=== PATIENT | male | born 1970 | race Two or more races ===

== ENCOUNTER 2016-06-08 07:14 | Emergency (ER) | payer MEDICAID ==
[2016-06-08] MEDS ORDERED: MAG HYDROX/AL HYDROX/SIMETH 30 ML UDC PO STA (07:45)
[2016-06-08] MEDS ORDERED: LIDOCAINE VISCOUS 2% 15 ML UDC MM STA (07:45)
[2016-06-08] MEDS ORDERED: FAMOTIDINE 20 MG/50 ML 50 ML IV ONE ×2 (07:45→07:49)
[2016-06-08] MEDS ORDERED: LIDOCAINE VISCOUS 2% 15 ML UDC MM ONE (07:50)
[2016-06-08] MEDS ORDERED: MAG HYDROX/AL HYDROX/SIMETH 30 ML UDC ONE (07:50)
[2016-06-08] MEDS ORDERED: ONDANSETRON 4 MG/2 ML VIAL IVP STA (08:29)
[2016-06-08] MEDS ORDERED: ONDANSETRON 4 MG/2 ML VIAL ONE (08:30)
[2016-06-08] MEDS ORDERED: HYDROmorphone 1 MG/ML SYRINGE IVP STA (08:40)
[2016-06-08] MEDS ORDERED: HYDROmorphone 1 MG/ML SYRINGE ONE (09:06)
== END 2016-06-08 10:50 | disposition home or self-care (01) ==
DX: K29.01 Acute gastritis with bleeding (principal); R79.89 Other specified abnormal findings of blood chemistry; E78.5 Hyperlipidemia, unspecified; I10 Essential (primary) hypertension; Z72.89 Other problems related to lifestyle; Z87.19 Personal history of other diseases of the digestive system; E11.65 Type 2 diabetes mellitus with hyperglycemia
CPT/HCPCS: 36415; 71020; 80053; 83690; 84484; 85025; 93005; 93010; 96374; 96375; 99284; A9270; J1170

== ENCOUNTER 2016-07-05 07:44 | Emergency (ER) | payer MEDICAID ==
[2016-07-05] MEDS ORDERED: LIDOCAINE VISCOUS 2% 15 ML UDC MM STA (09:17)
[2016-07-05] MEDS ORDERED: MAG HYDROX/AL HYDROX/SIMETH 30 ML UDC PO STA (09:17)
[2016-07-05] MEDS ORDERED: MAG HYDROX/AL HYDROX/SIMETH 30 ML UDC ONE (09:31)
[2016-07-05] MEDS ORDERED: LIDOCAINE VISCOUS 2% 15 ML UDC MM ONE (09:31)
== END 2016-07-05 13:22 | disposition home or self-care (01) ==
DX: K29.00 Acute gastritis without bleeding (principal); E78.5 Hyperlipidemia, unspecified; I10 Essential (primary) hypertension; E11.9 Type 2 diabetes mellitus without complications; Z86.39 Personal history of other endocrine, nutritional and metabolic disease
CPT/HCPCS: 36415; 80053; 81003; 83690; 84484; 85025; 93005; 93010; 99284; A9270

== ENCOUNTER 2016-07-14 08:13 | Outpatient (CLI) | payer MEDICAID | END 2016-07-14 08:14 | disposition home or self-care (01) | DX: K85.20 Alcohol induced acute pancreatitis without necrosis or infection (principal); E11.9 Type 2 diabetes mellitus without complications; E78.5 Hyperlipidemia, unspecified ==

== ENCOUNTER 2016-07-26 08:47 | Emergency (ER) | payer MEDICAID ==
--- NOTE | 2016-07-26 09:05 | ED Physician Documentation ---
History of Present Illness - Stated complaint Stated Complaint: BILAT HAND CAT BITES - Chief complaint Chief Complaint: Wound - Additonal information Additional information: hx from pt bit by his cat on the way to the vet to be neutered cat used to be a feral cat and is not immunized but has been an indoor cat living with pt in good health for a year now and a provoked bite Review of Systems Skin: reports: Bite / sting PD PAST MEDICAL HISTORY - Past Medical History Past Medical History: Yes Cardiovascular: High cholesterol Endocrine/Autoimmune: Type 2 diabetes GI: Pancreatitis Musculoskeletal: Chronic back pain - Past Surgical History Past Surgical History: Yes Ortho: Other - Present Medications Home Medications: Ambulatory Orders Medication Instructions Recorded Confirmed Amox/Clav 875/125 [Augmentin] 1 each PO Q12H #14 tablet 07/26/16 - Allergies Allergies/Adverse Reactions: Allergies Allergy/AdvReac Type Severity Reaction Status Date / Time naproxen [From Naprosyn] Allergy Rash Verified 07/05/16 07:49 - Social History Does the pt smoke?: No Smoking Status: Never smoker Does the pt drink ETOH?: Yes Does the pt have substance abuse?: No - Immunizations Immunizations are current?: Yes - POLST Patient has POLST: No PD ED PE NORMAL - Vitals Vital signs reviewed: Yes (BP high) - Extremities Extremities: Other (multiple lacs and punctures left nad mostly (dorsal thenar region, tip 5th finger are the largest deepest but there are approx 5 or 6 smaller more superficial injuries as well), pt reports some numbness proximal to tip of 5th lac and circumferential to thumb but this paresthesia is now very c/w the regions that would be affected by the nerves underlying these injuries - perhaps more 2/2 swelling, motor intact, no tendon weakness) Results - Vitals Vitals: Vital Signs - 24 hr 07/26/16 08:52 Temperature 36.7 C Heart Rate 85 Respiratory 16 Rate Blood Pressure 166/126 H O2 Saturation 98 Oxygen O2 Source Room air Departure - Departure Disposition: 01 Home, Self Care Clinical Impression: Cat bite of multiple sites of hand and fingers Qualifiers: Encounter type: initial encounter Laterality: unspecified laterality Qualified Code(s): S61.459A - Open bite of unspecified hand, initial encounter; S61.259A - Open bite of unspecified finger without damage to nail, initial encounter; W55.01XA - Bitten by cat, initial encounter Condition: Good Instructions: ED Bite Animal General Follow-Up: Dari Brooks ARNP [Primary Care Provider] - Prescriptions: Amox/Clav 875/125 [Augmentin] 1 each PO Q12H #14 tablet Comments: Come back and see me tomorrow for a recheck Ice and elevation will help ease the pain You can take small doses of motrin if your previous gastritis is better and you take it with plenty of food Please follow up with your PMD about your blood pressure - it was high today
[2016-07-26] MEDS ORDERED: TETANUS/DIPHTHERIA/PERTUSSIS 0.5 ML SYRINGE IM ONE ×2 (09:24→09:32)
[2016-07-26] MEDS ORDERED: AMOX/CLAV 875 MG/125 MG TABLET PO STA (09:24)
[2016-07-26] MEDS ORDERED: AMOX/CLAV 875 MG/125 MG TABLET PO ONE (09:32)
[2016-07-26 09:51] VITALS: BP 160/101
== END 2016-07-26 09:52 | disposition home or self-care (01) ==
LOC: ED 08:47
DX: S61.432A Puncture wound without foreign body of left hand, initial encounter (principal); S61.431A Puncture wound without foreign body of right hand, initial encounter; S61.237A Puncture wound without foreign body of left little finger without damage to nail, initial encounter; S61.032A Puncture wound without foreign body of left thumb without damage to nail, initial encounter; W55.01XA Bitten by cat, initial encounter; Z23 Encounter for immunization; E78.00 Pure hypercholesterolemia, unspecified; E11.9 Type 2 diabetes mellitus without complications
CPT/HCPCS: 90471; 90715; 99283; A9270

== ENCOUNTER 2016-08-15 07:10 | Emergency (ER) | payer MEDICAID ==
[2016-08-15] MEDS ORDERED: FLUCONAZOLE 100 MG TABLET PO STA (09:57)
--- NOTE | 2016-08-15 09:58 | ED Physician Documentation ---
History of Present Illness - Stated complaint Stated Complaint: RASH - Chief complaint Chief Complaint: Wound - Additonal information Additional information: hx from pt 46 amle recent ab for cat bite painful itching burning rash to buttocks and inner thighs Review of Systems Constitutional: denies: Fever Skin: reports: Rash PD PAST MEDICAL HISTORY - Past Medical History Cardiovascular: High cholesterol Endocrine/Autoimmune: Type 2 diabetes GI: Pancreatitis Musculoskeletal: Chronic back pain - Past Surgical History Past Surgical History: Yes Ortho: Other - Present Medications Home Medications: Ambulatory Orders Medication Instructions Recorded Confirmed Clotrimazole [Clotrimazole AF] 1 applic TP BID #60 cream..g. 08/15/16 - Allergies Allergies/Adverse Reactions: Allergies Allergy/AdvReac Type Severity Reaction Status Date / Time naproxen [From Naprosyn] Allergy Rash Verified 07/05/16 07:49 - Social History Does the pt smoke?: No Smoking Status: Never smoker Does the pt drink ETOH?: Yes Does the pt have substance abuse?: No - Immunizations Immunizations are current?: Yes - POLST Patient has POLST: No PD ED PE NORMAL - Vitals Vital signs reviewed: Yes - Cardiac Cardiac: RRR - Respiratory Respiratory: No respiratory distress, Clear bilaterally - Derm Derm: Other (erythemtous rad somewhat scaly rass to buttocks and inner thighs with well defined borders most s/w tinue cruris, no scrotal involvement, discharge, crepitus or ncrosis to suggest fourniers) Results - Vitals Vitals: Vital Signs - 24 hr 08/15/16 07:17 Temperature 36.0 C L Heart Rate 84 Respiratory 18 Rate Blood Pressure 148/100 H O2 Saturation 99 Oxygen O2 Source Room air Departure - Departure Disposition: 01 Home, Self Care Clinical Impression: Tinea cruris Condition: Good Instructions: ED Infec Skin Fungal Tinea Prescriptions: Clotrimazole [Clotrimazole AF] 1 applic TP BID #60 cream..g. Comments: Please follow up with your PDM for a recheck in 48 hours unless completely better Return if worse Also please follow up with your PMD about your blood pressure - it was high today
[2016-08-15] MEDS ORDERED: FLUCONAZOLE 100 MG TABLET ONE (10:04)
[2016-08-15 10:13] VITALS: BP 144/93
== END 2016-08-15 10:16 | disposition home or self-care (01) ==
LOC: ED 07:10
DX: B35.6 Tinea cruris (principal); E78.00 Pure hypercholesterolemia, unspecified; E11.9 Type 2 diabetes mellitus without complications
CPT/HCPCS: 99283; A9270

== ENCOUNTER 2016-08-25 08:55 | Outpatient (CLI) | payer MEDICAID ==
[2016-08-25 09:34] LABS: BILIRUBIN,URINE NEGATIVE (NEGATIVE); PH,URINE 6.5 PH (5.0-7.5)
[2016-08-25 09:39] LABS: UR CULTURE IF IND NOT INDICATED; WBC,URINE 0-3 /HPF (0-3)
[2016-08-25 09:43] LABS: BASOPHILS # (AUTO) 0.1 10^3/uL (0.0-0.1); BASOPHILS % (AUTO) 0.7 %; EOSINOPHILS # (AUTO) 0.1 10^3/uL (0.0-0.7); EOSINOPHILS % (AUTO) 1.7 %; HCT - HEMATOCRIT 39.2 % (42.0-52.0); HGB - HEMOGLOBIN 13.5 g/dL (14.0-18.0); LYMPHOCYTES # (AUTO) 2.1 10^3/uL (1.5-3.5); LYMPHOCYTES % (AUTO) 26.7 %; MEAN CORPUSCULAR HEMOGLOBIN 29.8 pg (27.0-31.0); MEAN CORPUSCULAR HGB CONC 34.5 g/dL (32.0-36.0); MEAN CORPUSCULAR VOLUME 86.4 fL (80.0-94.0); MEAN PLATELET VOLUME 8.6 fL (7.4-11.4); MONOCYTES # (AUTO) 0.4 10^3/uL (0.0-1.0); MONOCYTES % (AUTO) 4.7 %; NEUTROPHILS # (AUTO) 5.3 10^3/uL (1.5-6.6); NEUTROPHILS % (AUTO) 66.2 %; RED BLOOD COUNT 4.54 10^6/uL (4.70-6.10)
[2016-08-25 10:23] LABS: HEMOGLOBIN A1C 1.48 g/dL
[2016-08-25 10:27] LABS: ALBUMIN/GLOBULIN RATIO 1.1 (1.0-2.2); BILIRUBIN,TOTAL 0.7 mg/dL (0.2-1.0); BUN - BLOOD UREA NITROGEN 10 mg/dL (6-20); CALCIUM 9.1 mg/dL (8.5-10.3); CARBON DIOXIDE - CO2 23 mmol/L (21-32); CHLORIDE 103 mmol/L (101-111); CHOL/HDL RATIO 5.4 (<5.0); CHOLESTEROL 264 mg/dL; CREATININE 0.6 mg/dL (0.6-1.2); GFR - MDRD 144 (>89); GLUCOSE 293 mg/dL (70-100); HDL CHOLESTEROL 49 mg/dL; LDL/HDL RATIO 3.2 (<3.6); POTASSIUM 3.9 mmol/L (3.5-5.0); SODIUM 136 mmol/L (135-145); TOTAL PROTEIN 7.3 g/dL (6.7-8.2); TRIGLYCERIDES 290 mg/dL; VLDL CHOLESTEROL 58 mg/dL
== END 2016-08-25 08:56 | disposition home or self-care (01) ==
LOC: LAB 08:55
PROVIDERS: ATTEND Nurse Practitioner Family
DX: E11.9 Type 2 diabetes mellitus without complications (principal); E78.5 Hyperlipidemia, unspecified
CPT/HCPCS: 36415; 80053; 80061; 81001; 82043; 82570; 83036; 84443; 85025; 87086

== ENCOUNTER 2016-09-06 09:28 | Emergency (ER) | payer MEDICAID ==
[2016-09-06 09:34] VITALS: BP 146/99
[2016-09-06] MEDS ORDERED: LIDOCAINE VISCOUS 2% 15 ML UDC MM STA (10:41)
[2016-09-06] MEDS ORDERED: MAG HYDROX/AL HYDROX/SIMETH 30 ML UDC PO STA ×2 (10:42→11:42)
[2016-09-06] MEDS ORDERED: SUCRALFATE 1 GM/10 ML UDC PO STA (10:42)
[2016-09-06] MEDS ORDERED: PANTOPRAZOLE 40 MG TABLET PO STA (10:43)
[2016-09-06] MEDS ORDERED: MAG HYDROX/AL HYDROX/SIMETH 30 ML UDC ONE ×2 (10:45→11:43)
[2016-09-06] MEDS ORDERED: LIDOCAINE VISCOUS 2% 15 ML UDC MM ONE ×2 (10:45→11:43)
[2016-09-06] MEDS ORDERED: SUCRALFATE 1 GM/10 ML UDC ONE (10:45)
[2016-09-06] MEDS ORDERED: PANTOPRAZOLE 40 MG TABLET ONE (10:45)
[2016-09-06 10:56] LABS: BASOPHILS # (AUTO) 0.1 10^3/uL (0.0-0.1); BASOPHILS % (AUTO) 1.7 %; EOSINOPHILS % (AUTO) 0.5 %; HCT - HEMATOCRIT 44.6 % (42.0-52.0); LYMPHOCYTES # (AUTO) 1.8 10^3/uL (1.5-3.5); LYMPHOCYTES % (AUTO) 23.9 %; MEAN CORPUSCULAR HEMOGLOBIN 30.4 pg (27.0-31.0); MEAN CORPUSCULAR HGB CONC 35.9 g/dL (32.0-36.0); MEAN CORPUSCULAR VOLUME 84.8 fL (80.0-94.0); MEAN PLATELET VOLUME 8.1 fL (7.4-11.4); MONOCYTES # (AUTO) 0.4 10^3/uL (0.0-1.0); MONOCYTES % (AUTO) 5.3 %; NEUTROPHILS # (AUTO) 5.3 10^3/uL (1.5-6.6); NEUTROPHILS % (AUTO) 68.6 %; NUCLEATED RED BLOOD CELLS AUTO 0.1 /100WBC; RED BLOOD COUNT 5.27 10^6/uL (4.70-6.10); RED CELL DISTRIBUTION WIDTH 12.9 % (12.0-15.0); UNCORRECTED WHITE BLOOD COUNT 7.7 x10^3/uL; WHITE BLOOD COUNT 7.7 x10^3/uL (4.8-10.8)
[2016-09-06 11:15] LABS: ALBUMIN/GLOBULIN RATIO 1.4 (1.0-2.2); BILIRUBIN,TOTAL 0.8 mg/dL (0.2-1.0); CALCIUM 9.2 mg/dL (8.5-10.3); CREATININE 0.8 mg/dL (0.6-1.2); POTASSIUM 3.8 mmol/L (3.5-5.0); TOTAL PROTEIN 7.3 g/dL (6.7-8.2)
[2016-09-06] MEDS ORDERED: LIDOCAINE VISCOUS 2% 100 ML BOTTLE MM STA (11:41)
--- NOTE | 2016-09-06 11:45 | ED Physician Documentation ---
PD HPI ABD PAIN - Stated complaint Stated Complaint: LEFT SIDE PX - Chief complaint Chief Complaint: Abd Pain - History obtained from History obtained from: Patient - History of Present Illness Timing - onset: Enter time (0800), Today Timing - duration: Hours Timing - details: Abrupt onset, Still present Quality: Sharp, Pain Location: LUQ Improved by: Laying still Worsened by: Moving, Breathing, Position, Palpation Associated symptoms: Nausea, Vomiting Similar symptoms before: Diagnosis (gastritis) Recently seen: Emergency Dept - Additional information Additional information: 46-year-old noncompliant diabetic male with left upper quadrant abdominal pain has had gastritis a number of times he has had pancreatitis once previously he has had gastritis with bleeding previously as well. He has had some vomiting and abdominal pain consistent with what he has had previously. He has not been taking any medications for his diabetes he states that all of these medicines have caused problem with the stomach and he has been noncompliant. Review of Systems Constitutional: denies: Fever, Chills Eyes: denies: Decreased vision Ears: denies: Ear pain Nose: denies: Congestion Throat: denies: Sore throat Cardiac: denies: Chest pain / pressure, Palpitations Respiratory: denies: Dyspnea, Cough GI: reports: Abdominal Pain, Nausea, Vomiting : reports: Frequency. denies: Dysuria Skin: denies: Rash, Lesions Musculoskeletal: denies: Neck pain, Back pain Neurologic: denies: Generalized weakness, Focal weakness, Numbness Endocrine: reports: Polydypsia, Polyuria PD PAST MEDICAL HISTORY - Past Medical History Cardiovascular: High cholesterol Endocrine/Autoimmune: Type 2 diabetes GI: Pancreatitis Musculoskeletal: Chronic back pain - Past Surgical History Past Surgical History: Yes Ortho: Other - Present Medications Home Medications: Ambulatory Orders Medication Instructions Recorded Confirmed Sucralfate [Carafate] 1 gm PO ACHS #500 ml 09/06/16 - Allergies Allergies/Adverse Reactions: Allergies Allergy/AdvReac Type Severity Reaction Status Date / Time naproxen [From Naprosyn] Allergy Rash Verified 08/15/16 10:10 - Social History Does the pt smoke?: No Smoking Status: Never smoker Does the pt drink ETOH?: Yes Does the pt have substance abuse?: No - Immunizations Immunizations are current?: Yes - POLST Patient has POLST: No PD ED PE NORMAL - Vitals Vital signs reviewed: Yes (Hypertensive) - General General: No acute distress, Well developed/nourished - HEENT HEENT: Atraumatic, PERRL, EOMI - Neck Neck: Supple, no meningeal sign - Cardiac Cardiac: RRR, No murmur - Respiratory Respiratory: No respiratory distress, Clear bilaterally - Abdomen Abdomen: Soft, Other (Mild left upper quadrant tenderness to deep palpation without guarding or rebound tenderness no other tenderness in the abdomen.) - Back Back: No CVA TTP, No spinal TTP - Derm Derm: Normal color, No rash - Extremities Extremities: No deformity, No edema - Neuro Neuro: No motor deficit, No sensory deficit - Psych Psych: Normal mood, Normal affect Results - Vitals Vitals: Vital Signs - 24 hr 09/06/16 09:32 Temperature 35.7 C L Heart Rate 95 Respiratory 18 Rate Blood Pressure 146/99 H O2 Saturation 98 Oxygen O2 Source Room air - Labs Labs: Laboratory Tests 09/06/16 09/06/16 10:40 10:40 WBC 7.7 RBC 5.27 Hgb 16.0 Hct 44.6 MCV 84.8 MCH 30.4 MCHC 35.9 RDW 12.9 Plt Count 190 MPV 8.1 Neut # 5.3 Lymph # 1.8 Falls # 0.4 Eos # 0.0 Baso # 0.1 Absolute Nucleated RBC 0.00 Nucleated RBCs 0.1 Sodium 131 L Potassium 3.8 Chloride 100 L Carbon Dioxide 18 L Anion Gap 13.0 BUN 16 Creatinine 0.8 Estimated GFR (MDRD) 103 Glucose 282 H Calcium 9.2 Total Bilirubin 0.8 Alkaline Phosphatase 97 Total Protein 7.3 Albumin 4.3 Globulin 3.0 Albumin/Globulin Ratio 1.4 Lipase 28 PD MEDICAL DECISION MAKING - ED course Complexity details: reviewed old records, reviewed results, re-evaluated patient , considered differential, d/w patient ED course: 46-year-old diabetic male with medical noncompliance is developed gastritis again he does have some relief of his pain with use of viscous lidocaine and Mylanta and Carafate. I have encouraged him to follow-up with his primary care doctor to consider the use of insulin to treat his diabetes and today we will treat him with Carafate and recommend he take an [id number] acid reducing medication. Departure - Departure Disposition: 01 Home, Self Care Clinical Impression: Medical non-compliance Gastritis Qualifiers: Gastritis type: unspecified gastritis Chronicity: acute Gastritis bleeding: without bleeding Qualified Code(s): K29.00 - Acute gastritis without bleeding Condition: Stable Instructions: ED Gastritis Follow-Up: Dari Brooks ARNP [Primary Care Provider] - Prescriptions: Sucralfate [Carafate] 1 gm PO ACHS #500 ml Comments: Today your diabetes has not been controlled and he will likely need to begin on some insulin. Talk to your primary care provider about beginning this treatment. In the meantime take the Carafate as prescribed and use an acid reducing medication for your stomach on a regular basis.
== END 2016-09-06 11:58 | disposition home or self-care (01) ==
LOC: ED 09:28
DX: K29.00 Acute gastritis without bleeding (principal); E11.9 Type 2 diabetes mellitus without complications; Z91.19 Patient's noncompliance with other medical treatment and regimen
CPT/HCPCS: 36415; 80053; 83690; 85025; 99283

== ENCOUNTER 2016-11-01 08:15 | Emergency (ER) | payer MEDICAID ==
[2016-11-01] MEDS ORDERED: oxyCOD/ACETAMIN 5 MG/325 MG TABLET PO STA (08:58)
--- NOTE | 2016-11-01 09:11 | ED Physician Documentation ---
History of Present Illness - Stated complaint Stated Complaint: GROIN PX - Chief complaint Chief Complaint: Abd Pain - Additonal information Additional information: hx from pt 5 days l scrotal pain and swelling no trauma no NVD no dysuria penile dc Review of Systems Constitutional: denies: Fever GI: denies: Abdominal Pain, Nausea, Vomiting, Diarrhea : reports: Testicular pain. denies: Dysuria, Discharge Immunocompromised: denies: Immunocompromised PD PAST MEDICAL HISTORY - Past Medical History Past Medical History: Yes Cardiovascular: Hypertension, High cholesterol Endocrine/Autoimmune: Type 2 diabetes GI: Pancreatitis Musculoskeletal: Chronic back pain - Past Surgical History Past Surgical History: Yes Ortho: Other - Present Medications Home Medications: Ambulatory Orders Medication Instructions Recorded Confirmed No Known Home Medications [No 11/01/16 11/01/16 Known Home Medications] - Allergies Allergies/Adverse Reactions: Allergies Allergy/AdvReac Type Severity Reaction Status Date / Time naproxen [From Naprosyn] Allergy Rash Verified 11/01/16 08:27 - Social History Does the pt smoke?: No Smoking Status: Former smoker Does the pt drink ETOH?: Yes Does the pt have substance abuse?: No - Immunizations Immunizations are current?: Yes - POLST Patient has POLST: No PD ED PE NORMAL - Vitals Vital signs reviewed: Yes - Cardiac Cardiac: RRR - Respiratory Respiratory: No respiratory distress, Clear bilaterally - Male Male : Other (no lesions, no dc, testicles descended radha and nl lie, L testicle TTP diffusely posterior > anterior, no masses appreciated, l inguinal hernia reducible but testiclar pain persists) Results - Vitals Vitals: Vital Signs - 24 hr 11/01/16 08:21 Temperature 36.4 C L Heart Rate 92 Respiratory 16 Rate Blood Pressure 144/95 H O2 Saturation 97 Oxygen O2 Source Room air - Labs Labs: Laboratory Tests 11/01/16 08:33 POC Whole Bld Glucose 251 H - Rads (name of study) testicular sono Radiology: See rad report (normal, no hernia (reduced during my exam)) Departure - Departure Disposition: 01 Home, Self Care Clinical Impression: Inguinal hernia Qualifiers: Obstruction and gangrene presence: without obstruction or gangrene Laterality: unilateral Recurrence: not specified as recurrent Qualified Code(s): K40.90 - Unilateral inguinal hernia, without obstruction or gangrene, not specified as recurrent Condition: Good Instructions: ED Hernia Inguinal Follow-Up: Lamin Faulkner MD [Provider Admit Priv/Credential] - Comments: The ultrasound of the testicle was fine. The pain and swelling are likely due to the hernia For now, the hernia has been reduced. If you strain or lift, it may re-occur. If that happens, lay down, apply a bag of ice wrapped in a towel for twenty minutes and then gently try to push the swelling up towards your abdomen. If you cannot reduce the hernia and the pain is severe or you are vomiting, please come back to the ER. Otherwise, please follow up with the surgery clinic Also please follow up with your PMD about you blood pressure and blood sugar - both were high today Forms: Activity restrictions
[2016-11-01] MEDS ORDERED: oxyCOD/ACETAMIN 5 MG/325 MG TABLET PO ONE (09:17)
[2016-11-01 10:35] VITALS: BP 153/103
--- NOTE | 2016-11-01 10:51 | Ultrasound Report ---
SCROTAL DUPLEX: 11/01/2016 CLINICAL INDICATION: Left testicular pain. TECHNIQUE: Real-time sonographic vascular imaging was performed by the take out waitress through the scrot um utilizing both color-flow and Doppler spectral analysis. Multiple customer assistance representative static images we re saved for review. FINDINGS: The right testicle measures 4.2 x 2.8 x 2.0 cm, and the left testicle measures 4.0 x 2.8 x 2.1 cm. Both testicles demonstrate normal flow and echotexture. The epididymides are unremarkable. No hydrocele, varicocele, or hernia is identified. IMPRESSION: NORMAL SCROTAL DUPLEX. NO EVIDENCE OF A HERNIA. JOB #: [id number] EXT JOB #:[id number]
== END 2016-11-01 10:47 | disposition home or self-care (01) ==
LOC: ED 08:15
DX: K40.90 Unilateral inguinal hernia, without obstruction or gangrene, not specified as recurrent (principal); I10 Essential (primary) hypertension; E11.9 Type 2 diabetes mellitus without complications; E78.00 Pure hypercholesterolemia, unspecified; Z87.891 Personal history of nicotine dependence
CPT/HCPCS: 76870; 93975; 99283; A9270

== ENCOUNTER 2016-11-03 09:05 | Outpatient (CLI) | payer MEDICAID ==
[2016-11-03 09:46] LABS: BASOPHILS # (AUTO) 0.1 10^3/uL (0.0-0.1); BASOPHILS % (AUTO) 1.4 %; EOSINOPHILS # (AUTO) 0.1 10^3/uL (0.0-0.7); EOSINOPHILS % (AUTO) 1.2 %; HCT - HEMATOCRIT 42.4 % (42.0-52.0); HGB - HEMOGLOBIN 15.1 g/dL (14.0-18.0); LYMPHOCYTES # (AUTO) 2.8 10^3/uL (1.5-3.5); LYMPHOCYTES % (AUTO) 32.5 %; MEAN CORPUSCULAR HEMOGLOBIN 30.6 pg (27.0-31.0); MEAN CORPUSCULAR HGB CONC 35.7 g/dL (32.0-36.0); MEAN CORPUSCULAR VOLUME 85.7 fL (80.0-94.0); MEAN PLATELET VOLUME 8.4 fL (7.4-11.4); MONOCYTES # (AUTO) 0.4 10^3/uL (0.0-1.0); MONOCYTES % (AUTO) 4.4 %; NEUTROPHILS # (AUTO) 5.3 10^3/uL (1.5-6.6); NEUTROPHILS % (AUTO) 60.5 %; NUCLEATED RED BLOOD CELLS AUTO 0.1 /100WBC; RED BLOOD COUNT 4.94 10^6/uL (4.70-6.10); RED CELL DISTRIBUTION WIDTH 14.2 % (12.0-15.0); UNCORRECTED WHITE BLOOD COUNT 8.8 x10^3/uL; WHITE BLOOD COUNT 8.8 x10^3/uL (4.8-10.8)
[2016-11-03 10:30] LABS: PLATELET ESTIMATE, MANUAL NORMAL (130-450,000) (NORMAL); PLATELET MORPHOLOGY NORMAL APPEARANCE (NORMAL); WBC MORPHOLOGY (MULTIPLE) 1+ HYPERSEG NEUT (NORMAL)
[2016-11-03 10:37] LABS: HEMOGLOBIN A1C 1.43 g/dL
[2016-11-03 10:39] LABS: BILIRUBIN,URINE NEGATIVE (NEGATIVE)
[2016-11-03 10:51] LABS: UR CULTURE IF IND INDICATED
[2016-11-03 11:06] LABS: BILIRUBIN,TOTAL 0.7 mg/dL (0.2-1.0)
[2016-11-03 11:36] LABS: POTASSIUM 3.6 mmol/L (3.5-5.0); SODIUM 129 mmol/L (135-145)
[2016-11-03 11:37] LABS: BUN - BLOOD UREA NITROGEN 13 mg/dL (6-20); CARBON DIOXIDE - CO2 21 mmol/L (21-32); CHLORIDE 99 mmol/L (101-111); CREATININE 0.7 mg/dL (0.6-1.2); GFR - MDRD 120 (>89); GLUCOSE 236 mg/dL (70-100); TOTAL PROTEIN 7.5 g/dL (6.7-8.2)
[2016-11-03 11:38] LABS: ALBUMIN/GLOBULIN RATIO 1.3 (1.0-2.2); CHOL/HDL RATIO 24.7 (<5.0); CHOLESTEROL 741 mg/dL; HDL CHOLESTEROL 30 mg/dL; TRIGLYCERIDES > 2000 mg/dL
[2016-11-03 12:49] LABS: LDL CHOLESTEROL,DIRECT 82 mg/dL
== END 2016-11-03 09:06 | disposition home or self-care (01) ==
LOC: LAB 09:05
PROVIDERS: ATTEND Nurse Practitioner Family
DX: I10 Essential (primary) hypertension (principal); E78.5 Hyperlipidemia, unspecified; E11.9 Type 2 diabetes mellitus without complications
CPT/HCPCS: 36415; 80053; 80061; 81001; 82043; 82570; 83036; 84443; 85025; 87086

== ENCOUNTER 2016-11-10 09:59 | Outpatient (CLI) | payer MEDICAID | END 2016-11-10 10:00 | disposition home or self-care (01) | LOC: LAB 09:59 | PROVIDERS: ATTEND Family Medicine | DX: R74.8 Abnormal levels of other serum enzymes (principal); E11.65 Type 2 diabetes mellitus with hyperglycemia | CPT/HCPCS: 36415; 86317; 86704 ==

== ENCOUNTER 2016-11-11 06:48 | Day surgery (SDC) | payer MEDICAID ==
[~2016-11-11 06:48] MED LIST: ceFAZolin 2 GM/50 ML 50 ML IV ONE
[2016-11-11] MEDS ORDERED: LACTATED RINGERS 1,000 ML IV ONE ×3 (07:27→10:24)
[2016-11-11] MEDS ORDERED: BUPIVACAINE 0.5% PF 30 ML VIAL SUBQ ONE ×2 (08:50)
[2016-11-11] MEDS ORDERED: LIDOCAINE-MPF 2% 5 ML VIAL IM ONE (09:00)
[2016-11-11] MEDS ORDERED: MIDAZOLAM 2 MG/2 ML VIAL IVP ONE (09:00)
[2016-11-11] MEDS ORDERED: SUCCINYLCHOLINE 200 MG/10 ML VIAL IVP ONE (09:00)
[2016-11-11] MEDS ORDERED: NEOSTIGMINE 1 MG/1 ML 10 ML MDV IVP ONE (09:00)
[2016-11-11] MEDS ORDERED: GLYCOPYRROLATE 1 MG/5 ML VIAL IVP ONE (09:00)
[2016-11-11] MEDS ORDERED: HYDROmorphone 1 MG/ML SYRINGE IVP ONE (09:00)
[2016-11-11] MEDS ORDERED: ACETAMINOPHEN 1,000 MG/100 ML 100 ML IV ONE (09:00)
[2016-11-11] MEDS ORDERED: METOPROLOL 5 MG/5 ML VIAL IVP ONE (09:00)
[2016-11-11] MEDS ORDERED: DEXAMETHASONE 4 MG/ML VIAL IVP ONE (09:00)
[2016-11-11] MEDS ORDERED: ONDANSETRON 4 MG/2 ML VIAL IVP ONE (09:00)
[2016-11-11] MEDS ORDERED: fentaNYL 100 MCG/2 ML VIAL IVP ONE (09:00)
[2016-11-11] MEDS ORDERED: LORazepam 2 MG/ML SYRINGE ONE (10:07)
[2016-11-11] MEDS ORDERED: INSULIN REGULAR HUMAN 100 UNIT/1 ML 10 ML MDV ONE (10:37)
[2016-11-11 11:25] VITALS: BP 129/82
[2016-11-11] MEDS ORDERED: HYDROcod/ACETAM 5/325 MG TABLET ONE (11:27)
--- NOTE | 2016-11-15 03:13 | OPERATIVE REPORT ---
DATE OF SURGERY: 11/11/2016 00:00:00 PREOPERATIVE DIAGNOSIS: Left inguinal hernia. POSTOPERATIVE DIAGNOSIS: Left inguinal hernia. NAME OF PROCEDURE: Laparoscopic left inguinal hernia repair. SURGEON: Drew Higgins MD ANESTHESIA: General. INDICATIONS FOR PROCEDURE: The patient is 46-year-old male who presents with pain in the left groin region. On physical exam, he has a reducible left inguinal hernia. There does not appear to be a hernia on the right side. FINDINGS AT SURGERY: The patient had an indirect small left inguinal hernia. There did not appear to be any hernia on the right side. A Bard large 3DMax mesh was placed in the myopectineal orifice covering the hernia defect area well. DESCRIPTION OF PROCEDURE: After informed consent was obtained, the patient taken to the operating room and placed in supine position. General endotracheal anesthesia administered. The patient's abdomen was then prepped and draped in usual sterile fashion. Prior to making any abdominal incisions, the skin was injected with local anesthesia. An infraumbilical incision was made in the skin using a scalpel. Incision was then deepened down to the fascial layer. The anterior rectus sheath was then split right of the midline. This exposed the rectus muscle. A plane was then developed underneath the rectus muscle. The dissecting balloon was then placed into this space and down to the pubic bone. It was then insufflated under direct vision, dissecting the retrorectus space. This balloon was then removed, and the holding balloon was then placed. The preperitoneal area was then insufflated. A 5 mm port was then placed in the midline just below the umbilical port and a second one just above the pubic bone. The patient was found to have an indirect left inguinal hernia. Exploration of right-sided not reveal any hernia being direct or indirect. The peritoneum was then dissected out of the internal inguinal ring and down posteriorly. It was dissected off the vas deferens and testicular vessels. Laterally, it was dissected off the lateral wall to the anterior superior iliac spine. The patient did not appear to have a direct inguinal hernia. With the peritoneum dissected well back, the barge large 3DMax mesh was then placed into this space. It was then positioned to cover the myopectineal orifice well. The mesh was then secured to the Dexter ligament using SorbaFix, as well as jade. It was then used to secure the mesh to the overlying rectus muscle. Care was taken to avoid placement below the iliopubic track laterally. With the mesh in good position, the preperitoneal space was then desufflated. Looking inside, the mesh stayed in good position. The ports were then removed. The fascial defect at the umbilicus was then closed using running #0 Vicryl suture. The skin incisions were closed using 4-0 Monocryl subcuticular stitch. Dermabond was then applied. The patient was then awakened, extubated and taken from the operating room in stable condition. ESTIMATED BLOOD LOSS: Less than 5 mL. COMPLICATIONS: None. CONDITION OF THE PATIENT AT END OF PROCEDURE: Stable. SPECIMENS: None. DRAINS/PACKS: None. CLASSIFICATION OF WOUND: Clean. JOB #: [id number] EXT JOB #:[id number] MTDD
== END 2016-11-11 06:49 | disposition home or self-care (01) ==
LOC: SDS 06:48
PROVIDERS: ATTEND Surgery
PROC: 0YU64JZ Supplement Left Inguinal Region with Synthetic Substitute, Percutaneous Endoscopic Approach (ICD-10-PCS; principal; 2016-11-11 08:00)
DX: K40.90 Unilateral inguinal hernia, without obstruction or gangrene, not specified as recurrent (principal); E11.9 Type 2 diabetes mellitus without complications; E78.00 Pure hypercholesterolemia, unspecified; Z87.891 Personal history of nicotine dependence
CPT/HCPCS: 49650; A9270; J0131; J0690; J1170; J1815; J2060; J7120

== ENCOUNTER 2016-11-30 09:46 | Emergency (ER) | payer MEDICAID ==
[2016-11-30] MEDS ORDERED: LIDOCAINE PATCH 5% TOP STA (12:39)
[2016-11-30] MEDS ORDERED: traMADol 50 MG TABLET PO STA (12:40)
[2016-11-30] MEDS ORDERED: diazePAM 5 MG TABLET PO STA (12:42)
--- NOTE | 2016-11-30 12:45 | ED Physician Documentation ---
History of Present Illness - Stated complaint Stated Complaint: BACK PX - Chief complaint Chief Complaint: Back Pain - Additonal information Additional information: hx from pt recent hernia surgery so in bed more than nl now with low back pain left SI region rad to left glut hx low back pain no fever IDDM but always uses clean needles and no IVDA no abd pain no new numbness (always numb feet) no weakness except 2/2 pain no urinary sx Review of Systems Constitutional: denies: Fever, Chills Cardiac: denies: Chest pain / pressure Respiratory: denies: Dyspnea GI: denies: Abdominal Pain : denies: Incontinent Musculoskeletal: reports: Back pain Neurologic: denies: Focal weakness, Numbness (none new) PD PAST MEDICAL HISTORY - Past Medical History Cardiovascular: Hypertension, High cholesterol Respiratory: None Endocrine/Autoimmune: Type 2 diabetes GI: Pancreatitis : Other HEENT: None Psych: None Musculoskeletal: Chronic back pain Derm: None - Past Surgical History Past Surgical History: Yes Ortho: Other - Present Medications Home Medications: Ambulatory Orders Medication Instructions Recorded Confirmed Pen Needle, Diabetic [Insulin Pen 15 units SQ DAILY 11/09/16 11/30/16 Needle] traMADol [Ultram] 50 mg PO TID PRN 11/09/16 11/30/16 Lidocaine Patch 5% [Lidoderm Patch] 1 each TOP DAILY PRN #10 patch 11/30/16 diazePAM [Valium] 5 mg PO Q8H PRN #10 tablet 11/30/16 - Allergies Allergies/Adverse Reactions: Allergies Allergy/AdvReac Type Severity Reaction Status Date / Time naproxen [From Naprosyn] Allergy Rash Verified 11/01/16 08:27 - Social History Does the pt smoke?: No Smoking Status: Former smoker Does the pt drink ETOH?: Yes Does the pt have substance abuse?: No - Immunizations Immunizations are current?: Yes - POLST Patient has POLST: No PD ED PE NORMAL - Vitals Vital signs reviewed: Yes - Neck Neck: Supple, no meningeal sign - Cardiac Cardiac: RRR - Respiratory Respiratory: No respiratory distress, Clear bilaterally - Abdomen Abdomen: Soft, Non tender, Other (no pulsatle mass, incision healing well) - Back Back: No spinal TTP (nor redness swelling warmth), Other (TTP L SI jt region, limited ROM 2/2 pain) - Neuro Neuro: Other (no saddle anesthesia, hip flex knee ext foot dorsi plantar and great toe ext 5/5 patellar DTR 2/4 no clones, neg SLR radha (not past knee), dec senation bot feet not new, good distal perfusion) Results - Vitals Vitals: Vital Signs - 24 hr 11/30/16 09:55 Temperature 36.5 C Heart Rate 94 Respiratory 20 Rate Blood Pressure 145/91 H O2 Saturation 100 Oxygen O2 Source Room air PD MEDICAL DECISION MAKING - ED course ED course: pt is diabetic but otherwise no red flags and exam is very typical or muscular low back pain and pt has a hx of the same Departure - Departure Disposition: Home, Self Care Clinical Impression: Back pain Qualifiers: Back pain location: low back pain Chronicity: acute Back pain laterality: left Sciatica presence: with sciatica Sciatica laterality: sciatica of left side Qualified Code(s): M54.42 - Lumbago with sciatica, left side Condition: Good Instructions: ED Neck Back Pain General Follow-Up: Dari Brooks ARNP [Primary Care Provider] - Prescriptions: Lidocaine Patch 5% [Lidoderm Patch] 1 each TOP DAILY PRN #10 patch PRN Reason: Pain diazePAM [Valium] 5 mg PO Q8H PRN #10 tablet PRN Reason: muscle spasm Comments: Continue your tramadol Follow up with your PMD A Fly Return if worse (fever, incontinence, new numbness or weakness) And please follow up with lyn DOLL to recheck your blood pressure - it was high today
[2016-11-30] MEDS ORDERED: traMADol 50 MG TABLET PO ONE (12:59)
[2016-11-30] MEDS ORDERED: LIDOCAINE PATCH 5% TOP ONE (13:00)
[2016-11-30] MEDS ORDERED: diazePAM 5 MG TABLET PO ONE (13:00)
--- NOTE | 2016-11-30 13:58 | ED Physician Documentation ---
ED Addendum - Addendum Addendum: 11/30/16 13:56 pt angry at dc, states he wants xrays, I explained xrays unlikely to be helpful if no trauma, he states he wants to know what is wrong with his back, I reminded him he has a hx of back pain and HNP, he still feels that he needs imaging, I explained MRI is not going to be able to be done from the ER for this situation, he wants xrays 11/30/16 14:47 xray = minimal degenerative disease with no fever or new neuro sx do not think pt needs an emergent MRI will reassure and dc as planned
--- NOTE | 2016-11-30 14:04 | XRAY Preliminary Report ---
Exam: XR Lumbar Spine 2 View IMPRESSION: Minimal degenerative facet disease. [facility] SITE ID: [id number]
--- NOTE | 2016-11-30 14:07 | XRAY Report ---
EXAM: LUMBOSACRAL SPINE RADIOGRAPHY EXAM DATE: 11/30/2016 01:46 PM. CLINICAL HISTORY: Back pain. COMPARISONS: MR scan dated 07/14/2006. TECHNIQUE: 2 views. FINDINGS: Alignment: Normal. No spondylolisthesis or scoliosis. Bones: 5 lumbar vertebrae. No fractures or bone lesions. Disks: Normal. Disk heights are maintained. Facets: Minimal degenerative changes at L4-L5 and L5-S1. Sacroiliac Joints: Unremarkable. Soft Tissues: Unremarkable. IMPRESSION: Minimal degenerative facet disease. [facility] Referring Provider Line: [phone] SITE ID: [id number]
[2016-11-30 15:03] VITALS: BP 142/98
== END 2016-11-30 15:01 | disposition home or self-care (01) ==
LOC: ED 09:46
DX: M54.42 Lumbago with sciatica, left side (principal); G89.29 Other chronic pain; I10 Essential (primary) hypertension; E78.00 Pure hypercholesterolemia, unspecified; E11.8 Type 2 diabetes mellitus with unspecified complications; Z79.4 Long term (current) use of insulin; Z87.891 Personal history of nicotine dependence
CPT/HCPCS: 72100; 99283; A9270

== ENCOUNTER 2017-02-05 07:54 | Emergency (ER) | payer MEDICAID ==
[2017-02-05 08:09] VITALS: BP 151/99
--- NOTE | 2017-02-05 08:11 | ED Physician Documentation ---
PD HPI TRUNK INJURY - Stated complaint Stated Complaint: LT RIB INJ - Chief complaint Chief Complaint: General - History obtained from History obtained from: Patient - History of Present Illness Location: Anterior chest, Left chest Type of injury: Fall Timing - onset: How many days ago (2) Timing - duration: Days (2) Timing - details: Abrupt onset, Still present Quality: Pain, Sharp Improved by: Rest Worsened by: Moving, Palpating Associated symtptoms: No: Weakness, Numbness, Tingling, Swelling, Discoloration Contributing factors: No: Anticoagulated Where injury occured: Home Similar symptoms before: Diagnosis (chest wall contusion) Recently seen: Not recently seen - Additional information Additional information: 46-year-old male diabetic now compliant on his medications was in his home 2 days ago when he went to pick up operator his kitten from behind his couch he was standing on the couch and dove down to pick up operator the cat and struck his chest wall on the back of the couch. Here to crack when this happened and has persistent or worsening pain in the left anterior chest. He is able to breathe. Review of Systems Constitutional: denies: Fever Eyes: denies: Decreased vision Ears: denies: Ear pain Nose: denies: Congestion Throat: denies: Sore throat Cardiac: reports: Chest pain / pressure. denies: Palpitations, Pedal edema, Calf pain Respiratory: denies: Dyspnea, Cough GI: denies: Abdominal Pain, Nausea, Vomiting : denies: Dysuria PD PAST MEDICAL HISTORY - Past Medical History Cardiovascular: Hypertension, High cholesterol Respiratory: None Endocrine/Autoimmune: Type 2 diabetes GI: Pancreatitis : Nocturia, Other HEENT: None Psych: None Musculoskeletal: Chronic back pain Derm: None - Past Surgical History Past Surgical History: Yes Ortho: Other - Present Medications Home Medications: Ambulatory Orders Medication Instructions Recorded Confirmed Insulin Glargine,Hum.rec.anlog 50 units SQ DAILY 12/15/16 02/05/17 [Basaglar Kwikpen U-100] HYDROcod/ACETAM 5/325 [Mobile 5/325] 1 - 2 ea PO Q6H PRN #15 tablet 02/05/17 - Allergies Allergies/Adverse Reactions: Allergies Allergy/AdvReac Type Severity Reaction Status Date / Time naproxen [From Naprosyn] Allergy Rash Verified 02/05/17 08:14 - Social History Does the pt smoke?: No Smoking Status: Former smoker Does the pt drink ETOH?: Yes Does the pt have substance abuse?: No - Immunizations Immunizations are current?: Yes - POLST Patient has POLST: No PD ED PE NORMAL - Vitals Vital signs reviewed: Yes (hypertensive) - General General: Alert and oriented X 3, No acute distress, Well developed/nourished - HEENT HEENT: Atraumatic, PERRL - Neck Neck: Supple, no meningeal sign - Cardiac Cardiac: RRR, No murmur - Respiratory Respiratory: No respiratory distress, Clear bilaterally, Other (There is pain to palpation of the anterior chest wall on the left upper chest. ) - Abdomen Abdomen: Soft, Non tender - Back Back: No CVA TTP, No spinal TTP - Derm Derm: Normal color, Warm and dry, No rash - Extremities Extremities: No deformity, No edema - Neuro Neuro: Alert and oriented X 3, No motor deficit, No sensory deficit, Normal speech Eye Opening: Spontaneous Motor: Obeys Commands Verbal: Oriented GCS Score: 15 - Psych Psych: Normal mood, Normal affect Results - Vitals Vitals: Vital Signs - 24 hr 02/05/17 08:06 Temperature 36.8 C Heart Rate 92 Respiratory 20 Rate Blood Pressure 151/99 H O2 Saturation 97 Oxygen O2 Source Room air - Rads (name of study) L ribs with PA chest Radiology: Prelim report reviewed (Impression: 1. Low lung volumes with mild bibasilar opacity, atelectasis versus infiltrate. 2. No definite acute fracture or malalignment. Please note that nondisplaced rib fractures may be radiographically inapparent.), EMP read indepedently, See rad report PD MEDICAL DECISION MAKING - ED course Complexity details: reviewed old records, reviewed results, re-evaluated patient , considered differential, d/w patient ED course: 46 y/o male diabetic with a chest wall contusion has no evidence of fracture on plain film and he does have a stomach sensitivity. We will provide him with some narcotic for short term use for acute pain. Departure - Departure Disposition: 01 Home, Self Care Clinical Impression: Chest wall contusion Qualifiers: Encounter type: initial encounter Laterality: left Qualified Code(s): S20.212A - Contusion of left front wall of thorax, initial encounter Condition: Stable Instructions: ED Contusion Chest Wall Follow-Up: Dari Brooks ARNP [Primary Care Provider] - Prescriptions: HYDROcod/ACETAM 5/325 [Mobile 5/325] 1 - 2 ea PO Q6H PRN #15 tablet PRN Reason: Pain
--- NOTE | 2017-02-05 08:43 | XRAY Preliminary Report ---
Exam: XR RIBS W/PA CHEST LT IMPRESSION: 1. Low lung volumes with mild bibasal opacity, atelectasis versus infiltrate. 2. No definite acute fracture or malalignment. Please note that a nondisplaced rib fracture may be ra diographically inapparent. [facility] SITE ID: [id number]
--- NOTE | 2017-02-05 08:46 | XRAY Report ---
EXAM: LEFT RIB RADIOGRAPHY EXAM DATE: 02/05/2017 08:28 AM. CLINICAL HISTORY: Left upper chest contusion . COMPARISON: 06/08/2016. TECHNIQUE: 1 view of the chest and 2 views of the ribs. FINDINGS: Bones: Normal. No fracture or bone lesion. Lungs: Low lung volumes with mild bibasal opacity, atelectasis versus infiltrate. No pleural effusion or pneumothorax are evident. Mediastinum: Heart and mediastinal contours are unremarkable. Other: None. IMPRESSION: 1. Low lung volumes with mild bibasal opacity, atelectasis versus infiltrate. 2. No definite acute fracture or malalignment. Please note that a nondisplaced rib fracture may be ra diographically inapparent. [facility] Referring Provider Line: [phone] SITE ID: [id number]
== END 2017-02-05 08:58 | disposition home or self-care (01) ==
LOC: ED 07:54
DX: S20.212A Contusion of left front wall of thorax, initial encounter (principal); W17.89XA Other fall from one level to another, initial encounter; Y92.019 Unspecified place in single-family (private) house as the place of occurrence of the external cause; E11.9 Type 2 diabetes mellitus without complications; Z79.4 Long term (current) use of insulin; I10 Essential (primary) hypertension; E78.00 Pure hypercholesterolemia, unspecified; Z86.39 Personal history of other endocrine, nutritional and metabolic disease; Z87.891 Personal history of nicotine dependence
CPT/HCPCS: 99283; 99284

== ENCOUNTER 2017-03-09 09:03 | Outpatient (CLI) | payer MEDICAID ==
[2017-03-09 09:35] LABS: BILIRUBIN,DIRECT < 0.1 mg/dL (0.1-0.5); BILIRUBIN,TOTAL 0.7 mg/dL (0.2-1.0); TOTAL PROTEIN 7.7 g/dL (6.7-8.2)
[2017-03-09 09:42] LABS: HEMOGLOBIN A1C 0.8 g/dL
== END 2017-03-09 09:04 | disposition home or self-care (01) ==
LOC: LAB 09:03
PROVIDERS: ATTEND Nurse Practitioner Family
DX: R74.8 Abnormal levels of other serum enzymes (principal); E11.65 Type 2 diabetes mellitus with hyperglycemia
CPT/HCPCS: 36415; 80076; 83036

== ENCOUNTER 2017-03-21 08:22 | Emergency (ER) | payer MEDICAID ==
--- NOTE | 2017-03-21 08:30 | ED Physician Documentation ---
PD HPI ABD PAIN - Stated complaint Stated Complaint: LOW LT SIDE PX - History obtained from History obtained from: Patient - History of Present Illness Timing - onset: How many days ago (several days of left inguinal area pain. Had hernia repair 2 months ago without problems and has had some mild pain there. Pain worse the past few days without apparent injury (has been doing normal activity). Feeling a lump in scrotum that is tender as well.) Timing - duration: Days Timing - details: Gradual onset, Still present, Waxing and waning Quality: Aching, Sharp, Pain Location: LLQ (inguinal area radiating to testicle. Some pain LLQ abdomen.) Radiation: No: Lower back, Left flank Improved by: Laying still Worsened by: Moving, Palpation Associated symptoms: Testicular pain. No: Nausea, Vomiting, Diarrhea, Dysuria, Hematuria Recently seen: Surgery (2 months ago, with laparoscopic hernia repair left inguinal.) Review of Systems Constitutional: denies: Fever, Chills GI: denies: Nausea, Vomiting, Diarrhea : denies: Dysuria, Frequency, Hematuria, Discharge Skin: denies: Rash, Lesions PD PAST MEDICAL HISTORY - Past Medical History Cardiovascular: Hypertension, High cholesterol Respiratory: None Endocrine/Autoimmune: Type 2 diabetes GI: Pancreatitis : Nocturia, Other HEENT: None Psych: None Musculoskeletal: Chronic back pain Derm: None - Past Surgical History Past Surgical History: Yes Ortho: Other - Present Medications Home Medications: Ambulatory Orders Medication Instructions Recorded Confirmed Insulin Glargine,Hum.rec.anlog 50 units SQ DAILY 12/15/16 03/21/17 [Basaglar Kwikpen U-100] Dexamethasone [Decadron] 4 mg PO DAILY #5 tablet 03/21/17 HYDROcod/ACETAM 5/325 [[place] 5/325] 1 tab PO Q6H PRN #20 tablet 03/21/17 - Allergies Allergies/Adverse Reactions: Allergies Allergy/AdvReac Type Severity Reaction Status Date / Time naproxen [From Naprosyn] Allergy Rash Verified 03/21/17 08:31 - Social History Does the pt smoke?: No Smoking Status: Former smoker Does the pt drink ETOH?: Yes Does the pt have substance abuse?: No - Immunizations Immunizations are current?: Yes - POLST Patient has POLST: No PD ED PE NORMAL - Vitals Vital signs reviewed: Yes - General General: Alert and oriented X 3, No acute distress, Well developed/nourished - Cardiac Cardiac: RRR, No murmur - Respiratory Respiratory: Clear bilaterally - Abdomen Abdomen: Normal bowel sounds, Soft, Non tender, Non distended, No organomegaly, Other (left inguinal area with some tenderness. No signs of infection at area and normal healing of scope sites. Tenderness left upper scrotum with small lump. The testicle has normal lie and is not feeling swollen. ) - Male Male : Other (left scrotal tenderness with focal swelling. ) - Derm Derm: Normal color, Warm and dry, No rash Results - Vitals Vitals: Oxygen O2 Source Room air - Labs Labs: Laboratory Tests 03/21/17 03/21/17 03/21/17 09:10 09:10 10:28 WBC 7.6 RBC 5.31 Hgb 15.1 Hct 43.3 MCV 81.6 MCH 28.4 MCHC 34.8 RDW 14.1 Plt Count 208 MPV 7.7 Neut # 5.1 Lymph # 1.9 [place] # 0.4 Eos # 0.1 Baso # 0.1 Absolute Nucleated RBC 0.00 Nucleated RBC % 0.1 Sodium 138 Potassium 4.4 Chloride 106 Carbon Dioxide 22 Anion Gap 10.0 BUN 16 Creatinine 0.8 Estimated GFR (MDRD) 103 Glucose 104 H Calcium 9.2 Total Bilirubin 1.7 H AST 40 ALT 35 Alkaline Phosphatase 98 Total Protein 7.8 Albumin 4.5 Globulin 3.3 Albumin/Globulin Ratio 1.4 Lipase 19 L Urine Color DARK YELLOW Urine Clarity CLEAR Urine pH 7.0 Ur Specific [place] 1.020 Urine Protein NEGATIVE Urine Glucose (UA) NEGATIVE Urine Ketones NEGATIVE Urine Occult Blood NEGATIVE Urine Nitrite NEGATIVE Urine Bilirubin NEGATIVE Urine Urobilinogen 0.2 (NORMAL) Ur Leukocyte Esterase NEGATIVE Ur Microscopic Review NOT INDICATED Urine Culture Comments NOT INDICATED - Rads (name of study) scrotal U/S Radiology: Prelim report reviewed (small hydrocele. No hernia mass. Normal testicle. ) PD MEDICAL DECISION MAKING - ED course Complexity details: reviewed results (no recurrent hernia. Small hydrocele which could be hurting some. That would be the lump feeling in scrotum. Otherwise normal U/S. Presume pain is scar tissue or such. Could follow up with Surgery to assess as follow up to hernia repair with pain in the area. ), considered differential, d/w patient Departure - Departure Disposition: 01 Home, Self Care Clinical Impression: Deep inguinal pain, left, Pain in scrotum Clinical Impression: (Ruled Out): Inguinal hernia Condition: Stable Record reviewed to determine appropriate education?: Yes Follow-Up: Dari Brooks ARNP [Primary Care Provider] - Drew Higgins MD [Provider Admit Priv/Credential] - Prescriptions: Dexamethasone [Decadron] 4 mg PO DAILY #5 tablet HYDROcod/ACETAM 5/325 [[place] 5/325] 1 tab PO Q6H PRN #20 tablet PRN Reason: Pain Comments: You have a small hydrocele on the left which may be causing some pain. This often goes away with time. I think most of the pain is from some inflammation or stretching of the scar tissue from the surgery. I would use some anti- inflammatories ibuprofen 2-3 times daily and also some Decadron daily for several days. Add Tylenol or hydrocodone if needed for pain. Follow-up with your primary care or Dr. Higgins if persistent pain in the area more than another week or so. Discharge Date/Time: 03/21/17 11:37
[2017-03-21] MEDS ORDERED: HYDROcod/ACETAM 5/325 MG TABLET PO STA (08:58)
[2017-03-21 09:16] LABS: BASOPHILS # (AUTO) 0.1 10^3/uL (0.0-0.1); BASOPHILS % (AUTO) 0.9 %; EOSINOPHILS # (AUTO) 0.1 10^3/uL (0.0-0.7); EOSINOPHILS % (AUTO) 1.1 %; HGB - HEMOGLOBIN 15.1 g/dL (14.0-18.0); LYMPHOCYTES # (AUTO) 1.9 10^3/uL (1.5-3.5); LYMPHOCYTES % (AUTO) 24.9 %; MEAN CORPUSCULAR HEMOGLOBIN 28.4 pg (27.0-31.0); MEAN CORPUSCULAR HGB CONC 34.8 g/dL (32.0-36.0); MEAN CORPUSCULAR VOLUME 81.6 fL (80.0-94.0); MEAN PLATELET VOLUME 7.7 fL (7.4-11.4); MONOCYTES # (AUTO) 0.4 10^3/uL (0.0-1.0); MONOCYTES % (AUTO) 5.5 %; NEUTROPHILS # (AUTO) 5.1 10^3/uL (1.5-6.6); NEUTROPHILS % (AUTO) 67.6 %; PLT - PLATELET COUNT 208 10^3/uL (130-450); RED BLOOD COUNT 5.31 10^6/uL (4.70-6.10); RED CELL DISTRIBUTION WIDTH 14.1 % (12.0-15.0); WHITE BLOOD COUNT 7.6 x10^3/uL (4.8-10.8)
[2017-03-21 09:28] LABS: ALBUMIN 4.5 g/dL (3.2-5.5); ALBUMIN/GLOBULIN RATIO 1.4 (1.0-2.2); BILIRUBIN,TOTAL 1.7 mg/dL (0.2-1.0); CALCIUM 9.2 mg/dL (8.5-10.3); CREATININE 0.8 mg/dL (0.6-1.2); TOTAL PROTEIN 7.8 g/dL (6.7-8.2)
[2017-03-21 11:13] LABS: BILIRUBIN,URINE NEGATIVE (NEGATIVE); CLARITY,URINE CLEAR (CLEAR); GLUCOSE, URINE (UA) NEGATIVE (NEGATIVE); KETONES,URINE (UA) NEGATIVE (NEGATIVE); LEUKOCYTE ESTERASE, URINE NEGATIVE (NEGATIVE); NITRITE,URINE NEGATIVE (NEGATIVE); OCCULT BLOOD,URINE NEGATIVE (NEGATIVE); PROTEIN,URINE NEGATIVE (NEGATIVE); UROBILINOGEN,URINE 0.2 (NORMAL) E.U./dL (NORMAL)
[2017-03-21 11:37] VITALS: BP 142/80
--- NOTE | 2017-03-21 18:35 | Ultrasound Report ---
DATE OF SERVICE: 03/21/2017 SCROTAL DUPLEX: 03/21/2017 CLINICAL INDICATION: Left-sided pain, history of hernia repair. COMPARISON: 11/01/2016, CT 02/08/2016. TECHNIQUE: Real-time scanning was performed with inside sales account representative static images obtained. The right testicle measures 4.2 x 2.9 x 2.0 cm. Normal flow and echotexture is present. The right e pididymis is unremarkable. No hydrocele or varicocele is seen. The left testicle measures 4.2 x 2.6 x 2.2 cm. It demonstrates normal flow and echo texture. A 4 mm epididymal cyst is incidentally noted in the head. Small left hydrocele is present. No varicocele is seen. No hernia is identified in the region of pain car ntified by the patient in the left groin. Likely postoperative changes are noted. IMPRESSION: Normal testes. Incidental left epididymal head cyst. No definite recurrent left inguin al hernia is seen in the region of pain. Likely postoperative changes. TD: 03/21/2017 19:33
== END 2017-03-21 11:37 | disposition home or self-care (01) ==
LOC: ED 08:22
DX: R10.32 Left lower quadrant pain (principal); N50.82 Scrotal pain; N43.3 Hydrocele, unspecified; I10 Essential (primary) hypertension; E78.00 Pure hypercholesterolemia, unspecified; E11.9 Type 2 diabetes mellitus without complications; Z79.4 Long term (current) use of insulin; Z87.891 Personal history of nicotine dependence
CPT/HCPCS: 36415; 76870; 80053; 81003; 83690; 85025; 93975; 99283; 99284; A9270; 81001; 87086

== ENCOUNTER 2017-04-24 08:30 | Emergency (ER) | payer MEDICAID ==
[2017-04-24 08:42] VITALS: BP 163/97
--- NOTE | 2017-04-24 10:05 | ED Physician Documentation ---
History of Present Illness - Stated complaint Stated Complaint: POST SURGERY PX - Chief complaint Chief Complaint: General - History obtained from History obtained from: Patient - History of Present Illness Timing: Yesterday - Additonal information Additional information: 47-year-old male who has had an inguinal hernia repair done laparoscopically 5 months ago had returned to work he developed some pain again in the left lower side and had some scrotal swelling with a hydrocele on ultrasound. He has some improvement with 5 days of dexamethasone and then yesterday he began having significant pain again. He denies any discharge he denies any urethral symptoms he does state that he has a decreased stream. Review of Systems Constitutional: denies: Fever Eyes: denies: Decreased vision Ears: denies: Ear pain Nose: denies: Congestion Throat: denies: Sore throat Respiratory: denies: Cough GI: denies: Vomiting : denies: Dysuria, Frequency, Unable to Void, Incontinent, Hematuria, Discharge Skin: denies: Rash Musculoskeletal: denies: Neck pain, Back pain, Extremity pain Neurologic: denies: Generalized weakness, Focal weakness PD PAST MEDICAL HISTORY - Past Medical History Past Medical History: Yes Cardiovascular: Hypertension, High cholesterol Respiratory: None Endocrine/Autoimmune: Type 2 diabetes GI: Pancreatitis : Nocturia, Other HEENT: None Psych: None Musculoskeletal: Chronic back pain Derm: None - Past Surgical History Past Surgical History: Yes General: Other Ortho: Other - Present Medications Home Medications: Ambulatory Orders Medication Instructions Recorded Confirmed Insulin Glargine,Hum.rec.anlog 50 units SQ DAILY 12/15/16 03/21/17 [Basaglar Kwikpen U-100] Dexamethasone 4 mg PO DAILY #5 tablet 04/24/17 Doxycycline Hyclate 100 mg PO BID #20 capsule 04/24/17 HYDROcod/ACETAM 5/325 [[place] 5/325] 1 - 2 ea PO Q6H PRN #15 tablet 04/24/17 - Allergies Allergies/Adverse Reactions: Allergies Allergy/AdvReac Type Severity Reaction Status Date / Time naproxen [From Naprosyn] Allergy Rash Verified 04/24/17 08:42 - Social History Does the pt smoke?: No Smoking Status: Never smoker Does the pt drink ETOH?: Yes Does the pt have substance abuse?: No - Immunizations Immunizations are current?: Yes - POLST Patient has POLST: No PD ED PE NORMAL - Vitals Vital signs reviewed: Yes (hypertensive ) - General General: Alert and oriented X 3, No acute distress, Well developed/nourished - HEENT HEENT: Atraumatic - Respiratory Respiratory: No respiratory distress - Abdomen Abdomen: Soft, Non tender - Male Male : Other (There is swelling and tenderness along the left epididymus reproducing the symptoms the patient is having. There is no herniation into the inguinal canal. ) - Back Back: No CVA TTP, No spinal TTP - Derm Derm: Normal color, Warm and dry, No rash - Extremities Extremities: No deformity, No edema - Neuro Neuro: No motor deficit, No sensory deficit Eye Opening: Spontaneous Motor: Obeys Commands Verbal: Oriented GCS Score: 15 - Psych Psych: Normal mood, Normal affect Results - Vitals Vitals: Vital Signs - 24 hr 04/24/17 08:39 Temperature 36 C L Heart Rate 80 Respiratory 16 Rate Blood Pressure 163/97 H O2 Saturation 95 Oxygen O2 Source Room air PD MEDICAL DECISION MAKING - ED course Complexity details: reviewed old records, considered differential, d/w patient ED course: 47-year-old male has again developed symptoms in the left inguinal canal and appears to have swelling of the left epididymis. We will again place him on a short course of anti-inflammatory and I will add antibiotic this time and I have asked the patient to follow-up with Dr. Higgins. Departure - Departure Disposition: 01 Home, Self Care Clinical Impression: Epididymitis Condition: Stable Instructions: ED Epididymitis Follow-Up: Dari Brooks ARNP [Primary Care Provider] - Drew Higgins MD [Provider Admit Priv/Credential] - Prescriptions: Dexamethasone 4 mg PO DAILY #5 tablet Doxycycline Hyclate 100 mg PO BID #20 capsule HYDROcod/ACETAM 5/325 [[place] 5/325] 1 - 2 ea PO Q6H PRN #15 tablet PRN Reason: Pain
== END 2017-04-24 10:22 | disposition home or self-care (01) ==
LOC: ED 08:30
DX: N45.1 Epididymitis (principal); Z98.890 Other specified postprocedural states; E11.9 Type 2 diabetes mellitus without complications; I10 Essential (primary) hypertension; Z79.4 Long term (current) use of insulin
CPT/HCPCS: 99283

== ENCOUNTER 2017-05-09 10:51 | Outpatient (CLI) | payer MEDICAID ==
[2017-05-09 11:14] LABS: BASOPHILS # (AUTO) 0.1 10^3/uL (0.0-0.1); BASOPHILS % (AUTO) 0.9 %; EOSINOPHILS # (AUTO) 0.1 10^3/uL (0.0-0.7); EOSINOPHILS % (AUTO) 0.8 %; HGB - HEMOGLOBIN 15.3 g/dL (14.0-18.0); LYMPHOCYTES # (AUTO) 2.1 10^3/uL (1.5-3.5); LYMPHOCYTES % (AUTO) 23.1 %; MEAN CORPUSCULAR HEMOGLOBIN 29.3 pg (27.0-31.0); MEAN CORPUSCULAR HGB CONC 35.2 g/dL (32.0-36.0); MEAN CORPUSCULAR VOLUME 83.2 fL (80.0-94.0); MEAN PLATELET VOLUME 8.5 fL (7.4-11.4); MONOCYTES # (AUTO) 0.4 10^3/uL (0.0-1.0); MONOCYTES % (AUTO) 4.1 %; NEUTROPHILS # (AUTO) 6.6 10^3/uL (1.5-6.6); NEUTROPHILS % (AUTO) 71.1 %; PLT - PLATELET COUNT 166 10^3/uL (130-450); RED BLOOD COUNT 5.21 10^6/uL (4.70-6.10); RED CELL DISTRIBUTION WIDTH 13.8 % (12.0-15.0); WHITE BLOOD COUNT 9.3 x10^3/uL (4.8-10.8)
[2017-05-09 11:24] LABS: ALBUMIN 4.4 g/dL (3.2-5.5); ALBUMIN/GLOBULIN RATIO 1.2 (1.0-2.2); BILIRUBIN,TOTAL 0.8 mg/dL (0.2-1.0); CALCIUM 9.1 mg/dL (8.5-10.3); CREATININE 0.9 mg/dL (0.6-1.2)
[2017-05-09 11:30] LABS: HB2 TOTAL 17.5 g/dL; HEMOGLOBIN A1C 0.78 g/dL; HEMOGLOBIN A1C % 6.2 % (4.6-6.2)
== END 2017-05-09 10:52 | disposition home or self-care (01) ==
LOC: LAB 10:51
PROVIDERS: ATTEND Nurse Practitioner Family
DX: N45.1 Epididymitis (principal); R30.0 Dysuria; E11.9 Type 2 diabetes mellitus without complications
CPT/HCPCS: 36415; 80053; 83036; 84153; 85025

== ENCOUNTER 2017-07-11 07:04 | Emergency (ER) | payer MEDICAID ==
[2017-07-11] MEDS ORDERED: SODIUM CHLORIDE 0.9% 1,000 ML IV ONE (07:14)
[2017-07-11 07:31] LABS: BASOPHILS # (AUTO) 0.1 10^3/uL (0.0-0.1); LYMPHOCYTES # (AUTO) 1.9 10^3/uL (1.5-3.5)
[2017-07-11] MEDS ORDERED: MORPHINE 2 MG/ML SYRINGE IVP STA (07:53)
[2017-07-11] MEDS ORDERED: ONDANSETRON 4 MG/2 ML VIAL IVP STA (07:54)
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
[2017-07-11 07:58] LABS: BASOPHILS % (AUTO) 1.3 %; EOSINOPHILS # (AUTO) 0.2 10^3/uL (0.0-0.7)
[2017-07-11 08:03] LABS: CALCIUM 8.8 mg/dL (8.5-10.3)
[2017-07-11 08:04] LABS: CREATININE 0.8 mg/dL (0.6-1.2)
[2017-07-11 08:05] LABS: BILIRUBIN,TOTAL 0.6 mg/dL (0.2-1.0)
[2017-07-11 08:06] LABS: EOSINOPHILS % (AUTO) 2.7 %; HGB - HEMOGLOBIN 14.8 g/dL (14.0-18.0); MEAN CORPUSCULAR HEMOGLOBIN 29.9 pg (27.0-31.0); MEAN CORPUSCULAR HGB CONC 34.9 g/dL (32.0-36.0); MEAN CORPUSCULAR VOLUME 85.8 fL (80.0-94.0); MEAN PLATELET VOLUME 9.8 fL (7.4-11.4); MONOCYTES # (AUTO) 0.4 10^3/uL (0.0-1.0); MONOCYTES % (AUTO) 6.7 %; NEUTROPHILS # (AUTO) 3.6 10^3/uL (1.5-6.6); NEUTROPHILS % (AUTO) 58.3 %; PLT - PLATELET COUNT 194 10^3/uL (130-450); RED BLOOD COUNT 4.95 10^6/uL (4.70-6.10); RED CELL DISTRIBUTION WIDTH 13.3 % (12.0-15.0); WHITE BLOOD COUNT 6.2 x10^3/uL (4.8-10.8)
[2017-07-11 08:07] LABS: ALBUMIN 4.2 g/dL (3.2-5.5); ALBUMIN/GLOBULIN RATIO 1.7 (1.0-2.2); TOTAL PROTEIN 6.7 g/dL (6.7-8.2)
[2017-07-11] MEDS ORDERED: IOPAMIDOL-300 100 ML VIAL ONE (08:14)
[2017-07-11] MEDS ORDERED: IOPAMIDOL-300 100 ML VIAL IVP ONE (08:37)
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
--- NOTE | 2017-07-11 09:22 | CT Preliminary Report ---
Exam: CT ABDOMEN/PELVIS W/ IMPRESSION: No acute abnormality in the abdomen or pelvis. [facility] SITE ID: [id number]
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
[2017-07-11 09:23] VITALS: BP 159/109
[2017-07-11 09:34] LABS: BILIRUBIN,URINE NEGATIVE (NEGATIVE); GLUCOSE, URINE (UA) NEGATIVE (NEGATIVE); KETONES,URINE (UA) NEGATIVE (NEGATIVE); LEUKOCYTE ESTERASE, URINE NEGATIVE (NEGATIVE); NITRITE,URINE NEGATIVE (NEGATIVE); OCCULT BLOOD,URINE NEGATIVE (NEGATIVE); PROTEIN,URINE NEGATIVE (NEGATIVE); UROBILINOGEN,URINE 0.2 (NORMAL) E.U./dL (NORMAL)
[2017-07-11 09:35] LABS: CLARITY,URINE CLEAR (CLEAR)
== END 2017-07-11 10:46 | disposition home or self-care (01) ==
LOC: ED 07:04
DX: R10.12 Left upper quadrant pain (principal); R07.9 Chest pain, unspecified; E11.9 Type 2 diabetes mellitus without complications; Z79.4 Long term (current) use of insulin; I10 Essential (primary) hypertension; E78.5 Hyperlipidemia, unspecified
CPT/HCPCS: 36415; 71275; 74177; 80053; 81003; 83690; 84484; 85025; 93005; 96361; 96374; 99283; 99284; J2270; Q9967; 81001; 87086

== ENCOUNTER 2017-07-31 07:51 | Emergency (ER) | payer MEDICAID ==
[2017-07-31] MEDS ORDERED: DEXAMETHASONE 10 MG/ML VIAL PO STA (08:09)
[2017-07-31] MEDS ORDERED: HYDROcod/ACETAM 5/325 MG TABLET PO STA (08:09)
--- NOTE | 2017-07-31 08:14 | ED Physician Documentation ---
History of Present Illness - Stated complaint Stated Complaint: KNEE PX - Chief complaint Chief Complaint: Ext Problem - History obtained from History obtained from: Patient - History of Present Illness Timing: Today Pain level max: 10 Pain level now: 10 Improved by: rest Worsened by: movement - Additonal information Additional information: Patient is a 47-year-old male who states he awoke this morning with right knee pain. States unable to bear weight. Brought his own crutches and to the emergency department. Has not taken anything for pain at home. Denies any redness, swelling. Denies any fevers chills. Denies any trauma. Review of Systems Constitutional: denies: Fever, Chills Nose: denies: Rhinorrhea / runny nose, Congestion Throat: denies: Sore throat Cardiac: denies: Chest pain / pressure Respiratory: denies: Cough GI: denies: Nausea, Vomiting, Diarrhea Skin: denies: Rash Musculoskeletal: denies: Neck pain, Back pain Neurologic: denies: Focal weakness, Numbness PD PAST MEDICAL HISTORY - Past Medical History Past Medical History: Yes Cardiovascular: Hypertension, High cholesterol Respiratory: None Endocrine/Autoimmune: Type 2 diabetes GI: Pancreatitis : Nocturia, Other HEENT: None Psych: None Musculoskeletal: Chronic back pain Derm: None - Past Surgical History Past Surgical History: Yes General: Other Ortho: Other - Present Medications Home Medications: Ambulatory Orders Medication Instructions Recorded Confirmed Ondansetron Odt [Zofran] 4 mg TL Q6H PRN #10 tablet 07/11/17 Sucralfate 1 gm PO ACHS #120 tablet 07/11/17 raNITIdine [Zantac] 150 mg PO BID #60 tablet 07/11/17 Hydrocodone/Acetaminophen 1 - 2 each PO Q6H PRN #14 tablet 07/31/17 [Hydrocodon-Acetaminophen 5-325] Insulin Glargine [Lantus Solostar] 0 unit 07/31/17 Meloxicam [Mobic] 7.5 mg PO BID PRN #20 tablet 07/31/17 - Allergies Allergies/Adverse Reactions: Allergies Allergy/AdvReac Type Severity Reaction Status Date / Time naproxen [From Naprosyn] Allergy Rash Verified 07/11/17 07:11 - Social History Does the pt smoke?: No Smoking Status: Never smoker Does the pt drink ETOH?: Yes Does the pt have substance abuse?: No - Immunizations Immunizations are current?: Yes - POLST Patient has POLST: No PD ED PE NORMAL - Vitals Vital signs reviewed: Yes - General General: Alert and oriented X 3, No acute distress, Well developed/nourished - HEENT HEENT: PERRL, Moist mucous membranes - Neck Neck: Supple, no meningeal sign - Cardiac Cardiac: RRR, Strong equal pulses - Respiratory Respiratory: No respiratory distress, Clear bilaterally - Abdomen Abdomen: Soft, Non tender, Non distended - Derm Derm: Warm and dry - Extremities Extremities: Other (Right knee - Limited range of motion secondary to pain. No bony tenderness on exam. No effusion. There is tenderness in the posterior aspect of the knee. No calf swelling. Normal overlying skin) - Neuro Neuro: Alert and oriented X 3 - Psych Psych: Normal mood, Normal affect Results - Vitals Vitals: Vital Signs - 24 hr 07/31/17 07/31/17 07:55 08:30 Temperature 36.2 C L Heart Rate 91 88 Respiratory 16 16 Rate Blood Pressure 156/110 H 152/98 H O2 Saturation 98 Oxygen O2 Source Room air PD MEDICAL DECISION MAKING - ED course Complexity details: re-evaluated patient, considered differential, d/w patient ED course: Patient is a 47-year-old male who presents to the emergency department with atraumatic right knee pain. No evidence of septic joint. No skin changes. No effusion. Does have a history of gout, possible gouty arthritis? We will place him on pain medication for a few days and see how he progresses. Also placed an articulating knee brace. No bony tenderness on exam. Patient is well -appearing, nontoxic. Patient counseled regarding signs and symptoms for which I believe and urgent re-evaluation would be necessary. Patient with good understanding of and agreement to plan and is comfortable going home at this time This document was made in part using voice recognition software. While efforts are made to proofread this document, sound alike and grammatical errors may occur. Departure - Departure Disposition: 01 Home, Self Care Clinical Impression: Knee pain, acute Qualifiers: Laterality: right Qualified Code(s): M25.561 - Pain in right knee Condition: Good Instructions: ED Knee Pain [facility] Follow-Up: Dari Brooks ARNP [Primary Care Provider] - Within 3 Days Prescriptions: Hydrocodone/Acetaminophen [Hydrocodon-Acetaminophen 5-325] 1 - 2 each PO Q6H PRN #14 tablet PRN Reason: pain Meloxicam [Mobic] 7.5 mg PO BID PRN #20 tablet PRN Reason: Pain Comments: The cause of your symptoms is unclear today. Wear the brace for the next 2-3 days and see how your symptoms improve. If you are worsening or failing to improve, follow-up closely with your doctor for repeat evaluation or return here. Discharge Date/Time: 07/31/17 09:39
[2017-07-31] MEDS ORDERED: CHERRY SYRUP 10 ML UDC PO ONE (08:49)
[2017-07-31 09:43] VITALS: BP 152/98
== END 2017-07-31 09:39 | disposition home or self-care (01) ==
LOC: ED 07:51
DX: M25.561 Pain in right knee (principal); I10 Essential (primary) hypertension; E78.00 Pure hypercholesterolemia, unspecified; E11.9 Type 2 diabetes mellitus without complications; Z79.4 Long term (current) use of insulin
CPT/HCPCS: 99283; A9270

== ENCOUNTER 2017-10-30 07:18 | Emergency (ER) | payer MEDICAID ==
--- NOTE | 2017-10-30 07:31 | ED Physician Documentation ---
PD HPI CHEST PAIN - Stated complaint Stated Complaint: SIDE PX - Chief complaint Chief Complaint: General - History obtained from History obtained from: Patient - History of Present Illness Timing - onset: How many weeks ago (1) Timing - onset during: Light activity Timing - duration: Weeks (1) Timing - details: Gradual onset, Still present, Waxing and waning Quality: Aching, Sharp, Pain Location: Left chest (lateral chest, worse with lifting, movement of shoulder and deep breathing. Onset after doing some drywalling but did not feel acute injury during the activity.) Radiation: No: Neck, Back, Abdominal Improved by: Rest Worsened by: Exertion, Inspiration, Movement. No: Palpation Associated symptoms: No: Shortness of air, Nausea, Vomiting, Feeling faint / dizzy, Palpitations, Cough Similar symptoms before: Has not had sx before Recently seen: Not recently seen Review of Systems Constitutional: denies: Fever, Chills, Myalgias Nose: denies: Rhinorrhea / runny nose, Congestion Throat: denies: Sore throat Cardiac: reports: Chest pain / pressure. denies: Palpitations, Pedal edema, Calf pain Respiratory: denies: Dyspnea, Cough GI: denies: Abdominal Pain, Nausea, Vomiting Skin: denies: Rash, Lesions PD PAST MEDICAL HISTORY - Past Medical History Cardiovascular: Hypertension, High cholesterol Respiratory: None Endocrine/Autoimmune: Type 2 diabetes GI: Pancreatitis : Nocturia, Other HEENT: None Psych: None Musculoskeletal: Chronic back pain Derm: None - Past Surgical History Past Surgical History: Yes General: Other Ortho: Other - Present Medications Home Medications: Ambulatory Orders Medication Instructions Recorded Confirmed Methocarbamol [Robaxin] 500 mg PO Q6H PRN #25 tablet 10/30/17 Tramadol HCl 50 mg PO Q6H PRN #20 tablet 10/30/17 - Allergies Allergies/Adverse Reactions: Allergies Allergy/AdvReac Type Severity Reaction Status Date / Time naproxen [From Naprosyn] Allergy Rash Verified 10/30/17 07:26 - Social History Does the pt smoke?: No Smoking Status: Never smoker Does the pt drink ETOH?: Yes Does the pt have substance abuse?: No - Immunizations Immunizations are current?: Yes - POLST Patient has POLST: No PD ED PE NORMAL - Vitals Vital signs reviewed: Yes - General General: Alert and oriented X 3, No acute distress, Well developed/nourished - HEENT HEENT: Pharynx benign - Neck Neck: Supple, no meningeal sign, No adenopathy - Cardiac Cardiac: RRR, No murmur - Respiratory Respiratory: Clear bilaterally, Other (no chestwall tenderness. No rash nor sores. ) - Abdomen Abdomen: Soft, Non tender - Back Back: No CVA TTP - Derm Derm: Normal color, Warm and dry, No rash - Extremities Extremities: No deformity, Normal ROM s pain, No edema, No calf tenderness / cord - Neuro Neuro: Alert and oriented X 3, No motor deficit, Normal speech Results - Vitals Vitals: Vital Signs - 24 hr 10/30/17 10/30/17 10/30/17 07:22 07:32 08:38 Temperature 36.7 C 36.7 C Heart Rate 90 91 96 Respiratory 16 16 15 Rate Blood Pressure 135/95 H 135/100 H 140/97 H O2 Saturation 98 99 98 Oxygen O2 Source Room air - EKG (time done) 08:01 Rate: Rate (enter#) (81) Rhythm: NSR [place]: Normal Intervals: Normal VT QRS: Normal Ischemia: Normal ST segments. No: ST elevation c/w ischemia, ST depression - Rads (name of study) chest xray Radiology: Prelim report reviewed (no acute process), EMP read contemporaneously PD MEDICAL DECISION MAKING - ED course Complexity details: reviewed results (CXR and ECG are okay. Character of pain sounds musculoskeletal. ), considered differential, d/w patient - Sepsis Event Vital Signs: Vital Signs - 24 hr 10/30/17 10/30/17 10/30/17 07:22 07:32 08:38 Temperature 36.7 C 36.7 C Heart Rate 90 91 96 Respiratory 16 16 15 Rate Blood Pressure 135/95 H 135/100 H 140/97 H O2 Saturation 98 99 98 Oxygen O2 Source Room air Departure - Departure Disposition: 01 Home, Self Care Clinical Impression: Left sided chest pain Condition: Stable Record reviewed to determine appropriate education?: Yes Instructions: ED Strain Chest Wall Follow-Up: Dari Brooks ARNP [Primary Care Provider] - Prescriptions: Methocarbamol [Robaxin] 500 mg PO Q6H PRN #25 tablet PRN Reason: Spasms Tramadol HCl 50 mg PO Q6H PRN #20 tablet PRN Reason: Pain Comments: Continue the ibuprofen you have been taking 400-600 mg 3 times a day for the next week. Take it with food so it does not bother her stomach. Add Robaxin muscle relaxant if needed for spasms and stiffness. Add Tylenol and/or tramadol if needed for pains. This sounds muscular type of pain and should improve over the next week or so. Your EKG and chest x-ray appear normal and it does not sound heart or lung related. Discharge Date/Time: 10/30/17 08:40
[2017-10-30] MEDS ORDERED: HYDROcod/ACETAM 5/325 MG TABLET PO STA (07:41)
--- NOTE | 2017-10-30 08:13 | XRAY Report ---
Procedure Date: 10/30/2017 Accession Number: [id number] / [id number] Procedure: XR - Chest 2 View X-Ray CPT Code: 66828 FULL RESULT: EXAM: CHEST RADIOGRAPHY EXAM DATE: 10/30/2017 07:53 AM. CLINICAL HISTORY: Chest pain left sided. COMPARISON: RIBS W/PA CHEST LT 02/05/2017. TECHNIQUE: 2 views. FINDINGS: Lungs/Pleura: No focal consolidation evident. No pleural effusion. No pneumothorax. Normal volumes. Mediastinum: Heart and mediastinal contours are unremarkable. Other: None. IMPRESSION: Normal 2-view chest radiography for age and body habitus. No significant change from prior allowing for differences in technique. [facility]
[2017-10-30 08:39] VITALS: BP 140/97
== END 2017-10-30 08:40 | disposition home or self-care (01) ==
LOC: ED 07:18
DX: R07.89 Other chest pain (principal); I10 Essential (primary) hypertension; E11.9 Type 2 diabetes mellitus without complications
CPT/HCPCS: 71046; 93005; 99283; A9270

== ENCOUNTER 2017-11-18 09:55 | Outpatient (CLI) | payer MEDICAID ==
[2017-11-18 10:38] LABS: HB2 TOTAL 14.8 g/dL; HEMOGLOBIN A1C 1.58 g/dL; HEMOGLOBIN A1C % 11.9 % (4.6-6.2)
== END 2017-11-18 09:56 | disposition home or self-care (01) ==
LOC: LAB 09:55
PROVIDERS: ATTEND Nurse Practitioner Family
DX: E11.9 Type 2 diabetes mellitus without complications (principal)
CPT/HCPCS: 36415; 83036

== ENCOUNTER 2017-12-29 09:06 | Outpatient (CLI) | payer MEDICAID ==
[2017-12-29 09:28] LABS: BASOPHILS # (AUTO) 0.1 10^3/uL (0.0-0.1); BASOPHILS % (AUTO) 0.8 %; EOSINOPHILS # (AUTO) 0.1 10^3/uL (0.0-0.7); EOSINOPHILS % (AUTO) 1.2 %; HGB - HEMOGLOBIN 14.9 g/dL (14.0-18.0); LYMPHOCYTES % (AUTO) 28.9 %; MEAN CORPUSCULAR HEMOGLOBIN 29.6 pg (27.0-31.0); MEAN CORPUSCULAR HGB CONC 35.2 g/dL (32.0-36.0); MEAN CORPUSCULAR VOLUME 84.2 fL (80.0-94.0); MEAN PLATELET VOLUME 8.6 fL (7.4-11.4); MONOCYTES # (AUTO) 0.5 10^3/uL (0.0-1.0); MONOCYTES % (AUTO) 6.6 %; NEUTROPHILS # (AUTO) 4.4 10^3/uL (1.5-6.6); NEUTROPHILS % (AUTO) 62.5 %; PLT - PLATELET COUNT 145 10^3/uL (130-450); RED BLOOD COUNT 5.01 10^6/uL (4.70-6.10); RED CELL DISTRIBUTION WIDTH 13.1 % (12.0-15.0)
[2017-12-29 09:52] LABS: HB2 TOTAL 16.1 g/dL; HEMOGLOBIN A1C 1.79 g/dL; HEMOGLOBIN A1C % 12.3 % (4.6-6.2)
[2017-12-29 10:03] LABS: ALBUMIN 4.3 g/dL (3.2-5.5); ALBUMIN/GLOBULIN RATIO 1.3 (1.0-2.2); ALKALINE PHOSPHATASE 138 IU/L (42-121); ALT ALANINE AMINOTRANSFERASE 32 IU/L (10-60); AST ASPARTATE AMINOTRANSFERASE 28 IU/L (10-42); BILIRUBIN,TOTAL 0.8 mg/dL (0.2-1.0); BUN - BLOOD UREA NITROGEN 16 mg/dL (6-20); CARBON DIOXIDE - CO2 21 mmol/L (21-32); CHLORIDE 99 mmol/L (101-111); CHOL/HDL RATIO 11.1 (<5.0); CHOLESTEROL 423 mg/dL; CREATININE 0.8 mg/dL (0.6-1.2); GFR - MDRD 103 (>89); GLUCOSE 335 mg/dL (70-100); HDL CHOLESTEROL 38 mg/dL; SODIUM 131 mmol/L (135-145); TOTAL PROTEIN 7.5 g/dL (6.7-8.2); URIC ACID 6.6 mg/dL (2.6-7.2)
[2017-12-29 10:33] LABS: LDL CHOLESTEROL,DIRECT 111 mg/dL; LDLD/HDL RATIO 2.9 (<3.6)
== END 2017-12-29 09:07 | disposition home or self-care (01) ==
LOC: LAB 09:06
PROVIDERS: ATTEND Nurse Practitioner Family
DX: I10 Essential (primary) hypertension (principal); E78.5 Hyperlipidemia, unspecified; E11.9 Type 2 diabetes mellitus without complications; M10.9 Gout, unspecified
CPT/HCPCS: 36415; 80053; 80061; 82043; 83036; 83721; 84443; 84550; 85025

== ENCOUNTER 2017-12-31 07:52 | Emergency (ER) | payer MEDICAID ==
[2017-12-31] MEDS ORDERED: LIDOCAINE PATCH 5% TOP PRN (08:25)
[2017-12-31] MEDS ORDERED: ACETAMINOPHEN 325 MG TABLET PO STA (08:25)
--- NOTE | 2017-12-31 08:30 | ED Physician Documentation ---
History of Present Illness - Stated complaint Stated Complaint: HIP PX - Chief complaint Chief Complaint: Ext Problem - Additonal information Additional information: hx from pt 47 male to ED CC L hip pain with movement also some low back pain no trauma no fever no abd pain no numbness no weakness no incont or other urinary sx Review of Systems Constitutional: denies: Fever Cardiac: denies: Chest pain / pressure Respiratory: denies: Dyspnea GI: denies: Abdominal Pain : denies: Dysuria, Incontinent, Hematuria Musculoskeletal: reports: Back pain, Joint pain Neurologic: denies: Focal weakness, Numbness Endocrine: denies: Easy bruising / bleeding Immunocompromised: denies: Immunocompromised PD PAST MEDICAL HISTORY - Past Medical History Cardiovascular: Hypertension, High cholesterol Respiratory: None Endocrine/Autoimmune: Type 2 diabetes GI: Pancreatitis : Nocturia, Other HEENT: None Psych: None Musculoskeletal: Chronic back pain Derm: None - Past Surgical History Past Surgical History: Yes General: Other Ortho: Other - Present Medications Home Medications: Ambulatory Orders Medication Instructions Recorded Confirmed Cyclobenzaprine [Flexeril] 10 mg PO TID PRN #20 tablet 12/31/17 Lidocaine Patch 5% [Lidoderm Patch] 1 each TOP DAILY PRN #10 patch 12/31/17 - Allergies Allergies/Adverse Reactions: Allergies Allergy/AdvReac Type Severity Reaction Status Date / Time naproxen [From Naprosyn] Allergy Rash Verified 12/31/17 07:58 - Social History Does the pt smoke?: No Smoking Status: Never smoker Does the pt drink ETOH?: Yes Does the pt have substance abuse?: No - Immunizations Immunizations are current?: Yes - POLST Patient has POLST: No PD ED PE NORMAL - Vitals Vital signs reviewed: Yes - Cardiac Cardiac: RRR - Respiratory Respiratory: No respiratory distress - Abdomen Abdomen: Soft, Non tender - Male Male : Other (no heermia, no swelling testes NT) - Back Back: No spinal TTP (and no redness swellign warmth) - Extremities Extremities: Other - Neuro Neuro: Alert and oriented X 3, community life director 2-12 intact, No motor deficit, No sensory deficit, Other (hip flexion knee ext foot dosri plantar and great toe ext all 5/5, nl sensation, denies saddle anesthesia, neg SLR, no clonus) Eye Opening: Spontaneous Motor: Obeys Commands Verbal: Oriented GCS Score: 15 Results - Vitals Vitals: Vital Signs - 24 hr 12/31/17 07:57 Temperature 36.3 C L Heart Rate 86 Respiratory 14 Rate Blood Pressure 136/94 H O2 Saturation 97 Oxygen O2 Source Room air - Rads (name of study) hip pelvis Radiology: See rad report Departure - Departure Disposition: Home, Self Care Clinical Impression: Hip pain, left Condition: Good Follow-Up: Dari Brooks ARNP [Primary Care Provider] - Prescriptions: Cyclobenzaprine [Flexeril] 10 mg PO TID PRN #20 tablet PRN Reason: Spasms Lidocaine Patch 5% [Lidoderm Patch] 1 each TOP DAILY PRN #10 patch PRN Reason: Pain Comments: The xray looks fine. No fractures Hip is in joint No arthritis your exam does not suggest an infected joint or sciatica or referred pain from an abdominal or scrotal process I'm not sure why your hip has been hurting But based on the exam and x-rays I think it is safe for you to go home Recommend crutches to ease weight bearing stress Tylenol, flexeril (a muscle relaxant) and lidocaine patches as needed for the pain Alternate ice and heat I wrote you a note for work. Follow up with your PMD if not getting better - you might need a referral to physical therapy Forms: Activity restrictions
--- NOTE | 2017-12-31 09:06 | XRAY Report ---
Reason: hip pain and instability Procedure Date: 12/31/2017 Accession Number: [id number] / [id number] Procedure: XR - Hip w/Pelvis 2-3V LT CPT Code: FULL RESULT: EXAM: LEFT HIP AND PELVIS RADIOGRAPHY EXAM DATE: 12/31/2017 08:39 AM. HISTORY: Hip pain and instability. COMPARISONS: Pelvis radiograph from 08/26/2009, CT of the abdomen and pelvis from 07/11/2017. TECHNIQUE: 1 view of the pelvis and 1 view of the hip. FINDINGS: Bones: No acute fracture is demonstrated. Joints: No dislocation or subluxation in the hips. No significant joint space narrowing in the hips. Alignment of the sacroiliac joints and pubic symphysis is within normal limits. Soft Tissues: Unremarkable. IMPRESSION: 1. No acute osseous or articular abnormality. 2. No significant degenerative changes demonstrated. [facility]
[2017-12-31 09:45] VITALS: BP 137/99
== END 2017-12-31 09:45 | disposition home or self-care (01) ==
LOC: ED 07:52
DX: M25.552 Pain in left hip (principal); M54.5 Low back pain; G89.29 Other chronic pain; I10 Essential (primary) hypertension; E11.9 Type 2 diabetes mellitus without complications
CPT/HCPCS: 73502; 99283; A9270

== ENCOUNTER 2018-02-07 16:16 | Outpatient (CLI) | payer MEDICAID ==
--- NOTE | 2018-02-08 10:08 | XRAY Report ---
Reason: ACUTE R FOREFOOT PAIN L HEEL PAIN Procedure Date: 02/07/2018 Accession Number: [id number] / [id number] Procedure: XR - Foot 3 View BILAT CPT Code: FULL RESULT: EXAMS: 1. Right Foot Radiography 2. Left Foot Radiography EXAM DATE: 02/07/2018 04:19 PM. CLINICAL HISTORY: Acute right forefoot pain, left heel pain. COMPARISON: FOOT 3 VIEW LT 04/06/2015 4:15 PM. TECHNIQUE: 3 views each foot. FINDINGS: Right: Bones: Mild inferior calcaneal spurring. No fractures or bone lesions. Joints: Laterally asymmetric mild joint space narrowing with associated degenerative changes. Mild degenerative changes throughout the phalanges are otherwise relatively symmetric. Soft Tissues: Soft tissue swelling in the region of the first interphalangeal joint. Left: Bones: Normal. No fractures or bone lesions. Joints: Mild degenerative changes throughout the phalanges are relatively symmetric. No subluxations. Soft Tissues: Normal. No soft tissue swelling. IMPRESSION: Radiographically normal appearance of the left heel. No specific lesions are identified in the right second ray. [facility]
== END 2018-02-07 16:17 | disposition home or self-care (01) ==
LOC: DI 16:16
PROVIDERS: ATTEND Podiatrist
DX: M19.071 Primary osteoarthritis, right ankle and foot (principal); M19.072 Primary osteoarthritis, left ankle and foot

== ENCOUNTER 2018-02-14 08:53 | Emergency (ER) | payer MEDICAID ==
[2018-02-14 09:01] VITALS: BP 146/99
--- NOTE | 2018-02-14 09:11 | ED Physician Documentation ---
History of Present Illness - Stated complaint Stated Complaint: SWOLLEN FOOT - Chief complaint Chief Complaint: Ext Problem - History obtained from History obtained from: Patient - History of Present Illness Timing: How many days ago (6) - Additonal information Additional information: 47-year-old insulin-dependent diabetic male has developed pain in the dorsum of his right foot. He has been into see the superintendent sales and they have done an x-ray there are no evidence of a fracture and the patient has marked sensitivity to the dorsum of the foot. He is on some gabapentin for his peripheral diabetic neuropathy. He is developed some redness to the dorsum of the foot and this is the area that is specifically tender. 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 It came back up at night. Review of Systems Constitutional: denies: Fever, Chills, Myalgias Eyes: denies: Decreased vision Nose: denies: Congestion Throat: denies: Sore throat Respiratory: denies: Cough GI: denies: Vomiting : denies: Dysuria Skin: denies: Rash Musculoskeletal: reports: Extremity pain, Extremity swelling. denies: Neck pain, Back pain Neurologic: denies: Generalized weakness, Focal weakness, Numbness PD PAST MEDICAL HISTORY - Past Medical History Cardiovascular: Hypertension, High cholesterol Respiratory: None Endocrine/Autoimmune: Type 2 diabetes GI: Pancreatitis : Nocturia, Other HEENT: None Psych: None Musculoskeletal: Chronic back pain Derm: None - Past Surgical History Past Surgical History: Yes General: Other Ortho: Other - Present Medications Home Medications: Ambulatory Orders Medication Instructions Recorded Confirmed Amox/Clav 875/125 [Augmentin] 1 each PO Q12H #20 tablet 02/14/18 Gabapentin 0 02/14/18 Hydrocodone/Acetaminophen 1 - 2 each PO Q6H PRN #14 tablet 02/14/18 [Hydrocodon-Acetaminophen 5-325] Insulin 70/30 Human [NovoLIN] 0 02/14/18 Lisinopril [Zestril] 40 mg PO 02/14/18 - Allergies Allergies/Adverse Reactions: Allergies Allergy/AdvReac Type Severity Reaction Status Date / Time naproxen [From Naprosyn] Allergy Rash Verified 02/14/18 09:01 - Social History Does the pt smoke?: No Smoking Status: Never smoker Does the pt drink ETOH?: Yes Does the pt have substance abuse?: No - Immunizations Immunizations are current?: Yes - POLST Patient has POLST: No PD ED PE NORMAL - Vitals Vital signs reviewed: Yes (hypertensive ) - General General: Alert and oriented X 3, No acute distress, Well developed/nourished - HEENT HEENT: Atraumatic, PERRL, EOMI - Respiratory Respiratory: No respiratory distress - Derm Derm: Normal color, Warm and dry, No rash - Extremities Extremities: No deformity, Other (There is tenderness with mild swelling and superficial erythema to the dorsum of the right foot from the web space of #1/2 to the web space of #3/4 extending to the mid dorsum with no lymphangitic streak. ) - Neuro Neuro: No motor deficit, No sensory deficit Eye Opening: Spontaneous Motor: Obeys Commands Verbal: Oriented GCS Score: 15 - Psych Psych: Normal mood, Normal affect Results - Vitals Vitals: Vital Signs - 24 hr 02/14/18 08:59 Temperature 36.7 C Heart Rate 77 Respiratory 18 Rate Blood Pressure 146/99 H O2 Saturation 96 Oxygen O2 Source Room air PD MEDICAL DECISION MAKING - ED course Complexity details: reviewed old records, considered differential, d/w patient ED course: 47 y/o male with diabetes and diabetic neuropathy has developed a tender red area over the dorsum of the right foot. He is not having trouble with his sugars and he has not had fever. I suspect this is an infection and it appears ind olent. We will start him on some augmentin and he is requesting pain relief and we will provide a limited supply . Departure - Departure Disposition: 01 Home, Self Care Clinical Impression: Cellulitis Qualifiers: Site of cellulitis: extremity Site of cellulitis of extremity: lower extremity Laterality: left Qualified Code(s): L03.116 - Cellulitis of left lower limb Condition: Stable Instructions: ED Infec Skin Cellulitis Follow-Up: Dari Brooks ARNP [Primary Care Provider] - Prescriptions: Amox/Clav 875/125 [Augmentin] 1 each PO Q12H #20 tablet Hydrocodone/Acetaminophen [Hydrocodon-Acetaminophen 5-325] 1 - 2 each PO Q6H PRN #14 tablet PRN Reason: pain
== END 2018-02-14 09:34 | disposition home or self-care (01) ==
LOC: ED 08:53
DX: L03.116 Cellulitis of left lower limb (principal); I10 Essential (primary) hypertension; E11.42 Type 2 diabetes mellitus with diabetic polyneuropathy; Z79.4 Long term (current) use of insulin
CPT/HCPCS: 99283

== ENCOUNTER 2018-02-24 08:32 | Emergency (ER) | payer MEDICAID ==
[2018-02-24 08:38] VITALS: BP 136/97
--- NOTE | 2018-02-24 09:08 | ED Physician Documentation ---
History of Present Illness - Stated complaint Stated Complaint: SWOLLEN/PAINFUL FOOT - Chief complaint Chief Complaint: Ext Problem - History obtained from History obtained from: Patient - History of Present Illness Timing: How many weeks ago (2) - Additonal information Additional information: 47-year-old type II diabetic male on insulin has developed an area on the dorsum of the right foot that is erythematous and tender and mildly swollen and is been treated for cellulitis over the past 10 days. He indicates that initially there was some improvement in the redness and then over the last 3 days the redness tenderness and swelling has increased. He has no lymphangitic streaking he has no fever he is able to bear weight on the foot he is continuing to work. He states when he comes home he put some ice on this and keep his foot elevated. He has a fair amount of pain associated with this as well. Review of Systems Constitutional: denies: Fever, Chills, Myalgias Ears: denies: Ear pain Nose: denies: Congestion Throat: denies: Sore throat Respiratory: denies: Cough GI: denies: Nausea, Vomiting : denies: Dysuria, Frequency Skin: denies: Rash Musculoskeletal: reports: Extremity pain, Extremity swelling. denies: Neck pain, Back pain Neurologic: denies: Generalized weakness, Focal weakness PD PAST MEDICAL HISTORY - Past Medical History Cardiovascular: Hypertension, High cholesterol Respiratory: None Endocrine/Autoimmune: Type 2 diabetes GI: Pancreatitis : Nocturia, Other HEENT: None Psych: None Musculoskeletal: Chronic back pain Derm: None - Past Surgical History Past Surgical History: Yes General: Other Ortho: Other - Present Medications Home Medications: Ambulatory Orders Medication Instructions Recorded Confirmed Amox/Clav 875/125 [Augmentin] 1 each PO Q12H #20 tablet 02/14/18 Gabapentin 300 mg ORAL BID 02/14/18 Insulin 70/30 Human [NovoLIN] 35 units SQ DAILY 02/14/18 Atorvastatin Calcium [Lipitor] 80 mg ORAL DAILY 02/24/18 02/24/18 Sulfamethoxazole/Trimethoprim 1 each PO BID #14 tablet 02/24/18 [Sulfamethoxazole-Tmp Ds Tablet] - Allergies Allergies/Adverse Reactions: Allergies Allergy/AdvReac Type Severity Reaction Status Date / Time naproxen [From Naprosyn] Allergy Rash Verified 02/24/18 08:38 - Social History Does the pt smoke?: No Smoking Status: Never smoker Does the pt drink ETOH?: Yes Does the pt have substance abuse?: No - Immunizations Immunizations are current?: Yes - POLST Patient has POLST: No PD ED PE NORMAL - Vitals Vital signs reviewed: Yes - General General: Alert and oriented X 3, No acute distress, Well developed/nourished - HEENT HEENT: Atraumatic, PERRL, EOMI - Respiratory Respiratory: No respiratory distress - Derm Derm: Normal color, Warm and dry, No rash - Extremities Extremities: No deformity, Other (There is a patch of skin over the dorsum of the right foot from the web space of #1/2 to the web space of #3/[address] up the dorsum of the foot. The swelling and redness are similar to exam 10 days ago with minimal progression. This is not improved. ) - Neuro Neuro: Alert and oriented X 3, healthcare recruiter 2-12 intact, No motor deficit, No sensory deficit, Normal speech Eye Opening: Spontaneous Motor: Obeys Commands Verbal: Oriented GCS Score: 15 - Psych Psych: Normal mood, Normal affect Results - Vitals Vitals: Vital Signs - 24 hr 02/24/18 08:35 Temperature 36.8 C Heart Rate 81 Respiratory 18 Rate Blood Pressure 136/97 H O2 Saturation 97 Oxygen O2 Source Room air PD MEDICAL DECISION MAKING - ED course Complexity details: considered differential, d/w patient ED course: 47-year-old diabetic male with an indolent cellulitis to the right foot over the dorsum had some initial improvement with the Augmentin and this now appears to be failing. 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 He is complaining that he continues to have sugars in the 300 range and he will ask his wholesale buyer about using sliding scale insulin. He does have a laceration to his left thumb that he has repaired at work from 2 days ago and this is fixed here in the emergency department with some Steri- Strips and a dressing. Departure - Departure Disposition: 01 Home, Self Care Clinical Impression: Cellulitis Qualifiers: Site of cellulitis: extremity Site of cellulitis of extremity: lower extremity Laterality: right Qualified Code(s): L03.115 - Cellulitis of right lower limb Condition: Stable Instructions: ED Infec Skin Cellulitis Follow-Up: Dari Brooks ARNP [Primary Care Provider] - Prescriptions: Sulfamethoxazole/Trimethoprim [Sulfamethoxazole-Tmp Ds Tablet] 1 each PO BID #14 tablet Comments: The infection on the top of your foot appears to have failed the treatment with augmentin and we are switching the antibiotic to septra and we expect to get improvement over the next week. Use a warm compress 2-3 times per day. follow up with your wholesale buyer about your sugars and "sliding scale" insulin.
== END 2018-02-24 09:31 | disposition home or self-care (01) ==
LOC: ED 08:32
DX: L03.115 Cellulitis of right lower limb (principal); S61.012A Laceration without foreign body of left thumb without damage to nail, initial encounter; E11.9 Type 2 diabetes mellitus without complications; I10 Essential (primary) hypertension; Z79.4 Long term (current) use of insulin
CPT/HCPCS: 99283

== ENCOUNTER 2018-03-14 07:43 | Observation (INO) | payer MEDICAID ==
--- NOTE | 2018-03-14 07:56 | ED Physician Documentation ---
History of Present Illness - Stated complaint Stated Complaint: DIZZY/CP - Chief complaint Chief Complaint: Cardiac - Additonal information Additional information: hx from pt 47 male pmhx HTN HLD DM was driving to work this AM developed chest discomfort, ant chest, mod severity, assoc SOA and nausea, lasted 10 min and spont resolved at same time developed severe vertigo with nausea no CESAR no focal numbness or weakness cp is gone now vertigo persists otherwise well recently - no fever cough travel hospitalization etc Review of Systems Constitutional: denies: Fever, Chills Cardiac: reports: Chest pain / pressure Respiratory: reports: Dyspnea GI: reports: Nausea Neurologic: reports: Other (vertigo). denies: Focal weakness, Numbness, Headache Endocrine: denies: Easy bruising / bleeding Immunocompromised: denies: Immunocompromised PD PAST MEDICAL HISTORY - Past Medical History Cardiovascular: Hypertension, High cholesterol Respiratory: None Endocrine/Autoimmune: Type 2 diabetes GI: Pancreatitis : Nocturia, Other HEENT: None Psych: None Musculoskeletal: Chronic back pain Derm: None - Past Surgical History Past Surgical History: Yes General: Other Ortho: Other - Present Medications Home Medications: Ambulatory Orders Medication Instructions Recorded Confirmed Gabapentin 300 mg ORAL BID 02/14/18 03/14/18 Insulin 70/30 Human [NovoLIN] 35 units SQ DAILY 02/14/18 03/14/18 Atorvastatin Calcium [Lipitor] 80 mg ORAL DAILY 02/24/18 03/14/18 Glimepiride 2 mg PO DAILY 03/14/18 03/14/18 - Allergies Allergies/Adverse Reactions: Allergies Allergy/AdvReac Type Severity Reaction Status Date / Time naproxen [From Naprosyn] Allergy Rash Verified 03/14/18 07:50 - Social History Does the pt smoke?: No Smoking Status: Never smoker Does the pt drink ETOH?: Yes Does the pt have substance abuse?: No - Immunizations Immunizations are current?: Yes - POLST Patient has POLST: No PD ED PE NORMAL - Vitals Vital signs reviewed: Yes - HEENT HEENT: PERRL, EOMI (horiz nystagmus), Ears normal - Neck Neck: Supple, no meningeal sign - Cardiac Cardiac: RRR - Respiratory Respiratory: No respiratory distress, Clear bilaterally - Abdomen Abdomen: Soft, Non tender - Derm Derm: Normal color - Neuro Neuro: Alert and oriented X 3, atv mechanic 2-12 intact, No motor deficit, No sensory deficit, Normal speech Eye Opening: Spontaneous Motor: Obeys Commands Verbal: Oriented GCS Score: 15 Results - Vitals Vitals: Vital Signs - 24 hr 03/14/18 03/14/18 03/14/18 07:47 08:36 09:22 Temperature 36.6 C Heart Rate 72 68 75 Respiratory 20 25 H 17 Rate Blood Pressure 166/94 H 145/105 H 145/97 H O2 Saturation 99 99 99 03/14/18 09:31 Temperature Heart Rate 81 Respiratory 19 Rate Blood Pressure 143/102 H O2 Saturation 98 Oxygen O2 Source Room air - EKG (time done) 0746 Rate: Rate (enter#) (74) Rhythm: NSR [place]: LAD Intervals: Normal OR QRS: Normal Ischemia: Normal ST segments 0903 Rate: Rate (enter#) (67) Rhythm: NSR [place]: LAD Intervals: Normal OR Ischemia: Normal ST segments - Labs Labs: Laboratory Tests 03/14/18 03/14/18 03/14/18 07:50 07:50 07:50 WBC 6.4 RBC 5.00 Hgb 14.4 Hct 41.7 L MCV 83.4 MCH 28.9 MCHC 34.6 RDW 13.2 Plt Count 168 MPV 8.1 Neut # (Auto) 4.4 Lymph # (Auto) 1.5 [place] # (Auto) 0.3 Eos # (Auto) 0.1 Baso # (Auto) 0.1 Absolute Nucleated RBC 0.00 Nucleated RBC % 0.0 Sodium 135 Potassium 3.9 Chloride 104 Carbon Dioxide 19 L Anion Gap 12.0 BUN 12 Creatinine 0.8 Estimated GFR (MDRD) 103 Glucose 291 H Glycated Hemoglobin Estim Average Glucose Calcium 8.8 Total Bilirubin 0.7 AST 76 H ALT 81 H Alkaline Phosphatase 119 Troponin I < 0.04 Total Protein 7.4 Albumin 4.1 Globulin 3.3 Albumin/Globulin Ratio 1.2 Triglycerides Cholesterol LDL Cholesterol Direct LDL Cholesterol, Calc VLDL Cholesterol HDL Cholesterol LDL/HDL Ratio dLDL/HDL Ratio Cholesterol/HDL Ratio Lipase 37 03/14/18 03/14/18 07:50 07:50 WBC RBC Hgb Hct MCV MCH MCHC RDW Plt Count MPV Neut # (Auto) Lymph # (Auto) [place] # (Auto) Eos # (Auto) Baso # (Auto) Absolute Nucleated RBC Nucleated RBC % Sodium Potassium Chloride Carbon Dioxide Anion Gap BUN Creatinine Estimated GFR (MDRD) Glucose Glycated Hemoglobin 11.2 H Estim Average Glucose 275 H Calcium Total Bilirubin AST ALT Alkaline Phosphatase Troponin I Total Protein Albumin Globulin Albumin/Globulin Ratio Triglycerides 574 H Cholesterol 232 H LDL Cholesterol Direct 83 LDL Cholesterol, Calc Not Reportable VLDL Cholesterol Not Reportable HDL Cholesterol 54 L LDL/HDL Ratio Not Reportable dLDL/HDL Ratio 1.5 Cholesterol/HDL Ratio 4.3 Lipase - Rads (name of study) CXR Radiology: See rad report (NACPD) PD MEDICAL DECISION MAKING - ED course ED course: abn LFTs not new EKG WNL CXR nl, nl aortic knob no cap or effusion trop # 1 neg only had chest pain for 10 min - do not think serial trops will be useful - but rec fup PMD for stress test 0900 went to update pt and reassess his vertigo is much improved but not quite gone but when I enetred the room he was holding his fist to his chest and groaning states he developed recurrent chest pain - left sided, severe, sharp ache, onset approx 0855 AM req another EKG during pain (no acute ischemic changes seen) and ordered asa and nitro this time the chest pain lasted much longer, req 2 nitro to relieve sx, lasted > 30 minutes this time given age and comorbidities pt has a HEART score of 4 so will req hospitalist to admit tele obs for serial CE and expedited stress testing EAR MACHINE OPERATOR called hospitalist at 0930 no answer [facility] called hospitalist at 1030 no answer [facility] req house sup to contact hospitalist at 1045 hospitalist called at 1050 and will admit pt Departure - Departure Disposition: ED Place in Observation Clinical Impression: Vertigo Chest pain Qualifiers: Chest pain type: unspecified Qualified Code(s): R07.9 - Chest pain, unspecified Discharge Date/Time: 03/14/18 11:11
[2018-03-14] MEDS ORDERED: MECLIZINE 12.5 MG TABLET PO STA (07:57)
[2018-03-14] MEDS ORDERED: ONDANSETRON ODT 4 MG TABLET TL STA (07:58)
[2018-03-14 08:05] LABS: BASOPHILS # (AUTO) 0.1 10^3/uL (0.0-0.1); BASOPHILS % (AUTO) 0.9 %; EOSINOPHILS # (AUTO) 0.1 10^3/uL (0.0-0.7); HGB - HEMOGLOBIN 14.4 g/dL (14.0-18.0); LYMPHOCYTES # (AUTO) 1.5 10^3/uL (1.5-3.5); LYMPHOCYTES % (AUTO) 22.9 %; MEAN CORPUSCULAR HEMOGLOBIN 28.9 pg (27.0-31.0); MEAN CORPUSCULAR HGB CONC 34.6 g/dL (32.0-36.0); MEAN CORPUSCULAR VOLUME 83.4 fL (80.0-94.0); MEAN PLATELET VOLUME 8.1 fL (7.4-11.4); MONOCYTES # (AUTO) 0.3 10^3/uL (0.0-1.0); MONOCYTES % (AUTO) 5.1 %; NEUTROPHILS # (AUTO) 4.4 10^3/uL (1.5-6.6); NEUTROPHILS % (AUTO) 69.1 %; PLT - PLATELET COUNT 168 10^3/uL (130-450); RED CELL DISTRIBUTION WIDTH 13.2 % (12.0-15.0); WHITE BLOOD COUNT 6.4 x10^3/uL (4.8-10.8)
[2018-03-14 08:16] LABS: ALBUMIN 4.1 g/dL (3.2-5.5); ALBUMIN/GLOBULIN RATIO 1.2 (1.0-2.2); BILIRUBIN,TOTAL 0.7 mg/dL (0.2-1.0); CALCIUM 8.8 mg/dL (8.5-10.3); CREATININE 0.8 mg/dL (0.6-1.2); TOTAL PROTEIN 7.4 g/dL (6.7-8.2)
--- NOTE | 2018-03-14 08:38 | XRAY Report ---
Reason: cp Procedure Date: 03/14/2018 Accession Number: [id number] / [id number] Procedure: XR - Chest 2 View X-Ray CPT Code: 56970 FULL RESULT: EXAM: CHEST RADIOGRAPHY EXAM DATE: 03/14/2018 08:25 AM. CLINICAL HISTORY: Chest pain and dizziness. COMPARISON: CHEST 2 VIEW 10/30/2017 7:44 AM. TECHNIQUE: 2 views. FINDINGS: Lungs/Pleura: No focal opacities evident. No pleural effusion. No pneumothorax. Normal volumes. Mediastinum: Heart and mediastinal contours are unremarkable. Other: No acute osseous abnormality. IMPRESSION: No acute cardiopulmonary abnormality. RADIA
[2018-03-14] MEDS ORDERED: ASPIRIN CHEW 81 MG TABLET PO STA (09:04)
[2018-03-14] MEDS ORDERED: NITROGLYCERIN SL 0.4 MG TABLET SL STA (09:04)
[2018-03-14] MEDS ORDERED: ONDANSETRON 4 MG/2 ML VIAL IVP PRN (10:52)
[2018-03-14] MEDS ORDERED: oxyCODONE 5 MG TABLET PO PRN (10:52)
[2018-03-14] MEDS ORDERED: ACETAMINOPHEN 325 MG TABLET PO PRN (10:52)
[2018-03-14] MEDS ORDERED: ONDANSETRON ODT 4 MG TABLET TL PRN (10:52)
[2018-03-14] MEDS ORDERED: SODIUM CHLORIDE FLUSH 0.9% 10 ML SYRINGE IVP PRN (10:52)
[2018-03-14] MEDS ORDERED: ATORVASTATIN 40 MG TABLET PO SCH (11:00)
[2018-03-14 11:28] LABS: CHOL/HDL RATIO 4.3 (<5.0); CHOLESTEROL 232 mg/dL; HDL CHOLESTEROL 54 mg/dL
[2018-03-14 11:47] LABS: HB2 TOTAL 15.3 g/dL; HEMOGLOBIN A1C 1.52 g/dL; HEMOGLOBIN A1C % 11.2 % (4.6-6.2)
[2018-03-14 11:51] LABS: LDL CHOLESTEROL,DIRECT 83 mg/dL; LDLD/HDL RATIO 1.5 (<3.6)
[2018-03-14] MEDS: INSULIN REGULAR HUMAN 100 UNIT/1 ML 10 ML MDV SUBQ SCH ×2 (12:01→16:55)
[2018-03-14 13:30] LABS: CALCIUM 8.7 mg/dL (8.5-10.3); CREATININE 0.7 mg/dL (0.6-1.2)
--- NOTE | 2018-03-14 15:08 | HISTORY & PHYSICAL EXAMINATION ---
Chief Complaint - Chief Complaint Chief Complaint: chest pain, nausea, vertigo in patient w DM, HTN History of Present Illness - Admitted From Admitted From:: ER/Home - History Obtained From Records Reviewed: Allegra History obtained from: patient, Allegra and Dr. Rodriguez Exam Limitations: none. - History of Present Illness HPI Comment/Other: This is a 47-year-old type II diabetic male on insulin who is a frequent user of [facility] emergency room services. He has multiple encounters on a yearly basis. He was last admitted to our hospital in 2013 for nausea vomiting and right upper quadrant pain. In the end he was felt to have musculoskeletal pain as the cause of his discomfort. At that time he also had accelerated hypertension was not using any medications for diabetes. He was last seen in the emergency room February 24 for right foot redness and tenderness. He feared cellulitis. He already had Augmentin. As such she was switched to Bactrim. He also had a laceration to his left thumb. With this encounter in the emergency room today, he presents with chest pain that started while he was driving to work this morning. It is in the anterior chest, nonradiating. A 5 out of a 10. It made him short of breath and nauseated and lasted 10 minutes. Resolved on its own. It gave him some vertigo and nausea. Even though his chest pain resolved, he still felt dizzy when he brought himself to the emergency room. He had no fever, chills, edema, orthopnea. He has had no recent change in bowel or bladder habits. No recent change in use of medications. He denied palpitations, jaw pain, left arm pain. In the emergency room he was 166/94. Afebrile at 36.6. Oxygenating on room air 99%. Respiratory rate 20. He had a negative physical examination. Initial troponin was less than 0.04. This gentleman has significant risk factors. His last A1c was 12.3% in December. He has hyperlipidemia and hypertriglyceridemia as well as hypertension. He is a former smoker but quit approximately 2009. He still drinks every night. Family history is negative for cardiac disease but he is adopted. He is now placed in observation for rule out OK. History - Past Medical History Cardiovascular: reports: Hypertension, High cholesterol Respiratory: reports: None Endocrine/Autoimmune: reports: Type 2 diabetes GI: reports: Pancreatitis : reports: Nocturia, Other HEENT: reports: None Psych: reports: None Musculoskeletal: reports: Chronic back pain Derm: reports: None MRSA Hx?: No - Past Surgical History General: reports: Other Ortho: reports: Other - Family & Social History Family History Comment/Other: He was adopted. So while his parents did of complications of diabetes and other diseases it is not pertinent to him. Same with his siblings. He does have 7 children. They are all healthy. Living arrangement: At home Living Situation: With spouse/s.o. Social History Notes: He is from [facility]. He has been 3 times. Has 7 children. Currently lives with a significant other in their own apartment. 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 He used to smoke a pack a day and stopped smoking approximately the year 2009. He used to drink very heavily. Now he is cut back in regards a few beers a day is not a problem. He denies any recreational substance abuse. - Substance History Use: Uses substance without health or social issues: NONE Abuse: Recurrent use of substance despite neg consequences: NONE Dependence: Experiences withdrawal or developed tolerances: NONE - POLST Patient has POLST: No POLST Status: Full Code Meds/Allgy - Home Medications Home Medications: Ambulatory Orders Medication Instructions Recorded Confirmed Gabapentin 300 mg ORAL BID 02/14/18 03/14/18 Insulin 70/30 Human [NovoLIN] 35 units SQ DAILY 02/14/18 03/14/18 Atorvastatin Calcium [Lipitor] 80 mg ORAL DAILY 02/24/18 03/14/18 Glimepiride 2 mg PO DAILY 03/14/18 03/14/18 - Allergies Allergies/Adverse Reactions: Allergies Allergy/AdvReac Type Severity Reaction Status Date / Time naproxen [From Naprosyn] Allergy Rash Verified 03/14/18 07:50 Review of Systems - Constitutional Constitutional: denies: Fatigue, Fever, Chills, Malaise, Weakness, Poor appetite, Diaphoresis - Eyes Eyes: reports: Blurred vision (needs reading glasses). denies: Pain, Irritation, Spots in vision, Field loss - Ears, Nose & Throat Ears, Nose & Throat: reports: Vertigo (today and still present). denies: Ear pain, Hearing loss, Hearing aids, Tinnitus, Nasal pain, Nasal discharge, Nosebleeds, Nasal obstruction, Nasal congestion - Cardiovascular Cariovascular: reports: Chest pain (today for 10 minutes and twice since here for a few seconds. substernal. nonradiating.), Lightheadedness, Other (walks up to 6 miles a day). denies: Irregular heart rate, Palpitations, Syncope, Exertional dyspnea, Decr. exercise tolerance - Respiratory Respiratory: denies: Cough, Sputum production, Wheezing, Snoring, SOB at rest, SOB with exertion - Gastrointestinal Gastrointestinal: reports: Nausea. denies: Abdominal pain, Abdominal dist ention, Constipation, Diarrhea, Change in bowel habits, Rectal bleeding, Black stools, Bloody stools, Vomiting, Bile emesis - Genitourinary Genitourinary: reports: Nocturia (He used to have nocturia 4-5 times a night, now is down to once a night that his A1c is dropped below 12%). 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 denies: Limited range of motion, Muscle weakness, Gout - Integumentary Integumentary: denies: Rash, Pruritis, Lesions - Neurological Neurological: reports: Dizziness, Other (Peripheral neuropathy of feet, mild of hands). 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 Physically there is no limitations other than he hurts all over every day. Drives his truck. Pays his bills. Completely independent with activities of daily living. Exam - Vital Signs Reviewed Vital Signs: Yes Vital Signs: Vital Signs x48h Temp Pulse Pulse Resp BP BP Pulse Ox 03/14/18 13:30 37.0 C 80 18 99 03/14/18 11:30 37.0 C 81 18 161/103 H 99 03/14/18 09:31 81 19 143/102 H 98 03/14/18 09:22 75 17 145/97 H 99 03/14/18 08:36 68 25 H 145/105 H 99 03/14/18 07:47 36.6 C 72 20 166/94 H 99 - Physical Exam General Appearance: positive: No acute distress, Alert, Other (Short statured male in no acute distress well-nourished well-developed) Eyes Bilateral: positive: PERRL, EOMI ENT: positive: Pharynx nml Neck: positive: No JVD. negative: Stiff neck, Carotid bruit Respiratory: positive: Chest non-tender. negative: Wheezes, Rales, Rhonchi Cardiovascular: positive: Regular rate & rhythm, No murmur, No gallop. negative: Friction rub Peripheral Pulses: positive: 1+ Abdomen: positive: Non-tender, No organomegaly, Nml bowel sounds, No distention Skin: positive: Warm, Dry Extremities: positive: Non-tender, No pedal edema, Other (right forearm to elbow with old scars and muscle deformity, hands callused. multiple tatoos.) Neurologic/Psychiatric: positive: Oriented x3, CN's nml (2-12), Motor nml, Other (No facial dysesthesia, Cerebellar finger to nose is normal). negative: Sensation nml (Loss of pinprick sensation that is pretty dense on the bottoms of his feet, over his toes, and discharged gradual regain sensation is a prick the needle above his medial and lateral malleolus. This is bilateral. Some numbness and light touch loss around his fingertips right hand worse than left hand), Facial droop, Slurred/abnml speech Conclusion/Plan - Problem List (1) Chest pain Conclusion/Plan: In a patient who has risk factors including diabetes, hypertension, hyperlipidemia and former smoking. Plan: Serial troponins After second set of troponins being negative, Ronnie protocol treadmill test with nuclear medicine imaging Aspirin already given Already on a statin Already on an ANGELA inhibitor If treadmill test w nuc med negative, to go home. (2) Uncontrolled type 2 diabetes mellitus with complication, with long-term current use of insulin Conclusion/Plan: He said his A1c is actually been slowly dropping. Was more than 13% 4 months ag o. With his last check this last month it was 12%. Today is 11%. I explained to him that goal is to be less than 7%. He already has complications including neuropathy and possible nephropathy. He says that he does not have retinopathy. Plan: Stop drinking altogether [place]inded the goal is to be less than 7% Consider carb restrictive diet (3) Mixed dyslipidemia Conclusion/Plan: Since he had not eaten since the night before, I went ahead and did a fasting lipid panel. Cholesterol was 232, triglycerides 574. LDL 83. HDL 54. I explained to him how this risk factor interacts with his diabetes and hype rtension and what his risk of heart attack and stroke is. I also explained what manifestations of end-stage diabetes mellitus mean. He says he wants to live to be 89. In order to get to that goal, I explained that he is going to work much harder at things like carbs with the diet, absolutely no alcohol, may be some weight training is in addition to his cardiovascular endurance. And he has to get his A1c less than 7%. Right now he is still on a statin. He says he is compliant. I would leave it to his filteration operator to see if a TriCor or lopid needs to be added. (4) Hypertension Conclusion/Plan: He has been consistently 143-166 systolic while here. Diastolic is 97 203. His ambulatory medications do not include an ANGELA inhibitor. I will add that before discharge. Qualifiers: Hypertension type: essential hypertension Qualified Code(s): I10 - Essential (primary) hypertension - Lab Results Fish Bones: 03/14/18 07:50 03/14/18 13:05 - Diagnostic Imaging Results Diagnostic Imaging Results: positive: Final report reviewed Diagnostic Imaging Results Comments: CHEST RADIOGRAPHY EXAM DATE: 03/14/2018 08:25 AM. CLINICAL HISTORY: Chest pain and dizziness. COMPARISON: CHEST 2 VIEW 10/30/2017 7:44 AM. TECHNIQUE: 2 views. FINDINGS: Lungs/Pleura: No focal opacities evident. No pleural effusion. No pneumothorax. Normal volumes. Mediastinum: Heart and mediastinal contours are unremarkable. Other: No acute osseous abnormality. IMPRESSION: No acute cardiopulmonary abnormality. - EKG Results EKG Interpreted Independently: No EKG Comparison: No prior EKG EKG Findings: NSR. low voltage, borderline LAD. No acute changes. Core Measures - Anticipated LOS I expect patient to be DC'd or transferred within 96 hours.: Yes - DVT/VTE - Prophylaxis VTE/DVT Device ordered at admit?: Yes
[2018-03-14] MEDS ORDERED: REGADENOSON 0.4 MG/5 ML SYRINGE IVP ONE (15:33)
[2018-03-14] MEDS ORDERED: SODIUM CHLORIDE FLUSH 0.9% 10 ML SYRINGE IVP SCH (17:00)
--- NOTE | 2018-03-14 17:51 | PROCEDURE REPORT ---
Hospitalist Procedure Note - Procedure Note Procedure Note: Date of service: March 14, 2017 Physician: Luciana Santiago MD Indications: Chest pain Cardiac risk factors 1. Male gender 2. Uncontrolled type 2 diabetes 3. Severe mixed dyslipidemia 4. Uncontrolled hypertension. Summary: After signing informed consent the patient underwent a Ronnie protocol treadmill test with nuclear myocardial perfusion imaging. Resting heart rate: 64. Peak heart rate 185 space (greater than 100% maximum predicted heart rate for age) Resting blood pressure 152/90. Peak blood pressure 180/100. The patient exercised for 10 minutes on a Ronnie protocol treadmill test. The patient developed moderate shortness of breath and felt that he was performing maximum effort. He did not have chest pain or left shoulder pain or jaw pain. He achieved a peak heart rate of 185 with the telemetry misreading at the end of stage IV with a pulse of 67. When telemetry leads were recalibrated he was at 185. He achieved 11.79 METs. There were rare PVCs with exercise and severe baseline wandering. Resting EKG: Normal sinus rhythm, rate 64. Diffuse low voltage. Borderline left axis deviation. EKG at peak, slightly widened QRS, no ischemic changes by EKG criteria. Summary: 1. Excellent exercise tolerance. 2. Hypertensive response acceptable. 3. No ischemic changes by EKG criteria on this Ronnie protocol stress test at an adequate level of stress. 4. Nuclear images reported separately.
[2018-03-14] MEDS ORDERED: INSULIN GLARGINE 300 UNIT/3 ML PEN SUBQ SCH (18:00)
--- NOTE | 2018-03-14 18:50 | Discharge Plan ---
Discharge Plan Disposition: 01 Home, Self Care Condition: Good Prescriptions: Lisinopril [Zestril] 5 mg PO DAILY #30 tablet Diet: Diabetic (and low low fat diet) Activity Restrictions: Activity as Tolerated Shower Restrictions: No Driving Restrictions: No Additional Instructions or Follow Up instructions: You were placed in the hospital you were placed in the hospital because of chest pain. You have several risk factors that would increase her risk of heart attack and stroke and hardening of the arteries leading to arterial blockage in the legs as well. You are a diabetic, are of male gender, have uncontrolled hypertension, and a severely elevated cholesterol. After 3 sets of blood test to show you are not having heart attack, you also had a stress test. The stress test was completely normal. Because you have an elevated high blood pressure, I am starting you on lisinopril 5 mg a day. Please see your primary care provider in the next 1-2 weeks to have your blood pressure elevated. You also need to have your diabetes under control with an A1c less than 7%. No Smoking: If you smoke, Please STOP! Call for help. Follow-up with: Dari Brooks ARNP [Primary Care Provider] -
--- NOTE | 2018-03-14 20:04 | Nuclear Medicine Report ---
Reason: chest pain in diabetic Procedure Date: 03/14/2018 Accession Number: [id number] / [id number] Procedure: NM - Myocardial Perfusion STR/RST CPT Code: FULL RESULT: EXAM: SINGLE-ISOTOPE EXERCISE STRESS TEST. SINGLE-ISOTOPE AND ONE-DAY REST/STRESS MYOCARDIAL PERFUSION SCANS WITH TOMOGRAPHIC IMAGING, QUANTITATIVE ANALYSIS, WALL MOTION ANALYSIS AND CALCULATION OF EJECTION FRACTION. EXAM DATE: 03/14/2018 02:30 PM. CLINICAL HISTORY: Chest pain COMPARISON: None available. TECHNIQUE: A rest myocardial perfusion scan was done with tomography after the intravenous administration of 10.5 mCi Tc-99m sestamibi. After an appropriate delay, a treadmill exercise stress was performed according to department protocol. The patient exercised for 10 minutes and 0 seconds. The maximum heart rate was 218 bpm, which was 127% of the maximum predicted heart rate of 171 bpm. At approximately peak heart rate, 41.9 mCi of Tc-99m sestamibi was injected for stress myocardial perfusion scan. Motion correction was applied when appropriate. Gated tomographic images were obtained for wall motion analysis and computation of left ventricular ejection fraction. FINDINGS: No fixed or reversible perfusion defects are evident. Computer analysis: Summed stress score 0 Summed rest score 0 Summed difference score 0 Wall motion analysis demonstrates no focal wall motion abnormality The left ventricular end-diastolic volume is 83 cc. The left ventricular end-systolic volume is 30 cc. The left ventricular ejection fraction is calculated to be 64%. IMPRESSION: 1. No scintigraphic findings to indicate myocardial ischemia. Negative for infarct. 2. Normal left ventricular ejection fraction of 64%. 3. Normal segmental and global wall motion. 4. Normal left ventricular cavity size, no change with stress. 5. Based on computer analysis, normal exam with no ischemia. MARS The call report notification system was initiated by Dr. Fransisco Arellano at 17:43 hrs on 03/14/18. The above findings were discussed with Dr Jack Dr by Dr. Fransisco Arellano at 17:46 hrs on 03/14/18.
[2018-03-14 20:47] VITALS: BP 152/99
[2018-03-14] MEDS ORDERED: GABAPENTIN 300 MG CAPSULE PO SCH (21:00)
[2018-03-15] MEDS ORDERED: LISINOPRIL 5 MG TABLET PO SCH (09:00)
[2018-03-15] MEDS ORDERED: POLYETHYLENE GLYCOL 3350 17 GM PACKET PO SCH (09:00)
[2018-03-15] MEDS ORDERED: INSULIN 70/30 HUMAN 100 UNIT/1 ML 10 ML MDV SUBQ SCH (17:30)
[2018-03-16 13:32] LABS: HEPATITIS A IGM NON-REACTIVE (NON-REACTIVE); HEPATITIS B CORE ANTIBODY IGM NON-REACTIVE (NON-REACTIVE); HEPATITIS B SURFACE ANTIGEN NON-REACTIVE (NON-REACTIVE); HEPATITIS C ANTIBODY NON-REACTIVE (NON-REACTIVE)
--- NOTE | 2018-03-17 21:00 | DISCHARGE SUMMARY ---
Physician: Luciana Santiago MD DATE OF ADMISSION: 03/14/2018 DATE OF DISCHARGE: 03/14/2018 DISCHARGE DIAGNOSES 1. Chest pain. 2. 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 3. Mixed dyslipidemia. 4. Hypertension. 5. Probable cirrhosis. DISCHARGE MEDICATIONS 1. Lipitor 80 mg daily. 2. Gabapentin 300 mg b.i.d. 3. Glimepiride 2 mg daily. 4. Novolin 70/30 insulin 35 units subcutaneous daily. 5. Lisinopril 5 mg p.o. daily is a new prescription. PRINCIPAL PROCEDURES 1. Chest x-ray with no acute cardiopulmonary abnormality. 2. Ronnie protocol treadmill test without any criteria met for ischemia. 3. Myocardial perfusion stress and rest shows no fixed or reversible perfusion defects evident. 4. Serial cardiac enzymes negative. 5. Lipid panel: Triglycerides 574, cholesterol 232, LDL 83, HDL 54. 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 He works very aggressively throughout the day Monday through Monday and has no cardiovascular or pulmonary reduction in status. 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 His risk factors for cardiac disease include male sex, hyperlipidemia, hypertension, uncontrolled diabetes. He used to be a smoker and stopped that. Also has a positive family history. He presents with chest pain and vertigo. It started while he was driving to work in the morning. It was in the anterior chest, nonradiating, 5/10. It made him very short of breath, nauseated, and lasted 10 minutes. It gave him severe vertigo with the nausea. Although his chest pain resolved, he still felt dizzy when he brought himself to the emergency room. In the emergency room, his blood pressure was 166/94, afebrile at 36.6. O2 saturation was 99% on room air. Respirations 20. Negative physical exam and initial troponin was less than 0.04. His A1c was 12.3% in December. He is working with a new clinical orthoptist in [place] and has been recently changed to Novolin 70/30. His glycosylated hemoglobin is 11.2% with this admission. Serial cardiac enzymes were negative. Telemetry showed no arrhythmias. Blood pressure was elevated during his stay at 142-161 systolic, 95-103 diastolic. He says that when he takes blood pressure medicine, it just "slows me down too much." A nuclear medicine perfusion stress test was done on a Ronnie protocol. He was able to complete the protocol at 10 minutes. Achieved 11.7 metabolic equivalents. Target heart rate and blood pressure were achieved. Negative stress test. He is discharged in stable condition. PHYSICAL EXAMINATION VITAL SIGNS: Temperature 37, pulse 80, blood pressure 152/99, respirations 20, 94% on room air. Short statured slightly overweight, male in no acute distress. Ambulating in the room without any difficulty. NECK: Supple without carotid bruits. LUNGS: Clear to auscultation and percussion. CHEST: PMI is normally placed with a regular rate and rhythm. ABDOMEN: Soft, nontender. No organomegaly. NEUROLOGIC: He is already starting to develop some loss of light touch sensation in the feet and hands, worse in the feet. Gait is steady. He is discharged to follow up with his primary care provider. I have asked him to please try and achieve a goal of less than 7% A1c. I have also advised him not to drink anymore. His liver enzymes were mildly elevated during his stay. Imaging studies in the past, when I reviewed his medical record, showed a progression to cirrhosis on 2 CTs by 2 years apart. Hepatitis panel was done and nonreactive for A, B, C. TD: 03/17/2018 11:41 XAVIER
== END 2018-03-14 20:30 | disposition home or self-care (01) ==
LOC: ED 07:43 → MS2 10:52
PROVIDERS: ADMIT Specialist; ATTEND Specialist
DX: R07.9 Chest pain, unspecified (principal); E78.2 Mixed hyperlipidemia; I10 Essential (primary) hypertension; E11.65 Type 2 diabetes mellitus with hyperglycemia; Z79.4 Long term (current) use of insulin; Z87.891 Personal history of nicotine dependence; R79.89 Other specified abnormal findings of blood chemistry; G89.29 Other chronic pain; M54.9 Dorsalgia, unspecified; E11.40 Type 2 diabetes mellitus with diabetic neuropathy, unspecified
CPT/HCPCS: 71046; 78452; 80048; 80053; 80061; 80074; 83036; 83690; 83721; 84484; 85025; 93005; 93017; 99284; A9270; A9500; G0378; J1815; Q0162; 99283

== ENCOUNTER 2018-04-10 07:50 | Emergency (ER) | payer MEDICAID ==
--- NOTE | 2018-04-10 08:40 | ED Physician Documentation ---
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 He states that his blood sugars have been running normal recently. Review of Systems Constitutional: denies: Fever, Chills, Myalgias Eyes: denies: Decreased vision Ears: denies: Ear pain Nose: denies: Congestion Throat: denies: Sore throat Respiratory: denies: Cough GI: denies: Vomiting : denies: Dysuria Skin: denies: Rash Musculoskeletal: reports: Back pain, Extremity pain, Pain with weight bearing. denies: Neck pain Neurologic: denies: Generalized weakness, Focal weakness, Numbness PD PAST MEDICAL HISTORY - Past Medical History Cardiovascular: Hypertension, High cholesterol Respiratory: None Endocrine/Autoimmune: Type 2 diabetes GI: Pancreatitis : Nocturia, Other HEENT: None Psych: None Musculoskeletal: Chronic back pain Derm: None - Past Surgical History Past Surgical History: Yes General: Other Ortho: Other - Present Medications Home Medications: Ambulatory Orders Medication Instructions Recorded Confirmed Gabapentin 300 mg ORAL TID 02/14/18 04/10/18 Insulin 70/30 Human [NovoLIN] 40 units SQ DAILY 02/14/18 04/10/18 Atorvastatin Calcium [Lipitor] 80 mg ORAL DAILY 02/24/18 04/10/18 Glimepiride 2 mg PO DAILY 03/14/18 04/10/18 Lisinopril [Zestril] 5 mg PO DAILY #30 tablet 03/14/18 04/10/18 Baclofen 10 mg PO DAILY 04/10/18 04/10/18 Hydrocodone/Acetaminophen 1 - 2 each PO Q6H PRN #14 tablet 04/10/18 [Hydrocodon-Acetaminophen 5-325] - Allergies Allergies/Adverse Reactions: Allergies Allergy/AdvReac Type Severity Reaction Status Date / Time naproxen [From Naprosyn] Allergy Rash Verified 03/14/18 07:50 - Social History Does the pt smoke?: No Smoking Status: Never smoker Does the pt drink ETOH?: No Does the pt have substance abuse?: No - Immunizations Immunizations are current?: Yes - POLST Patient has POLST: No POLST Status: Full Code PD ED PE NORMAL - Vitals Vital signs reviewed: Yes (hypertensive ) - General General: Alert and oriented X 3, No acute distress, Well developed/nourished - HEENT HEENT: Atraumatic, PERRL, EOMI - Respiratory Respiratory: No respiratory distress - Derm Derm: Normal color, Warm and dry, No rash - Extremities Extremities: No deformity, No edema, Other (There is mild swelling to both heals with dry lichenified skin without callous formation and tenderness over the plantar surface of the heal. Distal n/v is intact. The right foot is numb in the same area. There is mild tenderness and swelling over the dorsum of the right foot without erythema today. ) - Neuro Neuro: Alert and oriented X 3, inspector watch train 2-12 intact, No motor deficit, No sensory deficit, Normal speech Eye Opening: Spontaneous Motor: Obeys Commands Verbal: Oriented GCS Score: 15 - Psych Psych: Normal mood, Normal affect Results - Vitals Vitals: Vital Signs - 24 hr 04/10/18 07:55 Temperature 36.6 C Heart Rate 73 Respiratory 16 Rate Blood Pressure 141/94 H O2 Saturation 99 Oxygen O2 Source Room air - Labs Labs: Laboratory Tests 04/10/18 08:42 POC Whole Bld Glucose 231 H Procedures - IVC sono (time) 0845 Bedside IVC sono: IVC measures (cm) (1.64), IVC collapsed c insp (cm) (1.15), Euvolemia PD MEDICAL DECISION MAKING - ED course Complexity details: considered differential, d/w patient ED course: 48 y/o diabetic male with heal pain and diabetic neuropathy has not responded to gabapentin and is on a dose titration. He claims intolerable pain and likely has acute phase of diabetic neuropathy or beginning of pressure ulcer. I have recommended he stay off of his feet for 5 days, control his diabetes and follow up with the business management associate as planned. We will provide short course of pain medication. Today his blood sugar was 231 and his volume is normal on interrogation of the IVC. Fluids are not indicated and he has not taken his insulin yet this morning. Departure - Departure Disposition: Home, Self Care Clinical Impression: Left foot pain Condition: Stable Instructions: ED Neuropathy Peripheral Follow-Up: Dari Brooks ARNP [Primary Care Provider] - Maddy Sinclair DPM [Provider Admit Priv/Credential] - Prescriptions: Hydrocodone/Acetaminophen [Hydrocodon-Acetaminophen 5-325] 1 - 2 each PO Q6H PRN #14 tablet PRN Reason: pain
[2018-04-10 09:01] VITALS: BP 149/90
== END 2018-04-10 09:01 | disposition home or self-care (01) ==
LOC: ED 07:50
DX: M79.672 Pain in left foot (principal); E11.42 Type 2 diabetes mellitus with diabetic polyneuropathy; Z79.4 Long term (current) use of insulin; L28.0 Lichen simplex chronicus; M54.6 Pain in thoracic spine; I10 Essential (primary) hypertension
CPT/HCPCS: 99283

== ENCOUNTER 2018-06-05 11:07 | Emergency (ER) | payer MEDICAID ==
[2018-06-05] MEDS ORDERED: DEXAMETHASONE 10 MG/ML VIAL PO STA (12:28)
[2018-06-05] MEDS ORDERED: CHERRY SYRUP 10 ML UDC PO ONE (12:43)
--- NOTE | 2018-06-05 13:20 | ED Physician Documentation ---
PD HPI URI - Stated complaint Stated Complaint: FLU LIKE SX - Chief complaint Chief Complaint: Resp - History obtained from History obtained from: Patient - History of Present Illness Timing - onset: Last night Timing duration: Hours Timing details: Abrupt onset, Still present Associated symptoms: Fever, Chills, Nasal congestion, Rhinorrhea, Productive cough, Chest pain Contributing factors: Sick contact Improves by: Rest, Medication Worsened by: Activity Similar symptoms before: Diagnosis (pneumonia) Recently seen: Not recently seen - Additional information Additional information: 48-year-old diabetic male has developed fever cough and congestion in the middle of flu season and he has been coughing up green and yellow phlegm. He has pain in the right chest wall with coughing. Review of Systems Constitutional: reports: Fever, Chills, Myalgias, Fatigue Eyes: denies: Decreased vision Ears: denies: Ear pain Nose: reports: Rhinorrhea / runny nose, Congestion Throat: reports: Sore throat Cardiac: reports: Chest pain / pressure. denies: Palpitations Respiratory: reports: Cough. denies: Dyspnea GI: denies: Vomiting : reports: Frequency Skin: denies: Rash Musculoskeletal: denies: Neck pain, Back pain, Extremity pain Neurologic: denies: Generalized weakness, Focal weakness, Numbness PD PAST MEDICAL HISTORY - Past Medical History Past Medical History: Yes Cardiovascular: Hypertension, High cholesterol Respiratory: None Endocrine/Autoimmune: Type 2 diabetes GI: Pancreatitis : Nocturia, Other HEENT: None Psych: None Musculoskeletal: Chronic back pain Derm: None - Past Surgical History Past Surgical History: Yes General: Other Ortho: Other - Present Medications Home Medications: Ambulatory Orders Medication Instructions Recorded Confirmed Gabapentin 300 mg ORAL TID 02/14/18 04/10/18 Insulin 70/30 Human [NovoLIN] 40 units SQ DAILY 02/14/18 04/10/18 Atorvastatin Calcium [Lipitor] 80 mg ORAL DAILY 02/24/18 04/10/18 Glimepiride 2 mg PO DAILY 03/14/18 04/10/18 Lisinopril [Zestril] 5 mg PO DAILY #30 tablet 03/14/18 04/10/18 Baclofen 10 mg PO DAILY 04/10/18 04/10/18 Hydrocodone/Acetaminophen 1 - 2 each PO Q6H PRN #14 tablet 04/10/18 [Hydrocodon-Acetaminophen 5-325] Amox/Clav 875/125 [Augmentin] 1 each PO Q12H #20 tablet 06/05/18 - Allergies Allergies/Adverse Reactions: Allergies Allergy/AdvReac Type Severity Reaction Status Date / Time naproxen [From Naprosyn] Allergy Rash Verified 06/05/18 11:13 - Social History Does the pt smoke?: No Smoking Status: Never smoker Does the pt drink ETOH?: No Does the pt have substance abuse?: No - Immunizations Immunizations are current?: Yes - POLST Patient has POLST: No POLST Status: Full Code PD ED PE NORMAL - Vitals Vital signs reviewed: Yes (tachy and hypertensive ) - General General: Alert and oriented X 3, No acute distress, Well developed/nourished - HEENT HEENT: Atraumatic, PERRL, EOMI, Other (The left TM is inflamed with indistinct landmarks. The right is clear ) - Neck Neck: Supple, no meningeal sign, No bony TTP - Cardiac Cardiac: RRR, No murmur - Respiratory Respiratory: No respiratory distress, Other (dminished breath sounds. ) - Abdomen Abdomen: Soft, Non tender - Back Back: No CVA TTP, No spinal TTP - Derm Derm: Normal color, Warm and dry, No rash - Extremities Extremities: No deformity, No edema - Neuro Neuro: Alert and oriented X 3, flitch hanger 2-12 intact, No motor deficit, No sensory deficit, Normal speech Eye Opening: Spontaneous Motor: Obeys Commands Verbal: Oriented GCS Score: 15 - Psych Psych: Normal mood, Normal affect Results - Vitals Vitals: Vital Signs - 24 hr 06/05/18 06/05/18 06/05/18 11:11 13:52 14:59 Temperature 36.6 C 36.3 C L 36.2 C L Heart Rate 106 H 82 82 Respiratory 22 16 20 Rate Blood Pressure 133/101 H 149/93 H 152/103 H O2 Saturation 98 98 98 Oxygen O2 Source Room air - Labs Labs: Laboratory Tests 06/05/18 11:15 Influenza A (Rapid) Negative Influenza B (Rapid) Negative - Rads (name of study) chest Radiology: Prelim report reviewed (Impression: No acute cardiopulmonary abnormalities detected.), EMP read contemporaneously (no active disease), See rad report PD MEDICAL DECISION MAKING - ED course Complexity details: reviewed old records, reviewed results, re-evaluated patient, considered differential, d/w patient, d/w family ED course: 48-year-old male with type 2 diabetes has a cough and congestion on examination he has left otitis media. He is administered dexamethasone 10 mg orally and we will place him on some Augmentin. He is given an additional 5 units of regular insulin for a blood sugar of 217. Departure - Departure Disposition: Home, Self Care Clinical Impression: Otitis media Qualifiers: Otitis media type: suppurative Chronicity: acute Laterality: left Recurrence: not specified as recurrent Spontaneous tympanic membrane rupture: without spontaneous rupture Qualified Code(s): H66.002 - Acute suppurative otitis media without spontaneous rupture of ear drum, left ear Condition: Stable Instructions: ED Otitis Media Acute Adult Follow-Up: Dari Brooks ARNP [Primary Care Provider] - Prescriptions: Amox/Clav 875/125 [Augmentin] 1 each PO Q12H #20 tablet
[2018-06-05] MEDS ORDERED: INSULIN REGULAR HUMAN 100 UNIT/1 ML 10 ML MDV SUBQ STA (13:45)
--- NOTE | 2018-06-05 14:57 | XRAY Report ---
Reason: cough, productive Procedure Date: 06/05/2018 Accession Number: [id number] / [id number] Procedure: XR - Chest 2 View X-Ray CPT Code: 74526 FULL RESULT: EXAM: CHEST RADIOGRAPHY EXAM DATE: 06/05/2018 01:00 PM. CLINICAL HISTORY: Cough, productive. COMPARISON: CHEST 2 VIEW 03/14/2018 8:20 AM. TECHNIQUE: 2 views. FINDINGS: Lungs/Pleura: No focal opacities evident. No pleural effusion. No pneumothorax. Normal volumes. Mediastinum: Heart and mediastinal contours are unremarkable. Other: None. IMPRESSION: No acute cardiopulmonary abnormalities detected. RADIA
[2018-06-05 15:12] VITALS: BP 160/108
== END 2018-06-05 15:12 | disposition home or self-care (01) ==
LOC: ED 11:07
DX: H66.002 Acute suppurative otitis media without spontaneous rupture of ear drum, left ear (principal); E11.9 Type 2 diabetes mellitus without complications; Z79.4 Long term (current) use of insulin; I10 Essential (primary) hypertension
CPT/HCPCS: 71046; 87275; 87276; 99283

== ENCOUNTER 2018-06-18 09:09 | Outpatient (CLI) | payer MEDICAID ==
[2018-06-18 09:31] LABS: BASOPHILS # (AUTO) 0.1 10^3/uL (0.0-0.1); BASOPHILS % (AUTO) 0.7 %; EOSINOPHILS # (AUTO) 0.1 10^3/uL (0.0-0.7); EOSINOPHILS % (AUTO) 1.2 %; HGB - HEMOGLOBIN 14.6 g/dL (14.0-18.0); LYMPHOCYTES # (AUTO) 1.8 10^3/uL (1.5-3.5); LYMPHOCYTES % (AUTO) 20.8 %; MEAN CORPUSCULAR HEMOGLOBIN 28.1 pg (27.0-31.0); MEAN CORPUSCULAR HGB CONC 33.7 g/dL (32.0-36.0); MEAN CORPUSCULAR VOLUME 83.2 fL (80.0-94.0); MEAN PLATELET VOLUME 8.7 fL (7.4-11.4); MONOCYTES # (AUTO) 0.4 10^3/uL (0.0-1.0); MONOCYTES % (AUTO) 4.3 %; NEUTROPHILS # (AUTO) 6.1 10^3/uL (1.5-6.6); PLT - PLATELET COUNT 147 10^3/uL (130-450); RED BLOOD COUNT 5.22 10^6/uL (4.70-6.10); RED CELL DISTRIBUTION WIDTH 13.8 % (12.0-15.0); WHITE BLOOD COUNT 8.4 x10^3/uL (4.8-10.8)
[2018-06-18 09:44] LABS: ALBUMIN/GLOBULIN RATIO 1.3 (1.0-2.2); ALKALINE PHOSPHATASE 112 IU/L (42-121); ALT ALANINE AMINOTRANSFERASE 191 IU/L (10-60); AST ASPARTATE AMINOTRANSFERASE 208 IU/L (10-42); BILIRUBIN,TOTAL 1.6 mg/dL (0.2-1.0); BUN - BLOOD UREA NITROGEN 15 mg/dL (6-20); CALCIUM 8.7 mg/dL (8.5-10.3); CARBON DIOXIDE - CO2 22 mmol/L (21-32); CHLORIDE 100 mmol/L (101-111); CHOL/HDL RATIO 4.6 (<5.0); CHOLESTEROL 188 mg/dL; CREATININE 0.8 mg/dL (0.6-1.2); GFR - MDRD 102 (>89); GLUCOSE 234 mg/dL (70-100); HDL CHOLESTEROL 41 mg/dL; SODIUM 133 mmol/L (135-145); TOTAL PROTEIN 7.1 g/dL (6.7-8.2)
[2018-06-18 09:53] LABS: HB2 TOTAL 16.7 g/dL; HEMOGLOBIN A1C 1.27 g/dL; HEMOGLOBIN A1C % 9.1 % (4.6-6.2)
[2018-06-18 10:04] LABS: LDL CHOLESTEROL,DIRECT 39 mg/dL
== END 2018-06-18 09:10 | disposition home or self-care (01) ==
LOC: LAB 09:09
PROVIDERS: ATTEND Nurse Practitioner Family
DX: Z86.79 Personal history of other diseases of the circulatory system (principal); E78.5 Hyperlipidemia, unspecified; E11.9 Type 2 diabetes mellitus without complications
CPT/HCPCS: 36415; 80053; 80061; 82043; 83036; 83721; 84443; 85025

== ENCOUNTER 2018-07-26 17:28 | Emergency (ER) | payer MEDICAID ==
[2018-07-26] MEDS ORDERED: MORPHINE 2 MG/ML CARPUJECT IVP STA (18:35)
--- NOTE | 2018-07-26 18:38 | ED Physician Documentation ---
History of Present Illness - Stated complaint Stated Complaint: RT HIP/TORSO PX - Chief complaint Chief Complaint: General - History obtained from History obtained from: Patient - History of Present Illness Timing: Other (For the last week he has had pain that basically runs from the right hip up to the right rib cage. It is quite severe and worsening. Now constant for the last 3 days. Its worse after eating. It is also worse just with clothes and things touching his skin. There is no rash there. He denies fevers. No problems with his bowel movements. He has a history of umbilical hernia, no other abdominal surgeries.) Review of Systems Ten Systems: 10 systems reviewed and negative Constitutional: denies: Fever, Chills Cardiac: denies: Chest pain / pressure, Palpitations Respiratory: denies: Dyspnea, Cough GI: reports: Abdominal Pain. denies: Nausea, Vomiting, Constipation, Diarrhea PD PAST MEDICAL HISTORY - Past Medical History Past Medical History: Yes Cardiovascular: Hypertension, High cholesterol Respiratory: None Endocrine/Autoimmune: Type 2 diabetes GI: Pancreatitis : Nocturia, Other HEENT: None Psych: None Musculoskeletal: Chronic back pain Derm: None - Past Surgical History Past Surgical History: Yes General: Other Ortho: Other - Present Medications Home Medications: Ambulatory Orders Medication Instructions Recorded Confirmed Oxycodone HCl/Acetaminophen 1 - 2 each PO Q6H PRN #7 tablet 07/26/18 [Percocet 5-325 mg Tablet] - Allergies Allergies/Adverse Reactions: Allergies Allergy/AdvReac Type Severity Reaction Status Date / Time naproxen [From Naprosyn] Allergy Rash Verified 07/26/18 17:49 - Social History Does the pt smoke?: No Smoking Status: Never smoker Does the pt drink ETOH?: No Does the pt have substance abuse?: No - Immunizations Immunizations are current?: Yes - POLST Patient has POLST: No POLST Status: Full Code PD ED PE NORMAL - Vitals Vital signs reviewed: Yes - General General: Alert and oriented X 3, Other (He looks mildly uncomfortable) - HEENT HEENT: PERRL, EOMI - Neck Neck: Supple, no meningeal sign, No bony TTP - Cardiac Cardiac: RRR, No murmur - Respiratory Respiratory: No respiratory distress, Clear bilaterally - Abdomen Abdomen: Other (Mild right-sided abdominal tenderness, more upper than lower quadrant without surgical signs. No skin changes or shingles to the abdomen or back.) - Back Back: No CVA TTP, No spinal TTP - Extremities Extremities: No edema, No calf tenderness / cord - Neuro Neuro: Alert and oriented X 3, Normal speech Results - Vitals Vitals: Vital Signs - 24 hr 07/26/18 07/26/18 17:45 19:32 Temperature 36.8 C 36.9 C Heart Rate 92 86 Respiratory 16 12 Rate Blood Pressure 166/105 H 175/105 H O2 Saturation 98 98 Oxygen O2 Source Room air - Labs Labs: Laboratory Tests 07/26/18 07/26/18 07/26/18 18:40 18:44 18:44 WBC 7.3 RBC 4.59 L Hgb 13.4 L Hct 37.8 L MCV 82.3 MCH 29.2 MCHC 35.5 RDW 14.3 Plt Count 158 MPV 9.4 Neut # (Auto) 5.0 Lymph # (Auto) 1.7 Nelson # (Auto) 0.4 Eos # (Auto) 0.1 Baso # (Auto) 0.1 Absolute Nucleated RBC 0.02 Nucleated RBC % 0.2 Sodium 127 L Potassium 3.7 Chloride 92 L Carbon Dioxide 19 L Anion Gap 16.0 H BUN 7 Creatinine 0.5 L Estimated GFR (MDRD) 176 Glucose 323 H Calcium 8.9 Total Bilirubin 0.5 AST 40 ALT < 10 L Alkaline Phosphatase 102 Total Protein 6.1 L Albumin 3.9 Globulin 2.2 Albumin/Globulin Ratio 1.8 Cholesterol HDL Cholesterol Cholesterol/HDL Ratio Lipase 75 H Urine Color YELLOW Urine Clarity CLEAR Urine pH 6.0 Ur Specific [place] 1.015 Urine Protein NEGATIVE Urine Glucose (UA) >=1000 H Urine Ketones TRACE Urine Occult Blood NEGATIVE Urine Nitrite NEGATIVE Urine Bilirubin NEGATIVE Urine Urobilinogen 0.2 (NORMAL) Ur Leukocyte Esterase NEGATIVE Ur Microscopic Review NOT INDICATED Urine Culture Comments NOT INDICATED Ethyl Alcohol < 5.0 07/26/18 18:46 WBC RBC Hgb Hct MCV MCH MCHC RDW Plt Count MPV Neut # (Auto) Lymph # (Auto) Nelson # (Auto) Eos # (Auto) Baso # (Auto) Absolute Nucleated RBC Nucleated RBC % Sodium Potassium Chloride Carbon Dioxide Anion Gap BUN Creatinine Estimated GFR (MDRD) Glucose Calcium Total Bilirubin AST ALT Alkaline Phosphatase Total Protein Albumin Globulin Albumin/Globulin Ratio Cholesterol 699 H HDL Cholesterol 25 L Cholesterol/HDL Ratio 28.0 Lipase Urine Color Urine Clarity Urine pH Ur Specific [place] Urine Protein Urine Glucose (UA) Urine Ketones Urine Occult Blood Urine Nitrite Urine Bilirubin Urine Urobilinogen Ur Leukocyte Esterase Ur Microscopic Review Urine Culture Comments Ethyl Alcohol - Rads (name of study) RUQ sono Radiology: EMP read contemporaneously (fatty liver) Ct A/P Radiology: EMP read contemporaneously (diverticulosis NAD) PD MEDICAL DECISION MAKING - ED course ED course: 48-year-old gentleman with diabetes and hypertriglyceridemia presents with right-sided abdominal pain. Mild tenderness on examination. The skin sensitivity would suggest some sort of neuropathic or Herpetic component but the re is no rash on exam. He has profound lipemia but this is not new. On further evaluation he admits that he stopped his statin and insulin about a month ago. He was advised to restart them. He has them at home. Otherwise diagnostics showed no specific cause for his pain. He was offered observation in the hospital but declined and wants to go home and will return if worse or not better in a short time.. Departure - Departure Disposition: Home, Self Care Clinical Impression: Uncontrolled type 2 diabetes mellitus with complication, without long-term current use of insulin, Mixed dyslipidemia Hyperlipidemia Qualifiers: Hyperlipidemia type: unspecified Qualified Code(s): E78.5 - Hyperlipidemia, unspecified Abdominal pain Qualifiers: Abdominal location: right lower quadrant Qualified Code(s): R10.31 - Right lower quadrant pain Condition: Stable Record reviewed to determine appropriate education?: Yes Instructions: ED Abdominal Pain Unkn Cause Prescriptions: Oxycodone HCl/Acetaminophen [Percocet 5-325 mg Tablet] 1 - 2 each PO Q6H PRN #7 tablet PRN Reason: pain Comments: As discussed I would recommend restarting your insulin and statin therapies to lower your blood sugar and lipid levels. They are fairly high. Return for new worsening symptoms or if not better in the next 12 to 24 hours. Follow-up with your doctor regardless, next available appointment.
[2018-07-26 18:51] LABS: BILIRUBIN,URINE NEGATIVE (NEGATIVE); GLUCOSE, URINE (UA) >=1000 mg/dL (NEGATIVE); KETONES,URINE (UA) TRACE mg/dL (NEGATIVE); LEUKOCYTE ESTERASE, URINE NEGATIVE (NEGATIVE); NITRITE,URINE NEGATIVE (NEGATIVE); OCCULT BLOOD,URINE NEGATIVE (NEGATIVE); PROTEIN,URINE NEGATIVE (NEGATIVE); UROBILINOGEN,URINE 0.2 (NORMAL) E.U./dL (NORMAL)
[2018-07-26 18:57] LABS: CLARITY,URINE CLEAR (CLEAR)
[2018-07-26 19:28] LABS: BASOPHILS # (AUTO) 0.1 10^3/uL (0.0-0.1); BASOPHILS % (AUTO) 0.7 %; EOSINOPHILS # (AUTO) 0.1 10^3/uL (0.0-0.7); EOSINOPHILS % (AUTO) 1.9 %; HGB - HEMOGLOBIN 13.4 g/dL (14.0-18.0); LYMPHOCYTES # (AUTO) 1.7 10^3/uL (1.5-3.5); LYMPHOCYTES % (AUTO) 23.3 %; MEAN CORPUSCULAR HEMOGLOBIN 29.2 pg (27.0-31.0); MEAN CORPUSCULAR HGB CONC 35.5 g/dL (32.0-36.0); MEAN CORPUSCULAR VOLUME 82.3 fL (80.0-94.0); MEAN PLATELET VOLUME 9.4 fL (7.4-11.4); MONOCYTES # (AUTO) 0.4 10^3/uL (0.0-1.0); MONOCYTES % (AUTO) 5.7 %; NEUTROPHILS % (AUTO) 68.4 %; PLT - PLATELET COUNT 158 10^3/uL (130-450); RED BLOOD COUNT 4.59 10^6/uL (4.70-6.10); RED CELL DISTRIBUTION WIDTH 14.3 % (12.0-15.0); WHITE BLOOD COUNT 7.3 x10^3/uL (4.8-10.8)
--- NOTE | 2018-07-26 19:38 | Ultrasound Report ---
Reason: R abd pain Procedure Date: 07/26/2018 Accession Number: [id number] / [id number] Procedure: US - Abdomen Limited CPT Code: FULL RESULT: EXAM: ABDOMEN ULTRASOUND LIMITED, RUQ EXAM DATE: 07/26/2018 07:24 PM. CLINICAL HISTORY: Right abdominal pain. COMPARISON: ABDOMEN LIMITED 03/28/2015 3:29 PM. TECHNIQUE: Real-time scanning was performed with static images obtained. FINDINGS: Liver: Hyperechoic echotexture with no focal abnormality. 22.2 cm. Main portal vein flow: Hepatopetal. Gallbladder: Normal. No stones, wall thickening, or sonographic Clark's sign. Biliary System: CBD measures 4 mm. No intrahepatic or extrahepatic ductal dilatation. Other: No right hydronephrosis. The pancreas is obscured by bowel gas. IMPRESSION: 1. Enlarged, fatty liver. 2. No evidence of cholelithiasis, cholecystitis or bile duct obstruction. RADIA
[2018-07-26 19:41] LABS: ALT ALANINE AMINOTRANSFERASE < 10 IU/L (10-60)
[2018-07-26] MEDS ORDERED: HYDROmorphone 1 MG/ML CARPUJECT IVP STA (19:41)
[2018-07-26 19:42] LABS: ALBUMIN 3.9 g/dL (3.2-5.5); ALBUMIN/GLOBULIN RATIO 1.8 (1.0-2.2); ALKALINE PHOSPHATASE 102 IU/L (42-121); BUN - BLOOD UREA NITROGEN 7 mg/dL (6-20); CALCIUM 8.9 mg/dL (8.5-10.3); CARBON DIOXIDE - CO2 19 mmol/L (21-32); CHLORIDE 92 mmol/L (101-111); CREATININE 0.5 mg/dL (0.6-1.2); GFR - MDRD 176 (>89); GLUCOSE 323 mg/dL (70-100); LIPASE 75 U/L (22-51); SODIUM 127 mmol/L (135-145); TOTAL PROTEIN 6.1 g/dL (6.7-8.2)
[2018-07-26] MEDS ORDERED: IOVERSOL 320 100 ML VIAL IVP ONE ×2 (19:51→20:16)
[2018-07-26 20:05] LABS: AST ASPARTATE AMINOTRANSFERASE 40 IU/L (10-42); BILIRUBIN,TOTAL 0.5 mg/dL (0.2-1.0)
[2018-07-26 20:30] LABS: CHOLESTEROL 699 mg/dL; HDL CHOLESTEROL 25 mg/dL
--- NOTE | 2018-07-26 20:42 | CT Report ---
Reason: IV only, R abd pain Procedure Date: 07/26/2018 Accession Number: [id number] / [id number] Procedure: CT - Abdomen/Pelvis W CPT Code: FULL RESULT: EXAM: CT ABDOMEN AND PELVIS EXAM DATE: 07/26/2018 08:18 PM. CLINICAL HISTORY: IV only, right abdominal pain. COMPARISONS: ABDOMEN/PELVIS W/ 07/11/2017 8:23 AM. TECHNIQUE: Routine helical CT imaging was performed through the abdomen and pelvis. IV contrast: [id number] 100ML. Enteric contrast: No. Reconstructions: Coronal and sagittal. In accordance with CT protocol optimization, one or more of the following dose reduction techniques were utilized for this exam: automated exposure control, adjustment of mA and/or KV based on patient size, or use of iterative reconstructive technique. FINDINGS: Lung Bases: Unremarkable. Liver: Normal. No masses. Gallbladder/Bile Ducts: Unremarkable. Spleen: Normal. Pancreas: Normal. Adrenal Glands: Normal. Kidneys: Normal. No masses or hydronephrosis. Peritoneal Cavity/Bowel: There is diverticulosis without diverticulitis. No bowel obstruction. No free air or fluid collections. The appendix is well visualized and normal. Pelvic Organs: Normal. The bladder and visualized pelvic organs are within normal limits. Vasculature: No aneurysms or other significant abnormality. Bones: No significant abnormality. Other: None. IMPRESSION: 1. Diverticulosis. 2. No bowel obstruction, fluid collection or acute inflammatory process. RADIA
[2018-07-26] MEDS ORDERED: oxyCODONE/ACET 5/325 Prepack 4 PO STA (21:14)
[2018-07-26 21:33] VITALS: BP 163/103
[2018-07-26 22:08] LABS: LDL CHOLESTEROL,DIRECT 14 mg/dL; LDLD/HDL RATIO 0.6 (<3.6)
== END 2018-07-26 21:37 | disposition home or self-care (01) ==
LOC: ED 17:28
DX: R10.31 Right lower quadrant pain (principal); M25.551 Pain in right hip; E11.65 Type 2 diabetes mellitus with hyperglycemia; E78.2 Mixed hyperlipidemia; T46.6X6A Underdosing of antihyperlipidemic and antiarteriosclerotic drugs, initial encounter; T38.3X6A Underdosing of insulin and oral hypoglycemic [antidiabetic] drugs, initial encounter; Z91.128 Patient's intentional underdosing of medication regimen for other reason; I10 Essential (primary) hypertension; K76.0 Fatty (change of) liver, not elsewhere classified; K57.30 Diverticulosis of large intestine without perforation or abscess without bleeding
CPT/HCPCS: 36415; 74177; 76705; 80053; 80061; 80320; 81003; 83690; 83721; 85025; 96374; 96375; 99283; J1170; Q9967; 81001; 87086

== ENCOUNTER 2018-08-08 09:13 | Outpatient (CLI) | payer MEDICAID ==
[2018-08-08 10:09] LABS: BASOPHILS # (AUTO) 0.1 10^3/uL (0.0-0.1); BASOPHILS % (AUTO) 0.8 %; EOSINOPHILS # (AUTO) 0.1 10^3/uL (0.0-0.7); EOSINOPHILS % (AUTO) 1.3 %; HGB - HEMOGLOBIN 13.8 g/dL (14.0-18.0); LYMPHOCYTES # (AUTO) 1.8 10^3/uL (1.5-3.5); LYMPHOCYTES % (AUTO) 21.7 %; MEAN CORPUSCULAR HEMOGLOBIN 28.5 pg (27.0-31.0); MEAN CORPUSCULAR HGB CONC 34.3 g/dL (32.0-36.0); MEAN CORPUSCULAR VOLUME 83.1 fL (80.0-94.0); MONOCYTES # (AUTO) 0.5 10^3/uL (0.0-1.0); MONOCYTES % (AUTO) 5.7 %; NEUTROPHILS # (AUTO) 5.8 10^3/uL (1.5-6.6); NEUTROPHILS % (AUTO) 70.5 %; PLT - PLATELET COUNT 177 10^3/uL (130-450); RED BLOOD COUNT 4.82 10^6/uL (4.70-6.10); RED CELL DISTRIBUTION WIDTH 13.5 % (12.0-15.0); WHITE BLOOD COUNT 8.2 x10^3/uL (4.8-10.8)
[2018-08-08 10:38] LABS: BILIRUBIN,TOTAL 0.8 mg/dL (0.2-1.0); CREATININE 0.7 mg/dL (0.6-1.2)
[2018-08-08 10:39] LABS: ALBUMIN 4.3 g/dL (3.2-5.5); ALBUMIN/GLOBULIN RATIO 1.9 (1.0-2.2); TOTAL PROTEIN 6.6 g/dL (6.7-8.2)
[2018-08-08 10:45] LABS: HB2 TOTAL 14.5 g/dL; HEMOGLOBIN A1C 1.74 g/dL; HEMOGLOBIN A1C % 13.1 % (4.6-6.2)
== END 2018-08-08 09:14 | disposition home or self-care (01) ==
LOC: LAB 09:13
PROVIDERS: ATTEND Nurse Practitioner Family
DX: E11.65 Type 2 diabetes mellitus with hyperglycemia (principal)
CPT/HCPCS: 36415; 80053; 83036; 84443; 85025

== ENCOUNTER 2018-08-11 09:07 | Outpatient (CLI) | payer MEDICAID | END 2018-08-11 09:08 | disposition home or self-care (01) | LOC: LAB 09:07 | DX: Z53.9 Procedure and treatment not carried out, unspecified reason (principal) ==

== ENCOUNTER 2018-11-29 11:19 | Emergency (ER) | payer MEDICAID ==
[2018-11-29 11:26] VITALS: BP 182/116
[2018-11-29] MEDS ORDERED: oxyCODONE 5 MG TABLET PO STA (12:06)
[2018-11-29] MEDS ORDERED: predniSONE 20 MG TABLET PO STA (12:07)
[2018-11-29] MEDS ORDERED: diphenhydrAMINE 25 MG CAPSULE PO STA (12:07)
--- NOTE | 2018-11-29 12:10 | ED Physician Documentation ---
PD HPI SKIN - Stated complaint Stated Complaint: BEE STING - Chief complaint Chief Complaint: Wound - History obtained from History obtained from: Patient - History of Present Illness Timing - onset: Today (48-year-old gentleman with history of bee sting allergy presents 2 hours after being stung on the right hand by a bee. He complains of a lot of pain that is burning in the hand. Denies trouble swallowing, wheezing, diffuse rash, throat swelling. Has not taken anything for it.) Review of Systems Constitutional: denies: Fever, Chills Nose: denies: Rhinorrhea / runny nose Throat: denies: Sore throat Respiratory: denies: Dyspnea, Cough GI: denies: Nausea, Vomiting, Diarrhea PD PAST MEDICAL HISTORY - Past Medical History Past Medical History: Yes Cardiovascular: Hypertension, High cholesterol Respiratory: None Endocrine/Autoimmune: Type 2 diabetes GI: Pancreatitis : Nocturia, Other HEENT: None Psych: None Musculoskeletal: Chronic back pain Derm: None - Past Surgical History Past Surgical History: Yes General: Other Ortho: Other - Present Medications Home Medications: Ambulatory Orders Medication Instructions Recorded Confirmed Oxycodone HCl/Acetaminophen 1 - 2 each PO Q6H PRN #7 tablet 07/26/18 [Percocet 5-325 mg Tablet] Oxycodone HCl/Acetaminophen 1 - 2 each PO Q6H PRN #7 tablet 11/29/18 [Percocet 5-325 mg Tablet] predniSONE [Deltasone] 60 mg PO DAILY 2 Days #6 tablet 11/29/18 - Allergies Allergies/Adverse Reactions: Allergies Allergy/AdvReac Type Severity Reaction Status Date / Time bee pollen Allergy Dizziness Verified 11/29/18 11:23 naproxen [From Naprosyn] Allergy Rash Verified 07/26/18 17:49 - Social History Does the pt smoke?: No Smoking Status: Never smoker Does the pt drink ETOH?: No Does the pt have substance abuse?: No - Immunizations Immunizations are current?: Yes - POLST Patient has POLST: No POLST Status: Full Code PD ED PE NORMAL - Vitals Vital signs reviewed: Yes - General General: Alert and oriented X 3, No acute distress - HEENT HEENT: Other (Oropharyngeal examination is normal) - Respiratory Respiratory: No respiratory distress, Clear bilaterally - Extremities Extremities: Other (The right hand is swollen and red to the wrist, the area of the sting is on the palm between the Second and third metacarpals. No retained stinger.) - Neuro Neuro: Alert and oriented X 3, Normal speech Results - Vitals Vitals: Vital Signs - 24 hr 11/29/18 11:23 Temperature 36.8 C Heart Rate 88 Respiratory 18 Rate Blood Pressure 182/116 H O2 Saturation 99 Oxygen O2 Source Room air PD MEDICAL DECISION MAKING - ED course ED course: 48-year-old gentleman with localized bee sting reaction, no evidence of anaphylaxis. His major concern is the pain and he is prescribed a few oxycodone along with steroids and Benadryl. Departure - Departure Disposition: 01 Home, Self Care Clinical Impression: Local reaction to bee sting Qualifiers: Encounter type: initial encounter Injury intent: accidental or unintentional Qualified Code(s): T63.441A - Toxic effect of venom of bees, accidental (unintentional), initial encounter Condition: Good Record reviewed to determine appropriate education?: Yes Instructions: ED Bite Sting Insect Local Allergic React Prescriptions: Oxycodone HCl/Acetaminophen [Percocet 5-325 mg Tablet] 1 - 2 each PO Q6H PRN #7 tablet PRN Reason: pain predniSONE [Deltasone] 60 mg PO DAILY 2 Days #6 tablet Comments: Benadryl as needed for the burning and itching, you can also take the pain medication when it severe. Do not drink or drive with the pain medication. As discussed, watch blood sugars closely. If they go up you can increase your NovoLog dose a bit or stop it if they go very high. Return if necessary for worsening symptoms. Your blood pressure was elevated today on check into the emergency department. This does not mean that you have hypertension, it is a common phenomenon to come to the emergency department and have elevated blood pressure. I recommend that you see your primary care physician within the week to have it rechecked when you are feeling better.
== END 2018-11-29 12:28 | disposition home or self-care (01) ==
LOC: ED 11:19
DX: T63.441A Toxic effect of venom of bees, accidental (unintentional), initial encounter (principal); M79.641 Pain in right hand; X58.XXXA Exposure to other specified factors, initial encounter; Z91.030 Bee allergy status; I10 Essential (primary) hypertension; E11.9 Type 2 diabetes mellitus without complications
CPT/HCPCS: 99282; 99283; A9270; J7512

== ENCOUNTER 2018-12-03 08:10 | Outpatient (CLI) | payer MEDICAID ==
[2018-12-03 08:51] LABS: HB2 TOTAL 15.1 g/dL; HEMOGLOBIN A1C 1.98 g/dL; HEMOGLOBIN A1C % 14.1 % (4.6-6.2)
== END 2018-12-03 08:11 | disposition home or self-care (01) ==
LOC: LAB 08:10
PROVIDERS: ATTEND Internal Medicine
DX: E11.8 Type 2 diabetes mellitus with unspecified complications (principal)
CPT/HCPCS: 36415; 83036

== ENCOUNTER 2019-01-08 06:46 | Emergency (ER) | payer MEDICAID ==
[2019-01-08] MEDS ORDERED: LIDOCAINE VISCOUS 2% 15 ML UDC MM STA (07:44)
[2019-01-08] MEDS ORDERED: INSULIN REGULAR HUMAN 100 UNIT in SODIUM CHLORIDE 0.9% 100ML 99 ML IV STA (07:44)
[2019-01-08] MEDS ORDERED: MAG HYDROX/AL HYDROX/SIMETH 30 ML UDC PO STA (07:44)
[2019-01-08] MEDS ORDERED: SODIUM CHLORIDE 0.9% 1,000 ML IV ONE ×2 (07:44→09:26)
--- NOTE | 2019-01-08 07:48 | ED Physician Documentation ---
PD HPI ABD PAIN - Stated complaint Stated Complaint: SIDE PX - Chief complaint Chief Complaint: Abd Pain - History obtained from History obtained from: Patient - History of Present Illness Timing - onset: Enter time (0000), Last night Timing - duration: Hours Timing - details: Gradual onset, Still present Quality: Aching, Sharp, Pain Location: LUQ Improved by: Laying still Worsened by: Breathing, Position, Palpation Associated symptoms: Nausea, Loss of appetite. No: Vomiting, Diarrhea, Constipation Similar symptoms before: Diagnosis (pancreatitis) Recently seen: Not recently seen - Additional information Additional information: 48-year-old male with a history of type 2 diabetes as developed left upper quadrant abdominal pain similar to what is had previously when he has had pancreatitis. He has been nauseated with this and spent the day home from work yesterday not feeling well with a high blood sugar. He did not use additional insulin because he was not eating. He has been urinating a lot and has been drinking a lot of fluids.He does admit to drinking some beers over the weekend but does not believe he overdid it. Review of Systems Constitutional: denies: Fever Eyes: denies: Decreased vision Ears: denies: Ear pain Nose: denies: Congestion Throat: denies: Sore throat Cardiac: denies: Chest pain / pressure, Palpitations Respiratory: denies: Dyspnea, Cough GI: reports: Abdominal Pain, Nausea. denies: Vomiting, Constipation, Diarrhea : reports: Frequency. denies: Dysuria Skin: denies: Rash Musculoskeletal: denies: Neck pain, Back pain, Extremity pain Neurologic: denies: Generalized weakness, Focal weakness, Numbness Endocrine: reports: Polydypsia, Polyuria PD PAST MEDICAL HISTORY - Past Medical History Cardiovascular: Hypertension, High cholesterol Respiratory: None Endocrine/Autoimmune: Type 2 diabetes GI: Pancreatitis : Nocturia, Other HEENT: None Psych: None Musculoskeletal: Chronic back pain Derm: None - Past Surgical History Past Surgical History: Yes General: Other Ortho: Other - Present Medications Home Medications: Ambulatory Orders Medication Instructions Recorded Confirmed Oxycodone HCl/Acetaminophen 1 - 2 each PO Q6H PRN #7 tablet 07/26/18 [Percocet 5-325 mg Tablet] Oxycodone HCl/Acetaminophen 1 - 2 each PO Q6H PRN #7 tablet 11/29/18 [Percocet 5-325 mg Tablet] predniSONE [Deltasone] 60 mg PO DAILY 2 Days #6 tablet 11/29/18 Sucralfate [Carafate] 1 gm PO ACHS #60 tablet 01/08/19 - Allergies Allergies/Adverse Reactions: Allergies Allergy/AdvReac Type Severity Reaction Status Date / Time bee pollen Allergy Dizziness Verified 01/08/19 06:56 naproxen [From Naprosyn] Allergy Rash Verified 01/08/19 06:56 - Social History Does the pt smoke?: No Smoking Status: Never smoker Does the pt drink ETOH?: No Does the pt have substance abuse?: No - Immunizations Immunizations are current?: Yes - POLST Patient has POLST: No POLST Status: Full Code PD ED PE NORMAL - Vitals Vital signs reviewed: Yes (hypertensive ) - General General: Alert and oriented X 3, No acute distress, Well developed/nourished - HEENT HEENT: Atraumatic, PERRL, EOMI, Ears normal, Other (dry mucous membranes) - Neck Neck: Supple, no meningeal sign, No bony TTP - Cardiac Cardiac: RRR, No murmur - Respiratory Respiratory: No respiratory distress, Clear bilaterally - Abdomen Abdomen: Soft, Other (mild left upper quadrant tenderness without garding ) - Back Back: No CVA TTP, No spinal TTP - Derm Derm: Normal color, Warm and dry, No rash - Extremities Extremities: No deformity, No edema - Neuro Neuro: Alert and oriented X 3, double bottom driver 2-12 intact, No motor deficit, No sensory deficit, Normal speech Eye Opening: Spontaneous Motor: Obeys Commands Verbal: Oriented GCS Score: 15 - Psych Psych: Normal mood, Normal affect Results - Vitals Vitals: Vital Signs - 24 hr 01/08/19 01/08/19 06:53 09:24 Temperature 36.3 C L Heart Rate 89 76 Respiratory 14 20 Rate Blood Pressure 144/89 H 156/98 H O2 Saturation 99 98 Oxygen O2 Source Room air - Labs Labs: Laboratory Tests 01/08/19 01/08/19 01/08/19 07:55 07:55 07:55 WBC 5.5 RBC 5.15 Hgb 15.2 Hct 42.6 MCV 82.7 MCH 29.5 MCHC 35.7 RDW 13.2 Plt Count 164 MPV 10.3 Neut # (Auto) 3.7 Lymph # (Auto) 1.4 L [place] # (Auto) 0.3 Eos # (Auto) 0.1 Baso # (Auto) 0.1 Absolute Nucleated RBC 0.00 Nucleated RBC % 0.0 Sodium 135 Potassium 4.0 Chloride 101 Carbon Dioxide 23 Anion Gap 11.0 BUN 17 Creatinine 0.7 Estimated GFR (MDRD) 119 Glucose 294 H POC Whole Bld Glucose Lactic Acid 2.0 Calcium 8.9 Total Bilirubin 1.5 H AST 107 H ALT 110 H Alkaline Phosphatase 138 H Troponin I High Sens Total Protein 6.7 Albumin 3.7 Globulin 3.0 Albumin/Globulin Ratio 1.2 Lipase 32 Urine Color Urine Clarity Urine pH Ur Specific [place] Urine Protein Urine Glucose (UA) Urine Ketones Urine Occult Blood Urine Nitrite Urine Bilirubin Urine Urobilinogen Ur Leukocyte Esterase Ur Microscopic Review Urine Culture Comments Ethyl Alcohol < 5.0 01/08/19 01/08/19 01/08/19 07:55 08:34 09:52 WBC RBC Hgb Hct MCV MCH MCHC RDW Plt Count MPV Neut # (Auto) Lymph # (Auto) [place] # (Auto) Eos # (Auto) Baso # (Auto) Absolute Nucleated RBC Nucleated RBC % Sodium Potassium Chloride Carbon Dioxide Anion Gap BUN Creatinine Estimated GFR (MDRD) Glucose POC Whole Bld Glucose 262 H Lactic Acid Calcium Total Bilirubin AST ALT Alkaline Phosphatase Troponin I High Sens 2.5 Total Protein Albumin Globulin Albumin/Globulin Ratio Lipase Urine Color YELLOW Urine Clarity CLEAR Urine pH 8.0 H Ur Specific [place] 1.010 Urine Protein NEGATIVE Urine Glucose (UA) >=1000 H Urine Ketones NEGATIVE Urine Occult Blood NEGATIVE Urine Nitrite NEGATIVE Urine Bilirubin NEGATIVE Urine Urobilinogen 0.2 (NORMAL) Ur Leukocyte Esterase NEGATIVE Ur Microscopic Review NOT INDICATED Urine Culture Comments NOT INDICATED Ethyl Alcohol Procedures - IVC sono (time) 0773 Bedside IVC sono: IVC measures (cm) (0.77), Dehydration (est 2-3 liters deficit) PD MEDICAL DECISION MAKING - ED course Complexity details: reviewed old records, reviewed results, re-evaluated patient, considered differential, d/w patient ED course: 48-year-old diabetic male with left upper quadrant abdominal pain and elevated blood sugars is significantly dehydrated on arrival to the emergency department. Departure - Departure Disposition: 01 Home, Self Care Clinical Impression: Gastritis Qualifiers: Gastritis type: unspecified gastritis Chronicity: acute Gastritis bleeding: without bleeding Qualified Code(s): K29.00 - Acute gastritis without bleeding Condition: Stable Instructions: ED PUD Vs Gastritis Follow-Up: Kimmie Batista ARNP, BULLET CHARGING MACHINE OPERATOR-C [Primary Care Provider] - Prescriptions: Sucralfate [Carafate] 1 gm PO ACHS #60 tablet Comments: Today it appears your pain is likely related again to irritation of your stomach. The remainder of your diagnostics are otherwise unremarkable. There is evidence of fatty infiltrated liver. Abstain from alcohol and use Nexium or Pepcid daily for at least 2 weeks. Take the sucralfate as prescribed.
[2019-01-08 08:06] LABS: BASOPHILS # (AUTO) 0.1 10^3/uL (0.0-0.1); BASOPHILS % (AUTO) 0.9 %; EOSINOPHILS # (AUTO) 0.1 10^3/uL (0.0-0.7); EOSINOPHILS % (AUTO) 1.3 %; HGB - HEMOGLOBIN 15.2 g/dL (14.0-18.0); LYMPHOCYTES # (AUTO) 1.4 10^3/uL (1.5-3.5); LYMPHOCYTES % (AUTO) 25.6 %; MEAN CORPUSCULAR HEMOGLOBIN 29.5 pg (27.0-31.0); MEAN CORPUSCULAR HGB CONC 35.7 g/dL (32.0-36.0); MEAN CORPUSCULAR VOLUME 82.7 fL (80.0-94.0); MEAN PLATELET VOLUME 10.3 fL (7.4-11.4); MONOCYTES # (AUTO) 0.3 10^3/uL (0.0-1.0); MONOCYTES % (AUTO) 5.2 %; NEUTROPHILS # (AUTO) 3.7 10^3/uL (1.5-6.6); NEUTROPHILS % (AUTO) 66.6 %; PLT - PLATELET COUNT 164 10^3/uL (130-450); RED BLOOD COUNT 5.15 10^6/uL (4.70-6.10); RED CELL DISTRIBUTION WIDTH 13.2 % (12.0-15.0); WHITE BLOOD COUNT 5.5 x10^3/uL (4.8-10.8)
[2019-01-08 08:17] LABS: ALBUMIN 3.7 g/dL (3.2-5.5); ALBUMIN/GLOBULIN RATIO 1.2 (1.0-2.2); ALKALINE PHOSPHATASE 138 IU/L (42-121); ALT ALANINE AMINOTRANSFERASE 110 IU/L (10-60); AST ASPARTATE AMINOTRANSFERASE 107 IU/L (10-42); BILIRUBIN,TOTAL 1.5 mg/dL (0.2-1.0); BUN - BLOOD UREA NITROGEN 17 mg/dL (6-20); CALCIUM 8.9 mg/dL (8.5-10.3); CARBON DIOXIDE - CO2 23 mmol/L (21-32); CHLORIDE 101 mmol/L (101-111); CREATININE 0.7 mg/dL (0.6-1.2); GFR - MDRD 119 (>89); GLUCOSE 294 mg/dL (70-100); LIPASE 32 U/L (22-51); SODIUM 135 mmol/L (135-145); TOTAL PROTEIN 6.7 g/dL (6.7-8.2)
[2019-01-08] MEDS ORDERED: HYDROmorphone 1 MG/ML CARPUJECT IVP STA (08:53)
[2019-01-08] MEDS ORDERED: ONDANSETRON 4 MG/2 ML VIAL IVP STA (08:53)
[2019-01-08] MEDS ORDERED: SUCRALFATE 1 GM/10 ML UDC PO STA (09:01)
[2019-01-08] MEDS ORDERED: PANTOPRAZOLE 40 MG VIAL IVP STA (09:01)
[2019-01-08 10:26] LABS: BILIRUBIN,URINE NEGATIVE (NEGATIVE); GLUCOSE, URINE (UA) >=1000 mg/dL (NEGATIVE); KETONES,URINE (UA) NEGATIVE (NEGATIVE); LEUKOCYTE ESTERASE, URINE NEGATIVE (NEGATIVE); NITRITE,URINE NEGATIVE (NEGATIVE); OCCULT BLOOD,URINE NEGATIVE (NEGATIVE); PROTEIN,URINE NEGATIVE (NEGATIVE); UROBILINOGEN,URINE 0.2 (NORMAL) E.U./dL (NORMAL)
[2019-01-08 10:27] LABS: CLARITY,URINE CLEAR (CLEAR)
[2019-01-08 10:41] VITALS: BP 144/90
== END 2019-01-08 10:50 | disposition home or self-care (01) ==
LOC: ED 06:46
DX: E86.0 Dehydration (principal); K29.00 Acute gastritis without bleeding; I10 Essential (primary) hypertension; E11.65 Type 2 diabetes mellitus with hyperglycemia; Z79.4 Long term (current) use of insulin
CPT/HCPCS: 36415; 80053; 80320; 81003; 83605; 83690; 84484; 85025; 96361; 96374; 96375; 99283; 99284; A9270; J1170; J1815; 81001; 87086

== ENCOUNTER 2019-02-10 09:28 | Outpatient (CLI) | payer MEDICAID ==
--- NOTE | 2019-02-10 10:10 | XRAY Report ---
Reason: LBP Procedure Date: 02/10/2019 Accession Number: [id number] / [id number] Procedure: XR - Lumbar Spine 2 View CPT Code: Final Report FULL RESULT: EXAM: LUMBOSACRAL SPINE RADIOGRAPHY EXAM DATE: 02/10/2019 09:54 AM. CLINICAL HISTORY: LBP. COMPARISONS: LUMBAR SPINE 2 VIEW 11/30/2016 1:29 PM. TECHNIQUE: 2 views. FINDINGS: Alignment: Normal. No spondylolisthesis or scoliosis. Bones: Last complete disk space designated L5-S1. No fractures or bone lesions. Disks: Disk heights are relatively preserved. There are mild multilevel degenerative endplate changes most pronounced at the mid to upper lumbar levels. Facets: Mild lower lumbar facet degeneration. Sacroiliac Joints: Unremarkable. Soft Tissues: Paraspinous soft tissues are unremarkable. IMPRESSION: 1. No definite acute osseous abnormality. 2. Multilevel lumbar degeneration. RADIA
--- NOTE | 2019-02-10 10:13 | XRAY Report ---
Reason: BACK PAIN Procedure Date: 02/10/2019 Accession Number: [id number] / [id number] Procedure: XR - Thoracic Spine 2 View CPT Code: Final Report FULL RESULT: EXAM: THORACIC SPINE RADIOGRAPHY EXAM DATE: 02/10/2019 09:55 AM. CLINICAL HISTORY: BACK PAIN. COMPARISON: CHEST 2 VIEW 06/05/2018 12:46 PM CERVICAL SPINE 2 VIEW 02/10/2019 9:37 AM CHEST 2 VIEW PA/LAT 12/30/2015 9:47 AM. TECHNIQUE: 2 views. FINDINGS: Alignment: Normal. No spondylolisthesis or scoliosis. Bones: Apparent mild thoracic compression deformity approximately T4, probably stable from prior. No definite acute fracture. Disks: Disk heights are preserved. Mild multilevel degenerative endplate changes. Soft Tissues: Normal. The visualized lungs and cardiomediastinal silhouette are normal. IMPRESSION: 1. No definite acute fracture or malalignment. 2. Apparent mild compression deformity approximately T4, probably stable from prior. RADIA
--- NOTE | 2019-02-10 10:14 | XRAY Report ---
Reason: BACK PAIN Procedure Date: 02/10/2019 Accession Number: [id number] / [id number] Procedure: XR - Cervical Spine 2 View CPT Code: Final Report FULL RESULT: EXAM: CERVICAL SPINE RADIOGRAPHY EXAM DATE: 02/10/2019 09:55 AM. CLINICAL HISTORY: BACK PAIN. COMPARISONS: None. TECHNIQUE: 3 views. FINDINGS: Alignment: Normal. No spondylolisthesis or scoliosis. Bones: The cervical vertebral bodies and posterior elements are well visualized from the skull base through C7-T1. No fractures or bone lesions. Disks: There is evidence of mild multilevel cervical disk degeneration most pronounced at C5-C6 and C6-C7 Facets: There is evidence of mild multilevel facet degeneration. Soft Tissues: No prevertebral soft tissue swelling. The visualized lung apices are clear. IMPRESSION: 1. No acute osseous abnormality. 2. Multilevel cervical degeneration. RADIA
== END 2019-02-10 09:29 | disposition home or self-care (01) ==
LOC: DI 09:28
PROVIDERS: ATTEND Nurse Practitioner
DX: M51.36 Other intervertebral disc degeneration, lumbar region (principal); M47.816 Spondylosis without myelopathy or radiculopathy, lumbar region; M43.8X4 Other specified deforming dorsopathies, thoracic region; M50.322 Other cervical disc degeneration at C5-C6 level; M47.812 Spondylosis without myelopathy or radiculopathy, cervical region
CPT/HCPCS: 72040; 72070; 72100

== ENCOUNTER 2019-02-11 08:47 | Emergency (ER) | payer MEDICAID ==
[2019-02-11] MEDS ORDERED: KETOROLAC 60 MG/2 ML VIAL IM STA (10:02)
--- NOTE | 2019-02-11 10:03 | ED Physician Documentation ---
PD HPI BACK PAIN - Stated complaint Stated Complaint: BACK PX - Chief complaint Chief Complaint: Back Pain - History obtained from History obtained from: Patient - History of Present Illness Timing - onset: How many days ago (5) Timing - duration: Days (5) Timing - details: Abrupt onset, Still present Location: Lower Quality: Pain Associated symptoms: Numbness. No: Fever, Unable to urinate, Incontinent of stool Improves with: Position Worsened by: Movement Similar symptoms before: Work up / diagnostics Recently seen: Not recently seen - Additional information Additional information: This is a 48-year-old man who presents with complaints that his back "locked up on him" 5 days ago. He is had trouble with his back intermittently over the past 10 years and in fact was just at the hospital x-ray department yesterday to get "full back x-rays". His primary care provider has referred him to [facility] to see a specialist but he does not have an appointment yet and hit his insurance apparently has denied an MRI. At this time the patient has pain started 5 days ago. Has been icing it and putting heat on it. He is used lidoc laura patches none of this seems to help. He says he cannot stand on the right leg because of the pain and he is using a crutch to get around this is something he has done intermittently for the past year. He feels like his bladder is not emptying all the way although he is not leaking any urine. Is also having trouble defecating stating that he has to sit on his left but she can lean to the side in order to poop. Both of his feet of been "totally numb for a long time" over 5 years however a recent trip to the catering sous chef they told him that it was coming from his lower back. Pain is on the right side and also into the SI joint. 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 No nausea or vomiting. He lives with a girlfriend. Review of Systems Constitutional: denies: Fever GI: denies: Abdominal Pain, Nausea, Vomiting : reports: Hesitancy. denies: Dysuria, Incontinent Skin: denies: Rash Musculoskeletal: reports: Back pain. denies: Extremity pain Neurologic: reports: Numbness (Feet bilaterally) PD PAST MEDICAL HISTORY - Past Medical History Cardiovascular: Hypertension, High cholesterol Respiratory: None Endocrine/Autoimmune: Type 2 diabetes GI: Pancreatitis : Nocturia, Other HEENT: None Psych: None Musculoskeletal: Chronic back pain Derm: None - Past Surgical History Past Surgical History: Yes General: Other Ortho: Other - Present Medications Home Medications: Ambulatory Orders Medication Instructions Recorded Confirmed Gabapentin 900 mg PO TID 02/11/19 02/11/19 Insulin Aspart [NovoLOG] 2 unit SUBQ TIDWM 02/11/19 02/11/19 Insulin Glargine,Hum.rec.anlog 25 unit SUBQ DAILY PM 02/11/19 02/11/19 [Basaglar Kwikpen U-100] traMADol [Ultram] 50 mg PO Q4-6H #10 tablet 02/11/19 - Allergies Allergies/Adverse Reactions: Allergies Allergy/AdvReac Type Severity Reaction Status Date / Time bee pollen Allergy Dizziness Verified 02/11/19 08:58 naproxen [From Naprosyn] Allergy Rash Verified 02/11/19 08:58 - Social History Does the pt smoke?: No Smoking Status: Never smoker Does the pt drink ETOH?: No Does the pt have substance abuse?: No - Immunizations Immunizations are current?: Yes - POLST Patient has POLST: No POLST Status: Full Code PD ED PE NORMAL - Vitals Vital signs reviewed: Yes - General General: Alert and oriented X 3, No acute distress, Well developed/nourished, Other (Very pleasant 48-year-old man who is not in acute distress.) - HEENT HEENT: Atraumatic, PERRL (No scleral icterus) - Cardiac Cardiac: RRR - Respiratory Respiratory: No respiratory distress - Back Back: No CVA TTP - Derm Derm: Normal color, Warm and dry, No rash - Extremities Extremities: No deformity, No tenderness to palpate, No edema - Neuro Neuro: Alert and oriented X 3, account developer 2-12 intact, No motor deficit, No sensory deficit, Normal speech, Other (Reflexes are 2+ and symmetrical at the quadriceps and the Achilles bilaterally. I did have the patient get up and ambulate and he was able to bear weight and support his weight with the aid of the crutch placed in front of him to steady himself on the right leg.) - Psych Psych: Normal mood, Normal affect Results - Vitals Vitals: Vital Signs - 24 hr 02/11/19 08:54 Temperature 36.5 C Heart Rate 85 Respiratory 18 Rate Blood Pressure 147/98 H O2 Saturation 97 Oxygen O2 Source Room air PD MEDICAL DECISION MAKING - ED course Complexity details: reviewed old records, reviewed results, d/w patient ED course: The patient had a Toradol 60 mg IM after which she said the pain was a little bit better down to about a 4 out of 10. I looked at the imaging results that he had done yesterday and they do show some degenerative changes. The results were discussed with him and he is referred back to his primary care provider for further work-up and evaluation and further referral to the specialist. In the meantime I have given a prescription for just 10 tramadol tablets. He can continue using the lidocaine patches. He declined a note for work stating that they will were very accommodating at his place of employment. Departure - Departure Disposition: 01 Home, Self Care Clinical Impression: Neuropathy Back pain Qualifiers: Back pain location: low back pain Chronicity: acute Back pain laterality: right Sciatica presence: without sciatica Qualified Code(s): M54.5 - Low back pain Condition: Good Instructions: ED Back Care Tips, ED Exercises Lumbar Muscles, ED Sprain Strain Lumbar Follow-Up: Kimmie Batista ARNP, EDGE STITCHER-C [Primary Care Provider] - Prescriptions: traMADol [Ultram] 50 mg PO Q4-6H #10 tablet Comments: Take an anti-inflammatory like ibuprofen or Aleve [id number] consistently for the next 3 to 4 days. Continue using her lidocaine patches. You may use the tramadol if needed for pain but do not drive or operate machinery or climb up on ladders if you are taking that medication. Contact your primary care provider to let them know you are in the emergency department with the back pain and follow-up on the referral to [facility]. You should receive any further pain management through your primary care provider.
[2019-02-11 12:00] VITALS: BP 159/107
== END 2019-02-11 12:02 | disposition home or self-care (01) ==
LOC: ED 08:47
DX: M54.5 Low back pain (principal); E11.40 Type 2 diabetes mellitus with diabetic neuropathy, unspecified; Z79.4 Long term (current) use of insulin; I10 Essential (primary) hypertension
CPT/HCPCS: 51798; 96372; 99283; 99284

== ENCOUNTER 2019-02-18 08:28 | Outpatient (CLI) | payer MEDICAID ==
[2019-02-18 09:11] LABS: ALBUMIN/GLOBULIN RATIO 1.1 (1.0-2.2); BILIRUBIN,TOTAL 0.9 mg/dL (0.2-1.0); CALCIUM 9.3 mg/dL (8.5-10.3); CREATININE 0.7 mg/dL (0.6-1.2); TOTAL PROTEIN 7.5 g/dL (6.7-8.2)
== END 2019-02-18 08:29 | disposition home or self-care (01) ==
LOC: LAB 08:28
PROVIDERS: ATTEND Nurse Practitioner
DX: E11.65 Type 2 diabetes mellitus with hyperglycemia (principal)
CPT/HCPCS: 36415; 80053

== ENCOUNTER 2019-02-25 07:05 | Emergency (ER) | payer MEDICAID ==
--- NOTE | 2019-02-25 07:27 | ED Physician Documentation ---
PD HPI MALE - Stated complaint Stated Complaint: GROIN PX - Chief complaint Chief Complaint: General - History obtained from History obtained from: Patient - History of Present Illness Timing - onset: How many weeks ago Timing - duration: Weeks (2 weeks of right inguinal and scrotal pain that is worse today. No noted injury. Worse with activity. Feels there is fullness in r ight scrotum. Has noted some pain in scrotum with urination, not in penis/urethra itself. No flank pain.) Timing - details: Gradual onset, Waxing and waning Associated symptoms: Dysuria, Scrotal swelling. No: Urinary frequency, Hematuria, Genital sore / lesion, Back pain PD HPI MALE CONTRIB FACTORS: Sexually active. No: Exposed to STD Similar symptoms before: Has not had sx before Recently seen: Not recently seen Review of Systems Constitutional: denies: Fever, Chills, Myalgias Nose: denies: Rhinorrhea / runny nose, Congestion Throat: denies: Sore throat Respiratory: denies: Cough GI: denies: Abdominal Swelling, Nausea, Vomiting, Diarrhea : reports: Dysuria. denies: Frequency, Hematuria, Discharge Skin: denies: Rash, Lesions Musculoskeletal: denies: Back pain Neurologic: denies: Near syncope PD PAST MEDICAL HISTORY - Past Medical History Past Medical History: Yes Cardiovascular: Hypertension, High cholesterol Respiratory: None Endocrine/Autoimmune: Type 2 diabetes GI: Pancreatitis : Nocturia, Other HEENT: None Psych: None Musculoskeletal: Chronic back pain Derm: None - Past Surgical History Past Surgical History: Yes General: Other Ortho: Other - Present Medications Home Medications: Ambulatory Orders Medication Instructions Recorded Confirmed Gabapentin 900 mg PO TID 02/11/19 02/11/19 Insulin Aspart [NovoLOG] 2 unit SUBQ TIDWM 02/11/19 02/11/19 Insulin Glargine,Hum.rec.anlog 25 unit SUBQ DAILY PM 02/11/19 02/11/19 [Basaglar Kwikpen U-100] traMADol [Ultram] 50 mg PO Q4-6H #10 tablet 02/11/19 Diclofenac Sodium 50 mg PO BID #30 tablet 02/25/19 Doxycycline Monohydrate 100 mg PO BID #14 tablet 02/25/19 Hydrocodone/Acetaminophen 1 - 2 each PO Q6H PRN #20 tablet 02/25/19 [Hydrocodon-Acetaminophen 5-325] - Allergies Allergies/Adverse Reactions: Allergies Allergy/AdvReac Type Severity Reaction Status Date / Time bee pollen Allergy Dizziness Verified 02/11/19 08:58 naproxen [From Naprosyn] Allergy Rash Verified 02/11/19 08:58 - Social History Does the pt smoke?: No Smoking Status: Never smoker Does the pt drink ETOH?: No Does the pt have substance abuse?: No - Immunizations Immunizations are current?: Yes - POLST Patient has POLST: No POLST Status: Full Code PD ED PE NORMAL - Vitals Vital signs reviewed: Yes - General General: Alert and oriented X 3, No acute distress, Well developed/nourished - Cardiac Cardiac: RRR, No murmur - Respiratory Respiratory: Clear bilaterally - Abdomen Abdomen: Normal bowel sounds, Soft, Non tender, Non distended, No organomegaly - Male Male : Other (some tenderness without mass in right inguinal area. No hernia noted. Right scrotum with tenderness and mild fullness. Epididymal area is tender without obvious swelling. Testicle is normal size and normal lie. Not tender. Left scrotum not tender. There is mild dry skin with redness undersiade of scrotum c/w mild tinea cruris. No degree of redness to suggest bacterial infection. ) - Rectal Rectal: Deferred - Back Back: No CVA TTP - Derm Derm: Normal color, Warm and dry, No rash Results - Vitals Vitals: Vital Signs - 24 hr 02/25/19 02/25/19 07:08 10:17 Temperature 36.4 C L Heart Rate 86 76 Respiratory 16 16 Rate Blood Pressure 141/94 H 150/89 H O2 Saturation 100 98 Oxygen O2 Source Room air - Labs Labs: Laboratory Tests 02/25/19 07:25 Urine Color YELLOW Urine Clarity CLEAR Urine pH 7.0 Ur Specific [place] 1.015 Urine Protein 30 H Urine Glucose (UA) >=1000 H Urine Ketones NEGATIVE Urine Occult Blood NEGATIVE Urine Nitrite NEGATIVE Urine Bilirubin NEGATIVE Urine Urobilinogen 0.2 (NORMAL) Ur Leukocyte Esterase NEGATIVE Urine RBC 0-5 Urine WBC 0-3 Ur Squamous Epith Cells NONE SEEN Urine Bacteria None Seen Urine Culture Comments NOT INDICATED - Rads (name of study) testicle U/S Radiology: Prelim report reviewed (small cysts noted. No acute process. Good blood flow. No hernia noted. ), See rad report PD MEDICAL DECISION MAKING - ED course Complexity details: reviewed results, re-evaluated patient, considered differential (has some dysuria though not urethral per se. Has tender right scrotal area. Does not seem referred , such as kidney stone, as it locally [place]. ), d/w patient Departure - Departure Disposition: 01 Home, Self Care Clinical Impression: Scrotal pain, Dysuria Condition: Stable Record reviewed to determine appropriate education?: Yes Instructions: ED Testicular Pain [facility] Follow-Up: Kimmie Batista ARNP, DENTAL SERVICE TECHNICIAN-C [Primary Care Provider] - Prescriptions: Diclofenac Sodium 50 mg PO BID #30 tablet. Doxycycline Monohydrate 100 mg PO BID #14 tablet Hydrocodone/Acetaminophen [Hydrocodon-Acetaminophen 5-325] 1 - 2 each PO Q6H PRN #20 tablet PRN Reason: pain Comments: Stay well hydrated.Your ultrasound showed small epididymal cysts but no hernias or other significant mass. We can treat this as possible infection. Doxycycline twice daily as directed. Also use an anti-inflammatory for potenti al inflammation through the area. Diclofenac twice daily. Add hydrocodone if needed for pain. Recheck if not improving well over the next several days to week. Discharge Date/Time: 02/25/19 10:37
[2019-02-25 07:31] LABS: BILIRUBIN,URINE NEGATIVE (NEGATIVE); GLUCOSE, URINE (UA) >=1000 mg/dL (NEGATIVE); KETONES,URINE (UA) NEGATIVE (NEGATIVE); LEUKOCYTE ESTERASE, URINE NEGATIVE (NEGATIVE); NITRITE,URINE NEGATIVE (NEGATIVE); OCCULT BLOOD,URINE NEGATIVE (NEGATIVE); PROTEIN,URINE 30 mg/dL (NEGATIVE); UROBILINOGEN,URINE 0.2 (NORMAL) E.U./dL (NORMAL)
[2019-02-25] MEDS ORDERED: HYDROcod/ACETAM 5/325 MG TABLET PO STA ×2 (07:41→10:08)
[2019-02-25 07:48] LABS: BACTERIA,URINE None Seen /HPF (None Seen); CLARITY,URINE CLEAR (CLEAR); RBC,URINE 0-5 /HPF (0-5); SQUAMOUS EPITHELIAL CELL,UR NONE SEEN (<= Few)
--- NOTE | 2019-02-25 10:02 | Ultrasound Report ---
Reason: right inguinal/scrotal pain and tender Procedure Date: 02/25/2019 Accession Number: [id number] / [id number] Procedure: US - Testicle w/Doppler Limited CPT Code: Final Report FULL RESULT: EXAM: SCROTAL ULTRASOUND EXAM DATE: 02/25/2019 09:36 AM. CLINICAL HISTORY: Right inguinal/scrotal pain and tender. COMPARISON: None. TECHNIQUE: Real-time scanning was performed with static images obtained. Color-flow images were utilized. FINDINGS: Right: Testis: 4.3 x 1.9 x 2.9 cm. Normal size and echotexture. No mass, calcification, or abnormal blood flow. Epididymis: 1.7 x 1.0 x 1.4 cm. Normal size and echotexture. No mass or abnormal blood flow. Hydrocele: None. Varicocele: None. Left: Testis: 4.2 x 2.1 x 2.8 cm. Normal size and echotexture. No mass, calcification, or abnormal blood flow. Epididymis: 1.9 x 0.9 x 1.6 cm. Normal size and echotexture. No mass or abnormal blood flow. Multiple cysts measuring up to 6 x 4 x 4 mm. Hydrocele: Small left hydrocele. Varicocele: None. Other: No obvious right inguinal hernia. IMPRESSION: 1. Normal Doppler flow to both testes. 2. No evidence for epididymitis. 3. Small left epididymal head cysts. 4. Small left hydrocele. RADIA
[2019-02-25] MEDS ORDERED: KETOROLAC 30 MG/ML VIAL IM STA (10:08)
[2019-02-25 10:19] VITALS: BP 150/89
[2019-02-25] MEDS ORDERED: DOXYCYCLINE 100 MG TABLET PO STA (10:19)
== END 2019-02-25 10:37 | disposition home or self-care (01) ==
LOC: ED 07:05
DX: N50.82 Scrotal pain (principal); R30.0 Dysuria; N50.3 Cyst of epididymis; N43.3 Hydrocele, unspecified; I10 Essential (primary) hypertension; E11.9 Type 2 diabetes mellitus without complications; Z79.4 Long term (current) use of insulin
CPT/HCPCS: 76870; 81001; 93976; 96372; 99284; A9270; 87086

== ENCOUNTER 2019-02-28 17:22 | Emergency (ER) | payer MEDICAID ==
[2019-02-28 17:54] LABS: BASOPHILS % (AUTO) 0.7 %; EOSINOPHILS # (AUTO) 0.1 10^3/uL (0.0-0.7); EOSINOPHILS % (AUTO) 2.4 %; HGB - HEMOGLOBIN 13.4 g/dL (14.0-18.0); LYMPHOCYTES # (AUTO) 2.1 10^3/uL (1.5-3.5); LYMPHOCYTES % (AUTO) 37.1 %; MEAN CORPUSCULAR HEMOGLOBIN 30.5 pg (27.0-31.0); MEAN CORPUSCULAR HGB CONC 35.3 g/dL (32.0-36.0); MEAN CORPUSCULAR VOLUME 86.4 fL (80.0-94.0); MEAN PLATELET VOLUME 10.3 fL (7.4-11.4); MONOCYTES # (AUTO) 0.4 10^3/uL (0.0-1.0); NEUTROPHILS % (AUTO) 51.8 %; PLT - PLATELET COUNT 161 10^3/uL (130-450); RED CELL DISTRIBUTION WIDTH 12.6 % (12.0-15.0); WHITE BLOOD COUNT 5.7 x10^3/uL (4.8-10.8)
[2019-02-28 18:07] LABS: ALBUMIN 3.9 g/dL (3.2-5.5); ALBUMIN/GLOBULIN RATIO 1.3 (1.0-2.2); BILIRUBIN,TOTAL 0.7 mg/dL (0.2-1.0); CREATININE 0.8 mg/dL (0.6-1.2)
--- NOTE | 2019-02-28 18:16 | ED Physician Documentation ---
PD HPI MALE - Stated complaint Stated Complaint: MALE PX - Chief complaint Chief Complaint: General - History obtained from History obtained from: Patient - History of Present Illness Timing - onset: How many days ago (having persistent pain in scrotum and lower abdomen. Seen few days ago with Rx Diclofenac, norco, doxy. Had U/S showing small cysts in scrotum, but only 6 mm at largest. has chronic back pain, but not new pain there.) Timing - duration: Days Timing - details: Gradual onset, Waxing and waning Associated symptoms: Dysuria, Testiclar pain, Back pain. No: Urinary frequency, Genital sore / lesion, Scrotal swelling Recently seen: Emergency Dept (few days ago with normal labs, UA, and U/S. Still having pain.) Review of Systems Constitutional: denies: Fever, Chills Nose: denies: Rhinorrhea / runny nose, Congestion Throat: denies: Sore throat Respiratory: denies: Cough GI: reports: Nausea. denies: Vomiting, Diarrhea : reports: Dysuria, Testicular pain. denies: Discharge, Testicular mass Skin: reports: Rash (redness on bottom of scrotum.). denies: Lesions PD PAST MEDICAL HISTORY - Past Medical History Cardiovascular: Hypertension, High cholesterol Respiratory: None Endocrine/Autoimmune: Type 2 diabetes GI: Pancreatitis : Nocturia, Other HEENT: None Psych: None Musculoskeletal: Chronic back pain Derm: None - Past Surgical History Past Surgical History: Yes General: Other Ortho: Other - Present Medications Home Medications: Ambulatory Orders Medication Instructions Recorded Confirmed Gabapentin 900 mg PO TID 02/11/19 02/11/19 Insulin Aspart [NovoLOG] 2 unit SUBQ TIDWM 02/11/19 02/11/19 Insulin Glargine,Hum.rec.anlog 25 unit SUBQ DAILY PM 02/11/19 02/11/19 [Basaglar Kwikpen U-100] traMADol [Ultram] 50 mg PO Q4-6H #10 tablet 02/11/19 Diclofenac Sodium 50 mg PO BID #30 tablet 02/25/19 Doxycycline Monohydrate 100 mg PO BID #14 tablet 02/25/19 Hydrocodone/Acetaminophen 1 - 2 each PO Q6H PRN #20 tablet 02/25/19 [Hydrocodon-Acetaminophen 5-325] Fluconazole [Diflucan] 100 mg PO Q3D #2 tablet 02/28/19 Nystatin 1 applic TP BID #15 cream..g. 02/28/19 Oxycodone HCl/Acetaminophen 1 each PO Q4H PRN #20 tablet 02/28/19 [Percocet 7.5-325 mg Tablet] - Allergies Allergies/Adverse Reactions: Allergies Allergy/AdvReac Type Severity Reaction Status Date / Time bee pollen Allergy Dizziness Verified 02/11/19 08:58 naproxen [From Naprosyn] Allergy Rash Verified 02/11/19 08:58 - Social History Does the pt smoke?: No Smoking Status: Never smoker Does the pt drink ETOH?: No Does the pt have substance abuse?: No - Immunizations Immunizations are current?: Yes - POLST Patient has POLST: No POLST Status: Full Code PD ED PE NORMAL - Vitals Vital signs reviewed: Yes - General General: Alert and oriented X 3, No acute distress, Well developed/nourished - Abdomen Abdomen: Soft, Non tender, No organomegaly, Other (no inguinal hernias felt. 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 No discharge. Crural area also normal appearing. The underside of scrotum with some rdness and mild tenderness. Not very red nor swellng. No sores. Palpable are cysts from last visit with some tenderness of them. the epididymi are not swollen.) - Derm Derm: Normal color, Warm and dry Results - Vitals Vitals: Vital Signs - 24 hr 02/28/19 02/28/19 17:28 19:00 Temperature 37.4 C 37.2 C Heart Rate 97 86 Respiratory 17 16 Rate Blood Pressure 149/91 H 149/99 H O2 Saturation 98 97 Oxygen O2 Source Room air - Labs Labs: Laboratory Tests 02/28/19 02/28/19 17:50 17:50 WBC 5.7 RBC 4.40 L Hgb 13.4 L Hct 38.0 L MCV 86.4 MCH 30.5 MCHC 35.3 RDW 12.6 Plt Count 161 MPV 10.3 Neut # (Auto) 3.0 Lymph # (Auto) 2.1 [place] # (Auto) 0.4 Eos # (Auto) 0.1 Baso # (Auto) 0.0 Absolute Nucleated RBC 0.00 Nucleated RBC % 0.0 Sodium 133 L Potassium 4.4 Chloride 97 L Carbon Dioxide 24 Anion Gap 12.0 BUN 14 Creatinine 0.8 Estimated GFR (MDRD) 102 Glucose 459 H Calcium 9.0 Total Bilirubin 0.7 AST 66 H ALT 63 H Alkaline Phosphatase 121 Total Protein 7.0 Albumin 3.9 Globulin 3.1 Albumin/Globulin Ratio 1.3 Lipase 93 H PD MEDICAL DECISION MAKING - ED course Complexity details: considered differential (not having significant findings to account for scrotal pain. He is tender in scrotal area. Has just some tinea redness of scrotum. Also tender left scrotum at small cysts. These are not big by recent U/S (6 mm is largest). ), d/w patient Departure - Departure Disposition: 01 Home, Self Care Clinical Impression: Tinea cruris, Pain in scrotum Condition: Stable Record reviewed to determine appropriate education?: Yes Instructions: ED Tinea Cruris General, ED Testicular Pain [facility] Follow-Up: Kimmie Batista ARNP, AIR SHOVEL OPERATOR-C [Primary Care Provider] - David Javed MD [Provider Admit Priv/Credential] - Prescriptions: Fluconazole [Diflucan] 100 mg PO Q3D #2 tablet Nystatin 1 applic TP BID #15 cream..g. Oxycodone HCl/Acetaminophen [Percocet 7.5-325 mg Tablet] 1 each PO Q4H PRN #20 tablet PRN Reason: Pain Comments: Continue the doxycycline antibiotic and the diclofenac anti-inflammatory. This will cover for possible bacterial infection and also for inflammation. There is some increased redness on the scrotum that looks like a fungal skin infection. Use the Diflucan oral antifungal every third day for 2 more doses (you get a dose here). Also the nystatin antifungal cream to the red area on the bottom of the scrotum twice daily. Change your pain medicine to oxycodone and see if that helps better. Recheck if not improving well over the next few days. Regarding the acute pain and some of the redness, you can follow-up with your primary care or certainly back here in the ER. The cysts found on the ultrasound a few days ago are very small and should not need to be drained and would be unlikely to be causing your pain right now. However you can follow-up with urology regarding them and I provided number for urologist in [place]. Discharge Date/Time: 02/28/19 19:17
[2019-02-28] MEDS ORDERED: FLUCONAZOLE 100 MG TABLET PO STA (18:40)
[2019-02-28] MEDS ORDERED: oxyCODONE 5 MG TABLET PO STA (18:40)
[2019-02-28 19:01] VITALS: BP 149/99
== END 2019-02-28 19:17 | disposition home or self-care (01) ==
LOC: ED 17:22
DX: N50.82 Scrotal pain (principal); B35.6 Tinea cruris; L72.8 Other follicular cysts of the skin and subcutaneous tissue; I10 Essential (primary) hypertension; E11.9 Type 2 diabetes mellitus without complications; Z79.4 Long term (current) use of insulin
CPT/HCPCS: 36415; 80053; 83690; 85025; 99283; A9270

== ENCOUNTER 2019-03-11 07:58 | Emergency (ER) | payer MEDICAID ==
--- NOTE | 2019-03-11 08:05 | ED Physician Documentation ---
PD HPI Fall - Stated complaint Stated Complaint: RT SIDE PX/GLF - History obtained from History obtained from: Patient - History of Present Illness Mechanism of injury: Slipped Fall distance: Standing position Where injury occurred: Other Timing - onset: Yesterday Injury(ies) location: Chest Quality of pain: Pain Associated symptoms: No: LOC Symptoms improve with: Nothing Worsens with: Movement, Palpation Similar symptoms before: Has not had sx before Recently seen: Emergency Dept (Approximately 2 weeks ago for a right testicular issue) - Additional information Additional information: This is a 48-year-old man who presents with complaints that he was cutting wood yesterday to heat his home when he slipped on a log and came down landing on the log on his right side up "under the armpit". This happened around noon and he had to finish cutting the wood because that is his source of heat. Now having significant pain with shortness of breath. He has not noted any bruising. He has urinated and not seen blood in the urine. He did not hit his head or pass out. He took Tylenol last night for the pain but has been told not to take nonsteroidals because of his diabetes and potential kidney dysfunction. Patient states that he was taken off his blood pressure medications (Lisinopril) a few months ago and he is due for repeat labs by his primary care provider. Review of Systems Cardiac: reports: Chest pain / pressure Respiratory: reports: Dyspnea GI: denies: Abdominal Pain, Nausea, Vomiting : denies: Hematuria Skin: reports: Other (No bruising). denies: Rash Musculoskeletal: reports: Back pain (Chronic) Neurologic: denies: Focal weakness, Numbness, Syncope, Head injury PD PAST MEDICAL HISTORY - Past Medical History Cardiovascular: Hypertension, High cholesterol Respiratory: None Endocrine/Autoimmune: Type 2 diabetes GI: Pancreatitis : Nocturia, Other HEENT: None Psych: None Musculoskeletal: Chronic back pain Derm: None - Past Surgical History Past Surgical History: Yes General: Other Ortho: Other - Present Medications Home Medications: Ambulatory Orders Medication Instructions Recorded Confirmed Gabapentin 900 mg PO TID 02/11/19 02/11/19 Insulin Aspart [NovoLOG] 2 unit SUBQ TIDWM 02/11/19 02/11/19 Insulin Glargine,Hum.rec.anlog 25 unit SUBQ DAILY PM 02/11/19 02/11/19 [Basaglar Kwikpen U-100] traMADol [Ultram] 50 mg PO Q4-6H #10 tablet 02/11/19 Diclofenac Sodium 50 mg PO BID #30 tablet.dr 02/25/19 Doxycycline Monohydrate 100 mg PO BID #14 tablet 02/25/19 Hydrocodone/Acetaminophen 1 - 2 each PO Q6H PRN #20 tablet 02/25/19 [Hydrocodon-Acetaminophen 5-325] Fluconazole [Diflucan] 100 mg PO Q3D #2 tablet 02/28/19 Nystatin 1 applic TP BID #15 cream..g. 02/28/19 Oxycodone HCl/Acetaminophen 1 each PO Q4H PRN #20 tablet 02/28/19 [Percocet 7.5-325 mg Tablet] Oxycodone HCl/Acetaminophen 1 - 2 each PO Q6H PRN #10 tablet 03/11/19 [Percocet 5-325 mg Tablet] - Allergies Allergies/Adverse Reactions: Allergies Allergy/AdvReac Type Severity Reaction Status Date / Time bee pollen Allergy Dizziness Verified 03/11/19 08:06 naproxen [From Naprosyn] Allergy Rash Verified 03/11/19 08:06 - Social History Does the pt smoke?: No Smoking Status: Never smoker Does the pt drink ETOH?: No Does the pt have substance abuse?: No - Immunizations Immunizations are current?: Yes - POLST Patient has POLST: No POLST Status: Full Code PD ED PE NORMAL - Vitals Vital signs reviewed: Yes - General General: Alert and oriented X 3, No acute distress, Well developed/nourished - HEENT HEENT: Atraumatic, Moist mucous membranes - Cardiac Cardiac: RRR, No murmur - Respiratory Respiratory: No respiratory distress, Clear bilaterally - Abdomen Abdomen: Normal bowel sounds, Soft, No organomegaly - Back Back: No: No CVA TTP (Complains of right costovertebral angle tenderness) - Derm Derm: Normal color (No bruising is noted to the right lateral chest wall), Warm and dry, No rash - Neuro Neuro: Alert and oriented X 3, slip cover seamstress 2-12 intact, No motor deficit, No sensory deficit, Normal speech - Psych Psych: Normal mood, Normal affect - Free text exam Free text exam: He has diffuse tenderness with palpation through the right lateral chest wall in the mid and anterior axillary lines without evidence of subcu emphysema, crepitus crepitance or bruising. There is no point tenderness along any single rib. No pain with palpation through the posterior axillary line. He does grimace in pain and hold the right side of his chest as he changes positions. Results - Vitals Vitals: Vital Signs - 24 hr 03/11/19 10:16 Heart Rate 87 Respiratory 18 Rate Blood Pressure 179/109 H O2 Saturation 97 Oxygen O2 Source Room air - Labs Labs: Laboratory Tests 03/11/19 09:10 Urine Color YELLOW Urine Clarity CLEAR Urine pH 5.5 Ur Specific [place] 1.025 Urine Protein 30 H Urine Glucose (UA) >=1000 H Urine Ketones 40 H Urine Occult Blood TRACE-INTA Urine Nitrite NEGATIVE Urine Bilirubin NEGATIVE Urine Urobilinogen 0.2 (NORMAL) Ur Leukocyte Esterase NEGATIVE Urine RBC None Seen Urine WBC 0-3 Ur Squamous Epith Cells NONE SEEN Urine Bacteria None Seen Ur Microscopic Review INDICATED Urine Culture Comments NOT INDICATED - Rads (name of study) CXR Radiology: EMP read contemporaneously (Neg PTX or obvious rib fracture), See rad report PD MEDICAL DECISION MAKING - ED course Complexity details: reviewed old records, reviewed results, re-evaluated patient, d/w patient ED course: Patient was given Toradol 60 mg IM. He said his pain was down to may be a 6 out of 10. He has been seen in the emergency department multiple times this month with acute pain complaints and prescribed narcotics. I discussed with him I can only provide a very small dose of narcotic medications for this acute injury and he needs to follow-up with his primary care provider for any further pain management. Is also noted that his blood pressure is quite high. He is not taking his lisinopril is unclear to me whether or not that was discontinued by his primary care provider or he self discontinued it. I have asked him to monitor his blood pressure at home because he does have a cuff if it still over 140/90 tonight he should start his lisinopril. He plans to walk directly over to the clinic to make a follow-up appointment after he is discharged from here. He also has lab orders pending at the lab here at the hospital he plans to have those done today. Departure - Departure Disposition: 01 Home, Self Care Clinical Impression: Rib injury Condition: Good Instructions: ED Contusion Vs Minor Fx Rib Follow-Up: Kimmie Batista ARNP, PEDAL ASSEMBLER-C [Primary Care Provider] - Prescriptions: Oxycodone HCl/Acetaminophen [Percocet 5-325 mg Tablet] 1 - 2 each PO Q6H PRN #10 tablet PRN Reason: pain Comments: Apply ice to the chest wall. No known if needed for pain but do not drive or operate machinery for taking that. Monitor your blood pressure when you get home and also again tonight if it is remaining above 140/90 then you should rest art your senna Prill and monitor your blood pressures. Follow-up with your primary care provider about further pain management and whether or not you need to increase your blood pressure medications and to follow-up on the labs that they have ordered. Discharge Date/Time: 03/11/19 10:40
[2019-03-11] MEDS ORDERED: KETOROLAC 60 MG/2 ML VIAL IM STA (08:23)
--- NOTE | 2019-03-11 08:44 | XRAY Report ---
Reason: cough Procedure Date: 03/11/2019 Accession Number: [id number] / [id number] Procedure: XR - Chest 2 View X-Ray CPT Code: 42677 Final Report FULL RESULT: EXAM: CHEST RADIOGRAPHY EXAM DATE: 03/11/2019 08:33 AM. CLINICAL HISTORY: Cough. Fifth rib pain. COMPARISON: THORACIC SPINE 2 VIEW 02/10/2019 9:37 AM. TECHNIQUE: 2 views. FINDINGS: Lungs/Pleura: No focal opacities evident. No pleural effusion. No pneumothorax. Normal volumes. Mediastinum: Heart and mediastinal contours are unremarkable. Other: None. IMPRESSION: Normal 2-view chest radiography. RADIA
[2019-03-11 09:21] LABS: BILIRUBIN,URINE NEGATIVE (NEGATIVE); CLARITY,URINE CLEAR (CLEAR); GLUCOSE, URINE (UA) >=1000 mg/dL (NEGATIVE); KETONES,URINE (UA) 40 mg/dL (NEGATIVE); LEUKOCYTE ESTERASE, URINE NEGATIVE (NEGATIVE); NITRITE,URINE NEGATIVE (NEGATIVE); OCCULT BLOOD,URINE TRACE-INTA (NEGATIVE); PH,URINE 5.5 PH (5.0-7.5); PROTEIN,URINE 30 mg/dL (NEGATIVE); UROBILINOGEN,URINE 0.2 (NORMAL) E.U./dL (NORMAL)
[2019-03-11 09:34] LABS: BACTERIA,URINE None Seen /HPF (None Seen); RBC,URINE None Seen /HPF (0-5); SQUAMOUS EPITHELIAL CELL,UR NONE SEEN (<= Few)
[2019-03-11 10:17] VITALS: BP 179/109
[2019-03-11] MEDS ORDERED: oxyCODONE 5 MG TABLET PO STA (10:34)
== END 2019-03-11 10:40 | disposition home or self-care (01) ==
LOC: ED 07:58
DX: S29.9XXA Unspecified injury of thorax, initial encounter (principal); W01.198A Fall on same level from slipping, tripping and stumbling with subsequent striking against other object, initial encounter; Y93.89 Activity, other specified; I10 Essential (primary) hypertension; E11.65 Type 2 diabetes mellitus with hyperglycemia; Z79.4 Long term (current) use of insulin; K74.60 Unspecified cirrhosis of liver; E78.5 Hyperlipidemia, unspecified
CPT/HCPCS: 36415; 71046; 80053; 81001; 83036; 85025; 96372; 99284; A9270; 81003; 87086

== ENCOUNTER 2019-03-11 10:49 | Outpatient (CLI) | payer MEDICAID ==
[2019-03-11 11:07] LABS: BASOPHILS # (AUTO) 0.1 10^3/uL (0.0-0.1); BASOPHILS % (AUTO) 0.8 %; EOSINOPHILS # (AUTO) 0.1 10^3/uL (0.0-0.7); EOSINOPHILS % (AUTO) 1.7 %; LYMPHOCYTES # (AUTO) 1.9 10^3/uL (1.5-3.5); LYMPHOCYTES % (AUTO) 26.3 %; MEAN CORPUSCULAR HEMOGLOBIN 31.1 pg (27.0-31.0); MEAN CORPUSCULAR HGB CONC 36.2 g/dL (32.0-36.0); MEAN CORPUSCULAR VOLUME 85.7 fL (80.0-94.0); MEAN PLATELET VOLUME 10.5 fL (7.4-11.4); MONOCYTES # (AUTO) 0.4 10^3/uL (0.0-1.0); MONOCYTES % (AUTO) 5.5 %; NEUTROPHILS # (AUTO) 4.6 10^3/uL (1.5-6.6); NEUTROPHILS % (AUTO) 65.4 %; PLT - PLATELET COUNT 168 10^3/uL (130-450); RED BLOOD COUNT 4.83 10^6/uL (4.70-6.10); RED CELL DISTRIBUTION WIDTH 12.7 % (12.0-15.0); WHITE BLOOD COUNT 7.1 x10^3/uL (4.8-10.8)
[2019-03-11 11:31] LABS: HB2 TOTAL 14.4 g/dL; HEMOGLOBIN A1C 1.61 g/dL; HEMOGLOBIN A1C % 12.4 % (4.6-6.2)
[2019-03-11 12:57] LABS: BILIRUBIN,TOTAL 0.6 mg/dL (0.2-1.0); CALCIUM 8.8 mg/dL (8.5-10.3); CREATININE 0.8 mg/dL (0.6-1.2)
[2019-03-11 12:58] LABS: ALBUMIN 4.2 g/dL (3.2-5.5); ALBUMIN/GLOBULIN RATIO 1.9 (1.0-2.2); TOTAL PROTEIN 6.4 g/dL (6.7-8.2)
== END 2019-03-11 10:50 | disposition home or self-care (01) ==
LOC: LAB 10:49
PROVIDERS: ATTEND Nurse Practitioner
DX: I10 Essential (primary) hypertension (principal); E11.65 Type 2 diabetes mellitus with hyperglycemia; K74.60 Unspecified cirrhosis of liver; E78.5 Hyperlipidemia, unspecified
CPT/HCPCS: 36415; 80053; 83036; 85025

== ENCOUNTER 2019-03-19 15:36 | Outpatient (CLI) | payer MEDICAID ==
--- NOTE | 2019-03-19 16:50 | Ultrasound Report ---
Reason: SCROTAL PAIN Procedure Date: 03/19/2019 Accession Number: [id number] / [id number] Procedure: US - Testicle CPT Code: Final Report FULL RESULT: EXAM: SCROTAL ULTRASOUND EXAM DATE: 03/19/2019 03:53 PM. CLINICAL HISTORY: SCROTAL PAIN. COMPARISON: TESTICLE W/DOPPLER LIMITED 02/25/2019 8:55 AM. TECHNIQUE: Real-time scanning was performed with static images obtained. Color-flow images were utilized. FINDINGS: Right: Testis: 4.3 x 2.2 x 2.8 cm. Normal size and echotexture. No mass, calcification, or abnormal blood flow. Epididymis: 1.0 x 1.4 x 0.7 cm. Normal size and echotexture. No mass or abnormal blood flow. Hydrocele: None. Varicocele: None. Left: Testis: 4.1 x 2.1 x 2.7 cm. Normal size and echotexture. No mass, calcification, or abnormal blood flow. Epididymis: 1.1 x 1.3 x 1.9 cm. Normal size and echotexture. No mass or abnormal blood flow. Hydrocele: Trace hydrocele. Varicocele: None. IMPRESSION: Essentially negative study. RADIA
== END 2019-03-19 15:37 | disposition home or self-care (01) ==
LOC: DI 15:36
PROVIDERS: ATTEND Nurse Practitioner
DX: N50.82 Scrotal pain (principal)
CPT/HCPCS: 76870

== ENCOUNTER 2019-03-21 07:56 | Emergency (ER) | payer MEDICAID ==
[2019-03-21 08:05] VITALS: BP 150/102
[2019-03-21] MEDS ORDERED: LIDOCAINE PATCH 5% TOP STA (08:13)
[2019-03-21] MEDS ORDERED: CYCLOBENZAPRINE 10 MG TABLET PO STA (08:13)
--- NOTE | 2019-03-21 08:17 | ED Physician Documentation ---
History of Present Illness - Stated complaint Stated Complaint: RIB/BACK PX - Chief complaint Chief Complaint: General - History obtained from History obtained from: Patient - History of Present Illness Timing: How many days ago (9) Pain level max: 10 Pain level now: 10 Improved by: rest Worsened by: movement - Additonal information Additional information: R sided rib pain x9 days after falling on a log. neg xrays after the event. Out of his percocet and requesting refill. Patient states that he saw his doctor yesterday and that she would not prescribe him narcotics. so he is here now. Review of Systems Constitutional: denies: Fever, Chills Nose: denies: Rhinorrhea / runny nose, Congestion Throat: denies: Sore throat Respiratory: denies: Dyspnea, Cough, Wheezing GI: denies: Nausea, Vomiting, Diarrhea Skin: denies: Rash Musculoskeletal: denies: Neck pain, Back pain Neurologic: denies: Headache PD PAST MEDICAL HISTORY - Past Medical History Past Medical History: Yes Cardiovascular: Hypertension, High cholesterol Respiratory: None Endocrine/Autoimmune: Type 2 diabetes GI: Pancreatitis : Nocturia, Other HEENT: None Psych: None Musculoskeletal: Chronic back pain Derm: None - Past Surgical History Past Surgical History: Yes General: Other Ortho: Other - Present Medications Home Medications: Ambulatory Orders Medication Instructions Recorded Confirmed Gabapentin 900 mg PO TID 02/11/19 02/11/19 Insulin Aspart [NovoLOG] 2 unit SUBQ TIDWM 02/11/19 02/11/19 Insulin Glargine,Hum.rec.anlog 25 unit SUBQ DAILY PM 02/11/19 02/11/19 [Basaglar Renaeikpen U-100] Cyclobenzaprine [Flexeril] 10 mg PO TID PRN #20 tablet 03/21/19 Glipizide [Glipizide Xl] 0 mg DAILY 03/21/19 03/21/19 Lidocaine Patch 5% [Lidoderm Patch] 1 patch TOP DAILY PRN #10 patch 03/21/19 lisinopriL [Lisinopril] 0 mg DAILY 03/21/19 03/21/19 - Allergies Allergies/Adverse Reactions: Allergies Allergy/AdvReac Type Severity Reaction Status Date / Time bee pollen Allergy Dizziness Verified 03/21/19 08:05 naproxen [From Naprosyn] Allergy Rash Verified 03/21/19 08:05 - Social History Does the pt smoke?: No Smoking Status: Never smoker Does the pt drink ETOH?: No Does the pt have substance abuse?: No - Immunizations Immunizations are current?: Yes - POLST Patient has POLST: No POLST Status: Full Code PD ED PE NORMAL - Vitals Vital signs reviewed: Yes - General General: Alert and oriented X 3, No acute distress, Well developed/nourished - HEENT HEENT: Moist mucous membranes - Neck Neck: Supple, no meningeal sign - Cardiac Cardiac: RRR, Strong equal pulses - Respiratory Respiratory: No respiratory distress, Clear bilaterally, Other (mild R mid axillary TTP. no crepitus or ecchymosis. no point tenderness over any rib.) - Abdomen Abdomen: Soft, Non tender, Non distended - Back Back: No spinal TTP - Derm Derm: Warm and dry - Extremities Extremities: No edema - Neuro Neuro: Alert and oriented X 3 - Psych Psych: Normal mood, Normal affect Results - Vitals Vitals: Vital Signs - 24 hr 03/21/19 08:02 Temperature 36.6 C Heart Rate 92 Respiratory 18 Rate Blood Pressure 150/102 H O2 Saturation 100 Oxygen O2 Source Room air PD MEDICAL DECISION MAKING - ED course Complexity details: reviewed results, re-evaluated patient, considered differential, d/w patient ED course: Patient presents to the emergency department with a continued right rib contusion. His doctor would not prescribe him narcotics, therefore he came here for pain management. Informed the patient that he has had 6 narcotic prescriptions in the last 12 months from here and we would not be treating him with narcotics today. He does not have any evidence of pneumothorax. No evidence of pneumonia. No hypoxia. No respiratory distress. We will place on Lidoderm patches and Flexeril. Patient counseled regarding signs and symptoms for which I believe and urgent re-evaluation would be necessary. Patient with good understanding of and agreement to plan and is comfortable going home at this time This document was made in part using voice recognition software. While efforts are made to proofread this document, sound alike and grammatical errors may occur. Departure - Departure Disposition: 01 Home, Self Care Clinical Impression: Contusion of rib on right side Qualifiers: Encounter type: initial encounter Qualified Code(s): S20.211A - Contusion of right front wall of thorax, initial encounter Condition: Good Instructions: ED Contusion Rib Follow-Up: Kimmie Batista ARNP, PACKING SHED SUPERVISOR-C [Primary Care Provider] - Within 1 week Prescriptions: Cyclobenzaprine [Flexeril] 10 mg PO TID PRN #20 tablet PRN Reason: Spasms Lidocaine Patch 5% [Lidoderm Patch] 1 patch TOP DAILY PRN #10 patch PRN Reason: pain Comments: As we discussed, you have received 6 narcotic prescriptions from the emergency department in the past 12 months. Typically we do not prescribe more than 3 narcotic prescriptions in a 12-month span. We will place you on muscle relaxants and topical anesthetics instead. Follow-up with your doctor for further care. Do not drive or operate heavy machinery while taking the Flexeril.
== END 2019-03-21 08:25 | disposition home or self-care (01) ==
LOC: ED 07:56
DX: S20.211A Contusion of right front wall of thorax, initial encounter (principal); W19.XXXA Unspecified fall, initial encounter; I10 Essential (primary) hypertension; E11.9 Type 2 diabetes mellitus without complications; Z79.899 Other long term (current) drug therapy; Z79.4 Long term (current) use of insulin
CPT/HCPCS: 99282; 99284; A9270

== ENCOUNTER 2019-03-26 07:08 | Outpatient (CLI) | payer MEDICAID ==
--- NOTE | 2019-03-26 09:26 | MRI Report ---
Reason: BACK PAIN, NEUROPATHY, LUMBAR DISC DISEASE Procedure Date: 03/26/2019 Accession Number: [id number] / [id number] Procedure: MRI - Thoracic Spine W/O CPT Code: Final Report FULL RESULT: EXAM: MRI THORACIC SPINE WITHOUT CONTRAST EXAM DATE: 03/26/2019 07:45 AM. CLINICAL HISTORY: BACK PAIN, NEUROPATHY, LUMBAR DISC DISEASE. COMPARISONS: THORACIC SPINE 2 VIEW 02/10/2019 9:37 AM. TECHNIQUE: Multiplanar, multisequence T1-weighted and fluid-sensitive sequences of the thoracic spine from C7 to L1 without contrast. Other: 1.5 Shanell. FINDINGS: Spinal Canal: No signal abnormality in the visualized spinal cord. Alignment: No scoliosis or spondylolisthesis. Bone Marrow: Chronic appearing anterior wedge compression fracture/deformity of anterior T3 vertebrae with loss of 30% height, without retropulsion. Vertebral body heights are otherwise maintained. Type II endplate marrow changes anterior inferior L2 vertebrae. Marrow signal otherwise normal. Disk Levels/Facets: C7-T1: Unremarkable. T1-T2: Desiccated disk. Mild facet arthropathy. Mild foraminal narrowing. T2-T3: Desiccated disk. No significant narrowing. T3-T4: Desiccated disk. Mild facet arthropathy. No significant narrowing. T4-T5: Unremarkable. T5-T6: Unremarkable. T6-T7: Mild disk height loss and disk desiccation. No significant narrowing. T7-T8: Annular bulge and desiccated disk. No significant canal or foraminal narrowing. T8-T9: Annular bulge and disk desiccation. Right paracentral bulging mildly indents the right paracentral ventral cord contour. Bilateral facet arthropathy. No significant canal or foraminal narrowing. T9-T10: Desiccated disk. Moderate disk height loss. Mild left foraminal narrowing. T10-T11: Unremarkable. T11-T12: Desiccated disk. Central shallow 2 mm protrusion without significant foraminal or canal narrowing. T12-L1: Unremarkable. Musculature: Normal. No edema or fatty atrophy. Other: The visualized lungs, mediastinum, and abdominal cavity are unremarkable. IMPRESSION: 1. Chronic appearing anterior compression deformity of T3, 30% height loss. No acute osseous abnormality. 2. Mild canal narrowing at T7-T8 and T8-T9 secondary to annular bulge. 3. No significant foraminal narrowing. RADIA
--- NOTE | 2019-03-26 09:31 | MRI Report ---
Reason: BACK PAIN, NEUROPATHY, LUMBAR DISC DISEASE Procedure Date: 03/26/2019 Accession Number: [id number] / [id number] Procedure: MRI - Lumbar Spine W/O CPT Code: Final Report FULL RESULT: EXAM: MRI LUMBAR SPINE WITHOUT CONTRAST EXAM DATE: 03/26/2019 08:27 AM. CLINICAL HISTORY: BACK PAIN, NEUROPATHY, LUMBAR DISC DISEASE. COMPARISON: LUMBAR SPINE 2 VIEW 02/10/2019 9:37 AM. TECHNIQUE: Multiplanar, multisequence T1-weighted and fluid-sensitive sequences of the lumbar spine from T12 to S1 without contrast. Other: 1.5 Shanell. FINDINGS: Spinal Canal: The conus terminates at T12-L1. The conus medullaris and cauda equina are unremarkable. Alignment: No scoliosis or spondylolisthesis. Bone Marrow: Five krh-emm-sjxcrey lumbar vertebral bodies are assumed. No gross fractures or bone lesions. No bone marrow replacement. Type II endplate marrow changes along the anterior-inferior corners of L1 and L2 vertebrae, anterior superior corners of L3 and L4 vertebras.. Disk Levels/Facets: T12-L1: Unremarkable. L1-L2: Unremarkable. L2-L3: Desiccated disk. No significant canal or foraminal narrowing. L3-L4: Desiccated disk. No significant canal or foraminal narrowing. L4-L5: Desiccated annular bulging disk. Subtle right foraminal zone annular fissure. Mild foraminal narrowing. No significant canal narrowing. L5-S1: Unremarkable. Musculature: Normal. No edema or fatty atrophy. Other: The partially visualized retroperitoneum is unremarkable. IMPRESSION: No significant canal narrowing. Mild bilateral foraminal narrowing at L4-L5 secondary to annular bulge. Comment: The following findings are so common in adults without low back pain that while we report their presence, they must be interpreted with caution and in the context of the clinical situation. (Reference Kaylynk et al, Spine 2001) Prevalence of findings in patients without low back pain: Disk degeneration (any evidence): 92% Disk desiccation/T2 signal loss: 83% Disk height loss: 56% Disk bulge: 64% Disk protrusion: 32% Annular tear/high intensity zone: 38% RADIA
== END 2019-03-26 07:09 | disposition home or self-care (01) ==
LOC: DI 07:08
PROVIDERS: ATTEND Nurse Practitioner
DX: M48.54XA Collapsed vertebra, not elsewhere classified, thoracic region, initial encounter for fracture (principal); M47.814 Spondylosis without myelopathy or radiculopathy, thoracic region; M51.9 Unspecified thoracic, thoracolumbar and lumbosacral intervertebral disc disorder; G62.9 Polyneuropathy, unspecified; S22.009S Unspecified fracture of unspecified thoracic vertebra, sequela
CPT/HCPCS: 72146; 72148

== ENCOUNTER 2019-03-28 07:48 | Emergency (ER) | payer MEDICAID ==
--- NOTE | 2019-03-28 08:31 | ED Physician Documentation ---
PD HPI TRUNK INJURY - Stated complaint Stated Complaint: SOA - Chief complaint Chief Complaint: Resp - History obtained from History obtained from: Patient - History of Present Illness Location: Posterior chest, Right chest Type of injury: Fall (fell onto log several weeks ago and has persistent pain there and hurts with breathing, has dyspnea more the past few days.) Timing - onset: How many weeks ago Timing - details: Abrupt onset, Still present, Waxing and waning Quality: Pain, Other (feeling of dyspnea the past few days.) Worsened by: Moving, Palpating Associated symtptoms: No: Weakness, Numbness Recently seen: Emergency Dept Review of Systems Constitutional: denies: Fever, Chills, Myalgias Nose: denies: Rhinorrhea / runny nose, Congestion Throat: denies: Sore throat Cardiac: reports: Chest pain / pressure. denies: Palpitations, Pedal edema, Calf pain Respiratory: reports: Dyspnea. denies: Cough GI: denies: Abdominal Pain, Vomiting, Diarrhea Neurologic: denies: Focal weakness, Numbness, Headache PD PAST MEDICAL HISTORY - Past Medical History Cardiovascular: Hypertension, High cholesterol Respiratory: None Endocrine/Autoimmune: Type 2 diabetes GI: Pancreatitis : Nocturia, Other HEENT: None Psych: None Musculoskeletal: Chronic back pain Derm: None - Past Surgical History Past Surgical History: Yes General: Other Ortho: Other - Present Medications Home Medications: Ambulatory Orders Medication Instructions Recorded Confirmed Gabapentin 900 mg PO TID 02/11/19 02/11/19 Insulin Aspart [NovoLOG] 2 unit SUBQ TIDWM 02/11/19 02/11/19 Insulin Glargine,Hum.rec.anlog 25 unit SUBQ DAILY PM 02/11/19 02/11/19 [Basaglar Kwikpen U-100] Cyclobenzaprine [Flexeril] 10 mg PO TID PRN #20 tablet 03/21/19 Glipizide [Glipizide Xl] 0 mg DAILY 03/21/19 03/21/19 Lidocaine Patch 5% [Lidoderm Patch] 1 patch TOP DAILY PRN #10 patch 03/21/19 lisinopriL [Lisinopril] 0 mg DAILY 03/21/19 03/21/19 Albuterol Sulfate [Albuterol 2 puffs IH QID #1 hfa.aer.ad 03/28/19 Sulfate Hfa] Tizanidine HCl 4 mg PO TID PRN #25 capsule 03/28/19 dexAMETHasone [Decadron] 4 mg PO DAILY #5 tablet 03/28/19 - Allergies Allergies/Adverse Reactions: Allergies Allergy/AdvReac Type Severity Reaction Status Date / Time bee pollen Allergy Dizziness Verified 03/28/19 07:57 naproxen [From Naprosyn] Allergy Rash Verified 03/28/19 07:57 - Social History Does the pt smoke?: No Smoking Status: Never smoker Does the pt drink ETOH?: No Does the pt have substance abuse?: No - Immunizations Immunizations are current?: Yes - POLST Patient has POLST: No POLST Status: Full Code PD ED PE NORMAL - Vitals Vital signs reviewed: Yes - General General: Alert and oriented X 3, Well developed/nourished - HEENT HEENT: Atraumatic, Moist mucous membranes, Pharynx benign - Neck Neck: Supple, no meningeal sign, No bony TTP, No adenopathy - Cardiac Cardiac: RRR, No murmur - Respiratory Respiratory: No: Clear bilaterally (somewhat diminished without overt wheezing. Tight sounds though. Some tenderness right posterolateral chest wall. ) - Abdomen Abdomen: Soft, Non tender - Back Back: No CVA TTP, No spinal TTP - Derm Derm: Normal color, Warm and dry - Extremities Extremities: No tenderness to palpate, Normal ROM s pain, No edema, No calf tenderness / cord - Neuro Neuro: Alert and oriented X 3, No motor deficit, Normal speech Results - Vitals Vitals: Oxygen O2 Source Room air - Rads (name of study) chest xray Radiology: Prelim report reviewed (normal 2 view chest), See rad report PD MEDICAL DECISION MAKING - ED course Complexity details: reviewed old records (prior note pt told that he had too many visits for pain complaints, so per policy will not get narcotic Rx. ), considered differential (pain with breathign and some dyspnea from prior rib injuries. Can give NSAIDs, muscle relaxants, and use albuterol MDI to help with aeration. ), d/w patient Departure - Departure Disposition: Home, Self Care Clinical Impression: Chest pain Qualifiers: Chest pain type: unspecified Qualified Code(s): R07.9 - Chest pain, unspecified Condition: Stable Record reviewed to determine appropriate education?: Yes Follow-Up: Kimmie Batista ARNP, LOGGING TRUCK DRIVER-C [Primary Care Provider] - Prescriptions: Albuterol Sulfate [Albuterol Sulfate Hfa] 2 puffs IH QID #1 hfa.aer.ad dexAMETHasone [Decadron] 4 mg PO DAILY #5 tablet Tizanidine HCl 4 mg PO TID PRN #25 capsule PRN Reason: Spasms Comments: You may have some inflammation in the chest wall or the lungs. This could relate to the prior rib injury and not taking good deep breaths. Use albuterol inhaler 2 puffs 4 times a day to try to have good airflow and good deep breathing. Decadron steroid for inflammation daily for 5 days. Discontinue use of it if you find your sugars to be too elevated. Tizanidine muscle relaxant for musculoskeletal pain of it. Add Tylenol periodically if needed for pain. I would anticipate improvement over the next several days or so. Discharge Date/Time: 03/28/19 09:39
[2019-03-28] MEDS ORDERED: oxyCODONE 5 MG TABLET PO STA (08:39)
[2019-03-28] MEDS ORDERED: CHERRY SYRUP 10 ML UDC PO ONE (08:39)
[2019-03-28] MEDS ORDERED: DEXAMETHASONE 10 MG/ML VIAL PO STA (08:39)
[2019-03-28] MEDS ORDERED: KETOROLAC 30 MG/ML VIAL IM STA (08:39)
[2019-03-28 09:37] VITALS: BP 167/103
--- NOTE | 2019-03-28 10:21 | XRAY Report ---
Reason: dyspnea/ cough Procedure Date: 03/28/2019 Accession Number: [id number] / [id number] Procedure: XR - Chest 2 View X-Ray CPT Code: 54992 Final Report FULL RESULT: EXAM: CHEST RADIOGRAPHY EXAM DATE: 03/28/2019 08:54 AM. CLINICAL HISTORY: Cough. COMPARISON: CHEST 2 VIEW 03/11/2019 8:27 AM. TECHNIQUE: 2 views. FINDINGS: Lungs/Pleura: No focal opacities evident. No pleural effusion. No pneumothorax. Normal volumes. Mediastinum: Heart and mediastinal contours are unremarkable. Other: None. IMPRESSION: Normal 2-view chest radiography. RADIA
== END 2019-03-28 09:39 | disposition home or self-care (01) ==
LOC: ED 07:48
DX: R07.9 Chest pain, unspecified (principal); I10 Essential (primary) hypertension; E11.9 Type 2 diabetes mellitus without complications; Z79.4 Long term (current) use of insulin
CPT/HCPCS: 71046; 96372; 99283; 99284; A9270

== ENCOUNTER 2019-03-31 07:15 | Outpatient (CLI) | payer MEDICAID ==
--- NOTE | 2019-04-01 04:45 | Ultrasound Report ---
Reason: GENITOURINARY PAIN Procedure Date: 03/31/2019 Accession Number: [id number] / [id number] Procedure: US - Retroperitoneal CPT Code: Final Report FULL RESULT: EXAM: RENAL ULTRASOUND EXAM DATE: 03/31/2019 10:10 AM. CLINICAL HISTORY: GENITOURINARY PAIN. COMPARISON: None. TECHNIQUE: Real-time scanning was performed with static images obtained. FINDINGS: Right Kidney: 12.5 x 5.1 x 5.8 cm. Normal echotexture with no stones, contour-deforming masses, or hydronephrosis. Left Kidney: 12.4 x 5.6 x 6.4 cm. Exophytic lower pole cyst measuring 0.6 x 0.7 x 0.6 cm. Normal echotexture with no stones, contour-deforming masses, or hydronephrosis. Bladder: Bilateral jets seen. The prevoid bladder volume was 181 cc. The postvoid bladder volume was 28 cc. Other: Prostate measures 2.5 x 3.4 x 4.1 cm, 18 cc. IMPRESSION: 1. Kidneys are essentially normal. 2. Post void residual of 28 cc. RADIA
== END 2019-03-31 07:16 | disposition home or self-care (01) ==
LOC: DI 07:15
PROVIDERS: ATTEND Urology
DX: N23 Unspecified renal colic (principal)
CPT/HCPCS: 76770

== ENCOUNTER 2019-06-04 07:13 | Outpatient (CLI) | payer MEDICAID ==
[2019-06-04] MEDS ORDERED: IOVERSOL 320 100 ML VIAL IVP ONE ×2 (07:21→11:39)
[2019-06-04] MEDS ORDERED: IOVERSOL 320 50 ML VIAL ONE (07:21)
[2019-06-04 07:47] LABS: ALBUMIN 4.5 g/dL (3.2-5.5); ALBUMIN/GLOBULIN RATIO 1.3 (1.0-2.2); BILIRUBIN,TOTAL 0.7 mg/dL (0.2-1.0); CALCIUM 9.3 mg/dL (8.5-10.3); CREATININE 0.7 mg/dL (0.6-1.2)
--- NOTE | 2019-06-04 10:52 | CT Report ---
Reason: SCROTAL PAIN, CHRONIC - ON DAILY NARCOTICS Procedure Date: 06/04/2019 Accession Number: [id number] / [id number] Procedure: CT - Abdomen/Pelvis W CPT Code: Final Report FULL RESULT: EXAM: CT ABDOMEN AND PELVIS EXAM DATE: 06/04/2019 09:11 AM. CLINICAL HISTORY: SCROTAL PAIN, CHRONIC - ON DAILY NARCOTICS. COMPARISONS: ABDOMEN/PELVIS W/ 07/26/2018 8:04 PM. TECHNIQUE: Routine helical CT imaging was performed through the abdomen and pelvis. IV contrast: 100 mL OPTIRAY 320. Enteric contrast: Yes. Reconstructions: Coronal and sagittal. In accordance with CT protocol optimization, one or more of the following dose reduction techniques were utilized for this exam: automated exposure control, adjustment of mA and/or KV based on patient size, or use of iterative reconstructive technique. FINDINGS: Lung Bases: Unremarkable. Liver: Normal. No masses. Gallbladder/Bile Ducts: Unremarkable. Spleen: Normal. Pancreas: Normal. Adrenal Glands: Normal. Kidneys: Normal. No masses or hydronephrosis. Peritoneal Cavity/Bowel: Colonic diverticula again seen without CT findings of acute diverticulitis. No bowel obstruction No free fluid, free air or adenopathy. No masses or acute inflammatory process. The appendix is well visualized and normal. Pelvic Organs: Normal. The bladder and visualized pelvic organs are within normal limits. Vasculature: No aneurysms or other significant abnormality. Bones: No significant abnormality. Other: None. IMPRESSION: 1. No acute abdominal or pelvic abnormality seen on CT. No definite explanation for patient's symptoms identified. 2. Scrotal structures appear unremarkable on CT. RADIA
[2019-06-04] MEDS ORDERED: IOVERSOL 320 50 ML VIAL PO ONE (11:39)
== END 2019-06-04 07:14 | disposition home or self-care (01) ==
LOC: LAB 07:13
PROVIDERS: ATTEND Nurse Practitioner
DX: N50.82 Scrotal pain (principal); E11.65 Type 2 diabetes mellitus with hyperglycemia; Z96.89 Presence of other specified functional implants; G89.29 Other chronic pain
CPT/HCPCS: 36415; 74177; 80053; Q9967

== ENCOUNTER 2019-07-02 09:33 | Outpatient (CLI) | payer MEDICAID ==
[2019-07-02 09:56] LABS: HGB - HEMOGLOBIN 15.3 g/dL (14.0-18.0); MEAN CORPUSCULAR HEMOGLOBIN 29.4 pg (27.0-31.0); MEAN CORPUSCULAR HGB CONC 35.5 g/dL (32.0-36.0); MEAN CORPUSCULAR VOLUME 82.7 fL (80.0-94.0); MEAN PLATELET VOLUME 10.2 fL (7.4-11.4); RED BLOOD COUNT 5.21 10^6/uL (4.70-6.10); RED CELL DISTRIBUTION WIDTH 12.3 % (12.0-15.0); WHITE BLOOD COUNT 5.8 x10^3/uL (4.8-10.8)
[2019-07-02 10:59] LABS: CARBON DIOXIDE - CO2 21 mmol/L (21-32); CHLORIDE 98 mmol/L (101-111); SODIUM 136 mmol/L (135-145)
[2019-07-02 11:00] LABS: ALKALINE PHOSPHATASE 125 IU/L (42-121); ALT ALANINE AMINOTRANSFERASE 43 IU/L (10-60); AST ASPARTATE AMINOTRANSFERASE 30 IU/L (10-42); BILIRUBIN,TOTAL 0.6 mg/dL (0.2-1.0); BUN - BLOOD UREA NITROGEN 12 mg/dL (6-20); CALCIUM 8.5 mg/dL (8.5-10.3); CREATININE 0.7 mg/dL (0.6-1.2); GLUCOSE 300 mg/dL (70-100); URIC ACID 6.4 mg/dL (2.6-7.2)
[2019-07-02 11:01] LABS: ALBUMIN 4.2 g/dL (3.2-5.5); ALBUMIN/GLOBULIN RATIO 1.6 (1.0-2.2); CRP - C-REACTIVE PROTEIN < 1.0 mg/dL (0-1.0); TOTAL PROTEIN 6.9 g/dL (6.7-8.2)
[2019-07-02 11:17] LABS: RHEUMATOID FACTOR NEGATIVE (Negative)
[2019-07-02 11:38] LABS: HB2 TOTAL 15.3 g/dL; HEMOGLOBIN A1C 1.88 g/dL; HEMOGLOBIN A1C % 13.4 % (4.6-6.2)
[2019-07-04 11:00] LABS: ANA SCREEN NEGATIVE (NEGATIVE)
== END 2019-07-02 09:34 | disposition home or self-care (01) ==
LOC: LAB 09:33
PROVIDERS: ATTEND Nurse Practitioner
DX: M35.3 Polymyalgia rheumatica (principal); G89.29 Other chronic pain; I10 Essential (primary) hypertension; E11.65 Type 2 diabetes mellitus with hyperglycemia
CPT/HCPCS: 36415; 80053; 83036; 84550; 85027; 85651; 86038; 86140; 86200; 86430

== ENCOUNTER 2019-07-04 20:35 | Emergency (ER) | payer MEDICAID ==
--- NOTE | 2019-07-04 21:18 | ED Physician Documentation ---
History of Present Illness - Stated complaint Stated Complaint: BACK PX - Chief complaint Chief Complaint: Back Pain - History obtained from History obtained from: Patient (49-year-old male comes in today with chronic recurrent upper back pain. He was seen by his PCP on Monday to get a refill of his medication pain medication, Percocet 7.5325, which she is weaning him off of. The patient is unable to fill his prescription until tomorrow. He ran out of his prescription medication yesterday. Patient has been referred to see the pain clinic in [place], but has been unable to get into see them chronic pain management secondary to stay at home orders due to the COVID-19. Patient has had multiple ER visits for the same, his last ER visit was back in March for this. He has been followed by his PCP Kimmie VILLEGAS.) PD PAST MEDICAL HISTORY - Past Medical History Cardiovascular: Hypertension, High cholesterol Respiratory: None Endocrine/Autoimmune: Type 2 diabetes GI: Pancreatitis : Nocturia, Other HEENT: None Psych: None Musculoskeletal: Chronic back pain Derm: None - Past Surgical History Past Surgical History: Yes General: Other Ortho: Other - Present Medications Home Medications: Ambulatory Orders Medication Instructions Recorded Confirmed Gabapentin 900 mg PO TID 02/11/19 07/04/19 Insulin Aspart [NovoLOG] 2 unit SUBQ TIDWM 02/11/19 07/04/19 Insulin Glargine,Hum.rec.anlog 25 unit SUBQ DAILY PM 02/11/19 07/04/19 [Basaglar Kwikpen U-100] Cyclobenzaprine [Flexeril] 10 mg PO TID PRN #20 tablet 03/21/19 07/04/19 Glipizide [Glipizide Xl] 0 mg DAILY 03/21/19 07/04/19 Lidocaine Patch 5% [Lidoderm Patch] 1 patch TOP DAILY PRN #10 patch 03/21/19 07/04/19 lisinopriL [Lisinopril] 0 mg DAILY 03/21/19 07/04/19 Albuterol Sulfate [Albuterol 2 puffs IH QID #1 hfa.aer.ad 03/28/19 07/04/19 Sulfate Hfa] Tizanidine HCl 4 mg PO TID PRN #25 capsule 03/28/19 07/04/19 dexAMETHasone [Decadron] 4 mg PO DAILY #5 tablet 03/28/19 07/04/19 - Allergies Allergies/Adverse Reactions: Allergies Allergy/AdvReac Type Severity Reaction Status Date / Time bee pollen Allergy Dizziness Verified 07/04/19 21:20 naproxen [From Naprosyn] Allergy Rash Verified 07/04/19 21:20 - Social History Does the pt smoke?: No Smoking Status: Never smoker Does the pt drink ETOH?: No Does the pt have substance abuse?: No - Immunizations Immunizations are current?: Yes - POLST Patient has POLST: No POLST Status: Full Code PD ED PE NORMAL - General General: Alert and oriented X 3, No acute distress, Well developed/nourished - HEENT HEENT: Atraumatic, PERRL, EOMI, Moist mucous membranes - Neck Neck: Supple, no meningeal sign - Cardiac Cardiac: RRR, No murmur - Respiratory Respiratory: No respiratory distress, Clear bilaterally, Other (Diminished throughout, without wheezing.) - Abdomen Abdomen: Soft, Non tender - Back Back: No CVA TTP Results - Vitals Vitals: Vital Signs - 24 hr 07/04/19 20:37 Temperature 36 C L Heart Rate 115 H Respiratory 20 Rate Blood Pressure 144/108 H O2 Saturation 99 Oxygen O2 Source Room air PD MEDICAL DECISION MAKING - ED course Complexity details: d/w patient (Given patient situation not been able to get him to see pain management due to the COVID-19 stay at home orders. I feel improvement of the patient should be allowed use of pain medicine to get him through tonight through tomorrow telling get his regular prescription by his PCP filled. I have given him pain medicine for tonight in the last until tomorrow until he can's get his refill filled. Discussed with the patient he verbalizes understanding. He was made aware of his numerous visits to the ER for multiple films on pain medicine, and he states that he does not want to come here for this but he has no choice at this point in time.) Departure - Departure Disposition: 01 Home, Self Care Clinical Impression: Pain Condition: Good Instructions: ED Chronic Pain Management Follow-Up: Kimmie Batista ARNP, [facility] [Primary Care Provider] - Comments: He was given 2 Vicodin in the ER tonight, hopefully this will afford you some rest tonight. You have also been sent home with a prepack of Percocet, though at a lower dose than we normally take, it should help get you through until tomorrow afternoon we can get your regular prescription filled through your PCP. Again you are in a rock and a hard place with shutdown due to the COVID-19, but hopefully this will resolve soon and he can get into see pain management in the meantime stay in close contact with your primary care provider and her office to make sure that you do not run out of pain medicines in the future.
[2019-07-04] MEDS: oxyCODONE/ACET 5/325 Prepack 4 PO STA (21:46)
[2019-07-04] MEDS: HYDROcod/ACETAM 5/325 MG TABLET PO STA (21:46)
[2019-07-04 21:52] VITALS: BP 153/111
== END 2019-07-04 21:55 | disposition home or self-care (01) ==
LOC: ED 20:35
DX: M54.6 Pain in thoracic spine (principal); I10 Essential (primary) hypertension; E11.9 Type 2 diabetes mellitus without complications; Z79.4 Long term (current) use of insulin
CPT/HCPCS: 99281; 99282

== ENCOUNTER 2019-11-06 20:45 | Emergency (ER) | payer MEDICAID ==
[2019-11-06 22:07] LABS: BILIRUBIN,URINE NEGATIVE (NEGATIVE); GLUCOSE, URINE (UA) >=1000 mg/dL (NEGATIVE); KETONES,URINE (UA) TRACE mg/dL (NEGATIVE); LEUKOCYTE ESTERASE, URINE NEGATIVE (NEGATIVE); NITRITE,URINE NEGATIVE (NEGATIVE); OCCULT BLOOD,URINE NEGATIVE (NEGATIVE); PROTEIN,URINE NEGATIVE (NEGATIVE); UROBILINOGEN,URINE 0.2 (NORMAL) E.U./dL (NORMAL)
[2019-11-06 22:08] LABS: CLARITY,URINE CLEAR (CLEAR)
--- NOTE | 2019-11-06 22:31 | ED Physician Documentation ---
History of Present Illness - Stated complaint Stated Complaint: MALE - Chief complaint Chief Complaint: General - History obtained from History obtained from: Patient - Additonal information Additional information: patient is a 49 y/o m c/o of burning at the tip of his penise. reports symptoms off and on for 2 months. denies fevers. denies flank pain. denies rashes or lesions. reports seen by urology previously. denies any hx of stds. reports not currently sexually active. Review of Systems Constitutional: reports: Reviewed and negative Eyes: reports: Reviewed and negative Ears: reports: Reviewed and negative Nose: reports: Reviewed and negative Throat: reports: Reviewed and negative Cardiac: reports: Reviewed and negative Respiratory: reports: Reviewed and negative GI: reports: Reviewed and negative : reports: Other (penile pain) Skin: reports: Reviewed and negative Musculoskeletal: reports: Reviewed and negative Neurologic: reports: Reviewed and negative Psychiatric: reports: Reviewed and negative Endocrine: reports: Reviewed and negative Immunocompromised: reports: Reviewed and negative PD PAST MEDICAL HISTORY - Past Medical History Cardiovascular: Hypertension, High cholesterol Respiratory: None Endocrine/Autoimmune: Type 2 diabetes GI: Pancreatitis : Nocturia, Other HEENT: None Psych: None Musculoskeletal: Chronic back pain Derm: None - Past Surgical History Past Surgical History: Yes General: Other Ortho: Other - Present Medications Home Medications: Ambulatory Orders Medication Instructions Recorded Confirmed Gabapentin 900 mg PO TID 02/11/19 07/04/19 Insulin Aspart [NovoLOG] 2 unit SUBQ TIDWM 02/11/19 07/04/19 Insulin Glargine,Hum.rec.anlog 25 unit SUBQ DAILY PM 02/11/19 07/04/19 [Basaglar Kwikpen U-100] Cyclobenzaprine [Flexeril] 10 mg PO TID PRN #20 tablet 03/21/19 07/04/19 Glipizide [Glipizide Xl] 0 mg DAILY 03/21/19 07/04/19 Lidocaine Patch 5% [Lidoderm Patch] 1 patch TOP DAILY PRN #10 patch 03/21/19 07/04/19 lisinopriL [Lisinopril] 0 mg DAILY 03/21/19 07/04/19 Albuterol Sulfate [Albuterol 2 puffs IH QID #1 hfa.aer.ad 03/28/19 07/04/19 Sulfate Hfa] Tizanidine HCl 4 mg PO TID PRN #25 capsule 03/28/19 07/04/19 dexAMETHasone [Decadron] 4 mg PO DAILY #5 tablet 03/28/19 07/04/19 Gabapentin 300 mg PO TID #60 capsule 10/21/19 traMADol [Ultram] 100 mg PO Q6H PRN #6 tablet 10/21/19 - Allergies Allergies/Adverse Reactions: Allergies Allergy/AdvReac Type Severity Reaction Status Date / Time bee pollen Allergy Dizziness Verified 10/21/19 09:36 naproxen [From Naprosyn] Allergy Rash Verified 10/21/19 09:36 - Social History Does the pt smoke?: No Smoking Status: Never smoker Does the pt drink ETOH?: No Does the pt have substance abuse?: No - Immunizations Immunizations are current?: Yes - POLST Patient has POLST: No POLST Status: Full Code PD ED PE NORMAL - Vitals Vital signs reviewed: Yes - General General: Alert and oriented X 3, No acute distress, Well developed/nourished - HEENT HEENT: Atraumatic, PERRL - Neck Neck: Supple, no meningeal sign - Cardiac Cardiac: RRR, No murmur - Respiratory Respiratory: Clear bilaterally - Abdomen Abdomen: Normal bowel sounds, Soft, Non tender, Non distended - Male Male : Other (circumcised. ttp at the urethral meatus, no dc, no blood, testicles descended bilaterally, no pain or masses. no inguinal lad.) - Rectal Rectal: Pt declined - Derm Derm: Warm and dry - Extremities Extremities: No deformity - Neuro Neuro: Alert and oriented X 3 - Psych Psych: Normal mood, Normal affect Results - Vitals Vitals: Vital Signs - 24 hr 11/06/19 20:49 Temperature 36.9 C Heart Rate 132 H Respiratory 28 H Rate Blood Pressure 167/112 H O2 Saturation 98 Oxygen O2 Source Room air - Labs Labs: Laboratory Tests 11/06/19 21:03 Urine Color YELLOW Urine Clarity CLEAR Urine pH 6.0 Ur Specific Lampe 1.015 Urine Protein NEGATIVE Urine Glucose (UA) >=1000 H Urine Ketones TRACE Urine Occult Blood NEGATIVE Urine Nitrite NEGATIVE Urine Bilirubin NEGATIVE Urine Urobilinogen 0.2 (NORMAL) Ur Leukocyte Esterase NEGATIVE Ur Microscopic Review NOT INDICATED Urine Culture Comments NOT INDICATED PD MEDICAL DECISION MAKING - ED course Complexity details: reviewed results, re-evaluated patient (HR 90 and regular on exam. ), considered differential (urethritis, will treat empirically with ceftriaxone and azithromycin and encourage close follow up tomorrow. ) Departure - Departure Disposition: 01 Home, Self Care Clinical Impression: Urethritis Condition: Stable Instructions: ED Urethritis Infec Vs Inflam Male Follow-Up: Kimmie Batista ARNP, [employer] [Primary Care Provider] - Tomorrow Comments: please follow up with your pcp tomorrow.
[2019-11-06] MEDS ORDERED: cefTRIAXone 250 MG VIAL IM STA (22:38)
[2019-11-06] MEDS ORDERED: AZITHROMYCIN 250 MG TABLET PO STA (22:38)
[2019-11-06] MEDS ORDERED: LIDOCAINE 1% 2 ML VIAL MC ONE (22:38)
[2019-11-06 22:56] VITALS: BP 155/98
== END 2019-11-06 22:56 | disposition home or self-care (01) ==
LOC: ED 20:45
DX: N34.2 Other urethritis (principal); I10 Essential (primary) hypertension; E11.9 Type 2 diabetes mellitus without complications; Z79.4 Long term (current) use of insulin
CPT/HCPCS: 81003; 96372; 99283; 99284; A9270; 81001; 87086

== ENCOUNTER 2019-12-03 08:17 | Outpatient (CLI) | payer MEDICAID ==
[2019-12-03 08:51] LABS: BASOPHILS # (AUTO) 0.1 10^3/uL (0.0-0.1); BASOPHILS % (AUTO) 0.9 %; EOSINOPHILS # (AUTO) 0.1 10^3/uL (0.0-0.7); EOSINOPHILS % (AUTO) 1.3 %; HGB - HEMOGLOBIN 13.8 g/dL (14.0-18.0); LYMPHOCYTES # (AUTO) 2.3 10^3/uL (1.5-3.5); LYMPHOCYTES % (AUTO) 41.8 %; MEAN CORPUSCULAR HEMOGLOBIN 30.8 pg (27.0-31.0); MEAN CORPUSCULAR HGB CONC 35.4 g/dL (32.0-36.0); MEAN CORPUSCULAR VOLUME 87.1 fL (80.0-94.0); MEAN PLATELET VOLUME 10.2 fL (7.4-11.4); MONOCYTES # (AUTO) 0.3 10^3/uL (0.0-1.0); MONOCYTES % (AUTO) 4.5 %; NEUTROPHILS # (AUTO) 2.8 10^3/uL (1.5-6.6); NEUTROPHILS % (AUTO) 51.3 %; PLT - PLATELET COUNT 179 10^3/uL (130-450); RED BLOOD COUNT 4.48 10^6/uL (4.70-6.10); RED CELL DISTRIBUTION WIDTH 13.2 % (12.0-15.0); WHITE BLOOD COUNT 5.5 x10^3/uL (4.8-10.8)
[2019-12-03 11:03] LABS: BILIRUBIN,TOTAL 1.8 mg/dL (0.2-1.0); CALCIUM 8.8 mg/dL (8.5-10.3); CREATININE 0.7 mg/dL (0.6-1.2)
[2019-12-03 11:04] LABS: ALBUMIN 4.1 g/dL (3.2-5.5); ALBUMIN/GLOBULIN RATIO 1.8 (1.0-2.2); TOTAL PROTEIN 6.4 g/dL (6.7-8.2)
[2019-12-03 14:23] LABS: HEMOGLOBIN A1c% 10.4 % (4.27-6.07)
== END 2019-12-03 08:18 | disposition home or self-care (01) ==
LOC: LAB 08:17
PROVIDERS: ATTEND Nurse Practitioner
DX: I10 Essential (primary) hypertension (principal); E11.9 Type 2 diabetes mellitus without complications; K74.60 Unspecified cirrhosis of liver
CPT/HCPCS: 36415; 80053; 83036; 84443; 85025

== ENCOUNTER 2019-12-27 15:00 | Emergency (ER) | payer MEDICAID ==
--- NOTE | 2019-12-27 15:05 | ED Physician Documentation ---
PD HPI SKIN - Stated complaint Stated Complaint: RIGHT ARMPIT PAIN - History obtained from History obtained from: Patient - History of Present Illness Timing - onset: How many weeks ago (2) Timing - duration: Weeks (2) Timing - details: Gradual onset, Still present, Waxing and waning Location: Back (upper thoracic back and scapular area on right, and mainly pain right axilla to inside of upper arm.) Quality / character: Painful, Burning, Other (tender for movement and with touching/contact of the area (feels best with arm held out or up above his head).). No: Discolored, Raised, Swelling Associated symptoms: No: Fever, Myalgias, N/V/D Recently seen: Clinic (no Dx for the pain. Was to get outpt U/S to eval for lymph nodes or abscess. No local swelling on exam though.) Review of Systems Constitutional: denies: Fever, Chills, Myalgias Nose: denies: Rhinorrhea / runny nose, Congestion Throat: denies: Sore throat Respiratory: denies: Cough Skin: denies: Rash, Lesions Musculoskeletal: reports: Neck pain (chronically), Back pain (chronically) Neurologic: denies: Generalized weakness, Focal weakness, Numbness PD PAST MEDICAL HISTORY - Past Medical History Cardiovascular: Hypertension, High cholesterol Respiratory: None Endocrine/Autoimmune: Type 2 diabetes GI: Pancreatitis : Nocturia, Other HEENT: None Psych: None Musculoskeletal: Chronic back pain Derm: None - Past Surgical History Past Surgical History: Yes General: Other Ortho: Other - Present Medications Home Medications: Ambulatory Orders Medication Instructions Recorded Confirmed Gabapentin 900 mg PO TID 02/11/19 07/04/19 Insulin Aspart [NovoLOG] 2 unit SUBQ TIDWM 02/11/19 07/04/19 Insulin Glargine,Hum.rec.anlog 25 unit SUBQ DAILY PM 02/11/19 07/04/19 [Basaglar Kwikpen U-100] Cyclobenzaprine [Flexeril] 10 mg PO TID PRN #20 tablet 03/21/19 07/04/19 Glipizide [Glipizide Xl] 0 mg DAILY 03/21/19 07/04/19 Lidocaine Patch 5% [Lidoderm Patch] 1 patch TOP DAILY PRN #10 patch 03/21/19 07/04/19 lisinopriL [Lisinopril] 0 mg DAILY 03/21/19 07/04/19 Albuterol Sulfate [Albuterol 2 puffs IH QID #1 hfa.aer.ad 03/28/19 07/04/19 Sulfate Hfa] Tizanidine HCl 4 mg PO TID PRN #25 capsule 03/28/19 07/04/19 dexAMETHasone [Decadron] 4 mg PO DAILY #5 tablet 03/28/19 07/04/19 Gabapentin 300 mg PO TID #60 capsule 10/21/19 traMADol [Ultram] 100 mg PO Q6H PRN #6 tablet 10/21/19 Oxycodone HCl/Acetaminophen 1 each PO Q8H PRN #18 tablet 12/27/19 [Percocet 5-325 mg Tablet] Valacyclovir HCl [Valacyclovir] 1,000 mg PO TID #20 tablet 12/27/19 - Allergies Allergies/Adverse Reactions: Allergies Allergy/AdvReac Type Severity Reaction Status Date / Time bee pollen Allergy Dizziness Verified 12/27/19 15:09 naproxen [From Naprosyn] Allergy Rash Verified 12/27/19 15:09 - Social History Does the pt smoke?: No Smoking Status: Never smoker Does the pt drink ETOH?: No Does the pt have substance abuse?: No - Immunizations Immunizations are current?: Yes - POLST Patient has POLST: No POLST Status: Full Code PD ED PE NORMAL - Vitals Vital signs reviewed: Yes - General General: Alert and oriented X 3, Well developed/nourished, Other (seems in pain with right axilla and scapular area. Holding arm up over his head so as to not have touching/pressure on skin of the armpit area. ) - HEENT HEENT: Ears normal, Moist mucous membranes, Pharynx benign - Neck Neck: Supple, no meningeal sign, No adenopathy - Cardiac Cardiac: RRR, No murmur - Respiratory Respiratory: Clear bilaterally - Abdomen Abdomen: Soft, Non tender - Derm Derm: Normal color, Warm and dry, No rash, Other (the right axillary area is very tender but no nodes/ redness/ swelling/ skin lesions are seen. He is tender along inside of upper arm some as well and at scapular area. (consider dermatomal pattern T2). ) - Neuro Neuro: Alert and oriented X 3, No motor deficit, No sensory deficit, Normal speech Results - Vitals Vitals: Vital Signs - 24 hr 12/27/19 12/27/19 12/27/19 15:06 15:53 17:18 Temperature 36.8 C 37.1 C Heart Rate 132 H 117 H 107 H Respiratory 20 16 20 Rate Blood Pressure 156/101 H 162/112 H 163/120 H O2 Saturation 98 100 99 12/27/19 17:59 Temperature 37.1 C Heart Rate 114 H Respiratory 22 Rate Blood Pressure 148/102 H O2 Saturation 99 Oxygen O2 Source Room air - Labs Labs: Laboratory Tests 12/27/19 12/27/19 15:55 15:55 WBC 5.2 RBC 4.00 L Hgb 12.8 L Hct 35.6 L MCV 89.0 MCH 32.0 H MCHC 36.0 RDW 12.1 Plt Count 166 MPV 10.3 Neut # (Auto) 2.8 Lymph # (Auto) 2.1 Prentiss # (Auto) 0.3 Eos # (Auto) 0.1 Baso # (Auto) 0.0 Absolute Nucleated RBC 0.00 Nucleated RBC % 0.0 Sodium 128 L Potassium 3.7 Chloride 95 L Carbon Dioxide 20 L Anion Gap 13.0 BUN 6 Creatinine 0.8 Estimated GFR (MDRD) 102 Glucose 285 H Calcium 8.7 - Rads (name of study) chest CT with emphasis on axilla Radiology: Prelim report reviewed (no acute process seen in chest nor axillary area to account for the pain. ), See rad report PD MEDICAL DECISION MAKING - ED course Complexity details: reviewed results, considered differential, d/w patient ED course: No objective findings for the pain. Given the pattern of the pain and the notable skin/local tenderness, I could consider something like shingles without rash (Zoster non herpetica). Departure - Departure Disposition: 01 Home, Self Care Clinical Impression: Pain in right axilla Condition: Stable Record reviewed to determine appropriate education?: Yes Follow-Up: Kimmie Batista ARNP, [employer] [Primary Care Provider] - Prescriptions: Oxycodone HCl/Acetaminophen [Percocet 5-325 mg Tablet] 1 each PO Q8H PRN #18 tablet PRN Reason: pain Valacyclovir HCl [Valacyclovir] 1,000 mg PO TID #20 tablet Comments: The radiology report does not show any acute abnormalities in the shoulder axilla or chest to account for your pain. Considerations could be a nerve root irritation or nerve pain in that area. Given your diabetes as well as allergy to naproxen, will just avoid anti- inflammatories at this point. We will treat with Tylenol or Percocet every of 6 to 8 hours as needed for pain. Consideration could be a viral inflammation such as shingles without a rash. As that possibility, I would also prescribe Sandra acyclovir or antiviral 3 times a day for a week. Follow-up with your primary care next week for follow-up. Return if other symptoms develop such as fever, rash, chest pain, other concerns. Discharge Date/Time: 12/27/19 18:02
[2019-12-27] MEDS ORDERED: KETOROLAC 30 MG/ML VIAL IVP STA (15:29)
[2019-12-27] MEDS ORDERED: MORPHINE 2 MG/ML CARPUJECT IVP STA ×2 (15:29→17:18)
[2019-12-27] MEDS ORDERED: ACETAMINOPHEN 325 MG TABLET PO STA (15:58)
[2019-12-27 16:15] LABS: BASOPHILS % (AUTO) 0.8 %; EOSINOPHILS # (AUTO) 0.1 10^3/uL (0.0-0.7); EOSINOPHILS % (AUTO) 1.7 %; HGB - HEMOGLOBIN 12.8 g/dL (14.0-18.0); LYMPHOCYTES # (AUTO) 2.1 10^3/uL (1.5-3.5); LYMPHOCYTES % (AUTO) 39.2 %; MEAN PLATELET VOLUME 10.3 fL (7.4-11.4); MONOCYTES # (AUTO) 0.3 10^3/uL (0.0-1.0); MONOCYTES % (AUTO) 5.4 %; NEUTROPHILS # (AUTO) 2.8 10^3/uL (1.5-6.6); NEUTROPHILS % (AUTO) 52.5 %; PLT - PLATELET COUNT 166 10^3/uL (130-450); RED CELL DISTRIBUTION WIDTH 12.1 % (12.0-15.0); WHITE BLOOD COUNT 5.2 x10^3/uL (4.8-10.8)
[2019-12-27 16:19] LABS: CALCIUM 8.7 mg/dL (8.5-10.3); CREATININE 0.8 mg/dL (0.6-1.2)
[2019-12-27] MEDS ORDERED: IOVERSOL 320 100 ML VIAL IVP ONE ×2 (16:24→17:41)
--- NOTE | 2019-12-27 17:06 | CT Report ---
PROCEDURE: CHEST W INDICATIONS: right axillary and scapular pain for weeks CONTRAST: IV CONTRAST: Optiray 320 ml: 100 PO CONTRAST: *NO PO CONTRAST TECHNIQUE: After the administration of intravenous contrast, 5 mm thick sections acquired from the pulmonary api noam to the posterior costophrenic angles. 7 mm thick coronal MIP reformats were acquired. For radia tion dose reduction, the following was used: automated exposure control, adjustment of mA and/or kV according to patient size. COMPARISON: CTA chest 07/11/2017. FINDINGS: Image quality: Excellent. Lungs and pleura: Mild dependent atelectasis is seen in the lung bases bilaterally. No acute consolid ation is seen to No pleural effusions or pneumothorax. Central and peripheral airways are patent and normal in caliber. Mediastinum: Heart size is normal. No pericardial effusion. No mediastinal or hilar adenopathy by size criteria. Thoracic aorta and central pulmonary arteries are normal in size. Esophagus is dae l in caliber. No hiatal hernia. Bones and chest wall: No suspicious bony lesions. No vertebral body compression fractures. No axil shadia or supraclavicular adenopathy by size criteria. Thyroid gland appears normal. Abdomen: Visualized upper abdominal solid organs appear normal. Upper abdominal bowel loops are nor mal in caliber. IMPRESSION: No acute abnormality is seen in the chest or right axilla. The right scapula is intact. Reviewed by: Andrei Schwartz MD on 12/27/2019 5:04 PM PDT Approved by: Andrei Schwartz MD on 12/27/2019 5:04 PM PDT Station ID: [id number]
[2019-12-27] MEDS ORDERED: KETOROLAC 15 MG/ML VIAL IVP STA (17:18)
[2019-12-27] MEDS ORDERED: ACYCLOVIR 200 MG CAPSULE PO STA (17:25)
[2019-12-27 18:00] VITALS: BP 148/102
== END 2019-12-27 18:02 | disposition home or self-care (01) ==
LOC: ED 15:00
DX: M79.621 Pain in right upper arm (principal); I10 Essential (primary) hypertension; E11.9 Type 2 diabetes mellitus without complications; Z79.4 Long term (current) use of insulin; M54.2 Cervicalgia; G89.29 Other chronic pain
CPT/HCPCS: 36415; 71260; 80048; 85025; 96374; 96375; 99284; A9270; Q9967

== ENCOUNTER 2019-12-31 14:07 | Outpatient (CLI) | payer MEDICAID ==
--- NOTE | 2019-12-31 15:02 | Ultrasound Report ---
PROCEDURE: Ext Limited Non Vascular INDICATIONS: RT UPPER ARM PAIN TECHNIQUE: Real-time scanning was performed of the right axilla and lateral right chest, with image documentation. COMPARISON: CT chest dated 12/27/2019. FINDINGS: Multiple grayscale and color images of the right axilla and lateral right chest wall were acquired targeting the patient directed area of palpable concern. Area of maximum tenderness correlat ed with a normal right axillary lymph node which demonstrates preservation of normal reniform morphol ogy, central fatty hilum, and uniform cortex. Otherwise, no suspicious soft tissue mass lesions or fl uid collections identified in the area of concern. Overlying skin is normal. IMPRESSION: No suspicious sonographic abnormalities identified in the palpable area of patient concern. The only finding correlating with patient's symptoms was a normal appearing right axillary lymph node. Recomme nd continued clinical surveillance with follow-up imaging as needed. Reviewed by: Nadir Miranda MD on 12/31/2019 3:01 PM PDT Approved by: Nadir Miranda MD on 12/31/2019 3:01 PM PDT Station ID: [id number]
== END 2019-12-31 14:08 | disposition home or self-care (01) ==
LOC: DI 14:07
PROVIDERS: ATTEND Nurse Practitioner
DX: M79.621 Pain in right upper arm (principal)
CPT/HCPCS: 76882

== ENCOUNTER 2020-01-08 09:00 | Outpatient (CLI) | payer MEDICAID ==
[2020-01-08 09:20] LABS: BASOPHILS # (AUTO) 0.1 10^3/uL (0.0-0.1); BASOPHILS % (AUTO) 0.9 %; EOSINOPHILS # (AUTO) 0.1 10^3/uL (0.0-0.7); EOSINOPHILS % (AUTO) 1.4 %; LYMPHOCYTES % (AUTO) 36.8 %; MEAN CORPUSCULAR HEMOGLOBIN 30.6 pg (27.0-31.0); MEAN CORPUSCULAR HGB CONC 34.7 g/dL (32.0-36.0); MONOCYTES # (AUTO) 0.4 10^3/uL (0.0-1.0); MONOCYTES % (AUTO) 7.6 %; NEUTROPHILS # (AUTO) 2.9 10^3/uL (1.5-6.6); NEUTROPHILS % (AUTO) 52.9 %; PLT - PLATELET COUNT 174 10^3/uL (130-450); RED BLOOD COUNT 4.58 10^6/uL (4.70-6.10); RED CELL DISTRIBUTION WIDTH 11.9 % (12.0-15.0); WHITE BLOOD COUNT 5.5 x10^3/uL (4.8-10.8)
[2020-01-08 09:42] LABS: CALCIUM 9.3 mg/dL (8.5-10.3); CREATININE 0.7 mg/dL (0.6-1.2)
[2020-01-08 09:58] LABS: FERRITIN 669.6 ng/mL (23.9-336.2)
== END 2020-01-08 09:01 | disposition home or self-care (01) ==
LOC: LAB 09:00
PROVIDERS: ATTEND Family Medicine
DX: E87.1 Hypo-osmolality and hyponatremia (principal); D64.9 Anemia, unspecified
CPT/HCPCS: 36415; 80048; 82607; 82728; 82746; 83540; 84466; 85025; 85045

== ENCOUNTER 2020-01-09 07:00 | Outpatient (CLI) | payer MEDICAID | END 2020-01-09 23:59 | disposition home or self-care (01) | LOC: LAB.R 07:00 | PROVIDERS: ATTEND Family Medicine | DX: D64.9 Anemia, unspecified (principal) | CPT/HCPCS: 82274 ==

== ENCOUNTER 2020-01-15 08:03 | Outpatient (CLI) | payer MEDICAID ==
--- NOTE | 2020-01-15 10:45 | Ultrasound Report ---
PROCEDURE: Abdomen Limited INDICATIONS: CIRRHOSIS, FATTY LIVER DISEASE TECHNIQUE: Real-time scanning was performed of the abdominal and retroperitoneal organs, with image documentatio n. COMPARISON: None. FINDINGS: Liver: Liver is normal in size and diffusely heterogeneous in echotexture. No focal intrahepatic le sions. Gallbladder: Gallbladder is normal in sonographic appearance without gallstones, gallbladder wall thi ckening, pericholecystic fluid, or abnormal sonographic Clark's sign. Biliary ducts: Intrahepatic bile ducts are non-dilated. Extrahepatic bile duct caliber measures 2 m m. Normal is 6-7 mm or less in diameter, or 10 mm or less post-cholecystectomy. Pancreas: Visualized portions of the pancreas are sonographically normal. Kidneys: Right kidney is normal in size and echotexture. Right kidney measures 11.0 cm long. No hydr onephrosis or nephrolithiasis. No solid masses. Aorta: Visualized aorta is normal in caliber at less than 3 cm. Iliacs: Proximal common iliac arteries are normal in caliber at less than 2.5 cm. IVC: Intrahepatic inferior vena cava is patent. Miscellaneous: No free abdominal fluid. IMPRESSION: Findings compatible with diffuse hepatic steatosis versus chronic hepatocellular disease. No focal in trahepatic abnormalities. No acute sonographic abnormalities identified in the abdomen. Reviewed by: Nadir Miranda MD on 01/15/2020 9:[address] [facility] Approved by: Nadir Miranda MD on 01/15/2020 9:[address] [facility] Station ID: [id number]
== END 2020-01-15 08:04 | disposition home or self-care (01) ==
LOC: DI 08:03
PROVIDERS: ATTEND Nurse Practitioner
DX: K74.60 Unspecified cirrhosis of liver (principal); K76.0 Fatty (change of) liver, not elsewhere classified
CPT/HCPCS: 76705

== ENCOUNTER 2020-02-15 16:04 | Emergency (ER) | payer MEDICAID ==
[2020-02-15] MEDS ORDERED: ONDANSETRON 4 MG/2 ML VIAL IVP STA (16:18)
[2020-02-15] MEDS ORDERED: HYDROmorphone 1 MG/ML CARPUJECT IVP STA ×2 (16:18→17:32)
--- NOTE | 2020-02-15 16:22 | ED Physician Documentation ---
PD HPI BACK PAIN - Stated complaint Stated Complaint: LT BACK PX - Chief complaint Chief Complaint: Back Pain - History obtained from History obtained from: Patient - Additional information Additional information: 49-year-old history of diabetes and also some back problems. For the last 3 days he has had left flank pain, totally different from previous back pain. It does not get worse with bending or twisting. It is generally worsening though. Denies urinary complaints or fevers. Blood sugars have been below 200. Review of Systems Ten Systems: 10 systems reviewed and negative Constitutional: reports: Weight Loss. denies: Fever, Chills Ears: reports: Reviewed and negative Nose: reports: Reviewed and negative Throat: reports: Reviewed and negative Cardiac: reports: Reviewed and negative. denies: Chest pain / pressure, Pa lpitations Respiratory: denies: Dyspnea, Cough PD PAST MEDICAL HISTORY - Past Medical History Cardiovascular: Hypertension, High cholesterol Respiratory: None Endocrine/Autoimmune: Type 2 diabetes GI: Pancreatitis : Nocturia, Other HEENT: None Psych: None Musculoskeletal: Chronic back pain Derm: None - Past Surgical History Past Surgical History: Yes General: Other Ortho: Other - Present Medications Home Medications: Ambulatory Orders Medication Instructions Recorded Confirmed Insulin Aspart [NovoLOG] 2 unit SUBQ TIDWM 02/11/19 07/04/19 Insulin Glargine,Hum.rec.anlog 10 unit SUBQ DAILY PM 02/11/19 07/04/19 [Basaglar Kwikpen U-100] Amox/Clav 875/125 [Augmentin] 1 each PO Q12H #14 tablet 02/15/20 Gabapentin 600 mg PO TID 02/15/20 Oxycodone HCl/Acetaminophen 1 - 2 each PO Q6H PRN #14 tablet 02/15/20 [Percocet 5-325 mg Tablet] - Allergies Allergies/Adverse Reactions: Allergies Allergy/AdvReac Type Severity Reaction Status Date / Time bee pollen Allergy Dizziness Verified 02/15/20 16:16 naproxen [From Naprosyn] Allergy Rash Verified 02/15/20 16:16 - Social History Does the pt smoke?: No Smoking Status: Never smoker Does the pt drink ETOH?: No Does the pt have substance abuse?: No - Immunizations Immunizations are current?: Yes - POLST Patient has POLST: No POLST Status: Full Code PD ED PE NORMAL - Vitals Vital signs reviewed: Yes - General General: Alert and oriented X 3, Other (Of note I have seen this patient before and he appears to be losing a significant amount of weight which he says is unintended.) - Extremities Extremities: Other (There is tenderness of the left flank, no rash there. No midline spinal tenderness.) - Neuro Neuro: Alert and oriented X 3, Normal speech, Other (The patient has equal and normal Achilles and patellar reflexes bilaterally. Normal sensation in all areas of the legs. Patient denies saddle anesthesia. Normal strength in flexion-extension at the ankles, knees, and flexion of the hips.) Results - Vitals Vitals: Vital Signs - 24 hr 02/15/20 02/15/20 02/15/20 16:10 16:36 17:22 Temperature 36.8 C Heart Rate 119 H 110 H 109 H Respiratory 16 16 16 Rate Blood Pressure 163/112 H 176/106 H 165/101 H O2 Saturation 100 98 97 Oxygen O2 Source Room air - Labs Labs: Laboratory Tests 02/15/20 02/15/20 02/15/20 16:26 16:26 17:05 WBC 8.2 RBC 4.45 L Hgb 13.6 L Hct 37.4 L MCV 84.0 MCH 30.6 MCHC 36.4 H RDW 11.5 L Plt Count 155 MPV 10.3 Neut # (Auto) 4.7 Lymph # (Auto) 2.8 [place]cl[place] # (Auto) 0.4 Eos # (Auto) 0.1 Baso # (Auto) 0.1 Absolute Nucleated RBC 0.00 Nucleated RBC % 0.0 Sodium 129 L Potassium 3.9 Chloride 97 L Carbon Dioxide 21 Anion Gap 11.0 BUN 13 Creatinine 0.7 Estimated GFR (MDRD) 119 Glucose 190 H Calcium 9.3 Urine Color YELLOW Urine Clarity CLEAR Urine pH 7.0 Ur Specific [place] 1.020 Urine Protein NEGATIVE Urine Glucose (UA) 100 H Urine Ketones NEGATIVE Urine Occult Blood NEGATIVE Urine Nitrite NEGATIVE Urine Bilirubin NEGATIVE Urine Urobilinogen 0.2 (NORMAL) Ur Leukocyte Esterase NEGATIVE Ur Microscopic Review NOT INDICATED Urine Culture Comments NOT INDICATED Urine Opiates Screen POSITIVE H Ur Oxycodone Screen NEGATIVE Urine Methadone Screen NEGATIVE Ur Propoxyphene Screen NEGATIVE Ur Barbiturates Screen NEGATIVE Ur Tricyclics Screen NEGATIVE Ur Phencyclidine Scrn NEGATIVE Ur Amphetamine Screen NEGATIVE U Methamphetamines Scrn NEGATIVE U Benzodiazepines Scrn NEGATIVE Urine Cocaine Screen NEGATIVE U Cannabinoids Screen POSITIVE H Ethyl Alcohol < 5.0 PD MEDICAL DECISION MAKING - ED course ED course: 49-year-old gentleman presents with atraumatic and fairly atypical for musculoskeletal left-sided back pain. Initially the highest on the differential would have been renal colic, and as such a noncontrast CT was done which was interpreted contemporaneously by me and showed no evidence of ureterolithiasis but did show a concern for descending colonic colitis. We will treat this with Augmentin and he understands the need for follow-up colonoscopy. Departure - Departure Disposition: 01 Home, Self Care Clinical Impression: Colitis Back pain Qualifiers: Back pain location: low back pain Chronicity: acute Back pain laterality: left Sciatica presence: without sciatica Qualified Code(s): M54.5 - Low back pain Condition: Good Record reviewed to determine appropriate education?: Yes Instructions: ED Gastroenteritis Bacterial Prescriptions: Amox/Clav 875/125 [Augmentin] 1 each PO Q12H #14 tablet Oxycodone HCl/Acetaminophen [Percocet 5-325 mg Tablet] 1 - 2 each PO Q6H PRN #14 tablet PRN Reason: pain Comments: As discussed, today we identified colitis as the likely cause of your left low back pain. This is inflammation of the colon and is sometimes infectious, as such we are prescribing some antibiotics. You need to follow-up with your primary care physician, since you have not yet had a colonoscopy, this is a reminder that you are due, but the colon needs to calm down a bit first so you are due for colonoscopy in about 2 months. Do not drink or drive while taking narcotic pain medication. Note that many narcotic pain relievers also contain Tylenol/acetaminophen. Please ensure that your total dose of acetaminophen from all sources does not exceed 3 g (3000 mg) per day. You may get constipated while on this medication. Take a stool softener such as Colace twice a day while you are on it. Also add an [id number] laxative such as senna or MiraLAX on any day that you do not have a bowel movement. If you received a narcotic pain medication or sedative while in the emergency department, do not drive for the next 24 hours.
[2020-02-15 16:31] LABS: BASOPHILS # (AUTO) 0.1 10^3/uL (0.0-0.1); BASOPHILS % (AUTO) 0.6 %; EOSINOPHILS # (AUTO) 0.1 10^3/uL (0.0-0.7); EOSINOPHILS % (AUTO) 1.5 %; HGB - HEMOGLOBIN 13.6 g/dL (14.0-18.0); LYMPHOCYTES # (AUTO) 2.8 10^3/uL (1.5-3.5); LYMPHOCYTES % (AUTO) 34.5 %; MEAN CORPUSCULAR HEMOGLOBIN 30.6 pg (27.0-31.0); MEAN CORPUSCULAR HGB CONC 36.4 g/dL (32.0-36.0); MEAN PLATELET VOLUME 10.3 fL (7.4-11.4); MONOCYTES # (AUTO) 0.4 10^3/uL (0.0-1.0); MONOCYTES % (AUTO) 5.2 %; NEUTROPHILS # (AUTO) 4.7 10^3/uL (1.5-6.6); NEUTROPHILS % (AUTO) 57.8 %; PLT - PLATELET COUNT 155 10^3/uL (130-450); RED BLOOD COUNT 4.45 10^6/uL (4.70-6.10); RED CELL DISTRIBUTION WIDTH 11.5 % (12.0-15.0); WHITE BLOOD COUNT 8.2 x10^3/uL (4.8-10.8)
[2020-02-15 16:41] LABS: BUN - BLOOD UREA NITROGEN 13 mg/dL (6-20); CALCIUM 9.3 mg/dL (8.5-10.3); CARBON DIOXIDE - CO2 21 mmol/L (21-32); CHLORIDE 97 mmol/L (101-111); CREATININE 0.7 mg/dL (0.6-1.2); GLUCOSE 190 mg/dL (70-100); SODIUM 129 mmol/L (135-145)
[2020-02-15 17:09] LABS: MUDS CUTOFF CONCENTRATIONS CUTOFF CONC BELOW:
--- NOTE | 2020-02-15 17:10 | CT Report ---
PROCEDURE: Abdomen/Pelvis WO INDICATIONS: L flank pain TECHNIQUE: Noncontrast 5 mm thick sections acquired from the diaphragms to the symphysis. 5 mm coronal and sagi ttal reformats were then performed. For radiation dose reduction, the following was used: automated exposure control, adjustment of mA and/or kV according to patient size. COMPARISON: 05/06/2019, 07/27/2018 FINDINGS: Image quality: Excellent. ABDOMEN: Lung bases: Lung bases are clear. Heart size is normal. Solid organs: Liver and spleen are normal in size. Gallbladder wall does not appear thickened. P ancreas is normal in contours. No adrenal nodules. Kidneys are normal in size, without hydronephros is or nephrolithiasis. Peritoneum and bowel: There is moderate wall thickening seen involving the distal colon, which is se en throughout the descending colon as well as within the sigmoid colon and the rectum. Unenhanced bow el loops otherwise demonstrate normal wall thickness and caliber. No free fluid or air. A normal ap pendix is incidentally noted. Nodes and vessels: No retroperitoneal or mesenteric adenopathy by size criteria. Aorta and inferior vena cava are normal in caliber. Miscellaneous: No ventral hernias. PELVIS: Genitourinary: Bladder wall thickness is normal. Miscellaneous: No inguinal adenopathy. Mild bilateral fat-containing inguinal hernias are seen, rig ht larger than left. Bones: No suspicious bony lesions. No vertebral body compression fractures. There is minimal dextro convex lumbar sclerotic curvature seen. Degenerative changes are seen throughout, particularly involv ing the visualized lower thoracic spine. IMPRESSION: Negative for kidney stones or obstructive uropathy. Generalized wall thickening can be seen involving the distal colon. Please consider infectious and in flammatory causes of distal colitis. Incidental note is made of: Normal appendix Mild bilateral fat-containing inguinal hernias are seen, right larger than left. Reviewed by: Agustin Anderson MD on 02/15/2020 4:09 PM [facility] Approved by: Agustin Anderson MD on 02/15/2020 4:09 PM [facility] Station ID: [id number]
[2020-02-15 17:11] LABS: BILIRUBIN,URINE NEGATIVE (NEGATIVE); GLUCOSE, URINE (UA) 100 mg/dL (NEGATIVE); KETONES,URINE (UA) NEGATIVE (NEGATIVE); LEUKOCYTE ESTERASE, URINE NEGATIVE (NEGATIVE); NITRITE,URINE NEGATIVE (NEGATIVE); OCCULT BLOOD,URINE NEGATIVE (NEGATIVE); PROTEIN,URINE NEGATIVE (NEGATIVE); UROBILINOGEN,URINE 0.2 (NORMAL) E.U./dL (NORMAL)
[2020-02-15 17:23] LABS: CLARITY,URINE CLEAR (CLEAR); COCAINE SCREEN URINE NEGATIVE (NEGATIVE)
[2020-02-15 17:24] LABS: AMPHETAMINE SCREEN,URINE NEGATIVE (NEGATIVE); BENZODIAZEPINES SCREEN, URINE NEGATIVE (NEGATIVE); METHADONE SCREEN, URINE NEGATIVE (NEGATIVE); METHAMPHETAMINES SCREEN, URINE NEGATIVE (NEGATIVE); OPIATE SCREEN, URINE POSITIVE (NEGATIVE); OXYCODONE SCREEN, URINE NEGATIVE (NEGATIVE); PROPOXYPHENE SCREEN, URINE NEGATIVE (NEGATIVE); TRICYCLIC ANTIDEPRESSANT,URINE NEGATIVE (NEGATIVE)
[2020-02-15] MEDS ORDERED: AMOX/CLAV 875 MG/125 MG TABLET PO STA (17:32)
[2020-02-15 17:48] VITALS: BP 150/103
== END 2020-02-15 17:53 | disposition home or self-care (01) ==
LOC: ED 16:04
DX: K52.9 Noninfective gastroenteritis and colitis, unspecified (principal); I10 Essential (primary) hypertension; E11.9 Type 2 diabetes mellitus without complications; Z79.4 Long term (current) use of insulin
CPT/HCPCS: 36415; 74176; 80048; 80306; 80320; 81003; 85025; 96374; 96375; 96376; 99283; 99284; A9270; J1170; 81001; 87086

== ENCOUNTER 2020-02-20 18:35 | Observation (INO) | payer MEDICAID ==
[2020-02-20 18:57] LABS: BILIRUBIN,URINE NEGATIVE (NEGATIVE); GLUCOSE, URINE (UA) 500 mg/dL (NEGATIVE); KETONES,URINE (UA) TRACE mg/dL (NEGATIVE); LEUKOCYTE ESTERASE, URINE NEGATIVE (NEGATIVE); NITRITE,URINE NEGATIVE (NEGATIVE); OCCULT BLOOD,URINE NEGATIVE (NEGATIVE); PROTEIN,URINE NEGATIVE (NEGATIVE); UROBILINOGEN,URINE 0.2 (NORMAL) E.U./dL (NORMAL)
[2020-02-20 18:58] LABS: CLARITY,URINE CLEAR (CLEAR)
[2020-02-20] MEDS ORDERED: SODIUM CHLORIDE 0.9% 1,000 ML IV STA (19:57)
[2020-02-20] MEDS ORDERED: DEXAMETHASONE 10 MG/ML VIAL IVP STA (19:57)
[2020-02-20] MEDS ORDERED: KETOROLAC 30 MG/ML VIAL IVP STA (19:57)
--- NOTE | 2020-02-20 20:01 | ED Physician Documentation ---
PD HPI BACK PAIN - Stated complaint Stated Complaint: LT SIDE BACK/SIDE PX - Chief complaint Chief Complaint: Abd Pain - History obtained from History obtained from: Patient - History of Present Illness Timing - onset: How many days ago (6) Timing - duration: Days (6) Timing - details: Gradual onset, Still present Location: Lower, Left Quality: Pain, Spasm, Sharp, Similar to prior episodes Associated symptoms: No: Fever, Weakness, Numbness, Incontinent of urine, Unable to urinate, Hematuria, Incontinent of stool Improves with: Rest Worsened by: Movement, Palpation Similar symptoms before: Diagnosis (flank pain, colitis) Recently seen: Emergency Dept - Additional information Additional information: 49-year-old diabetic male recently seen in the emergency department for colitis has persistent back pain and is out of his pain medication Review of Systems Constitutional: denies: Fever Eyes: denies: Decreased vision Ears: denies: Ear pain Nose: denies: Rhinorrhea / runny nose, Congestion Throat: denies: Sore throat Cardiac: denies: Chest pain / pressure, Palpitations, Pedal edema, Calf pain Respiratory: denies: Dyspnea, Cough, Wheezing GI: denies: Abdominal Pain, Nausea, Vomiting, Constipation, Diarrhea : denies: Dysuria, Frequency Skin: denies: Rash Musculoskeletal: reports: Back pain. denies: Neck pain, Extremity pain Neurologic: denies: Generalized weakness, Focal weakness, Numbness PD PAST MEDICAL HISTORY - Past Medical History Cardiovascular: Hypertension, High cholesterol Respiratory: None Endocrine/Autoimmune: Type 2 diabetes GI: Pancreatitis : Nocturia, Other HEENT: None Psych: None Musculoskeletal: Chronic back pain Derm: None - Past Surgical History Past Surgical History: Yes General: Other Ortho: Other - Present Medications Home Medications: Ambulatory Orders Medication Instructions Recorded Confirmed Insulin Aspart [NovoLOG] 2 unit SUBQ TIDWM 02/11/19 07/04/19 Insulin Glargine,Hum.rec.anlog 10 unit SUBQ DAILY PM 02/11/19 07/04/19 [Basaglar Kwikpen U-100] Amox/Clav 875/125 [Augmentin] 1 each PO Q12H #14 tablet 02/15/20 Gabapentin 600 mg PO TID 02/15/20 Oxycodone HCl/Acetaminophen 1 - 2 each PO Q6H PRN #14 tablet 12/05/20 [Percocet 5-325 mg Tablet] Methocarbamol [Robaxin-750] 750 mg PO TID 02/20/20 02/20/20 Oxycodone HCl/Acetaminophen 1 - 2 each PO Q6H PRN #14 tablet 02/21/20 [Percocet 5-325 mg Tablet] - Allergies Allergies/Adverse Reactions: Allergies Allergy/AdvReac Type Severity Reaction Status Date / Time bee pollen Allergy Dizziness Verified 02/20/20 18:37 naproxen [From Naprosyn] Allergy Rash Verified 02/20/20 18:37 - Social History Does the pt smoke?: No Smoking Status: Never smoker Does the pt drink ETOH?: No Does the pt have substance abuse?: No - Immunizations Immunizations are current?: Yes - POLST Patient has POLST: No POLST Status: Full Code PD ED PE NORMAL - Vitals Vital signs reviewed: Yes - General General: Alert and oriented X 3, Well developed/nourished, Other (3rd pressman tone and flat affect consistent with pain ) - HEENT HEENT: Atraumatic, PERRL, EOMI - Neck Neck: Supple, no meningeal sign, No bony TTP - Cardiac Cardiac: RRR, No murmur - Respiratory Respiratory: No respiratory distress, Clear bilaterally - Abdomen Abdomen: Normal bowel sounds, Soft, Non tender, Non distended, No organomegaly - Back Back: No spinal TTP, Other (There is tenderness to the left flank from the ribs to the sacrum. There is not specifically tenderness to bimanual palpation of the left kidney and the kidney is sonographically non-tender.) - Derm Derm: Normal color, Warm and dry, No rash - Extremities Extremities: No deformity, No edema - Neuro Neuro: Alert and oriented X 3, three knife trimmer 2-12 intact, No motor deficit, No sensory deficit, Normal speech Eye Opening: Spontaneous Motor: Obeys Commands Verbal: Oriented GCS Score: 15 - Psych Psych: Normal mood Results - Vitals Vitals: Vital Signs - 24 hr 02/20/20 02/20/20 02/20/20 18:37 19:33 21:00 Temperature 36.6 C 36.6 C 36.6 C Heart Rate 100 92 90 Respiratory 18 18 18 Rate Blood Pressure 174/100 H 158/95 H 153/89 H O2 Saturation 98 100 100 02/20/20 02/21/20 02/21/20 22:07 00:00 02:00 Temperature 36.6 C 36.6 C Heart Rate 91 89 82 Respiratory 16 16 16 Rate Blood Pressure 185/116 H 183/111 H 176/90 H O2 Saturation 100 100 100 Oxygen O2 Source Room air - Labs Labs: Laboratory Tests 02/20/20 02/20/20 02/20/20 18:30 20:05 20:05 WBC 5.9 RBC 4.29 L Hgb 13.6 L Hct 36.9 L MCV 86.0 MCH 31.7 H MCHC 36.9 H RDW 11.8 L Plt Count 170 MPV 10.8 Neut # (Auto) 3.0 Lymph # (Auto) 2.4 [place] # (Auto) 0.4 Eos # (Auto) 0.2 Baso # (Auto) 0.0 Absolute Nucleated RBC 0.00 Nucleated RBC % 0.0 VBG pH VBG pCO2 VBG pO2 VBG HCO3 VBG Total CO2 VBG O2 Saturation VBG Base Excess Sodium 137 Potassium 3.9 Chloride 102 Carbon Dioxide 22 Anion Gap 13.0 BUN 10 Creatinine 0.6 Estimated GFR (MDRD) 142 Glucose 221 H POC Whole Bld Glucose Lactic Acid Calcium 9.0 Total Bilirubin 0.6 AST 58 H ALT 53 Alkaline Phosphatase 96 Total Creatine Kinase CK-MB (CK-2) Total Protein 6.5 L Albumin 4.0 Globulin 2.5 Albumin/Globulin Ratio 1.6 Lipase 53 H Urine Color YELLOW Urine Clarity CLEAR Urine pH 6.0 Ur Specific [place] >=1.030 H Urine Protein NEGATIVE Urine Glucose (UA) 500 H Urine Ketones TRACE Urine Occult Blood NEGATIVE Urine Nitrite NEGATIVE Urine Bilirubin NEGATIVE Urine Urobilinogen 0.2 (NORMAL) Ur Leukocyte Esterase NEGATIVE Ur Microscopic Review NOT INDICATED Urine Culture Comments NOT INDICATED Serum Ketones 02/20/20 02/20/20 02/20/20 20:05 22:29 22:29 WBC RBC Hgb Hct MCV MCH MCHC RDW Plt Count MPV Neut # (Auto) Lymph # (Auto) [place] # (Auto) Eos # (Auto) Baso # (Auto) Absolute Nucleated RBC Nucleated RBC % VBG pH VBG pCO2 VBG pO2 VBG HCO3 VBG Total CO2 VBG O2 Saturation VBG Base Excess Sodium 137 Potassium 4.1 Chloride 103 Carbon Dioxide 19 L Anion Gap 14.0 H BUN 10 Creatinine 0.6 Estimated GFR (MDRD) 142 Glucose 242 H POC Whole Bld Glucose Lactic Acid 2.4 H 2.7 H Calcium 8.5 Total Bilirubin AST ALT Alkaline Phosphatase Total Creatine Kinase CK-MB (CK-2) Total Protein Albumin Globulin Albumin/Globulin Ratio Lipase Urine Color Urine Clarity Urine pH Ur Specific [place] Urine Protein Urine Glucose (UA) Urine Ketones Urine Occult Blood Urine Nitrite Urine Bilirubin Urine Urobilinogen Ur Leukocyte Esterase Ur Microscopic Review Urine Culture Comments Serum Ketones 02/20/20 02/20/20 02/21/20 23:27 23:55 00:49 WBC RBC Hgb Hct MCV MCH MCHC RDW Plt Count MPV Neut # (Auto) Lymph # (Auto) [place] # (Auto) Eos # (Auto) Baso # (Auto) Absolute Nucleated RBC Nucleated RBC % VBG pH VBG pCO2 VBG pO2 VBG HCO3 VBG Total CO2 VBG O2 Saturation VBG Base Excess Sodium Potassium Chloride Carbon Dioxide Anion Gap BUN Creatinine Estimated GFR (MDRD) Glucose POC Whole Bld Glucose 283 H 290 H Lactic Acid 3.9 H* Calcium Total Bilirubin AST ALT Alkaline Phosphatase Total Creatine Kinase CK-MB (CK-2) Total Protein Albumin Globulin Albumin/Globulin Ratio Lipase Urine Color Urine Clarity Urine pH Ur Specific [place] Urine Protein Urine Glucose (UA) Urine Ketones Urine Occult Blood Urine Nitrite Urine Bilirubin Urine Urobilinogen Ur Leukocyte Esterase Ur Microscopic Review Urine Culture Comments Serum Ketones 02/21/20 02/21/20 02/21/20 02:02 02:33 02:33 WBC RBC Hgb Hct MCV MCH MCHC RDW Plt Count MPV Neut # (Auto) Lymph # (Auto) [place] # (Auto) Eos # (Auto) Baso # (Auto) Absolute Nucleated RBC Nucleated RBC % VBG pH 7.370 VBG pCO2 30.5 L VBG pO2 45.2 VBG HCO3 17.2 L VBG Total CO2 18.2 L VBG O2 Saturation 83.7 H VBG Base Excess -6.8 L Sodium 136 Potassium 4.1 Chloride 102 Carbon Dioxide 17 L Anion Gap 17.0 H BUN 8 Creatinine 0.8 Estimated GFR (MDRD) 102 Glucose 370 H POC Whole Bld Glucose 342 H Lactic Acid Calcium 9.0 Total Bilirubin AST ALT Alkaline Phosphatase Total Creatine Kinase CK-MB (CK-2) Total Protein Albumin Globulin Albumin/Globulin Ratio Lipase Urine Color Urine Clarity Urine pH Ur Specific [place] Urine Protein Urine Glucose (UA) Urine Ketones Urine Occult Blood Urine Nitrite Urine Bilirubin Urine Urobilinogen Ur Leukocyte Esterase Ur Microscopic Review Urine Culture Comments Serum Ketones NEGATIVE 02/21/20 02/21/20 02/21/20 02:33 02:33 02:33 WBC RBC Hgb Hct MCV MCH MCHC RDW Plt Count MPV Neut # (Auto) Lymph # (Auto) [place] # (Auto) Eos # (Auto) Baso # (Auto) Absolute Nucleated RBC Nucleated RBC % VBG pH VBG pCO2 VBG pO2 VBG HCO3 VBG Total CO2 VBG O2 Saturation VBG Base Excess Sodium Potassium Chloride Carbon Dioxide Anion Gap BUN Creatinine Estimated GFR (MDRD) Glucose POC Whole Bld Glucose Lactic Acid 5.3 H* Calcium Total Bilirubin AST ALT Alkaline Phosphatase Total Creatine Kinase 23 CK-MB (CK-2) 0.8 Total Protein Albumin Globulin Albumin/Globulin Ratio Lipase Urine Color Urine Clarity Urine pH Ur Specific [place] Urine Protein Urine Glucose (UA) Urine Ketones Urine Occult Blood Urine Nitrite Urine Bilirubin Urine Urobilinogen Ur Leukocyte Esterase Ur Microscopic Review Urine Culture Comments Serum Ketones Procedures - IVC sono (time) 1920 Bedside IVC sono: IVC measures (cm) (1.6), IVC collapsed c insp (cm) (0.6), Euvolemia PD MEDICAL DECISION MAKING - ED course Complexity details: reviewed old records, reviewed results, re-evaluated patient, considered differential, d/w patient ED course: 49-year-old diabetic male has developed left flank pain that appears to be a musculoskeletal type of pain and he has been using a heating pack to his back he insist that it is no more than 20 minutes at a time but I do believe when I first talked to him he said he was sleeping with it on. He did get some relief with the use of the Percocet and he is now out of that. He has persistence and in his flank pain and he states that despite taking the antibiotic for the diagnosed colitis he has not noticed a difference in the flank pain. He has not noticed any symptoms abdominally. He does not have abdominal tenderness he denies any diarrhea or constipation. He has not had fever. Here in the emergency department the patient is administered saline and then he is administered a liter of lactate. He was first administered saline and when his serum sodium came back at 158 we switched to the lactated Ringer's. This was however a laboratory error and his sodium was normal. Subsequently the second draw showed an elevated lactate. For this reason we did draw a third lactate. He also received dexamethasone and Toradol with improvement in his pain he required a dose of Dilaudid with further improvement in his pain.Today this appears to be flank pain that appears musculoskeletal and we have provided some additional pain medication as the patient will not be able to get this from his clinic practitioner. The third lactate comes back markedly elevated and this appears to be in enigma. Dr. Rowe is consulted in the case and recommends further fluids and evaluation for ketoacidosis. He still has elevated blood sugar after being given dexamethasone and he is given saline as well as subcutaneous insulin. We will repeat his BMP and venous pH as well as ketones in 2 hours. The patient feels improved overall and it appears that we are chasing a "number". We chased it more and it was worse. I have asked Dr. Rowe to admit the patient to ob servation with rising lactate and blood sugar despite fluid and insulin. Departure - Departure Disposition: ED Place in Observation Clinical Impression: Flank pain, Uncontrolled type 2 diabetes mellitus with complication, with long- term current use of insulin, Lactate blood increase Chronic low back pain Qualifiers: Back pain laterality: left Sciatica presence: without sciatica Qualified Code(s): M54.5 - Low back pain Condition: Stable Discharge Date/Time: 02/21/20 03:43
[2020-02-20 20:11] LABS: BASOPHILS % (AUTO) 0.7 %; EOSINOPHILS # (AUTO) 0.2 10^3/uL (0.0-0.7); EOSINOPHILS % (AUTO) 2.7 %; HGB - HEMOGLOBIN 13.6 g/dL (14.0-18.0); LYMPHOCYTES # (AUTO) 2.4 10^3/uL (1.5-3.5); LYMPHOCYTES % (AUTO) 39.6 %; MEAN CORPUSCULAR HEMOGLOBIN 31.7 pg (27.0-31.0); MEAN CORPUSCULAR HGB CONC 36.9 g/dL (32.0-36.0); MEAN PLATELET VOLUME 10.8 fL (7.4-11.4); MONOCYTES # (AUTO) 0.4 10^3/uL (0.0-1.0); MONOCYTES % (AUTO) 6.4 %; NEUTROPHILS % (AUTO) 50.1 %; PLT - PLATELET COUNT 170 10^3/uL (130-450); RED BLOOD COUNT 4.29 10^6/uL (4.70-6.10); RED CELL DISTRIBUTION WIDTH 11.8 % (12.0-15.0); WHITE BLOOD COUNT 5.9 x10^3/uL (4.8-10.8)
[2020-02-20] MEDS ORDERED: LACTATED RINGERS 1,000 ML IV STA (21:11)
[2020-02-20] MEDS ORDERED: HYDROmorphone 1 MG/ML CARPUJECT IVP STA (21:47)
[2020-02-20] MEDS ORDERED: ONDANSETRON 4 MG/2 ML VIAL IVP STA (21:47)
[2020-02-20 22:10] LABS: BILIRUBIN,TOTAL 0.6 mg/dL (0.2-1.0); CREATININE 0.6 mg/dL (0.6-1.2)
[2020-02-20 22:11] LABS: TOTAL PROTEIN 6.5 g/dL (6.7-8.2)
[2020-02-20 22:12] LABS: ALBUMIN/GLOBULIN RATIO 1.6 (1.0-2.2)
[2020-02-20 23:17] LABS: CALCIUM 8.5 mg/dL (8.5-10.3); CREATININE 0.6 mg/dL (0.6-1.2)
[2020-02-20] MEDS ORDERED: INSULIN REGULAR HUMAN 100 UNIT/1 ML 10 ML MDV IVP STA (23:18)
[2020-02-21] MEDS ORDERED: oxyCODONE/ACET 5/325 Prepack 4 PO STA (00:03)
[2020-02-21] MEDS ORDERED: SODIUM CHLORIDE 0.9% 1,000 ML IV STA (00:51)
[2020-02-21] MEDS ORDERED: INSULIN REGULAR HUMAN 100 UNIT/1 ML 10 ML MDV SUBQ STA (00:51)
[2020-02-21 02:46] LABS: BUN - BLOOD UREA NITROGEN 8 mg/dL (6-20); CHLORIDE 102 mmol/L (101-111); CREATININE 0.8 mg/dL (0.6-1.2)
[2020-02-21 02:52] LABS: KETONES, SERUM (ACETEST) NEGATIVE (NEGATIVE)
[2020-02-21 02:58] LABS: VBG PCO2 30.5 mmHg (41-51); VBG PH 7.37 (7.31-7.41); VBG PO2 45.2 mmHg (25-47)
[2020-02-21 02:59] LABS: VBG BASE EXCESS -6.8 mmol/L (-2 - +2); VBG TOTAL CO2 18.2 mmol/L (24-29)
[2020-02-21] MEDS ORDERED: ONDANSETRON ODT 4 MG TABLET TL PRN (03:08)
[2020-02-21] MEDS ORDERED: SODIUM CHLORIDE FLUSH 0.9% 10 ML SYRINGE IVP PRN (03:08)
[2020-02-21 03:09] LABS: SODIUM 136 mmol/L (135-145)
[2020-02-21 03:10] LABS: CARBON DIOXIDE - CO2 17 mmol/L (21-32); GLUCOSE 370 mg/dL (70-100)
[2020-02-21] MEDS ORDERED: INSULIN REGULAR HUMAN 100 UNIT/1 ML 10 ML MDV IVP STA (03:10)
[2020-02-21] MEDS ORDERED: LACTATED RINGERS 1,000 ML IV ONE (03:11)
--- NOTE | 2020-02-21 03:11 | HISTORY & PHYSICAL EXAMINATION ---
Chief Complaint - Chief Complaint Chief Complaint: Back pain History of Present Illness - Admitted From Admitted From:: Home - History Obtained From Records Reviewed: Yes History obtained from: Patient, ER Physician, EMR - History of Present Illness HPI Comment/Other: This is a 49-year-old male with a past medical history significant for type 2 diabetes mellitus treated with insulin, chronic lower back pain with left-sided sciatica, hypertriglyceridemia who presents to the emergency department yesterday evening due to worsening left-sided back pain. He states he has chronic back pain but it has become more severe over the past few weeks. It is located over the left side of his lower back and radiates down to his leg. He states that the radiation has occurred for over 1 year now. He is seeing physical therapy. He has numbness of the left lower extremity and is taking gabapentin but has not found much relief with it. He reports no fevers or chills at home. Denies any abdominal pain, nausea, vomiting. Reports no dysuria, urgency urgency, hematuria. He states he does take insulin for his type 2 diabetes mellitus. He is on Lantus 10 units in the evening and a sliding scale of NovoLog. He is not on any therapy for his hypertriglyceridemia. He states he has had adequate appetite over the past period of time. He denies any history of cancer. He did lose about 30 pounds over 4 to 6 weeks a few months ago when he was in a stressful relationship but since then, his appetite has improved and he has been gaining weight again. In the emergency department, he was initially given a liter of lactated Ringer's and pain control with IV Dilaudid as well as dexamethasone and Toradol. He did have hyperglycemia and was given IV insulin. His labs were found to be like lipemic. Lactic acid was checked this was elevated at 2.4. This was rechecked a few hours later and increased to 2.7. He was given another liter of normal s leanne and lactic acid was rechecked 1.5 hours later and continued to rise to 3.9. His blood glucose continued to increase and he was given another dose of insulin in the emergency department. His lactic acid was once again repeated after receiving a liter of normal saline and it continues increased to 5.3. His bicarbonate is also decreasing and anion gap has increased. VBG revealed a pH of 7.37. Due to the worsening lactic acidosis, medicine was consulted for admission. History - Past Medical History Cardiovascular: reports: Hypertension, High cholesterol Respiratory: reports: None Endocrine/Autoimmune: reports: Type 2 diabetes GI: reports: Pancreatitis : reports: Nocturia HEENT: reports: None Psych: reports: None Musculoskeletal: reports: Chronic back pain Derm: reports: None MRSA Hx?: No - Family & Social History Family History Comment/Other: He was adopted and is unaware of his family history. Living arrangement: At home Living Situation: With spouse/s.o. Social History Notes: He lives at home with his significant other. 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 He also has a history of alcohol abuse in the past but will not drink on occasion. States last drink was 2 weeks ago. - Substance History Use: Uses substance without health or social issues: NONE - POLST Patient has POLST: No POLST Status: Full Code Meds/Allgy - Home Medications Home Medications: Ambulatory Orders Medication Instructions Recorded Confirmed Insulin Aspart [NovoLOG] 2 unit SUBQ TIDWM 02/11/19 07/04/19 Insulin Glargine,Hum.rec.anlog 10 unit SUBQ DAILY PM 02/11/19 07/04/19 [Basaglar Kwikpen U-100] Amox/Clav 875/125 [Augmentin] 1 each PO Q12H #14 tablet 02/15/20 Gabapentin 600 mg PO TID 02/15/20 Oxycodone HCl/Acetaminophen 1 - 2 each PO Q6H PRN #14 tablet 02/15/20 [Percocet 5-325 mg Tablet] Methocarbamol [Robaxin-750] 750 mg PO TID 02/20/20 02/20/20 Oxycodone HCl/Acetaminophen 1 - 2 each PO Q6H PRN #14 tablet 02/21/20 [Percocet 5-325 mg Tablet] - Allergies Allergies/Adverse Reactions: Allergies Allergy/AdvReac Type Severity Reaction Status Date / Time bee pollen Allergy Dizziness Verified 02/20/20 18:37 naproxen [From Naprosyn] Allergy Rash Verified 02/20/20 18:37 Review of Systems - Constitutional Constitutional: denies: Fatigue, Fever, Chills - Ears, Nose & Throat Ears, Nose & Throat: denies: Nasal discharge, Nasal congestion, Sore throat - Cardiovascular Cariovascular: denies: Chest pain, Edema, Exertional dyspnea, Decr. exercise tolerance - Respiratory Respiratory: denies: Cough, SOB at rest, SOB with exertion - Gastrointestinal Gastrointestinal: denies: Abdominal pain, Diarrhea, Change in bowel habits, Bloody stools, Nausea, Vomiting, Poor appetite - Genitourinary Genitourinary: denies: Dysuria, Frequency, Urgency, Hematuria, Flank pain - Musculoskeletal Musculoskeletal: reports: Muscle pain, Back pain - Integumentary Integumentary: denies: Rash - Neurological Neurological: reports: Numbness. denies: General weakness, Focal weakness - All Other Systems All Other Systems: reports: Reviewed and negative Prior Level of Functionality: He is independent with ADLs. Exam - Vital Signs Reviewed Vital Signs: Yes Vital Signs: Vital Signs x48h Temp Pulse Resp BP Pulse Ox 02/21/20 02:00 36.6 C 82 16 176/90 H 100 02/21/20 00:00 36.6 C 89 16 183/111 H 100 02/20/20 22:07 91 16 185/116 H 100 02/20/20 21:00 36.6 C 90 18 153/89 H 100 02/20/20 19:33 36.6 C 92 18 158/95 H 100 - Physical Exam General Appearance: positive: No acute distress, Alert Eyes Bilateral: positive: Normal inspection, Conjunctivae nml ENT: positive: ENT inspection nml Neck: positive: Nml inspection Respiratory: positive: No respiratory distress. negative: Wheezes, Rales Cardiovascular: positive: Regular rate & rhythm, No murmur. negative: Tachycardia, Systolic murmur Abdomen: positive: Non-tender, No distention. negative: Tenderness, Guarding, Rebound Back: positive: Nml inspection, Other (He is tender over the left paraspinal muscle. No thoracic, cervical spine tenderness. He does have mild lumbar tenderness.). negative: CVA tenderness (R), CVA tenderness (L) Skin: positive: Warm, Dry Extremities: positive: Full ROM, No pedal edema Neurologic/Psychiatric: positive: Other (He is moving all 4 extremities without any obvious deficits. He is able to ambulate. Sensation is intact throughout all 4 extremities although this is decreased in the left lower extremity.). negative: Oriented x3, Disoriented to person, Disoriented to place, Disoriented to time Conclusion/Plan - Problem List (1) Elevated lactic acid level Conclusion/Plan: The etiology of this is not clear. There is no evidence of hypoperfusion at this time and his blood pressure is actually elevated. There has been no obvious source of infection and his white count is normal. I suspect this may related to his diabetes. His anion gap is increased to 17 his bicarbonate is decreased at 17 as well. This may be due to the normal saline he received as well as the hypertriglyceridemia. He is not on Metformin at home. His VBG did reveal a pH 7.37. Given his increasing lactic acid, we will place him in observation for further IV hydration and trending of his lactic acid to ensure there is no evidence of hypoperfusion or infection. I suspect this is likely a type B lactic acidosis. We will recheck lactic acid in the morning continue to trend. Start him on gentle hydration with lactated Ringer's. (2) Uncontrolled type 2 diabetes mellitus Conclusion/Plan: He is hyperglycemic with a blood glucose greater than 300 but there is no evidence of diabetic ketoacidosis. Serum ketones are negative. We will give him 10 units of IV insulin now and resume his home insulin regimen. We will also place him on sliding scale and carb controlled diet. Check A1c. nurse educator consult. Qualifiers: Glycemic state: with hyperglycemia Qualified Code(s): E11.65 - Type 2 diabetes mellitus with hyperglycemia (3) Left-sided back pain Conclusion/Plan: This is acute on chronic lower back pain with left-sided sciatica. This improved with Toradol and dexamethasone in the emergency department. He has had work-up in the past with MRI and at this point in time, there are no alarm symptoms. We will continue him on oral Tylenol and oxycodone as needed for pain control. Qualifiers: Back pain location: low back pain Chronicity: chronic Sciatica presence: with sciatica Sciatica laterality: sciatica of left side Qualified Code(s): M54.42 - Lumbago with sciatica, left side; G89.29 - Other chronic pain (4) Hypertriglyceridemia Conclusion/Plan: He has a history of significant hypertriglyceridemia. He has been on gemfibrozil in the past. We will start him on TriCor in the morning. Check lipid panel in the a.m. (5) Hypertension Conclusion/Plan: His blood pressures were elevated overnight with systolic in the 180s. This may be exacerbated by his lower back pain. Given his history of diabetes, we will start him on lisinopril 10 mg in the morning and monitor. Qualifiers: Hypertension type: essential hypertension Qualified Code(s): I10 - Essential (primary) hypertension - Lab Results Lab results reviewed: Yes Rafa Bones: 02/20/20 20:05 02/21/20 04:18 Core Measures - Anticipated LOS I expect patient to be DC'd or transferred within 96 hours.: Yes - Issues Hospital Issues and Management Plan: 49-year-old male presents with lower back pain and found to have an elevated lactic acid that continued to increase despite IV fluids. He will be placed in observation for further work-up to ensure there is no evidence of hypoperfusion or infection. - DVT/VTE - Prophylaxis VTE/DVT Device ordered at admit?: Yes VTE/DVT Prophylaxis med ordered at admit?: Yes
[2020-02-21] MEDS ORDERED: LACTATED RINGERS 1,000 ML IV SCH (04:00)
[2020-02-21] MEDS: oxyCODONE 5 MG TABLET PO PRN ×4 (04:20→11:58)
[2020-02-21] MEDS ORDERED: INSULIN REGULAR HUMAN 100 UNIT/1 ML 10 ML MDV ONE (04:26)
[2020-02-21 04:41] LABS: C. PNEUMONIAE- RESP PCR PANEL NOT DETECTED
[2020-02-21 04:44] LABS: BUN - BLOOD UREA NITROGEN 8 mg/dL (6-20); CALCIUM 9.2 mg/dL (8.5-10.3); CARBON DIOXIDE - CO2 18 mmol/L (21-32); CHLORIDE 104 mmol/L (101-111); CHOL/HDL RATIO 8.7 (<5.0); CHOLESTEROL 312 mg/dL; CREATININE 0.6 mg/dL (0.6-1.2); GLUCOSE 276 mg/dL (70-100); HDL CHOLESTEROL 36 mg/dL; MAGNESIUM 1.7 mg/dL (1.7-2.8); SODIUM 135 mmol/L (135-145)
[2020-02-21 05:05] LABS: LDL CHOLESTEROL,DIRECT 90 mg/dL; LDLD/HDL RATIO 2.5 (<3.6)
[2020-02-21] MEDS ORDERED: INSULIN REGULAR HUMAN 300 UNIT/3 ML VIAL IVP ONE (06:51)
[2020-02-21] MEDS ORDERED: POTASSIUM CHLORIDE 20 MEQ TABLET PO ONE (06:51)
[2020-02-21] MEDS: ACETAMINOPHEN 325 MG TABLET PO PRN ×2 (07:26→11:57)
[2020-02-21] MEDS: INSULIN ASPART 300 UNIT/3 ML PEN SUBQ SCH ×2 (08:06→11:51)
[2020-02-21] MEDS ORDERED: lisinopriL 20 MG TABLET PO SCH (09:00)
[2020-02-21] MEDS ORDERED: SODIUM CHLORIDE FLUSH 0.9% 10 ML SYRINGE IVP SCH (09:00)
[2020-02-21] MEDS ORDERED: ENOXAPARIN 40 MG/0.4 ML SYRINGE SUBQ SCH (09:00)
[2020-02-21] MEDS ORDERED: FENOFIBRATE 48 MG TABLET PO SCH (09:00)
--- NOTE | 2020-02-21 10:17 | PHARMACY PROGRESS NOTE ---
- Best Possible Medication History Admit Date and Time: 02/21/20 0308 Processed by: Pharmacy Medication History completed: Yes Patient Interview: Completed Secondary Source(s): Pharmacy records, Insurance records As the person ultimately responsible for medication therapy, providers are able to order a medication from an existing home medication list in [facility] via the "Reconcile Routine" prior to Confirmation of that medication by clinical support tech. Such practice is discouraged except when the physician, in their clinical judgment, deems that a medical need exists for a medication without regard to previous use.
--- NOTE | 2020-02-21 10:45 | Discharge Plan ---
Discharge Plan Problem Reviewed?: Yes Disposition: Home, Self Care Condition: Stable Prescriptions: Oxycodone HCl/Acetaminophen [Percocet 5-325 mg Tablet] 1 - 2 each PO Q6H PRN #14 tablet PRN Reason: pain Lisinopril [Prinivil] 10 mg PO DAILY #30 tablet Fenofibrate [Tricor] 134 mg PO DAILY #30 tablet Diet: Diabetic Activity Restrictions: Activity as Tolerated Shower Restrictions: No (fall precaution) Instruction Topics: Fenofibrate micronized capsule, Lisinopril tablets, Meds Cholesterol, ED Back Care Tips, ED Hyperglycemia Diabetic, ED Hypertension New Begin Tx Health Concerns: HLD, HTN, and diabetes. Plan of Treatment: You are found to have significantly elevated triglyceride and cholesterol level. You are prescript Tricor, you may follow-up with your primary care continue manage. you are also found elevated your blood pressure, lisinopril is prescribed for you. you may follow-up with your primary care control your diabetes, and keep hydration at home. ER provider prescribed pain medication for you to control your chronic back pain. Care Goals: stabilization and improvement of your medical conditions Assessment: discussed the care plan with you, answer your questions, you understood. Additional Instructions or Follow Up instructions: You may followup with your PCP in one week, and keep hydration at home. Should your symptoms return or worsen, you may present ER or call 911 Follow-Up Care: [facility] - Diabetes Ed No Smoking: If you smoke, Please STOP! Call for help. Follow-up with: Kimmie Batista ARNP, [facility] [Primary Care Provider] -
--- NOTE | 2020-02-21 11:33 | DISCHARGE SUMMARY ---
Discharge Summary Admit Date: 02/21/20 Discharge Date: 02/21/20 Discharging Provider: Bill Helton Primary Care Provider: Kimmie Menjivar Condition at Discharge: Stable Discharge Disposition: 01 Home, Self Care Discharge Facility Name: home - DIAGNOSES Discharge Diagnoses with Status of Each Condition: (1) Elevated lactic acid level pt has no complaint. Hemodynamic is stable. Patient ate 100% his diet. lactic acid is trended to 2.7, close to normal arrange. pt's serum VBG's PH is normal. Anion gap is in the normal arrange. it might be metabolic elevated lactic acid from combination of dehydration and uncontrolled diabetes. Advised patient follow-up his PCP to control his diabetic, hydration in the home and recheck lactic acid in the followup of his primary care. (2) Uncontrolled type 2 diabetes mellitus A1c today is 8.8, it is greatly improved from previous 13.4. Follow-up his PCP continue management of his diabetic (3) Left-sided back pain Patient has chronic left-sided back pain, he report today he feel much better, patient is prescribed pain medication for short period time (4) Hypertriglyceridemia He has a history of significant hypertriglyceridemia which still has significant elevated. pt is prescribed TriCor. Follow-up with his PCP continue management (5) Hypertension Patient had elevated blood pressure, patient has a prescript of lisinopril. - [facility] History of Present Illness: refer from Dr. Rowe's HPI on 02/21/2020 This is a 49-year-old male with a past medical history significant for type 2 diabetes mellitus treated with insulin, chronic lower back pain with left-sided sciatica, hypertriglyceridemia who presents to the emergency department yesterda y evening due to worsening left-sided back pain. He states he has chronic back pain but it has become more severe over the past few weeks. It is located over the left side of his lower back and radiates down to his leg. He states that the radiation has occurred for over 1 year now. He is seeing physical therapy. He has numbness of the left lower extremity and is taking gabapentin but has not found much relief with it. He reports no fevers or chills at home. Denies any abdominal pain, nausea, vomiting. Reports no dysuria, urgency urgency, hematuria. He states he does take insulin for his type 2 diabetes mellitus. He is on Lantus 10 units in the evening and a sliding scale of NovoLog. He is not on any therapy for his hypertriglyceridemia. He states he has had adequate appetite over the past period of time. He denies any history of cancer. He did lose about 30 pounds over 4 to 6 weeks a few months ago when he was in a stressful relationship but since then, his appetite has improved and he has been gaining weight again. In the emergency department, he was initially given a liter of lactated Ringer's and pain control with IV Dilaudid as well as dexamethasone and Toradol. He did have hyperglycemia and was given IV insulin. His labs were found to be like lipemic. Lactic acid was checked this was elevated at 2.4. This was rechecked a few hours later and increased to 2.7. He was given another liter of normal saline and lactic acid was rechecked 1.5 hours later and continued to rise to 3.9. His blood glucose continued to increase and he was given another dose of insulin in the emergency department. His lactic acid was once again repeated after receiving a liter of normal saline and it continues increased to 5.3. His bicarbonate is also decreasing and anion gap has increased. VBG revealed a pH of 7.37. Due to the worsening lactic acidosis, medicine was consulted for admission. - HOSPITAL COURSE Hospital Course: Patient was admitted for worsening low back pain. After patient was treated in the ER, patient's low back pain is much better. In the ER, patient was found to have elevated lactic acid level. After the patient was given intravenous IV fluids for hydration, control hypoglycemia, patient's lactic acid is trended down to close normal.Patient is hemodynamic stable, he eat 100% of his diet, he has no other complaints. - ALLERGIES Allergies/Adverse Reactions: Allergies Allergy/AdvReac Type Severity Reaction Status Date / Time bee pollen Allergy Dizziness Verified 02/20/20 18:37 naproxen [From Naprosyn] Allergy Rash Verified 02/20/20 18:37 - MEDICATIONS Home Medications: Ambulatory Orders Medication Instructions Recorded Confirmed Insulin Aspart [NovoLOG] 0 - 10 unit SUBQ TIDWM 02/11/19 02/21/20 Insulin Glargine,Hum.rec.anlog 10 unit SUBQ QPM 02/11/19 02/21/20 [Basaglar Kwikpen U-100] Amox/Clav 875/125 [Augmentin 1 each PO Q12H #14 tablet 02/15/20 02/21/20 875/125] Gabapentin 1,200 mg PO TID 02/15/20 02/21/20 Methocarbamol [Robaxin-750] 750 mg PO TID 02/20/20 02/20/20 Fenofibrate [Tricor] 134 mg PO DAILY #30 tablet 02/21/20 Lisinopril [Prinivil] 10 mg PO DAILY #30 tablet 02/21/20 oxyCODONE/ACET 5/325 [Percocet 5 1 each PO Q4-6H PRN #20 tablet 02/21/20 mg/325 mg] - PHYSICAL EXAM AT DISCHARGE General Appearance: positive: No acute distress, Alert. negative: Lethargic Eyes Bilateral: positive: Normal inspection, PERRL, No lid inflammation ENT: positive: ENT inspection nml, No signs of dehydration. negative: Purulent nasal drainage Neck: positive: Nml inspection, Thyroid nml, Trachea midline. negative: Thyromegaly, Tracheal deviation Respiratory: positive: Chest non-tender, No respiratory distress, Breath sounds nml. negative: Wheezes, Rales, Rhonchi Cardiovascular: positive: Regular rate & rhythm, No murmur. negative: Tachycardia, Bradycardia, Systolic murmur, Diastolic murmur Peripheral Pulses: positive: 2+ Abdomen: positive: Non-tender, Nml bowel sounds, No distention. negative: Tenderness, Guarding, Rebound Back: positive: Nml inspection Skin: positive: Color nml, No rash, Warm, Dry. negative: Cyanosis, Diaphoresis, Pallor Extremities: positive: Non-tender, Nml appearance. negative: Calf tenderness Neurologic/Psychiatric: positive: Oriented x3, Motor nml, Sensation nml, Mood/affect nml. negative: Weakness, Sensory loss, Facial droop, Slurred/abnml speech, Depressed mood/affect - LABS Result Diagrams: 02/20/20 20:05 02/21/20 04:18 - FOLLOW UP Follow Up: You are found to have significantly elevated triglyceride and cholesterol level. You are prescript Tricor, you may follow-up with your primary care continue manage. you are also found elevated your blood pressure, lisinopril is prescribed for you. you may follow-up with your primary care control your diabetes, and keep hydration at home. You may followup with your PCP in one week, and keep hydration at home. Should your symptoms return or worsen, you may present ER or call 911 - TIME SPENT Time Spent in Discharge (Minutes): 30
[2020-02-21 12:53] LABS: HEMOGLOBIN A1c% 8.8 % (4.27-6.07)
[2020-02-21 13:25] VITALS: BP 160/99
[2020-02-21] MEDS ORDERED: INSULIN GLARGINE 300 UNIT/3 ML PEN SUBQ SCH (21:00)
== END 2020-02-21 13:28 | disposition home or self-care (01) ==
LOC: ED 18:35 → MS2 02-21 03:08
PROVIDERS: ADMIT Internal Medicine; ATTEND Nurse Practitioner Gerontology
DX: E87.2 Acidosis (principal); E11.65 Type 2 diabetes mellitus with hyperglycemia; M54.42 Lumbago with sciatica, left side; Z79.899 Other long term (current) drug therapy; E78.1 Pure hyperglyceridemia; I10 Essential (primary) hypertension; G89.29 Other chronic pain; R20.0 Anesthesia of skin; E86.0 Dehydration; E78.2 Mixed hyperlipidemia; Z20.828 Contact with and (suspected) exposure to other viral communicable diseases
CPT/HCPCS: 0202U; 36415; 80048; 80053; 80061; 81003; 82009; 82550; 82553; 82803; 83036; 83605; 83690; 83721; 83735; 85025; 96361; 96372; 96374; 96375; 99284; 99285; A9270; G0378; J1170; J1650; J1815; J7120; 81001; 87086

== ENCOUNTER 2020-03-03 08:55 | Outpatient (CLI) | payer MEDICAID ==
[2020-03-03 14:44] LABS: HEMOGLOBIN A1c% 8.9 % (4.27-6.07)
== END 2020-03-03 08:56 | disposition home or self-care (01) ==
LOC: LAB 08:55
PROVIDERS: ATTEND Nurse Practitioner
DX: E11.8 Type 2 diabetes mellitus with unspecified complications (principal)
CPT/HCPCS: 36415; 83036

== ENCOUNTER 2020-03-09 17:13 | Emergency (ER) | payer MEDICAID ==
[2020-03-09] MEDS ORDERED: CHERRY SYRUP 10 ML UDC PO ONE (18:09)
[2020-03-09] MEDS ORDERED: DEXAMETHASONE 10 MG/ML VIAL PO STA (18:09)
[2020-03-09] MEDS ORDERED: oxyCODONE 5 MG TABLET PO STA (18:09)
--- NOTE | 2020-03-09 18:10 | ED Physician Documentation ---
PD HPI BACK PAIN - Stated complaint Stated Complaint: BACK PX - Chief complaint Chief Complaint: Back Pain - History obtained from History obtained from: Patient - History of Present Illness Timing - onset: How many days ago (2) Timing - duration: Days (2) Timing - details: Gradual onset Pain level max: 10 Pain level now: 10 Location: Lower, Left Quality: Pain, Spasm, Similar to prior episodes Associated symptoms: No: Fever, Weakness, Numbness, Incontinent of urine, Unable to urinate, Hematuria, Incontinent of stool Improves with: Rest Worsened by: Movement Contributing factors: Out of meds. No: Lifting, Twisting, Trauma, Anticoagulated, Cancer, IVDA, Other - Additional information Additional information: Patient with chronic back pain. He states that the pain has been worsening. He states that the clinic now has a no narcotic policy and will not refill his pain medications for him. He has a spine surgeon that he sees in [place]. Review of Systems Constitutional: denies: Fever, Chills Throat: denies: Sore throat Cardiac: denies: Chest pain / pressure Respiratory: denies: Cough GI: denies: Vomiting, Diarrhea Skin: denies: Rash Musculoskeletal: denies: Neck pain Neurologic: denies: Focal weakness, Numbness, Headache PD PAST MEDICAL HISTORY - Past Medical History Cardiovascular: Hypertension, High cholesterol Respiratory: None Endocrine/Autoimmune: Type 2 diabetes GI: Pancreatitis : Nocturia HEENT: None Psych: None Musculoskeletal: Chronic back pain Derm: None - Past Surgical History Past Surgical History: Yes General: Other Ortho: Other - Present Medications Home Medications: Ambulatory Orders Medication Instructions Recorded Confirmed Insulin Aspart [NovoLOG] 0 - 10 unit SUBQ TIDWM 02/11/19 03/09/20 Insulin Glargine,Hum.rec.anlog 10 unit SUBQ QPM 02/11/19 03/09/20 [Basaglar Kwikpen U-100] Gabapentin 1,200 mg PO TID 02/15/20 03/09/20 Methocarbamol [Robaxin-750] 750 mg PO TID 02/20/20 03/09/20 Lisinopril [Prinivil] 10 mg PO DAILY #30 tablet 02/21/20 03/09/20 Oxycodone HCl/Acetaminophen 1 - 2 each PO Q6H PRN #14 tablet 03/09/20 [Percocet 5-325 mg Tablet] predniSONE [Deltasone] 10 mg PO [id number] #42 tab 03/09/20 - Allergies Allergies/Adverse Reactions: Allergies Allergy/AdvReac Type Severity Reaction Status Date / Time bee pollen Allergy Dizziness Verified 03/09/20 17:28 naproxen [From Naprosyn] Allergy Rash Verified 03/09/20 17:28 - Social History Does the pt smoke?: No Smoking Status: Never smoker Does the pt drink ETOH?: No Does the pt have substance abuse?: No - Immunizations Immunizations are current?: Yes - POLST Patient has POLST: No POLST Status: Full Code PD ED PE NORMAL - Vitals Vital signs reviewed: Yes - General General: Alert and oriented X 3, No acute distress, Well developed/nourished - HEENT HEENT: Moist mucous membranes - Neck Neck: Supple, no meningeal sign - Cardiac Cardiac: Other (Tachycardic) - Respiratory Respiratory: No respiratory distress, Clear bilaterally - Abdomen Abdomen: Soft, Non tender, Non distended - Back Back: No spinal TTP, Other (Paraspinal tenderness left lower lumbar. No midline tenderness to palpation or percussion. No step-off or deformity.) - Derm Derm: Warm and dry - Extremities Extremities: Other (Normal bilateral lower extremity patellar and ankle jerk reflexes. Normal great toe extension bilaterally. no saddle anesthesia) - Neuro Neuro: Alert and oriented X 3, senior support engineer 2-12 intact, No motor deficit, No sensory deficit, Normal speech - Psych Psych: Normal mood, Normal affect Results - Vitals Vitals: Vital Signs - 24 hr 03/09/20 03/09/20 03/09/20 17:20 17:38 18:25 Temperature 37.2 C Heart Rate 138 H 126 H 118 H Respiratory 16 16 16 Rate Blood Pressure 132/89 H 137/109 H 154/109 H O2 Saturation 98 100 99 03/09/20 03/09/20 03/09/20 18:30 19:21 19:58 Temperature 37.3 C Heart Rate 113 H 108 H 114 H Respiratory 16 20 16 Rate Blood Pressure 154/109 H 154/104 H 168/115 H O2 Saturation 99 100 99 03/09/20 21:03 Temperature 37.2 C Heart Rate 110 H Respiratory 18 Rate Blood Pressure 158/111 H O2 Saturation 96 Oxygen O2 Source Room air - Labs Labs: Laboratory Tests 03/09/20 03/09/20 03/09/20 18:30 18:30 19:24 WBC 5.8 RBC 4.49 L Hgb 13.6 L Hct 39.2 L MCV 87.3 MCH 30.3 MCHC 34.7 RDW 11.9 L Plt Count 173 MPV 10.3 Neut # (Auto) 3.4 Lymph # (Auto) 2.0 [place] # (Auto) 0.4 Eos # (Auto) 0.1 Baso # (Auto) 0.1 Absolute Nucleated RBC 0.00 Nucleated RBC % 0.0 Sodium 131 L Potassium 3.9 Chloride 99 L Carbon Dioxide 21 Anion Gap 11.0 BUN 11 Creatinine 0.9 Estimated GFR (MDRD) 89 Glucose 266 H Calcium 9.0 Total Bilirubin 1.0 AST 38 ALT 40 Alkaline Phosphatase 95 Total Protein 6.9 Albumin 4.1 Globulin 2.8 Albumin/Globulin Ratio 1.5 Lipase 58 H Urine Color YELLOW Urine Clarity CLEAR Urine pH 7.0 Ur Specific [place] <=1.005 Urine Protein NEGATIVE Urine Glucose (UA) >=1000 H Urine Ketones NEGATIVE Urine Occult Blood NEGATIVE Urine Nitrite NEGATIVE Urine Bilirubin NEGATIVE Urine Urobilinogen 0.2 (NORMAL) Ur Leukocyte Esterase NEGATIVE Ur Microscopic Review NOT INDICATED Urine Culture Comments NOT INDICATED Urine Opiates Screen NEGATIVE Ur Oxycodone Screen NEGATIVE Urine Methadone Screen NEGATIVE Ur Propoxyphene Screen NEGATIVE Ur Barbiturates Screen NEGATIVE Ur Tricyclics Screen NEGATIVE Ur Phencyclidine Scrn NEGATIVE Ur Amphetamine Screen NEGATIVE U Methamphetamines Scrn NEGATIVE U Benzodiazepines Scrn NEGATIVE Urine Cocaine Screen NEGATIVE U Cannabinoids Screen POSITIVE H - Rads (name of study) CT abdomen pelvis Radiology: Prelim report reviewed, EMP read contemporaneously, See rad report (No acute abnormality) PD MEDICAL DECISION MAKING - ED course Complexity details: reviewed old records, reviewed results, re-evaluated patient, considered differential (No cauda equina, no spinal epidural abscess, no fracture, no aortic dissection or evidence of aneursym rupture), d/w patient ED course: 49-year-old male with what appears to be sciatica and left-sided back pain. Reviewed his prior MRIs. 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 We will place him on a short course of steroids, counseled to monitor his blood glucose very carefully. We will also prescribe a small amount of pain medication for him. Patient is ambulating well. No acute neurological deficits. No evidence of cauda equina, epidural abscess. Does not use IV drugs. Patient counseled regarding signs and symptoms for which I believe and urgent re-evaluation would be necessary. Patient with good understanding of and agreement to plan and is comfortable going home at this time This document was made in part using voice recognition software. While efforts are made to proofread this document, sound alike and grammatical errors may occur. Departure - Departure Disposition: Home, Self Care Clinical Impression: Back pain Qualifiers: Back pain location: low back pain Chronicity: chronic Back pain laterality: left Sciatica presence: with sciatica Sciatica laterality: sciatica of left side Qualified Code(s): M54.42 - Lumbago with sciatica, left side Low back pain with sciatica Qualifiers: Chronicity: chronic Back pain laterality: left Sciatica laterality: sciatica of left side Qualified Code(s): M54.42 - Lumbago with sciatica, left side Condition: Good Instructions: ED Sciatica Follow-Up: Kimmie Batista ARNP, STAFF CERTIFIED NURSE MIDWIFE-C [Primary Care Provider] - Within 3 Days Prescriptions: predniSONE [Deltasone] 10 mg PO [id number] #42 tab Oxycodone HCl/Acetaminophen [Percocet 5-325 mg Tablet] 1 - 2 each PO Q6H PRN #14 tablet PRN Reason: pain Comments: Return if you worsen. Follow up with your doctor for further care. You may benefit from spinal injections. Monitor your blood sugar closely while on the prednisone. Discharge Date/Time: 03/09/20 21:26
[2020-03-09 18:35] LABS: BASOPHILS # (AUTO) 0.1 10^3/uL (0.0-0.1); BASOPHILS % (AUTO) 0.9 %; EOSINOPHILS # (AUTO) 0.1 10^3/uL (0.0-0.7); EOSINOPHILS % (AUTO) 1.7 %; HGB - HEMOGLOBIN 13.6 g/dL (14.0-18.0); LYMPHOCYTES % (AUTO) 33.5 %; MEAN CORPUSCULAR HEMOGLOBIN 30.3 pg (27.0-31.0); MEAN CORPUSCULAR HGB CONC 34.7 g/dL (32.0-36.0); MEAN CORPUSCULAR VOLUME 87.3 fL (80.0-94.0); MEAN PLATELET VOLUME 10.3 fL (7.4-11.4); MONOCYTES # (AUTO) 0.4 10^3/uL (0.0-1.0); NEUTROPHILS # (AUTO) 3.4 10^3/uL (1.5-6.6); NEUTROPHILS % (AUTO) 57.6 %; PLT - PLATELET COUNT 173 10^3/uL (130-450); RED BLOOD COUNT 4.49 10^6/uL (4.70-6.10); RED CELL DISTRIBUTION WIDTH 11.9 % (12.0-15.0); WHITE BLOOD COUNT 5.8 x10^3/uL (4.8-10.8)
[2020-03-09] MEDS ORDERED: IOVERSOL 320 100 ML VIAL IVP ONE ×2 (18:41→19:42)
[2020-03-09 18:49] LABS: ALBUMIN 4.1 g/dL (3.2-5.5); ALBUMIN/GLOBULIN RATIO 1.5 (1.0-2.2); CREATININE 0.9 mg/dL (0.6-1.2); TOTAL PROTEIN 6.9 g/dL (6.7-8.2)
[2020-03-09 19:33] LABS: MUDS CUTOFF CONCENTRATIONS CUTOFF CONC BELOW:
[2020-03-09 19:38] LABS: BILIRUBIN,URINE NEGATIVE (NEGATIVE); GLUCOSE, URINE (UA) >=1000 mg/dL (NEGATIVE); KETONES,URINE (UA) NEGATIVE (NEGATIVE); LEUKOCYTE ESTERASE, URINE NEGATIVE (NEGATIVE); NITRITE,URINE NEGATIVE (NEGATIVE); OCCULT BLOOD,URINE NEGATIVE (NEGATIVE); PROTEIN,URINE NEGATIVE (NEGATIVE); UROBILINOGEN,URINE 0.2 (NORMAL) E.U./dL (NORMAL)
--- NOTE | 2020-03-09 19:38 | CT Report ---
PROCEDURE: Abdomen/Pelvis W INDICATIONS: L flank pain CONTRAST: IV CONTRAST: Optiray 320 ml: 100 PO CONTRAST: *NO PO CONTRAST TECHNIQUE: After the administration of intravenous contrast, 5 mm thick sections acquired from the diaphragms to the symphysis. 5 mm thick coronal and sagittal reformats were acquired. For radiation dose reducti on, the following was used: automated exposure control, adjustment of mA and/or kV according to kailyn ent size. COMPARISON: 06/04/2019 FINDINGS: Image quality: Excellent. ABDOMEN: Lung bases: Lung bases are clear. Heart size is normal. Solid organs: No hydronephrosis or renal calculus. Adrenal glands unremarkable. Pancreas is within no rmal limits. Normal size and appearance of the spleen. Gallbladder is decompressed. Liver is within n ormal limits. Peritoneum and bowel: No abnormally dilated or obviously thickened loop of bowel. Colonic diverticulo sis without findings of diverticulitis. Nodes and vessels: No retroperitoneal or mesenteric adenopathy by size criteria. Aorta and inferior vena cava are normal in size. Miscellaneous: No ventral abdominal wall hernia. PELVIS: Genitourinary: Thickening of the urinary bladder, most pronounced anteriorly on the right with some m ild adjacent fat stranding. Prostate is within normal limits. Miscellaneous: No partial enlarged pelvic or inguinal lymph node. Bones: No suspicious bony lesions. No vertebral body compression fractures. IMPRESSION: No findings to explain flank pain. Reviewed by: Mta Joyce MD on 03/09/2020 7:37 PM PST Approved by: Mat Joyce MD on 03/09/2020 7:37 PM PST Station ID: [id number]
[2020-03-09 19:40] LABS: CLARITY,URINE CLEAR (CLEAR)
[2020-03-09 19:51] LABS: AMPHETAMINE SCREEN,URINE NEGATIVE (NEGATIVE); BENZODIAZEPINES SCREEN, URINE NEGATIVE (NEGATIVE); COCAINE SCREEN URINE NEGATIVE (NEGATIVE); METHADONE SCREEN, URINE NEGATIVE (NEGATIVE); METHAMPHETAMINES SCREEN, URINE NEGATIVE (NEGATIVE); OPIATE SCREEN, URINE NEGATIVE (NEGATIVE); OXYCODONE SCREEN, URINE NEGATIVE (NEGATIVE); PROPOXYPHENE SCREEN, URINE NEGATIVE (NEGATIVE); TRICYCLIC ANTIDEPRESSANT,URINE NEGATIVE (NEGATIVE)
[2020-03-09 21:04] VITALS: BP 158/111
== END 2020-03-09 21:26 | disposition home or self-care (01) ==
LOC: ED 17:13
DX: M54.42 Lumbago with sciatica, left side (principal); M48.061 Spinal stenosis, lumbar region without neurogenic claudication; M48.04 Spinal stenosis, thoracic region; I10 Essential (primary) hypertension; E11.9 Type 2 diabetes mellitus without complications; Z79.4 Long term (current) use of insulin
CPT/HCPCS: 36415; 74177; 80053; 80306; 81003; 83690; 85025; 99284; A9270; Q9967; 81001; 87086

== ENCOUNTER 2020-03-26 15:12 | Emergency (ER) | payer MEDICAID ==
[2020-03-26] MEDS ORDERED: oxyCODONE 5 MG TABLET PO STA (16:06)
[2020-03-26] MEDS ORDERED: DEXAMETHASONE 10 MG/ML VIAL PO STA (16:06)
--- NOTE | 2020-03-26 16:11 | ED Physician Documentation ---
PD HPI BACK PAIN - Stated complaint Stated Complaint: BACK PX - Chief complaint Chief Complaint: Back Pain - History obtained from History obtained from: Patient - History of Present Illness Timing - onset: Chronic Timing - duration: Years Timing - details: Gradual onset Pain level max: 10 Pain level now: 10 Location: Lower, Left Quality: Pain, Spasm, Sharp Associated symptoms: No: Fever, Weakness, Numbness, Incontinent of urine, Unable to urinate, Hematuria, Incontinent of stool Improves with: Rest Worsened by: Movement Contributing factors: Out of meds. No: Lifting, Twisting, Trauma, Anticoagulated, Cancer, IVDA Similar symptoms before: Diagnosis (chronic sciatica) Review of Systems Constitutional: denies: Fever, Chills Respiratory: denies: Cough GI: denies: Abdominal Pain, Nausea, Vomiting, Diarrhea Skin: denies: Rash Neurologic: denies: Headache PD PAST MEDICAL HISTORY - Past Medical History Past Medical History: Yes Cardiovascular: Hypertension, High cholesterol Respiratory: None Endocrine/Autoimmune: Type 2 diabetes GI: Pancreatitis : Nocturia HEENT: None Psych: None Musculoskeletal: Chronic back pain Derm: None - Past Surgical History Past Surgical History: Yes General: Other Ortho: Other - Present Medications Home Medications: Ambulatory Orders Medication Instructions Recorded Confirmed Insulin Aspart [NovoLOG] 0 - 10 unit SUBQ TIDWM 02/11/19 03/26/20 Insulin Glargine,Hum.rec.anlog 10 unit SUBQ QPM 02/11/19 03/26/20 [Basaglar Kwikpen U-100] Gabapentin 1,200 mg PO TID 02/15/20 03/26/20 Lisinopril [Prinivil] 10 mg PO DAILY #30 tablet 02/21/20 03/26/20 predniSONE [Deltasone] 10 mg PO [id number] #42 tab 03/09/20 03/26/20 Diclofenac Epolamine [Flector] 1 each TD BID PRN #14 patch.td12 03/26/20 Methylprednisolone [Medrol] 4 mg PO DAILY #1 tab.ds.pk 03/26/20 Oxycodone HCl/Acetaminophen 1 - 2 each PO Q6H PRN #14 tablet 03/26/20 [Percocet 5-325 mg Tablet] - Allergies Allergies/Adverse Reactions: Allergies Allergy/AdvReac Type Severity Reaction Status Date / Time bee pollen Allergy Dizziness Verified 03/26/20 15:15 naproxen [From Naprosyn] Allergy Rash Verified 03/26/20 15:15 - Social History Does the pt smoke?: No Smoking Status: Never smoker Does the pt drink ETOH?: No Does the pt have substance abuse?: No - Immunizations Immunizations are current?: Yes - POLST Patient has POLST: No POLST Status: Full Code PD ED PE NORMAL - Vitals Vital signs reviewed: Yes - General General: Alert and oriented X 3, No acute distress - HEENT HEENT: Moist mucous membranes - Neck Neck: Supple, no meningeal sign - Cardiac Cardiac: RRR - Respiratory Respiratory: No respiratory distress, Clear bilaterally - Abdomen Abdomen: Soft, Non tender, Non distended - Back Back: No spinal TTP, Other (Normal bilateral lower extremity patellar and ankle jerk reflexes. Normal great toe extension bilaterally. no saddle anesthesia) - Derm Derm: Warm and dry - Extremities Extremities: No edema, No calf tenderness / cord - Neuro Neuro: Alert and oriented X 3, wireless sales representative 2-12 intact, No motor deficit, No sensory deficit Results - Vitals Vitals: Vital Signs - 24 hr 03/26/20 03/26/20 15:17 16:27 Temperature 37.3 C Heart Rate 110 H 88 Respiratory 19 14 Rate Blood Pressure 164/100 H 160/97 H O2 Saturation 100 100 Oxygen O2 Source Room air PD MEDICAL DECISION MAKING - ED course Complexity details: reviewed old records, considered differential (No cauda equina, no spinal epidural abscess, no fracture, no aortic dissection or evidence of aneursym rupture), d/w patient ED course: Patient with chronic pain. No changes. Will prescribe a small amount of pain medication, Medrol Dosepak and trial him on a Flector patch. No neurological deficits. Patient counseled regarding signs and symptoms for which I believe and urgent re-evaluation would be necessary. Patient with good understanding of and agreement to plan and is comfortable going home at this time This document was made in part using voice recognition software. While efforts are made to proofread this document, sound alike and grammatical errors may occur. Departure - Departure Disposition: Home, Self Care Clinical Impression: Sciatica Qualifiers: Laterality: left Qualified Code(s): M54.32 - Sciatica, left side Condition: Good Instructions: ED Sciatica Follow-Up: Kimmie Batista ARNP, ADMINISTRATIVE TECH-C [Primary Care Provider] - Within 1 week Prescriptions: Diclofenac Epolamine [Flector] 1 each TD BID PRN #14 patch.td12 PRN Reason: back pain Methylprednisolone [Medrol] 4 mg PO DAILY #1 tab.ds.pk Oxycodone HCl/Acetaminophen [Percocet 5-325 mg Tablet] 1 - 2 each PO Q6H PRN #14 tablet PRN Reason: pain Comments: As we discussed, we will not be able to prescribe narcotics for you any further from the emergency department. You need to follow-up with your doctor for further care. We will trial you on the Flector patches to see if these help your pain. Do not drink alcohol or drive while on narcotic pain medicine. Note that many narcotic pain relievers also contain tylenol/acetaminophen. Please ensure that your total dose of acetaminophen from all sources does not exceed 3 grams (3000mg) per day. You may constipated on this medication, take a stool softener such as "Colace" twice a day while you are on it. Also recommend a [id number] laxative such as senna or MiraLAX any day that you do not have a bowel movement. If you received narcotic pain medication in the emergency department, do not drive or operate machinery for the next 24 hours. Discharge Date/Time: 03/26/20 16:28
[2020-03-26 16:28] VITALS: BP 160/97
== END 2020-03-26 16:28 | disposition home or self-care (01) ==
LOC: ED 15:12
DX: M54.32 Sciatica, left side (principal); I10 Essential (primary) hypertension; E11.9 Type 2 diabetes mellitus without complications; Z79.4 Long term (current) use of insulin
CPT/HCPCS: 99283; 99284; A9270

== ENCOUNTER 2020-04-14 07:14 | Day surgery (SDC) | payer MEDICAID ==
[2020-04-14] MEDS ORDERED: LACTATED RINGERS 1,000 ML IV ONE ×2 (07:45→08:59)
--- NOTE | 2020-04-14 08:10 | ANESTHESIA ---
Pre-Anesthesia VS, & Labs - Diagnosis screening colonoscopy - Procedure colonoscopy Vital Signs: Temp Pulse Resp BP Pulse Ox 36.2 C L 91 16 149/107 H 98 04/14/20 07:20 04/14/20 08:05 04/14/20 08:05 04/14/20 08:05 04/14/20 08:05 Height: 5 ft 8 in Weight (kg): 67.8 kg Body Mass Index: 22.7 BMI Classification: Healthy weight - NPO Other (0400 water) - Lab Results Current Lab Results: Laboratory Tests 04/14/20 07:36: POC Whole Bld Glucose 149 H Home Medications and Allergies Home Medications: Ambulatory Orders Clobetasol 0.05% Oint [Temovate 0.05% Oint] 1 applic TOP PRN PRN 04/02/20 Methocarbamol [Robaxin-750] 750 mg PO QID PRN 04/02/20 Insulin Aspart [NovoLOG] 0 - 10 unit SUBQ TIDWM 02/11/19 Insulin Glargine,Hum.rec.anlog [Basaglar Kwikpen U-100] 20 unit SUBQ QPM 02/11/19 Gabapentin 1,200 mg PO TID 02/15/20 Clobetasol 0.05% Oint [Temovate 0.05% Oint] 1 applic TOP PRN PRN 04/02/20 Methocarbamol [Robaxin-750] 750 mg PO QID PRN 04/02/20 Allergies/Adverse Reactions: Allergies Allergy/AdvReac Type Severity Reaction Status Date / Time bee pollen Allergy Dizziness Verified 04/14/20 07:32 naproxen [From Naprosyn] Allergy Rash Verified 04/14/20 07:32 Anes History & Medical History - Anesthetic History Family history of Anesthesia Complications: Denies Family history of Malignant Hyperthermia: Denies - Medical History Cardiovascular: reports: Hypertension, High cholesterol Pulmonary: reports: None Gastrointestinal: reports: Pancreatitis Urinary: reports: None Musculoskeletal: reports: Osteoarthritis, Chronic back pain Endocrine/Autoimmune: reports: Type 2 diabetes Blood Disorders: reports: Anemia Skin: reports: None Smoking Status: Current every day smoker Psychosocial: reports: Substance abuse, Cannabis History of Cancer?: No - Surgical History General: Other Orthopedic: Other Exam Mouth Openin Fingerbreadth Neck Mobility: Normal Mallampati classification: II Thyromental Distance: 4-6 cm Plan Anesthesia Type: MAC Consent for Procedure(s) Verified and Reviewed: Yes Code Status: Attempt Resuscitation ASA classification: 3-Severe systemic disease Is this case an emergency?: No
[2020-04-14] MEDS ORDERED: MIDAZOLAM 2 MG/2 ML VIAL ONE (08:29)
[2020-04-14] MEDS ORDERED: KETAMINE 500 MG/10 ML VIAL ONE (08:29)
[2020-04-14 09:09] VITALS: BP 142/95
--- NOTE | 2020-04-14 10:03 | ANESTHESIA POST OP EVALUATION ---
Anesthesia Post Eval - Post Anesthesia Eval Vitals: Last Vital Signs Temp 36.2 C L 04/14/20 09:08 Pulse 99 04/14/20 09:08 Resp 16 04/14/20 09:08 BP 142/95 H 04/14/20 09:08 Pulse Ox 100 04/14/20 09:08 CV Function Including HR & BP: positive: Stable Pain Control: positive: Satisfactory Nausea & Vomiting: positive: Negative Mental Status: positive: Baseline Respiratory Status: Airway Patent Hydration Status: Satisfactory Anesthesia Complications: positive: None
== END 2020-04-14 07:15 | disposition home or self-care (01) ==
LOC: SDS 07:14
PROVIDERS: ATTEND Surgery
PROC: 0DBK8ZZ Excision of Ascending Colon, Via Natural or Artificial Opening Endoscopic (ICD-10-PCS; principal; 2020-04-14 08:30)
DX: R10.9 Unspecified abdominal pain (principal); R19.4 Change in bowel habit; D12.2 Benign neoplasm of ascending colon; K64.8 Other hemorrhoids; K57.30 Diverticulosis of large intestine without perforation or abscess without bleeding; G89.29 Other chronic pain; Z79.891 Long term (current) use of opiate analgesic; Z87.891 Personal history of nicotine dependence
CPT/HCPCS: 45385; J7120

== ENCOUNTER 2020-07-15 14:42 | Emergency (ER) | payer MEDICAID ==
[2020-07-15 15:10] VITALS: BP 158/100
--- NOTE | 2020-07-15 16:50 | ED Physician Documentation ---
History of Present Illness - Stated complaint Stated Complaint: LEG PX - Chief complaint Chief Complaint: Ext Problem - History obtained from History obtained from: Patient - History of Present Illness Pain level max: 10 Pain level now: 10 - Additonal information Additional information: Pt is a 50-year-old male with a history of diabetes who presents to the emergency department stating that his feet feel like they are on [id number], has numbness and sharp pain throughout both his legs. Nothing makes it better. This is been ongoing for the past several months. Worse with palpation and walking. no injuries, rash or swelling. no travel. Review of Systems Ten Systems: 10 systems reviewed and negative Constitutional: denies: Fever, Chills GI: denies: Vomiting, Diarrhea Skin: denies: Rash Musculoskeletal: denies: Neck pain, Back pain Neurologic: denies: Headache PD PAST MEDICAL HISTORY - Past Medical History Cardiovascular: Hypertension, High cholesterol Respiratory: None Endocrine/Autoimmune: Type 2 diabetes GI: Pancreatitis : Nocturia HEENT: None Psych: None Musculoskeletal: Chronic back pain Derm: None - Past Surgical History Past Surgical History: Yes General: Other Ortho: Other - Present Medications Home Medications: Ambulatory Orders Medication Instructions Recorded Confirmed Insulin Aspart [NovoLOG] 0 - 10 unit SUBQ TIDWM 02/11/19 04/14/20 Insulin Glargine,Hum.rec.anlog 20 unit SUBQ QPM 02/11/19 04/02/20 [Basaglar Kwikpen U-100] Gabapentin 1,200 mg PO TID 02/15/20 04/14/20 Clobetasol 0.05% Oint [Temovate 1 applic TOP PRN PRN 04/02/20 04/14/20 0.05% Oint] Methocarbamol [Robaxin-750] 750 mg PO QID PRN 04/02/20 04/14/20 HYDROcod/ACETAM 5/325 [[place] 5/325] 1 - 2 ea PO Q6H PRN #14 tablet 07/15/20 - Allergies Allergies/Adverse Reactions: Allergies Allergy/AdvReac Type Severity Reaction Status Date / Time bee pollen Allergy Dizziness Verified 07/15/20 15:07 naproxen [From Naprosyn] Allergy Rash Verified 07/15/20 15:07 - Social History Does the pt smoke?: No Smoking Status: Never smoker Does the pt drink ETOH?: No Does the pt have substance abuse?: No - Immunizations Immunizations are current?: Yes - POLST Patient has POLST: No POLST Status: Full Code PD ED PE NORMAL - Vitals Vital signs reviewed: Yes - General General: Alert and oriented X 3, No acute distress - HEENT HEENT: Moist mucous membranes - Neck Neck: Supple, no meningeal sign - Cardiac Cardiac: RRR - Respiratory Respiratory: No respiratory distress, Clear bilaterally - Abdomen Abdomen: Soft, Non tender, Non distended - Back Back: No spinal TTP - Derm Derm: Warm and dry - Extremities Extremities: Other (Decreased sensation in a stocking distribution from the knees down to the toes bilaterally. Complains of pain when he is touched as well. Normal external examination of the legs. No discoloration or swelling.) - Neuro Neuro: Alert and oriented X 3, Other (Normal bilateral lower extremity patellar and ankle jerk reflexes. Normal great toe extension bilaterally. no saddle anesthesia) - Psych Psych: Normal mood, Normal affect Results - Vitals Vitals: Vital Signs - 24 hr 07/15/20 15:07 Temperature 36.8 C Heart Rate 110 H Respiratory 16 Rate Blood Pressure 158/100 H O2 Saturation 98 Oxygen O2 Source Room air - Labs Labs: Laboratory Tests 07/15/20 07/15/20 07/15/20 16:46 16:46 16:46 WBC 6.5 RBC 5.48 Hgb 16.1 Hct 44.8 MCV 81.8 MCH 29.4 MCHC 35.9 RDW 11.6 L Plt Count 194 MPV 10.3 Neut # (Auto) 3.5 Lymph # (Auto) 2.3 [place] # (Auto) 0.5 Eos # (Auto) 0.2 Baso # (Auto) 0.1 Nucleated RBC % 0.0 Sodium 133 L Potassium 4.2 Chloride 97 L Carbon Dioxide 22 Anion Gap 14.0 H BUN 15 Creatinine 0.8 Estimated GFR (MDRD) 102 Glucose 280 H Estimat Average Glucose 237 H Hemoglobin A1c % 9.9 H Calcium 9.3 Total Bilirubin 0.6 AST 46 H ALT 55 Alkaline Phosphatase 133 H Total Protein 8.0 Albumin 4.5 Globulin 3.5 Albumin/Globulin Ratio 1.3 PD MEDICAL DECISION MAKING - ED course Complexity details: reviewed results, re-evaluated patient, considered differential, d/w patient ED course: 50-year-old male with what appears to be peripheral neuropathy, likely secondary to diabetes. We will place him on a small amount of pain medication in addition to his gabapentin. We will have him follow-up with his doctor for further care. No evidence of cauda equina, epidural abscess. Patient counseled regarding signs and symptoms for which I believe and urgent re-evaluation would be necessary. Patient with good understanding of and agreement to plan and is comfortable going home at this time This document was made in part using voice recognition software. While efforts are made to proofread this document, sound alike and grammatical errors may occur. Departure - Departure Disposition: Home, Self Care Clinical Impression: Diabetic neuropathy Qualifiers: Diabetes mellitus type: due to underlying condition Diabetes mellitus complication detail: diabetic polyneuropathy Qualified Code(s): E08.42 - Diabetes mellitus due to underlying condition with diabetic polyneuropathy Condition: Good Instructions: ED Neuropathy Peripheral Follow-Up: your,doctor in 1 week [Other] Prescriptions: HYDROcod/ACETAM 5/325 [[place] 5/325] 1 - 2 ea PO Q6H PRN #14 tablet PRN Reason: Pain Comments: Continue your gabapentin at home. Follow-up with your doctor for further care. They will likely want to perform further testing on you at that time. Return if you worsen. Do not drink alcohol or drive while on narcotic pain medicine. Note that many narcotic pain relievers also contain tylenol/acetaminophen. Please ensure that your total dose of acetaminophen from all sources does not exceed 3 grams (3000mg) per day. You may constipated on this medication, take a stool softener such as "Colace" twice a day while you are on it. Also recommend a [id number] laxative such as senna or MiraLAX any day that you do not have a bowel movement. If you received narcotic pain medication in the emergency department, do not drive or operate machinery for the next 24 hours. Discharge Date/Time: 07/15/20 18:35
[2020-07-15 16:54] LABS: HCT - HEMATOCRIT 44.8 % (42.0-52.0); HGB - HEMOGLOBIN 16.1 g/dL (14.0-18.0); MEAN CORPUSCULAR HEMOGLOBIN 29.4 pg (27.0-31.0); MEAN CORPUSCULAR HGB CONC 35.9 g/dL (32.0-36.0); MEAN CORPUSCULAR VOLUME 81.8 fL (80.0-94.0); MEAN PLATELET VOLUME 10.3 fL (7.4-11.4); PLT - PLATELET COUNT 194 10^3/uL (130-450); RED BLOOD COUNT 5.48 10^6/uL (4.70-6.10); RED CELL DISTRIBUTION WIDTH 11.6 % (12.0-15.0); WHITE BLOOD COUNT 6.5 x10^3/uL (4.8-10.8)
[2020-07-15 16:55] LABS: BASOPHILS # (AUTO) 0.1 10^3/uL (0.0-0.1); BASOPHILS % (AUTO) 1.2 %; EOSINOPHILS # (AUTO) 0.2 10^3/uL (0.0-0.7); EOSINOPHILS % (AUTO) 2.9 %; LYMPHOCYTES # (AUTO) 2.3 10^3/uL (1.5-3.5); LYMPHOCYTES % (AUTO) 34.5 %; MONOCYTES # (AUTO) 0.5 10^3/uL (0.0-1.0); MONOCYTES % (AUTO) 7.2 %; NEUTROPHILS # (AUTO) 3.5 10^3/uL (1.5-6.6)
[2020-07-15] MEDS ORDERED: oxyCODONE 5 MG TABLET PO STA (17:03)
[2020-07-15 17:07] LABS: ALBUMIN 4.5 g/dL (3.2-5.5); ALBUMIN/GLOBULIN RATIO 1.3 (1.0-2.2); BILIRUBIN,TOTAL 0.6 mg/dL (0.2-1.0); CALCIUM 9.3 mg/dL (8.5-10.3); CREATININE 0.8 mg/dL (0.6-1.2); POTASSIUM 4.2 mmol/L (3.5-5.0)
[2020-07-15 20:01] LABS: ESTIMATED AVERAGE GLUCOSE 237 mg/dL (70-100); HEMOGLOBIN A1c% 9.9 % (4.27-6.07)
== END 2020-07-15 18:35 | disposition home or self-care (01) ==
LOC: ED 14:42
DX: E11.42 Type 2 diabetes mellitus with diabetic polyneuropathy (principal); Z79.4 Long term (current) use of insulin; I10 Essential (primary) hypertension
CPT/HCPCS: 36415; 80053; 83036; 85025; 99283; 99284; A9270

== ENCOUNTER 2020-07-27 10:47 | Outpatient (CLI) | payer MEDICAID ==
--- NOTE | 2020-07-27 15:17 | XRAY Report ---
PROCEDURE: Knee Standing BILAT INDICATIONS: KNEE JOINT PAIN BILAT TECHNIQUE: 2 views of the left knee, and 2 views of the right knee. COMPARISON: None. FINDINGS: Bones: No acute fractures or dislocations. No suspicious bony lesions. There is minimal to mild bi lateral medial and patellofemoral compartment narrowing. No erosions or periarticular osteophytes are noted. Soft tissues: Minimal bilateral knee joint effusions. No suspicious soft tissue calcification. IMPRESSION: Minimal to mild appearance of early arthritis. Reviewed by: Josi Dooley MD on 07/27/2020 3:16 PM PDT Approved by: Josi Dooley MD on 07/27/2020 3:16 PM PDT Station ID: [id number]
== END 2020-07-27 10:48 | disposition home or self-care (01) ==
LOC: DI 10:47
PROVIDERS: ATTEND Internal Medicine
DX: M25.569 Pain in unspecified knee (principal); M17.0 Bilateral primary osteoarthritis of knee

== ENCOUNTER 2020-10-19 12:50 | Emergency (ER) | payer MEDICAID ==
[2020-10-19 14:35] LABS: BASOPHILS # (AUTO) 0.1 10^3/uL (0.0-0.1); BASOPHILS % (AUTO) 0.8 %; EOSINOPHILS # (AUTO) 0.1 10^3/uL (0.0-0.7); EOSINOPHILS % (AUTO) 0.9 %; HCT - HEMATOCRIT 41.8 % (42.0-52.0); HGB - HEMOGLOBIN 14.7 g/dL (14.0-18.0); LYMPHOCYTES # (AUTO) 2.3 10^3/uL (1.5-3.5); LYMPHOCYTES % (AUTO) 29.8 %; MEAN CORPUSCULAR HEMOGLOBIN 30.4 pg (27.0-31.0); MEAN CORPUSCULAR HGB CONC 35.2 g/dL (32.0-36.0); MEAN CORPUSCULAR VOLUME 86.5 fL (80.0-94.0); MEAN PLATELET VOLUME 12.9 fL (7.4-11.4); MONOCYTES # (AUTO) 0.4 10^3/uL (0.0-1.0); MONOCYTES % (AUTO) 5.4 %; NEUTROPHILS # (AUTO) 4.7 10^3/uL (1.5-6.6); NEUTROPHILS % (AUTO) 62.7 %; PLT - PLATELET COUNT 114 10^3/uL (130-450); RED BLOOD COUNT 4.83 10^6/uL (4.70-6.10); RED CELL DISTRIBUTION WIDTH 12.9 % (12.0-15.0)
[2020-10-19 14:43] LABS: WHITE BLOOD COUNT 7.6 x10^3/uL (4.8-10.8)
[2020-10-19 15:04] LABS: ALBUMIN/GLOBULIN RATIO 1.7 (1.0-2.2); BILIRUBIN,TOTAL 1.1 mg/dL (0.2-1.0); CALCIUM 8.5 mg/dL (8.5-10.3); CREATININE 0.8 mg/dL (0.6-1.2); POTASSIUM 4.3 mmol/L (3.5-5.0); TOTAL PROTEIN 6.3 g/dL (6.7-8.2)
[2020-10-19] MEDS ORDERED: IOPAMIDOL-300 100 ML VIAL ONE (15:18)
[2020-10-19 15:23] LABS: BILIRUBIN,URINE NEGATIVE (NEGATIVE); GLUCOSE, URINE (UA) >=1000 mg/dL (NEGATIVE); KETONES,URINE (UA) NEGATIVE (NEGATIVE); LEUKOCYTE ESTERASE, URINE NEGATIVE (NEGATIVE); NITRITE,URINE NEGATIVE (NEGATIVE); OCCULT BLOOD,URINE NEGATIVE (NEGATIVE); PH,URINE 6.5 PH (5.0-7.5); PROTEIN,URINE NEGATIVE (NEGATIVE); UROBILINOGEN,URINE 0.2 (NORMAL) E.U./dL (NORMAL)
[2020-10-19 15:26] LABS: CLARITY,URINE CLEAR (CLEAR)
--- NOTE | 2020-10-19 15:26 | ED Physician Documentation ---
PD HPI ABD PAIN - Stated complaint Stated Complaint: ABD PX - Chief complaint Chief Complaint: Abd Pain - History obtained from History obtained from: Patient - History of Present Illness Pain level max: 7 Pain level now: 4 Quality: Aching, Pain Improved by: No: Eating, Laying still, Vomiting, BM, Position, Meds Worsened by: No: Eating, Moving, Breathing, Position, Palpation Associated symptoms: Nausea, Vomiting. No: Fever, Hematemesis, Diarrhea, Constipation, Melena, Hematochezia, Dysuria, Hematuria - Additional information Additional information: Patient is a 50-year-old male, diabetic presents to the emergency department with abdominal pain intermittently for the past week. He states that the pain is about a 7 to a maximum currently about a 4. Described as aching and pain. Mainly on the right side. Also radiates down the anterior aspect of his thighs. States starts in the low back. He has had sciatica in the past. He also has neuropathy from diabetes. Nothing seems to make it better or worse. Did have nausea and vomiting the first day, has not had any since. Review of Systems Constitutional: denies: Fever, Chills GI: denies: Vomiting Skin: denies: Rash Musculoskeletal: denies: Neck pain, Back pain Neurologic: denies: Headache PD PAST MEDICAL HISTORY - Past Medical History Past Medical History: Yes Cardiovascular: Hypertension, High cholesterol Respiratory: None Neuro: Peripheral neuropathy Endocrine/Autoimmune: Type 2 diabetes GI: Pancreatitis : Nocturia HEENT: None Psych: None Musculoskeletal: Chronic back pain Derm: None - Past Surgical History Past Surgical History: Yes General: Other Ortho: Other - Present Medications Home Medications: Ambulatory Orders Medication Instructions Recorded Confirmed Gabapentin 1,200 mg PO TID 02/15/20 10/19/20 Clobetasol 0.05% Oint [Temovate 1 applic TOP PRN PRN 04/02/20 10/19/20 0.05% Oint] methocarbamoL [Robaxin-750] 750 mg PO QID PRN 04/02/20 10/19/20 Duloxetine HCl [Cymbalta] 60 mg PO DAILY 10/19/20 10/19/20 Empagliflozin [Jardiance] 10 mg PO DAILY 10/19/20 10/19/20 Glimepiride [Amaryl] 2 mg PO DAILY 10/19/20 10/19/20 HYDROcod/ACETAM 5/325 [[place] 5/325] 1 - 2 ea PO Q6H PRN #14 tablet 10/19/20 Losartan Potassium [Cozaar] 100 mg PO DAILY 10/19/20 10/19/20 Ondansetron Odt [Zofran] 4 mg TL Q6H PRN #10 tablet 10/19/20 - Allergies Allergies/Adverse Reactions: Allergies Allergy/AdvReac Type Severity Reaction Status Date / Time bee pollen Allergy Dizziness Verified 10/19/20 13:09 naproxen [From Naprosyn] Allergy Rash Verified 10/19/20 13:09 - Social History Does the pt smoke?: No Smoking Status: Former smoker Does the pt drink ETOH?: Yes Does the pt have substance abuse?: Yes Substance Use and Type: Marijuana - Immunizations Immunizations are current?: Yes - POLST Patient has POLST: No POLST Status: Full Code PD ED PE NORMAL - Vitals Vital signs reviewed: Yes - General General: Alert and oriented X 3, No acute distress - HEENT HEENT: Moist mucous membranes - Neck Neck: Supple, no meningeal sign - Cardiac Cardiac: RRR, Strong equal pulses - Respiratory Respiratory: No respiratory distress, Clear bilaterally - Abdomen Abdomen: Soft, Non tender, Non distended - Back Back: No CVA TTP, No spinal TTP, Other (Mild tenderness palpation paraspinal right lower lumbar. No midline tenderness to palpation. No step-off or deformity. No tenderness to percussion either) - Derm Derm: Warm and dry - Extremities Extremities: No edema, No calf tenderness / cord - Neuro Neuro: Alert and oriented X 3, No motor deficit, No sensory deficit, Other (Normal bilateral lower extremity patellar and ankle jerk reflexes. Normal great toe extension bilaterally. no saddle anesthesia) - Psych Psych: Normal mood, Normal affect Results - Vitals Vitals: Vital Signs - 24 hr 10/19/20 10/19/20 10/19/20 13:04 14:50 16:15 Temperature 36.4 C L 36.3 C L Heart Rate 116 H 107 H 99 Respiratory 8 L 18 16 Rate Blood Pressure 136/95 H 148/100 H 124/86 H O2 Saturation 99 97 97 10/19/20 17:21 Temperature Heart Rate 93 Respiratory 16 Rate Blood Pressure 112/81 H O2 Saturation 96 Oxygen O2 Source Room air - Labs Labs: Laboratory Tests 10/19/20 10/19/20 10/19/20 13:30 13:30 15:05 WBC 7.6 RBC 4.83 Hgb 14.7 Hct 41.8 L MCV 86.5 MCH 30.4 MCHC 35.2 RDW 12.9 Plt Count 114 L MPV 12.9 H Neut # (Auto) 4.7 Lymph # (Auto) 2.3 [place] # (Auto) 0.4 Eos # (Auto) 0.1 Baso # (Auto) 0.1 Absolute Nucleated RBC 0.00 Nucleated RBC % 0.0 Sodium 136 Potassium 4.3 Chloride 100 L Carbon Dioxide 23 Anion Gap 13.0 BUN 12 Creatinine 0.8 Estimated GFR (MDRD) 102 Glucose 263 H Calcium 8.5 Total Bilirubin 1.1 H AST 57 H ALT 59 Alkaline Phosphatase 142 H Total Protein 6.3 L Albumin 4.0 Globulin 2.3 Albumin/Globulin Ratio 1.7 Lipase 108 H Urine Color YELLOW Urine Clarity CLEAR Urine pH 6.5 Ur Specific [place] 1.010 Urine Protein NEGATIVE Urine Glucose (UA) >=1000 H Urine Ketones NEGATIVE Urine Occult Blood NEGATIVE Urine Nitrite NEGATIVE Urine Bilirubin NEGATIVE Urine Urobilinogen 0.2 (NORMAL) Ur Leukocyte Esterase NEGATIVE Ur Microscopic Review NOT INDICATED Urine Culture Comments NOT INDICATED - Rads (name of study) CT abdomen pelvis Radiology: Final report received, EMP read contemporaneously, See rad report (1. Normal appendix. 2. Mild diffuse bladder wall thickening. 3. Mild hepatic steatosis. 4. No CT findings which explain right lower quadrant pain. ) PD MEDICAL DECISION MAKING - ED course Complexity details: reviewed results, re-evaluated patient, considered differential (No cauda equina, no spinal epidural abscess, no fracture, no aortic dissection or evidence of aneursym rupture), d/w patient ED course: 50-year-old male with back pain/abdominal pain unclear etiology. No acute findings on CT or laboratory testing. Pain well controlled here. Ambulating well. Given IV fluids. We will prescribe pain medication for home. He sees his doctor later this week for repeat evaluation. Patient counseled regarding signs and symptoms for which I believe and urgent re-evaluation would be necnany tafoya. Patient with good understanding of and agreement to plan and is comfortable going home at this time This document was made in part using voice recognition software. While efforts are made to proofread this document, sound alike and grammatical errors may occur. Departure - Departure Disposition: 01 Home, Self Care Clinical Impression: Abdominal pain Qualifiers: Abdominal location: generalized Qualified Code(s): R10.84 - Generalized abdominal pain Back pain Qualifiers: Back pain location: low back pain Chronicity: chronic Back pain laterality: bilateral Sciatica presence: with sciatica Sciatica laterality: bilateral sciatica Qualified Code(s): M54.42 - Lumbago with sciatica, left side Condition: Good Instructions: ED Abdominal Pain Unkn Cause Follow-Up: Francisco J Raymundo MD [Primary Care Provider] - 10/23/20 Prescriptions: HYDROcod/ACETAM 5/325 [[place] 5/325] 1 - 2 ea PO Q6H PRN #14 tablet PRN Reason: Pain Ondansetron Odt [Zofran] 4 mg TL Q6H PRN #10 tablet PRN Reason: Nausea / Vomiting Comments: Follow up with your doctor for further care. Your testing does not show any acute abnormalities today. We will trial you on pain medications and have you follow-up with your doctor for further care. I am prescribing a short course of narcotic pain medication for you. These are potentially dangerous and addictive medications that should be used carefully. These medications may constipate you. Take an gnfw-ivd-anxjgza stool softener (docusate) twice daily with plenty of water while taking these medications. If you go 24 hours without a bowel movement, take zdib-nto-nagrrgl miralax, per package instructions. Do not drink or drive while taking these medications. If you received narcotic or sedating medications while in the emergency department, do not drive for 24 hours. Store this medication in a safe, secure place and out of reach of children. It is a violation of federal law to give or sell this medication to another person or to use in a manner other than prescribed. The ED will not refill narcotic prescriptions, including prescriptions lost or stolen. To dispose of unwanted medications: 1. [facility] at [address] in [place] has a medication drop box. They accept prescription medications (in pill form) Monday through Monday 9:00 a.m. to 5:00 p.m. 2. The [facility] [employer] accepts prescription medications (in pill form only) for disposal year round. Call for more information. 3. Contact the [facility] for the next [facility] sponsored prescription drug collection event. , [phone], or [phone]; Discharge Date/Time: 10/19/20 17:21
[2020-10-19] MEDS: MORPHINE 2 MG/ML CARPUJECT IVP STA (15:45)
[2020-10-19] MEDS: IOPAMIDOL-300 100 ML VIAL IVP ONE (15:55)
--- NOTE | 2020-10-19 16:26 | CT Report ---
PROCEDURE: Abdomen/Pelvis W INDICATIONS: R sided abd pain CONTRAST: IV CONTRAST: Isovue 300 ml: 100 PO CONTRAST: *NO PO CONTRAST TECHNIQUE: After the administration of intravenous contrast, 5 mm thick sections acquired from the diaphragms to the symphysis. 5 mm thick coronal and sagittal reformats were acquired. For radiation dose reducti on, the following was used: automated exposure control, adjustment of mA and/or kV according to kailyn ent size. COMPARISON: 03/09/2020 FINDINGS: Image quality: Excellent. ABDOMEN: Lung bases: Lung bases are clear. Heart size is normal. Solid organs: Liver and spleen are normal in size and enhancement. Mild hepatic steatosis. Gallblad sarah is unremarkable Biliary system is non dilated. Pancreas enhances normally. No adrenal nodules. Kidneys demonstrate normal size and enhancement, without hydronephrosis. Peritoneum and bowel: Bowel loops demonstrate normal wall thickness and caliber. No free fluid or a ir. Normal appendix. Nodes and vessels: No retroperitoneal or mesenteric adenopathy by size criteria. Aorta and inferior vena cava are normal in size. Miscellaneous: No ventral hernias. PELVIS: Genitourinary: Mild bladder wall thickening. Miscellaneous: No inguinal hernias or adenopathy. Bones: No suspicious bony lesions. No vertebral body compression fractures. IMPRESSION: 1. Normal appendix. 2. Mild diffuse bladder wall thickening. 3. Mild hepatic steatosis. 4. No CT findings which explain right lower quadrant pain. Reviewed by: Kelby Staton MD on 10/19/2020 4:24 PM PDT Approved by: Kelby Staton MD on 10/19/2020 4:24 PM PDT Station ID: [id number]
[2020-10-19 18:28] VITALS: BP 112/81
== END 2020-10-19 17:21 | disposition home or self-care (01) ==
LOC: ED 12:50
DX: M54.42 Lumbago with sciatica, left side (principal); R10.84 Generalized abdominal pain; E11.40 Type 2 diabetes mellitus with diabetic neuropathy, unspecified; Z79.4 Long term (current) use of insulin; Z87.891 Personal history of nicotine dependence; Z20.822 Contact with and (suspected) exposure to COVID-19
CPT/HCPCS: 36415; 74177; 80053; 81003; 83690; 85025; 87635; 96374; 99284; Q9967; 81001; 87086

== ENCOUNTER 2020-11-17 15:00 | Emergency (ER) | payer MEDICAID ==
[2020-11-17] MEDS ORDERED: HYDROmorphone 1 MG/ML CARPUJECT IVP STA ×2 (15:39→16:39)
[2020-11-17] MEDS ORDERED: SODIUM CHLORIDE 0.9% 1,000 ML IV STA ×2 (15:43→16:39)
--- NOTE | 2020-11-17 15:45 | ED Physician Documentation ---
History of Present Illness - Stated complaint Stated Complaint: HIP PX/DIZZY SPELLS - Chief complaint Chief Complaint: Ext Problem - Additonal information Additional information: 50-year-old male presents the emergency department for evaluation of 2 concerns: The first is right hip pain that he has had for more than a month. This is in the absence of any falls or trauma. Pain occurs at the proximal femur and extends to just below the right knee. No swelling or erythema. He uses bio freeze, lidocaine patches and Tylenol without relief. Denies any paresthesias. There is no swelling no fevers. The second concern is about intermittent dizziness for about 3 months the worse over the last 30 days and predominantly worse over the last week. He reports that he often will walk begin to develop tunnel vision and feels as though he is about to faint. He has not however had any syncopal episodes he denies that he is developing chest pain or shortness of air. He states that this all started when he began Jardiance for control of his diabetes. He denies recurrent vomiting or diarrhea though has occasionally had it over the last month. He denies any chest pain or shortness of air. Review of Systems Constitutional: denies: Fever, Chills Eyes: denies: Loss of vision Ears: reports: Reviewed and negative Nose: reports: Reviewed and negative Throat: reports: Reviewed and negative Cardiac: reports: Reviewed and negative Respiratory: reports: Reviewed and negative GI: reports: Vomiting, Diarrhea. denies: Abdominal Pain, Nausea : denies: Dysuria, Frequency, Hesitancy Skin: denies: Rash, Lesions Musculoskeletal: reports: Joint pain (right hip) Neurologic: reports: Near syncope. denies: Difficulty speaking, Syncope, Seizure, Confused, Headache, Head injury PD PAST MEDICAL HISTORY - Past Medical History Cardiovascular: Hypertension, High cholesterol Respiratory: None Neuro: Peripheral neuropathy Endocrine/Autoimmune: Type 2 diabetes GI: Pancreatitis : Nocturia HEENT: None Psych: None Musculoskeletal: Chronic back pain Derm: None - Past Surgical History Past Surgical History: Yes General: Other Ortho: Other - Present Medications Home Medications: Ambulatory Orders Medication Instructions Recorded Confirmed Gabapentin 1,600 mg PO TID 02/15/20 11/17/20 Duloxetine HCl [Cymbalta] 60 mg PO DAILY 10/19/20 11/17/20 Empagliflozin [Jardiance] 10 mg PO DAILY 10/19/20 11/17/20 Glimepiride [Amaryl] 2 mg PO DAILY 10/19/20 11/17/20 Losartan Potassium [Cozaar] 100 mg PO DAILY 10/19/20 11/17/20 HYDROcod/ACETAM 5/325 [[place] 5/325] 1 tablet PO BID PRN #8 tablet 11/17/20 - Allergies Allergies/Adverse Reactions: Allergies Allergy/AdvReac Type Severity Reaction Status Date / Time bee pollen Allergy Dizziness Verified 11/17/20 15:07 naproxen [From Naprosyn] Allergy Rash Verified 11/17/20 15:07 - Social History Does the pt smoke?: No Smoking Status: Former smoker Does the pt drink ETOH?: Yes Does the pt have substance abuse?: Yes - Immunizations Immunizations are current?: Yes - POLST Patient has POLST: No POLST Status: Full Code PD ED PE EXPANDED - General General: Alert, No acute distress - Neck Neck: Supple w/out meningeal sx, Adenopathy - Cardiac Cardiac: Tachy, Radial strong equal, Pedal strong equal, Cap refill < 2 sec. No: Murmur Present - Respiratory Respiratory: Clear to ausultation radha. No: Distress, Labored - Abdomen Abdomen: Normal Bowel sounds. No: Tender to palpation - Derm Derm: Normal color, Warm and dry. No: Rash - Extremities Extremities: Right hip (full ROM active and passive. tenderness to proximal femur. no swelling, erythema. Negative straight leg bilaterally) - Neuro Neuro: Alert and Oriented X 3, CNII-XII intact - GCS Eye Opening: Spontaneous Motor: Obeys Commands Verbal: Oriented Total: 15 Results - Vitals Vitals: Vital Signs - 24 hr 11/17/20 11/17/20 11/17/20 15:07 15:59 16:01 Temperature 36.5 C Heart Rate 129 H 128 H Heart Rate [ 130 H Sitting] Heart Rate [ 134 H Standing] Heart Rate [ 120 H Supine] Respiratory 18 19 Rate Blood Pressure 159/103 H 143/103 H Blood Pressure 137/109 H [Sitting] Blood Pressure 145/99 H [Standing] Blood Pressure 149/96 H [Supine] O2 Saturation 99 100 Oxygen O2 Source Room air - EKG (time done) 1539 Rate: Rate (enter#) (122) Rhythm: Sinus tachycardia [place]: Anterior hemiblock Intervals: Normal AL, Prolonged QT QRS: Poor R wave progression Ischemia: Normal ST segments Compare to prior EKG: Changed from prior EKG Computer interpretation: Agree with computer - Labs Labs: Laboratory Tests 11/17/20 11/17/20 11/17/20 15:51 15:51 15:51 WBC 5.7 RBC 4.56 L Hgb 13.8 L Hct 38.8 L MCV 85.1 MCH 30.3 MCHC 35.6 RDW 12.6 Plt Count 167 MPV 9.8 Neut # (Auto) 3.4 Lymph # (Auto) 1.7 [place] # (Auto) 0.4 Eos # (Auto) 0.1 Baso # (Auto) 0.1 Absolute Nucleated RBC 0.00 Nucleated RBC % 0.0 VBG pH VBG pCO2 VBG pO2 VBG HCO3 VBG Total CO2 VBG O2 Saturation VBG Base Excess Sodium 131 L Potassium 4.1 Chloride 97 L Carbon Dioxide 19 L Anion Gap 15.0 H BUN 12 Creatinine 0.6 Estimated GFR (MDRD) 141 Glucose 328 H Calcium 8.7 Total Bilirubin 1.2 H AST 50 H ALT 64 H Alkaline Phosphatase 102 Troponin I High Sens 3.4 Total Protein 6.8 Albumin 3.8 Globulin 3.0 Albumin/Globulin Ratio 1.3 Lipase 31 Serum Ketones 11/17/20 11/17/20 15:59 16:35 WBC RBC Hgb Hct MCV MCH MCHC RDW Plt Count MPV Neut # (Auto) Lymph # (Auto) [place] # (Auto) Eos # (Auto) Baso # (Auto) Absolute Nucleated RBC Nucleated RBC % VBG pH 7.426 H VBG pCO2 32.3 L VBG pO2 91.8 H VBG HCO3 20.8 L VBG Total CO2 21.8 L VBG O2 Saturation 96.8 H VBG Base Excess -2.7 L Sodium Potassium Chloride Carbon Dioxide Anion Gap BUN Creatinine Estimated GFR (MDRD) Glucose Calcium Total Bilirubin AST ALT Alkaline Phosphatase Troponin I High Sens Total Protein Albumin Globulin Albumin/Globulin Ratio Lipase Serum Ketones NEGATIVE - Rads (name of study) CXR Radiology: Final report received (No acute cardiopulmonary process) right hip pain Radiology: Final report received (Osteopenia. No fracture) PD MEDICAL DECISION MAKING - ED course Complexity details: reviewed results, re-evaluated patient, considered differential, d/w patient ED course: 50-year-old male presents emergency department for evaluation of right hip pain that has been ongoing for more than a month. No falls or trauma. X-ray does not show any fracture Or dislocation. However there is significant osteopenia. However patient remains ambulatory on the hip. Pain is reproducible with the proximal femur. I query whether this may be a mild bursitis. pt was given dilaudid in the ED with mild relief of pain. I have encouraged close follow up with orthopedics. a very limited rx for norco (8 tablets) will be levied. Patient also reported near syncope ongoing for about 1 month. He did present tachycardic in the 120s. Troponin was negative. Chest x-ray did not show any findings of cardiomegaly or pulmonary edema. Patient did have orthostatics completed that did not change with positions. Ketones were checked and negative and he is not acidotic on VBG. He was given a total of 2 L fluid here in the ER with marked improvement in his heart rate. He was noted to be fairly hyperglycemic though not in DKA. He was advised to have very close follow-up with his PCP for further evaluation of his diabetes. I am prescribing a short course of short-acting opioid pain medication for this patient. 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 I have discussed that the opioids are for short term therapy only, and will not be refilled from the ED. Departure - Departure Disposition: 01 Home, Self Care Clinical Impression: Right hip pain, Near syncope, Tachycardia, Poorly controlled diabetes mellitus Condition: Stable Record reviewed to determine appropriate education?: Yes Follow-Up: Francisco J Raymundo MD [Primary Care Provider] - Prescriptions: HYDROcod/ACETAM 5/325 [[place] 5/325] 1 tablet PO BID PRN #8 tablet PRN Reason: Pain Comments: Alvin you are seen today in the ER for right hip pain. The x-ray does not show any fracture dislocation. You may have a condition called bursitis which is an inflammation of one of the cushioning socks around your hip. You recommend that you continue the Tylenol, icy cream as well as lidocaine patches. I am prescribing 8 tablets of [place]. This cannot be refilled in the future through the emergency department. Please schedule a close follow-up appointment with your primary care doctor for further evaluation of the hip pain. You may benefit from referral to an orthopedic doctor. You were seen today also for feeling faint as well as having a high heart rate. Your blood sugar is not well controlled. It is very important that you discuss this with Dr. Raymundo. You may need further treatment of your diabetes as it may be causing some dehydration that could be contributing to your lightheadedness. I encourage you to check your blood sugars 3 times a day at home before meals. If your sugars are higher than 450 please return immediately to the ER. I am prescribing a short course of narcotic pain medication for you. These are potentially dangerous and addictive medications that should be used carefully. These medications may constipate you. Take an jnog-bti-rurdjxp stool softener (docusate) twice daily with plenty of water while taking these medications. If you go 24 hours without a bowel movement, take ryjp-xnt-vdkegwp miralax, per package instructions. Do not drink or drive while taking these medications. If you received narcotic or sedating medications while in the emergency department, do not drive for 24 hours. Store this medication in a safe, secure place and out of reach of children. It is a violation of federal law to give or sell this medication to another person or to use in a manner other than prescribed. The ED will not refill narcotic prescriptions, including prescriptions lost or stolen. To dispose of unwanted medications: 1. [facility] at [address] in [place] has a medication drop box. They accept prescription medications (in pill form) Monday through Monday 9:00 a.m. to 5:00 p.m. 2. The [facility] accepts prescription medications (in pill form only) for disposal year round. Call for more information. 3. Contact the [facility] for the next [facility] sponsored prescription drug collection event. , [id number], or [phone]; Note that many narcotic pain relievers also contain Tylenol/acetaminophen. Please ensure that your total dose of acetaminophen from all sources does not exceed 3 g (3000 mg) per day.
[2020-11-17 16:06] LABS: BASOPHILS # (AUTO) 0.1 10^3/uL (0.0-0.1); BASOPHILS % (AUTO) 0.9 %; EOSINOPHILS # (AUTO) 0.1 10^3/uL (0.0-0.7); EOSINOPHILS % (AUTO) 1.9 %; HCT - HEMATOCRIT 38.8 % (42.0-52.0); HGB - HEMOGLOBIN 13.8 g/dL (14.0-18.0); LYMPHOCYTES # (AUTO) 1.7 10^3/uL (1.5-3.5); LYMPHOCYTES % (AUTO) 29.9 %; MEAN CORPUSCULAR HEMOGLOBIN 30.3 pg (27.0-31.0); MEAN CORPUSCULAR HGB CONC 35.6 g/dL (32.0-36.0); MEAN CORPUSCULAR VOLUME 85.1 fL (80.0-94.0); MEAN PLATELET VOLUME 9.8 fL (7.4-11.4); MONOCYTES # (AUTO) 0.4 10^3/uL (0.0-1.0); MONOCYTES % (AUTO) 6.2 %; NEUTROPHILS # (AUTO) 3.4 10^3/uL (1.5-6.6); NEUTROPHILS % (AUTO) 60.7 %; PLT - PLATELET COUNT 167 10^3/uL (130-450); RED BLOOD COUNT 4.56 10^6/uL (4.70-6.10); RED CELL DISTRIBUTION WIDTH 12.6 % (12.0-15.0); WHITE BLOOD COUNT 5.7 x10^3/uL (4.8-10.8)
--- NOTE | 2020-11-17 16:09 | XRAY Report ---
PROCEDURE: Chest 1 View X-Ray INDICATIONS: Chest Pain TECHNIQUE: One view of the chest was acquired. COMPARISON: 03/28/2019 FINDINGS: Surgical changes and devices: None. Lungs and pleura: No pleural effusions or pneumothorax. Lungs are clear. Low lung volumes accentua te pulmonary interstitium and heart size. Mediastinum: Mediastinal contours appear normal. Heart size is normal. Bones and chest wall: No suspicious bony lesions. Overlying soft tissues appear unremarkable. IMPRESSION: No acute cardiopulmonary findings Reviewed by: Juan Carlos Navarro MD on 11/17/2020 3:08 PM AKDT Approved by: Juan Carlos Navarro MD on 11/17/2020 3:08 PM AKDT Station ID: [id number]
[2020-11-17 16:14] LABS: ALBUMIN 3.8 g/dL (3.2-5.5); ALBUMIN/GLOBULIN RATIO 1.3 (1.0-2.2); BILIRUBIN,TOTAL 1.2 mg/dL (0.2-1.0); CALCIUM 8.7 mg/dL (8.5-10.3); CREATININE 0.6 mg/dL (0.6-1.2); POTASSIUM 4.1 mmol/L (3.5-5.0); TOTAL PROTEIN 6.8 g/dL (6.7-8.2)
--- NOTE | 2020-11-17 16:22 | XRAY Report ---
PROCEDURE: Hip w/Pelvis 2-3V RT INDICATIONS: pain TECHNIQUE: AP pelvis with lateral view(s) of the bilateral hip(s). COMPARISON: None. FINDINGS: Bones: No fractures or dislocations. Pelvic ring appears intact. No suspicious bony lesions. Join t space is maintained. Soft tissues: The visualized bowel gas pattern is normal. No suspicious soft tissue calcifications. Generalized decreased osseous mineralization present. IMPRESSION: Osteopenia without fracture or subluxation Reviewed by: Juan Carlos Navarro MD on 11/17/2020 3:21 PM AKDT Approved by: Juan Carlos Navarro MD on 11/17/2020 3:21 PM AKDT Station ID: [id number]
[2020-11-17 16:41] LABS: VBG PCO2 32.3 mmHg (41-51); VBG PH 7.426 (7.31-7.41)
[2020-11-17 16:42] LABS: VBG BASE EXCESS -2.7 mmol/L (-2 - +2); VBG HCO3 20.8 mmol/L (23-28); VBG PO2 91.8 mmHg (25-47); VBG TOTAL CO2 21.8 mmol/L (24-29)
[2020-11-17 16:43] LABS: VBG OXYGEN SATURATION 96.8 % (60-80)
[2020-11-17] MEDS ORDERED: ONDANSETRON 4 MG/2 ML VIAL IVP STA (17:54)
[2020-11-17] MEDS ORDERED: ONDANSETRON 4 MG/2 ML VIAL ONE (17:59)
[2020-11-17 18:08] VITALS: BP 165/101
== END 2020-11-17 18:07 | disposition home or self-care (01) ==
LOC: ED 15:00
DX: M25.551 Pain in right hip (principal); M85.88 Other specified disorders of bone density and structure, other site; R55 Syncope and collapse; R42 Dizziness and giddiness; R00.0 Tachycardia, unspecified; I44.4 Left anterior fascicular block; E11.65 Type 2 diabetes mellitus with hyperglycemia; E11.42 Type 2 diabetes mellitus with diabetic polyneuropathy; Z79.84 Long term (current) use of oral hypoglycemic drugs; I10 Essential (primary) hypertension; Z87.891 Personal history of nicotine dependence
CPT/HCPCS: 36415; 71045; 73502; 80053; 82009; 82803; 83690; 84484; 85025; 93005; 96361; 96374; 96375; 96376; 99284; J1170

== ENCOUNTER 2020-11-24 12:22 | Emergency (ER) | payer MEDICAID ==
--- NOTE | 2020-11-24 15:09 | ED Physician Documentation ---
History of Present Illness - Stated complaint Stated Complaint: RT HIP PX - Chief complaint Chief Complaint: Ext Problem - History obtained from History obtained from: Patient - History of Present Illness Timing: How many weeks ago Pain level now: >10 ('1,000,000') - Additonal information Additional information: Is a 50-year-old man who presents with complaints that he is having pain in his right hip that is now shooting down his right leg. This pain has been there for 2 months but he was seen here in the emergency department about a week ago had x-rays taken was given a prescription for 8 hydrocodone tablets that for have provided no relief. He is tried Lidoderm patches without relief. Today he took Tylenol without relief and he has used Motrin and Excedrin without any relief. Patient is already on gabapentin 1600 mg 3 times daily for neuropathy in both lower extremities his feet feel "" from the knees down. Denies back pain. No nausea or vomiting. There is no left hip pain. 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 Denies any urinary symptoms and no incontinence. Review of Systems Constitutional: denies: Fever, Chills GI: denies: Abdominal Pain, Nausea, Vomiting : denies: Dysuria, Frequency, Incontinent Skin: denies: Rash Musculoskeletal: reports: Extremity pain (R leg and hip). denies: Back pain PD PAST MEDICAL HISTORY - Past Medical History Cardiovascular: Hypertension, High cholesterol Respiratory: None Neuro: Peripheral neuropathy Endocrine/Autoimmune: Type 2 diabetes GI: Pancreatitis : Nocturia HEENT: None Psych: None Musculoskeletal: Chronic back pain Derm: None - Past Surgical History Past Surgical History: Yes General: Other Ortho: Other - Present Medications Home Medications: Ambulatory Orders Medication Instructions Recorded Confirmed Gabapentin 1,600 mg PO TID 02/15/20 11/17/20 Duloxetine HCl [Cymbalta] 60 mg PO DAILY 10/19/20 11/17/20 Empagliflozin [Jardiance] 10 mg PO DAILY 10/19/20 11/17/20 Glimepiride [Amaryl] 2 mg PO DAILY 10/19/20 11/17/20 Losartan Potassium [Cozaar] 100 mg PO DAILY 10/19/20 11/17/20 HYDROcod/ACETAM 5/325 [[place] 5/325] 1 tablet PO BID PRN #8 tablet 11/17/20 - Allergies Allergies/Adverse Reactions: Allergies Allergy/AdvReac Type Severity Reaction Status Date / Time bee pollen Allergy Dizziness Verified 11/24/20 12:35 naproxen [From Naprosyn] Allergy Rash Verified 11/24/20 12:35 - Social History Does the pt smoke?: No Smoking Status: Former smoker Does the pt drink ETOH?: Yes Does the pt have substance abuse?: Yes - Immunizations Immunizations are current?: Yes - POLST Patient has POLST: No POLST Status: Full Code PD ED PE NORMAL - Vitals Vital signs reviewed: Yes - General General: Alert and oriented X 3, Other (thin; clutching at his leg and grimacing in pain intermittently) - HEENT HEENT: Atraumatic - Derm Derm: Normal color, Warm and dry, No rash - Extremities Extremities: No deformity, No tenderness to palpate - Neuro Neuro: Alert and oriented X 3, No motor deficit, Normal speech, Other (Decreased sensation in both feet bilat) Results - Vitals Vitals: Vital Signs - 24 hr 11/24/20 11/24/20 12:29 15:07 Temperature 36.6 C 36.8 C Heart Rate 113 H 106 H Respiratory 20 23 Rate Blood Pressure 161/108 H 183/100 H O2 Saturation 99 100 Oxygen O2 Source Room air PD MEDICAL DECISION MAKING - ED course ED course: Patient had a hip x-ray done at his last ER visit. Pain really seems to be lateral over the bursa. He says lidocaine patches do not work for him. No acute neurological deficits are noted. He was given hydrocodone tablet here in the emergency department. He will be offered a Toradol injection. He has an appointment with his primary care provider tomorrow and he can follow-up at that time for further pain control. Departure - Departure Disposition: 01 Home, Self Care Clinical Impression: Hip pain, right Condition: Good Instructions: Bursitis, ED Sciatica Follow-Up: KENYATTA CHARLES MD [Physician No Access] - Comments: Use ice on the sore area of the right hip. Continue to take ibuprofen up to 3 tablets every 8 hours with food. Keep your appointment with your primary care provider tomorrow for further pain management.
[2020-11-24] MEDS ORDERED: HYDROcod/ACETAM 5/325 MG TABLET PO STA (15:29)
[2020-11-24] MEDS ORDERED: KETOROLAC 60 MG/2 ML VIAL IM STA (16:12)
[2020-11-24 16:27] VITALS: BP 180/100
== END 2020-11-24 16:27 | disposition home or self-care (01) ==
LOC: ED 12:22
DX: M25.551 Pain in right hip (principal); I10 Essential (primary) hypertension; E11.9 Type 2 diabetes mellitus without complications; Z79.84 Long term (current) use of oral hypoglycemic drugs; Z87.891 Personal history of nicotine dependence
CPT/HCPCS: 96372; 99283; A9270

== ENCOUNTER 2020-12-03 16:28 | Outpatient (CLI) | payer MEDICAID | END 2020-12-03 16:29 | disposition home or self-care (01) | LOC: COV 16:28 | PROVIDERS: ATTEND Family Medicine | DX: Z20.822 Contact with and (suspected) exposure to COVID-19 (principal) ==

== ENCOUNTER 2020-12-13 09:02 | Outpatient (CLI) | payer MEDICAID ==
--- NOTE | 2020-12-15 07:58 | XRAY Report ---
PROCEDURE: Lumbar Spine 2 View INDICATIONS: LOWER BACK PX,ACUTE CHRONIC WITH RIGHT SCIATICA TECHNIQUE: 2 views of the lumbar spine were acquired. COMPARISON: None. FINDINGS: Bones: 5 [id number] vertebrae are present. There is normal bony alignment. No vertebral body compression fractures. No suspicious bony lesions. Soft tissues: Overlying bowel gas pattern is normal. No suspicious soft tissue calcifications. IMPRESSION: Unremarkable lumbar spine radiographs Reviewed by: Juan Carlos Navarro MD on 12/13/2020 10:21 AM ROSSI Approved by: Juan Carlos Navarro MD on 12/13/2020 10:21 AM ROSSI Station ID: [id number]
--- NOTE | 2020-12-15 07:58 | XRAY Report ---
PROCEDURE: Hips 2V BILAT, x-ray INDICATIONS: R L HIP PX NO INJ TECHNIQUE: Single view of the pelvis and single additional views of each hip was obtained COMPARISON: 11/17/2020 FINDINGS: Bones: No fractures or dislocations. No suspicious bony lesions. The visualized pelvic ring appear s intact. Joint spaces are maintained. Soft tissues: No suspicious soft tissue calcifications or masses. IMPRESSION: Unremarkable bilateral hip radiographs Reviewed by: Juan Carlos Navarro MD on 12/13/2020 10:18 AM ROSSI Approved by: Juan Carlos Navarro MD on 12/13/2020 10:18 AM ROSSI Station ID: [id number]
== END 2020-12-13 09:03 | disposition home or self-care (01) ==
LOC: DI 09:02
PROVIDERS: ATTEND Internal Medicine
DX: M25.552 Pain in left hip (principal); M25.551 Pain in right hip; M51.17 Intervertebral disc disorders with radiculopathy, lumbosacral region; G89.29 Other chronic pain

== ENCOUNTER 2020-12-13 12:39 | Emergency (ER) | payer MEDICAID ==
[2020-12-13 12:53] VITALS: BP 159/98
[2020-12-13] MEDS ORDERED: HYDROmorphone 1 MG/ML CARPUJECT IM STA (13:16)
[2020-12-13] MEDS ORDERED: DEXAMETHASONE 10 MG/ML VIAL IM STA (13:17)
--- NOTE | 2020-12-13 13:19 | ED Physician Documentation ---
History of Present Illness - Stated complaint Stated Complaint: RIGHT HIP PX - Chief complaint Chief Complaint: Ext Problem - History obtained from History obtained from: Patient - Additonal information Additional information: Patient comes emergency department chief complaint of right hip pain. He has been having this problem recurrently over the last couple of months and has been seen 2 times prior to this in the last month for the same problem. He states that he was seen by his primary care physician the day after his last emergency department visit, at which time they gave him a cortisone injection in the hip. Patient states that the symptoms worsened that very day and that he has never been pain-free since. He denies any reinjury to the area. No redness or swelling. No fevers or chills. The patient states that he has been referred to a chronic pain clinic, but that the referral just went through and he has not made an appointment yet. He states the clinic is down in [place]. He reports using meloxicam, and gabapentin, and many zbhp-ugm-xyvvlci medications to try to help with the symptoms, but to no avail. He has not been referred to a branding specialist. The patient does have a history of various back injuries, but denies any specific diagnoses. No history of scoliosis. Review of Systems Ten Systems: 10 systems reviewed and negative Constitutional: reports: Reviewed and negative Eyes: reports: Reviewed and negative Ears: reports: Reviewed and negative Nose: reports: Reviewed and negative Throat: reports: Reviewed and negative Cardiac: reports: Reviewed and negative Respiratory: reports: Reviewed and negative GI: reports: Reviewed and negative : reports: Reviewed and negative Skin: reports: Reviewed and negative Musculoskeletal: reports: Back pain, Extremity pain, Joint pain, Pain with weight bearing Neurologic: reports: Reviewed and negative Psychiatric: reports: Reviewed and negative Endocrine: reports: Reviewed and negative Immunocompromised: reports: Reviewed and negative PD PAST MEDICAL HISTORY - Past Medical History Cardiovascular: Hypertension, High cholesterol Respiratory: None Neuro: Peripheral neuropathy Endocrine/Autoimmune: Type 2 diabetes GI: Pancreatitis : Nocturia HEENT: None Psych: None Musculoskeletal: Chronic back pain Derm: None - Past Surgical History Past Surgical History: Yes General: Other Ortho: Other - Present Medications Home Medications: Ambulatory Orders Medication Instructions Recorded Confirmed Gabapentin 1,600 mg PO TID 02/15/20 11/24/20 Duloxetine HCl [Cymbalta] 60 mg PO DAILY 10/19/20 11/24/20 Empagliflozin [Jardiance] 10 mg PO DAILY 10/19/20 11/24/20 Losartan Potassium [Cozaar] 100 mg PO DAILY 10/19/20 11/24/20 HYDROcod/ACETAM 5/325 [[place] 5/325] 1 tablet PO BID PRN #8 tablet 11/17/20 11/24/20 Tramadol HCl [Tramadol HCl ER] 100 mg PO DAILY PRN #20 12/13/20 predniSONE [Deltasone] 60 mg PO DAILY 5 Days #15 tablet 12/13/20 - Allergies Allergies/Adverse Reactions: Allergies Allergy/AdvReac Type Severity Reaction Status Date / Time bee pollen Allergy Dizziness Verified 12/13/20 12:53 naproxen [From Naprosyn] Allergy Rash Verified 12/13/20 12:53 - Social History Does the pt smoke?: No Smoking Status: Never smoker Does the pt drink ETOH?: Yes Does the pt have substance abuse?: Yes - Immunizations Immunizations are current?: Yes - POLST Patient has POLST: No POLST Status: Full Code PD ED PE NORMAL - Vitals Vital signs reviewed: Yes - General General: Alert and oriented X 3, No acute distress, Well developed/nourished, Other (Patient appears moderately uncomfortable.) - HEENT HEENT: Atraumatic, PERRL, EOMI, Moist mucous membranes - Neck Neck: Supple, no meningeal sign - Respiratory Respiratory: No respiratory distress - Back Back: No spinal TTP - Derm Derm: Normal color, Warm and dry, No rash - Extremities Extremities: No deformity, No edema, No calf tenderness / cord - Neuro Neuro: Alert and oriented X 3, legal director 2-12 intact, Normal speech - Psych Psych: Normal mood, Normal affect Results - Vitals Vitals: Vital Signs - 24 hr 12/13/20 12:45 Temperature 36.6 C Heart Rate 87 Respiratory 16 Rate Blood Pressure 159/98 H O2 Saturation 97 Oxygen O2 Source Room air PD MEDICAL DECISION MAKING - ED course Complexity details: considered differential, d/w patient ED course: The patient appeared legitimately uncomfortable but had been seen here now for the third time in the past month. It seemed that he had followed up appropriately and was attempting to get established with pain management. I discussed with him that it may be worth his while to ask his doctor for referral to an orthopedist who is able to assess his back and see if nerve compression at the level of the back is at least partly responsible for all the pain he is having radiating through his hip. I reviewed the patient's past records and his imaging studies from today. There is nothing more that I can add from the emergency department as far as emergent work-up. Departure - Departure Disposition: 01 Home, Self Care Clinical Impression: Pain of lower extremity Qualifiers: Laterality: right Qualified Code(s): M79.604 - Pain in right leg Condition: Stable Instructions: Hip Osteoarthritis Exercise Prescriptions: predniSONE [Deltasone] 60 mg PO DAILY 5 Days #15 tablet Tramadol HCl [Tramadol HCl ER] 100 mg PO DAILY PRN #20 PRN Reason: Pain Comments: Your hip and back x-rays from this morning have been found; however, they have not yet been read by the radiologist. It does appear that the space between your first and second lumbar vertebrae is somewhat compressed, and this may be partially responsible for some of the hip symptoms and the pain shooting down your leg. At this point in time, there is no way to reverse the cortisone shot you are given in your hip. It will have to wear off on its own. You have been treated for your symptoms today, and we will give you a little more pain medicine to take at home. It is very important that you call the pain clinic to set up a follow-up appointment. You should also talk to your doctor about the potential for being referred to an orthopedist to see if they can be of any help with the ongoing symptoms you are having. Discharge Date/Time: 12/13/20 14:29
== END 2020-12-13 14:29 | disposition home or self-care (01) ==
LOC: ED 12:39
DX: M79.604 Pain in right leg (principal); M25.552 Pain in left hip; M25.551 Pain in right hip; M51.17 Intervertebral disc disorders with radiculopathy, lumbosacral region; G89.29 Other chronic pain
CPT/HCPCS: 72100; 73521; 96372; 99283; J1170

== ENCOUNTER 2021-01-28 15:09 | Emergency (ER) | payer MEDICAID ==
--- NOTE | 2021-01-28 15:55 | ED Physician Documentation ---
History of Present Illness - Stated complaint Stated Complaint: MALE - Chief complaint Chief Complaint: Abd Pain - History obtained from History obtained from: Patient - History of Present Illness Timing: How many weeks ago (1) Pain level max: 8 Pain level now: 7 - Additonal information Additional information: Patient is a 50-year-old male who presents to the emergency department complaining of right-sided testicular pain and right sided scrotal swelling for the past week. Worse with movement, better with rest. Denies any penile discharge. Denies any STD exposure. States his only partner was recently tested and reportedly negative. Has not had similar symptoms previously. He states he is also having dysuria. Review of Systems Constitutional: denies: Fever, Chills GI: denies: Vomiting, Diarrhea Skin: denies: Rash Musculoskeletal: denies: Neck pain, Back pain Neurologic: denies: Headache PD PAST MEDICAL HISTORY - Past Medical History Past Medical History: Yes Cardiovascular: Hypertension, High cholesterol Respiratory: None Neuro: Peripheral neuropathy Endocrine/Autoimmune: Type 2 diabetes GI: Pancreatitis : Nocturia HEENT: None Psych: None Musculoskeletal: Chronic back pain Derm: None - Past Surgical History Past Surgical History: Yes General: Other Ortho: Other - Present Medications Home Medications: Ambulatory Orders Medication Instructions Recorded Confirmed Gabapentin 1,600 mg PO TID 02/15/20 11/24/20 Duloxetine HCl [Cymbalta] 60 mg PO DAILY 10/19/20 11/24/20 Empagliflozin [Jardiance] 10 mg PO DAILY 10/19/20 11/24/20 Losartan Potassium [Cozaar] 100 mg PO DAILY 10/19/20 11/24/20 HYDROcod/ACETAM 5/325 [[place] 5/325] 1 tablet PO BID PRN #8 tablet 11/17/20 11/24/20 Tramadol HCl [Tramadol HCl ER] 100 mg PO DAILY PRN #20 12/13/20 predniSONE [Deltasone] 60 mg PO DAILY 5 Days #15 tablet 12/13/20 HYDROcod/ACETAM 5/325 [[place] 5/325] 1 - 2 ea PO Q6H PRN #14 tablet 01/28/21 Terbinafine [Lamisil] 250 mg PO DAILY #14 tablet 01/28/21 - Allergies Allergies/Adverse Reactions: Allergies Allergy/AdvReac Type Severity Reaction Status Date / Time bee pollen Allergy Dizziness Verified 01/28/21 15:22 naproxen [From Naprosyn] Allergy Rash Verified 01/28/21 15:22 - Social History Does the pt smoke?: No Smoking Status: Never smoker Does the pt drink ETOH?: Yes Does the pt have substance abuse?: Yes - Immunizations Immunizations are current?: Yes - POLST Patient has POLST: No POLST Status: Full Code PD ED PE NORMAL - Vitals Vital signs reviewed: Yes - General General: Alert and oriented X 3, No acute distress - HEENT HEENT: Moist mucous membranes - Neck Neck: Supple, no meningeal sign - Respiratory Respiratory: No respiratory distress - Abdomen Abdomen: Soft, Non tender, Non distended - Male Male : Other (Mild right-sided scrotal swelling. Testicle is normal in lie. Tender along the epididymis. There is erythema and scaling to the scrotal sac itself. No crepitus.) - Derm Derm: Warm and dry - Neuro Neuro: Alert and oriented X 3 Results - Vitals Vitals: Vital Signs - 24 hr 01/28/21 15:22 Temperature 37.2 C Heart Rate 123 H Respiratory 18 Rate Blood Pressure 164/95 H O2 Saturation 96 Oxygen O2 Source Room air - Labs Labs: Laboratory Tests 01/28/21 15:42 Urine Color YELLOW Urine Clarity CLEAR Urine pH 5.0 Ur Specific [place] 1.015 Urine Protein NEGATIVE Urine Glucose (UA) >=1000 H Urine Ketones TRACE Urine Occult Blood NEGATIVE Urine Nitrite NEGATIVE Urine Bilirubin NEGATIVE Urine Urobilinogen 0.2 (NORMAL) Ur Leukocyte Esterase NEGATIVE Ur Microscopic Review NOT INDICATED Urine Culture Comments NOT INDICATED - Rads (name of study) testicular US Radiology: Prelim report reviewed (from [facility]), See rad report (normal flow, normal testicular US per tech) PD MEDICAL DECISION MAKING - ED course Complexity details: reviewed results, re-evaluated patient, considered differential, d/w patient ED course: Patient appears to have tinea cruris. He states he does not have any history of liver disease. We will place him on oral terbinafine. His ultrasound is nor mal. Urinalysis does not show any acute abnormality. Gonorrhea and committee a testing were sent. No evidence of necrotizing fasciitis, Humza's gangrene. Patient counseled regarding signs and symptoms for which I believe and urgent re-evaluation would be necessary. Patient with good understanding of and agreement to plan and is comfortable going home at this time This document was made in part using voice recognition software. While efforts are made to proofread this document, sound alike and grammatical errors may occur. I am prescribing a short course of short-acting opioid pain medication for this patient. 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 I have discussed that the opioids are for short term therapy only, and will not be refilled from the ED. Departure - Departure Disposition: 01 Home, Self Care Clinical Impression: Tinea cruris Testicular pain Qualifiers: Laterality: right Qualified Code(s): N50.811 - Right testicular pain Condition: Good Instructions: ED Tinea Cruris General, ED Testicular Pain [facility] Follow-Up: Francisco J Raymundo MD [Primary Care Provider] - Within 1 week Prescriptions: Terbinafine [Lamisil] 250 mg PO DAILY #14 tablet HYDROcod/ACETAM 5/325 [[place] 5/325] 1 - 2 ea PO Q6H PRN #14 tablet PRN Reason: Pain Comments: [facility] [place]. Take all medication until gone. Return if you worsen. Please follow-up with your doctor for a potential urology referral. I am prescribing a short course of narcotic pain medication for you. These are potentially dangerous and addictive medications that should be used carefully. These medications may constipate you. Take an kyoo-xxq-imayzxp stool softener (docusate) twice daily with plenty of water while taking these medications. If you go 24 hours without a bowel movement, take msov-och-lvvlohl miralax, per package instructions. Do not drink or drive while taking these medications. If you received narcotic or sedating medications while in the emergency department, do not drive for 24 hours. Store this medication in a safe, secure place and out of reach of children. It is a violation of federal law to give or sell this medication to another person or to use in a manner other than prescribed. The ED will not refill narcotic prescriptions, including prescriptions lost or stolen. To dispose of unwanted medications: 1. [facility] [address] in [place] has a medication drop box. They accept prescription medications (in pill form) Monday through Monday 9:00 a.m. to 5:00 p.m. 2. [facility] accepts prescription medications (in pill form only) for disposal year round. Call for more information. 3. Contact the [facility] for the next [facility] sponsored prescription drug collection event. , [phone], or [phone];
[2021-01-28 15:57] LABS: BILIRUBIN,URINE NEGATIVE (NEGATIVE); GLUCOSE, URINE (UA) >=1000 mg/dL (NEGATIVE); KETONES,URINE (UA) TRACE mg/dL (NEGATIVE); LEUKOCYTE ESTERASE, URINE NEGATIVE (NEGATIVE); NITRITE,URINE NEGATIVE (NEGATIVE); OCCULT BLOOD,URINE NEGATIVE (NEGATIVE); PROTEIN,URINE NEGATIVE (NEGATIVE); UROBILINOGEN,URINE 0.2 (NORMAL) E.U./dL (NORMAL)
[2021-01-28 16:05] LABS: CLARITY,URINE CLEAR (CLEAR)
[2021-01-28] MEDS ORDERED: HYDROcod/ACETAM 5/325 MG TABLET PO STA (16:35)
[2021-01-28 18:02] VITALS: BP 143/98
--- NOTE | 2021-01-28 18:41 | Ultrasound Report ---
PROCEDURE: Testicle w/Doppler INDICATIONS: R testicular pain x 1 week TECHNIQUE: Real-time scanning was performed of the scrotum and testicles, with image documentation. Color and p ulse Doppler interrogation was performed of both testicles. COMPARISON: None. FINDINGS: Right: Testicle is normal in size at 4.1 x 2.2 x 2.9 cm, and homogenous in echotexture. Epididymis is normal in overall size and morphology. There is a small right epididymal head cyst or spermatocel e measuring up to 0.2 cm. No hydrocele or varicoceles. Overlying scrotal skin is normal in thickness . Left: Testicle is normal in size at 3.7 x 2.3 x 2.9 cm, and homogeneous in echotexture. Epididymis is normal in overall size and morphology. There are 2 small clustered anechoic epididymal head cysts or spermatoceles measuring up to 0.4 cm and 0.3 cm. There is a small hydrocele. No varicoceles. Ove rlying scrotal skin is normal in thickness. Doppler: Color and pulse Doppler demonstrate patent and symmetric arterial flow in both testicles. P atent venous flow also demonstrated bilaterally. IMPRESSION: 1. No evidence of testicular torsion. 2. Small bilateral epididymal head cysts or spermatoceles. 3. Small left hydrocele. Reviewed by: Gurinder Kern MD on 01/28/2021 6:40 PM PST Approved by: Gurinder Kern MD on 01/28/2021 6:40 PM PST Station ID: [id number]
[2021-01-28 21:48] LABS: CHLAMYDIA TRACHOMATIS DNA NEGATIVE (NEGATIVE); NEISSERIA GONORRHOEAE DNA NEGATIVE (NEGATIVE)
== END 2021-01-28 18:02 | disposition home or self-care (01) ==
LOC: ED 15:09
DX: E11.9 Type 2 diabetes mellitus without complications (principal); I10 Essential (primary) hypertension; B35.6 Tinea cruris
CPT/HCPCS: 76870; 81003; 87491; 87591; 93975; 99284; A9270; 81001; 87086; 87661

== ENCOUNTER 2021-02-01 09:06 | Emergency (ER) | payer MEDICAID ==
[2021-02-01 09:46] LABS: BASOPHILS # (AUTO) 0.1 10^3/uL (0.0-0.1); BASOPHILS % (AUTO) 0.8 %; EOSINOPHILS # (AUTO) 0.1 10^3/uL (0.0-0.7); EOSINOPHILS % (AUTO) 2.2 %; HCT - HEMATOCRIT 44.9 % (42.0-52.0); HGB - HEMOGLOBIN 15.5 g/dL (14.0-18.0); LYMPHOCYTES # (AUTO) 1.9 10^3/uL (1.5-3.5); LYMPHOCYTES % (AUTO) 31.2 %; MEAN CORPUSCULAR HEMOGLOBIN 30.2 pg (27.0-31.0); MEAN CORPUSCULAR HGB CONC 34.5 g/dL (32.0-36.0); MEAN CORPUSCULAR VOLUME 87.5 fL (80.0-94.0); MEAN PLATELET VOLUME 10.6 fL (7.4-11.4); MONOCYTES # (AUTO) 0.4 10^3/uL (0.0-1.0); MONOCYTES % (AUTO) 6.7 %; NEUTROPHILS # (AUTO) 3.5 10^3/uL (1.5-6.6); NEUTROPHILS % (AUTO) 58.8 %; PLT - PLATELET COUNT 148 10^3/uL (130-450); RED BLOOD COUNT 5.13 10^6/uL (4.70-6.10); RED CELL DISTRIBUTION WIDTH 11.8 % (12.0-15.0)
[2021-02-01 09:52] LABS: PT - PROTHROMBIN TIME 11.1 secs (9.9-12.6)
[2021-02-01 10:00] LABS: ALBUMIN 4.3 g/dL (3.2-5.5); ALBUMIN/GLOBULIN RATIO 1.3 (1.0-2.2); BILIRUBIN,TOTAL 0.7 mg/dL (0.2-1.0); CALCIUM 9.4 mg/dL (8.5-10.3); CREATININE 0.7 mg/dL (0.6-1.2); POTASSIUM 4.2 mmol/L (3.5-5.0); TOTAL PROTEIN 7.6 g/dL (6.7-8.2)
[2021-02-01] MEDS: PROCHLORPERAZINE 10 MG/2 ML VIAL IVP STA (10:56)
[2021-02-01] MEDS: diphenhydrAMINE INJ 50 MG/ML VIAL IVP STA (10:56)
--- NOTE | 2021-02-01 12:53 | MRI Report ---
PROCEDURE: Brain W/O INDICATIONS: Rt facial palsy, incompelte sparing of forehead, TECHNIQUE: Noncontrast axial T1 spin echo, axial T2 fast spin echo, sagittal and axial FLAIR, coronal T2 fast sp in echo, axial gradient echo, axial diffusion and ADC through the brain. COMPARISON: None. FINDINGS: Image quality: Excellent. CSF Spaces: Basal cisterns are patent. No extra-axial fluid collections. Ventricles are normal in size and shape. Brain: No intracranial masses or hemorrhage. Mild diffuse cerebral volume loss is present. Mild deg ree of patchy high FLAIR signal within the periventricular and subcortical white matter, consistent w ith small vessel ischemic disease. Sweet/white matter interface is normal. Brainstem appears normal. Diffusion-weighted images demonstrate no acute ischemic insult. There is a 5 mm focus of elevated di ffusion signal within the right occipital lobe which demonstrates high ADC map signal, and mild FLAIR signal elevation, consistent with T2 shine through artifact. No chronic ischemic insults. Normal in travascular flow voids are present. Skull and face: Calvarium has normal marrow signal. Orbits appear normal. Sinuses: Sinuses and mastoids are clear. IMPRESSION: 1. Volume loss and small vessel ischemic disease. 2. No acute process. No recent infarct. Reviewed by: Willis Almonte MD on 02/01/2021 12:52 PM PST Approved by: Willis Almonte MD on 02/01/2021 12:52 PM PST Station ID: [id number]
[2021-02-01] MEDS: predniSONE 20 MG TABLET PO STA (13:02)
--- NOTE | 2021-02-01 13:02 | ED Physician Documentation ---
PD HPI FOCAL NEURO - Stated complaint Stated Complaint: R SIDE FACE NUMBNESS - Chief complaint Chief Complaint: Neuro - Additional information Additional information: Is 50-year-old male presenting with right-sided facial numbness. Reports woke with right-sided facial numbness and facial droop. Past medical significant for hypertension, diabetes, dyslipidemia. Denies other focal or lateralizing neurologic signs. Review of Systems Ten Systems: 10 systems reviewed and negative Constitutional: denies: Fever Eyes: denies: Loss of vision Ears: denies: Loss of hearing Nose: denies: Rhinorrhea / runny nose Throat: denies: Dental pain / toothache Cardiac: denies: Chest pain / pressure GI: denies: Abdominal Pain : denies: Dysuria Skin: denies: Rash Musculoskeletal: denies: Neck pain Neurologic: reports: Focal weakness. denies: Generalized weakness Psychiatric: denies: Depressed PD PAST MEDICAL HISTORY - Past Medical History Past Medical History: Yes Cardiovascular: Hypertension, High cholesterol Respiratory: None Neuro: Peripheral neuropathy Endocrine/Autoimmune: Type 2 diabetes GI: Pancreatitis : Nocturia HEENT: None Psych: None Musculoskeletal: Chronic back pain Derm: None - Past Surgical History Past Surgical History: Yes General: Other Ortho: Other - Present Medications Home Medications: Ambulatory Orders Medication Instructions Recorded Confirmed Gabapentin 1,600 mg PO TID 02/15/20 11/24/20 Duloxetine HCl [Cymbalta] 60 mg PO DAILY 10/19/20 11/24/20 Empagliflozin [Jardiance] 10 mg PO DAILY 10/19/20 11/24/20 Losartan Potassium [Cozaar] 100 mg PO DAILY 10/19/20 11/24/20 HYDROcod/ACETAM 5/325 [[place]renshaw 5/325] 1 tablet PO BID PRN #8 tablet 11/17/20 11/24/20 Tramadol HCl [Tramadol HCl ER] 100 mg PO DAILY PRN #20 12/13/20 predniSONE [Deltasone] 60 mg PO DAILY 5 Days #15 tablet 12/13/20 HYDROcod/ACETAM 5/325 [[place]renshaw 5/325] 1 - 2 ea PO Q6H PRN #14 tablet 01/28/21 Terbinafine [Lamisil] 250 mg PO DAILY #14 tablet 01/28/21 Tetrahydrozoline HCl [Eye Drops] 15 ml OP Q4HR #1 drops 02/01/21 predniSONE [Deltasone] 10 mg PO [id number] #42 tab 02/01/21 - Allergies Allergies/Adverse Reactions: Allergies Allergy/AdvReac Type Severity Reaction Status Date / Time bee pollen Allergy Dizziness Verified 02/01/21 09:15 naproxen [From Naprosyn] Allergy Rash Verified 02/01/21 09:15 - Social History Does the pt smoke?: No Smoking Status: Never smoker Does the pt drink ETOH?: Yes Does the pt have substance abuse?: Yes - Immunizations Immunizations are current?: Yes - POLST Patient has POLST: No POLST Status: Full Code PD ED PE NORMAL - General General: Alert and oriented X 3, Other - HEENT HEENT: Atraumatic - Neck Neck: Supple, no meningeal sign - Cardiac Cardiac: RRR - Respiratory Respiratory: No respiratory distress - Abdomen Abdomen: Normal bowel sounds - Male Male : Deferred - Rectal Rectal: Deferred - Derm Derm: Normal color - Neuro Neuro: Alert and oriented X 3. No: building mover 2-12 intact (Sided facial droop with partial sparing of forehead.) Results - Vitals Vitals: Vital Signs - 24 hr 02/01/21 02/01/21 02/01/21 09:11 11:15 13:00 Temperature 36.0 C L 36.6 C 36.7 C Heart Rate 104 H 95 94 Respiratory 16 16 18 Rate Blood Pressure 152/108 H 144/102 H 144/106 H O2 Saturation 100 96 100 Oxygen O2 Source Room air - EKG (time done) 0944 Rate: Rate (enter#) (101) Rhythm: Sinus tachycardia, NSR Delong: LAD Intervals: Normal SD, QRS normal QRS: Normal Ischemia: Normal ST segments Computer interpretation: Agree with computer - Labs Labs: Laboratory Tests 02/01/21 02/01/21 02/01/21 09:38 09:38 09:38 WBC 6.0 RBC 5.13 Hgb 15.5 Hct 44.9 MCV 87.5 MCH 30.2 MCHC 34.5 RDW 11.8 L Plt Count 148 MPV 10.6 Neut # (Auto) 3.5 Lymph # (Auto) 1.9 [place] # (Auto) 0.4 Eos # (Auto) 0.1 Baso # (Auto) 0.1 Absolute Nucleated RBC 0.00 Nucleated RBC % 0.0 PT 11.1 INR 1.0 Sodium 131 L Potassium 4.2 Chloride 95 L Carbon Dioxide 25 Anion Gap 11.0 BUN 12 Creatinine 0.7 Estimated GFR (MDRD) 118 Glucose 310 H Calcium 9.4 Total Bilirubin 0.7 AST 24 ALT 32 Alkaline Phosphatase 115 Troponin I High Sens Total Protein 7.6 Albumin 4.3 Globulin 3.3 Albumin/Globulin Ratio 1.3 Lipase 30 02/01/21 09:38 WBC RBC Hgb Hct MCV MCH MCHC RDW Plt Count MPV Neut # (Auto) Lymph # (Auto) [place] # (Auto) Eos # (Auto) Baso # (Auto) Absolute Nucleated RBC Nucleated RBC % PT INR Sodium Potassium Chloride Carbon Dioxide Anion Gap BUN Creatinine Estimated GFR (MDRD) Glucose Calcium Total Bilirubin AST ALT Alkaline Phosphatase Troponin I High Sens 3.5 Total Protein Albumin Globulin Albumin/Globulin Ratio Lipase PD MEDICAL DECISION MAKING - ED course Complexity details: reviewed results, considered differential, d/w patient ED course: Patient is a 50-year-old male presenting to the emergency department with right- sided facial droop. Presents with isolated right-sided facial droop ongoing greater than 24 hours. There was some sparing of the right forehead concerning for acute CVA. EKG is audible was negative for indications of acute cardiac ischemia or dysrhythmia. Labs obtained were within normal limits are generally nonactionable with the exception of a mild elevation in glucose consistent with the patient's known history of poorly controlled type 2 diabetes. MRI obtained was negative for any indications of infarct. 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 I had a very long, detailed and explicit conversation about the impact a course of steroids will have on this patient's blood sugar. Additionally he was provided with a an eye patch and prescription for eyedrops to take at home. Of note he denied any symptoms of herpes simplex now or in the past and denied any recent cold sores or genitourinary lesions. At this time will discharge for careful follow-up with primary care on a tapered course of prednisone. Otherwise clear return precautions and follow-up instructions were given prior to discharge. Departure - Departure Disposition: 01 Home, Self Care Clinical Impression: Maravilla's palsy Instructions: ED [place] Palsy Prescriptions: Tetrahydrozoline HCl [Eye Drops] 15 ml OP Q4HR #1 drops predniSONE [Deltasone] 10 mg PO [id number] #42 tab Comments: Thank you for allowing us to care for you today at [facility]. The MRI today did not show any indications of stroke. Your symptoms are most likely due to Maravilla's palsy, a facial nerve palsy of uncertain cause. I would like you to begin a long course of oral steroid. Please be aware that oral steroids can cause blood sugar to elevate, particularly in individuals who have diabetes. It is important that you monitor your blood sugars very carefully and follow-up carefully with your primary care doctor well on this therapy. It is also important that you protect your eye at night. Please use an eye patch whi in order to prevent scratches to the cornea of your eye. I also recommend eyedrops every 4 hour if it anytime you have any new or worsening symptoms please do not hesitate to return to the emergency department. Prescriptions were sent along chronically to [facility] pharmacy Discharge Date/Time: 02/01/21 13:12
[2021-02-01 13:03] VITALS: BP 144/106
== END 2021-02-01 13:12 | disposition home or self-care (01) ==
LOC: ED 09:06
DX: G51.0 Bell's palsy (principal); E11.42 Type 2 diabetes mellitus with diabetic polyneuropathy; Z79.4 Long term (current) use of insulin; I10 Essential (primary) hypertension
CPT/HCPCS: 36415; 70551; 80053; 83690; 84484; 85025; 85610; 93005; 96374; 96375; 99283; 99284; J1200; J7512

== ENCOUNTER 2021-05-13 12:40 | Outpatient (CLI) | payer MEDICAID ==
[2021-05-13 18:06] LABS: BASOPHILS # (AUTO) 0.1 10^3/uL (0.0-0.1); BASOPHILS % (AUTO) 0.9 %; EOSINOPHILS % (AUTO) 0.7 %; HCT - HEMATOCRIT 42.7 % (42.0-52.0); HGB - HEMOGLOBIN 14.8 g/dL (14.0-18.0); LYMPHOCYTES # (AUTO) 1.3 10^3/uL (1.5-3.5); LYMPHOCYTES % (AUTO) 23.9 %; MEAN CORPUSCULAR HEMOGLOBIN 30.3 pg (27.0-31.0); MEAN CORPUSCULAR HGB CONC 34.7 g/dL (32.0-36.0); MEAN CORPUSCULAR VOLUME 87.5 fL (80.0-94.0); MEAN PLATELET VOLUME 11.4 fL (7.4-11.4); MONOCYTES # (AUTO) 0.3 10^3/uL (0.0-1.0); MONOCYTES % (AUTO) 4.9 %; NEUTROPHILS # (AUTO) 3.8 10^3/uL (1.5-6.6); NEUTROPHILS % (AUTO) 69.4 %; PLT - PLATELET COUNT 185 10^3/uL (130-450); RED BLOOD COUNT 4.88 10^6/uL (4.70-6.10); WHITE BLOOD COUNT 5.5 x10^3/uL (4.8-10.8)
== END 2021-05-13 12:41 | disposition home or self-care (01) ==
LOC: LAB.N 12:40
PROVIDERS: ATTEND Nurse Practitioner Family
DX: N50.82 Scrotal pain (principal)
CPT/HCPCS: 36415; 81001; 84153; 85025; 87086; 87491; 87591; 87661

== ENCOUNTER 2021-05-13 14:08 | Outpatient (CLI) | payer MEDICAID ==
--- NOTE | 2021-05-13 18:03 | Ultrasound Report ---
PROCEDURE: Testicle INDICATIONS: PAIN IN SCROTUM TECHNIQUE: Real-time scanning was performed of the scrotum and testicles, with image documentation. Color and p ulse Doppler interrogation was performed of both testicles. COMPARISON: 01/28/2021 FINDINGS: Right: Testicle is normal in size at 3.7 x 2.0 x 2.8 cm, and homogenous in echotexture. Epididymis is normal in overall size and morphology. No hydrocele or varicoceles. Overlying scrotal skin is no rmal in thickness. Left: Testicle is normal in size at 3.8 x 2.1 x 2.7 cm, and homogeneous in echotexture. Epididymis is normal in overall size and morphology. Incidental small epididymal head cyst measuring 4 mm. No hy drocele or varicoceles. Overlying scrotal skin is normal in thickness. Doppler: Color and pulse Doppler demonstrate normal and symmetric arterial flow in both testicles. Other: Targeted evaluation of the right inguinal region demonstrated no sonographic abnormalities. Sp ecifically, no evidence for right internal hernias. This was the site of patient's pain. IMPRESSION: 1. Normal sonographic evaluation of the bilateral testicles. 2. At the patient directed area of pain in the right inguinal region, no evidence for inguinal hernia s. Reviewed by: Nadir Miranda MD on 05/13/2021 5:02 PM [facility] Approved by: Nadir Miranda MD on 05/13/2021 5:02 PM [facility] Station ID: [id number]
== END 2021-05-13 14:09 | disposition home or self-care (01) ==
LOC: DI 14:08
PROVIDERS: ATTEND Nurse Practitioner Family
DX: N50.82 Scrotal pain (principal)
CPT/HCPCS: 36415; 81001; 84153; 85025; 87086; 87491; 87591; 87661

== ENCOUNTER 2021-06-15 20:40 | Emergency (ER) | payer MEDICAID ==
[2021-06-15 21:36] LABS: BILIRUBIN,URINE NEGATIVE (NEGATIVE); GLUCOSE, URINE (UA) >=1000 mg/dL (NEGATIVE); KETONES,URINE (UA) TRACE mg/dL (NEGATIVE); LEUKOCYTE ESTERASE, URINE NEGATIVE (NEGATIVE); NITRITE,URINE NEGATIVE (NEGATIVE); OCCULT BLOOD,URINE NEGATIVE (NEGATIVE); PROTEIN,URINE NEGATIVE (NEGATIVE); UROBILINOGEN,URINE 0.2 (NORMAL) E.U./dL (NORMAL)
[2021-06-15 21:37] LABS: CLARITY,URINE CLEAR (CLEAR)
[2021-06-15] MEDS ORDERED: ONDANSETRON 4 MG/2 ML VIAL IVP STA (21:44)
[2021-06-15] MEDS ORDERED: MORPHINE 2 MG/ML CARPUJECT IVP STA (21:44)
[2021-06-15] MEDS ORDERED: IOVERSOL 320 100 ML VIAL IVP ONE ×2 (22:03→22:42)
[2021-06-15 22:22] LABS: ALBUMIN 3.4 g/dL (3.2-5.5); ALBUMIN/GLOBULIN RATIO 1.5 (1.0-2.2); CREATININE 0.6 mg/dL (0.6-1.2); POTASSIUM 3.6 mmol/L (3.5-5.0); TOTAL PROTEIN 5.6 g/dL (6.7-8.2)
[2021-06-15 22:35] LABS: BASOPHILS % (AUTO) 0.6 %; EOSINOPHILS # (AUTO) 0.1 10^3/uL (0.0-0.7); EOSINOPHILS % (AUTO) 1.8 %; HGB - HEMOGLOBIN 12.1 g/dL (14.0-18.0); LYMPHOCYTES # (AUTO) 1.7 10^3/uL (1.5-3.5); LYMPHOCYTES % (AUTO) 34.3 %; MEAN CORPUSCULAR VOLUME 84.4 fL (80.0-94.0); MEAN PLATELET VOLUME 12.3 fL (7.4-11.4); MONOCYTES # (AUTO) 0.3 10^3/uL (0.0-1.0); MONOCYTES % (AUTO) 5.3 %; NEUTROPHILS # (AUTO) 2.9 10^3/uL (1.5-6.6); NEUTROPHILS % (AUTO) 57.6 %; PLT - PLATELET COUNT 116 10^3/uL (130-450); RED BLOOD COUNT 4.03 10^6/uL (4.70-6.10); RED CELL DISTRIBUTION WIDTH 12.4 % (12.0-15.0); WHITE BLOOD COUNT 5.1 x10^3/uL (4.8-10.8)
[2021-06-15 22:36] LABS: MEAN CORPUSCULAR HGB CONC 35.6 g/dL (32.0-36.0)
[2021-06-15] MEDS ORDERED: SODIUM CHLORIDE 0.9% 1,000 ML IV STA (22:47)
--- NOTE | 2021-06-15 23:15 | CT Report ---
PROCEDURE: Abdomen/Pelvis W INDICATIONS: lower abd pain CONTRAST: IV CONTRAST: Optiray 320 ml: 100 PO CONTRAST: *NO PO CONTRAST TECHNIQUE: After the administration of intravenous contrast, 5 mm thick sections acquired from the diaphragms to the symphysis. 5 mm thick coronal and sagittal reformats were acquired. For radiation dose reducti on, the following was used: automated exposure control, adjustment of mA and/or kV according to kailyn ent size. COMPARISON: CT abdomen pelvis 10/19/2020. FINDINGS: Image quality: Excellent. ABDOMEN: Lung bases: There is mild dependent atelectasis bilaterally. Heart size is normal. Solid organs: Evaluation of the liver demonstrates no focal hepatic lesions. Gallbladder appears with in normal limits without calcified gallstones. Biliary system is non dilated. The spleen is normal i n size. Pancreas enhances normally without peripancreatic fat stranding or fluid collections. No adr enal nodules. Kidneys demonstrate no hydronephrosis. Peritoneum and bowel: Small bowel loops demonstrate normal wall thickness and caliber. The appendix is normal in appearance. There is colonic diverticulosis without definite acute diverticulitis. Mild segmental wall thickening within the descending and sigmoid colon may reflect a mild colitis. No free fluid or air. Nodes and vessels: No retroperitoneal or mesenteric adenopathy by size criteria. Aorta and inferior vena cava are normal in size. Miscellaneous: No ventral hernias. PELVIS: Genitourinary: There is mild concentric bladder wall thickening. Miscellaneous: No inguinal hernias or adenopathy. Bones: No suspicious bony lesions. No vertebral body compression fractures. IMPRESSION: 1. Mild segmental wall thickening in the descending and sigmoid colon suggestive of a mild colitis. 2. Colonic diverticulosis is demonstrated without definite acute diverticulitis. 3. No evidence of appendicitis. Reviewed by: Gurinder Alexander MD on 06/15/2021 11:14 PM PDT Approved by: Gurinder Alexander MD on 06/15/2021 11:14 PM PDT Station ID: [id number]
--- NOTE | 2021-06-16 01:08 | Ultrasound Report ---
PROCEDURE: Testicle w/Doppler INDICATIONS: R testicle pain TECHNIQUE: Real-time scanning was performed of the scrotum and testicles, with image documentation. Color and p ulse Doppler interrogation was performed of both testicles. COMPARISON: Testicular ultrasound 05/13/2021. FINDINGS: Right: Testicle measures 4.2 x 2.5 x 2.1 cm and appears homogenous in echotexture. Epididymis is no rmal in overall size and morphology. No hydrocele or varicoceles. Overlying scrotal skin is normal in thickness. Left: Testicle measures 4.1 x 2.7 x 2.0 cm and appears homogeneous in echotexture. Epididymis is no rmal in overall size and morphology. There are 2 small left epididymal head cysts or spermatoceles me asuring up to 0.3 x 0.3 cm and 0.3 x 0.2 cm. There are nonspecific oval hyperechoic lesions within th e epididymal body, measuring up to 0.9 x 0.8 x 0.9 cm. No hydrocele or varicoceles. Overlying scrota l skin is normal in thickness. Doppler: Color and pulse Doppler demonstrate patent and symmetric arterial flow in both testicles. V enous flow also demonstrated in the testicles bilaterally. IMPRESSION: 1. Hyperechoic regions within the left epididymis are nonspecific and the differential includes seque lae of an infectious or inflammatory process and less likely a neoplastic etiology. Recommend urologi c consultation and short-term follow-up to demonstrate resolution. 2. Small left epididymal head cysts or spermatoceles. Reviewed by: Gurinder Alexander MD on 06/16/2021 1:09 AM PDT Approved by: Gurinder Alexander MD on 06/16/2021 1:09 AM PDT Station ID: [id number]
[2021-06-16 01:55] LABS: CHLAMYDIA TRACHOMATIS DNA NEGATIVE (NEGATIVE); NEISSERIA GONORRHOEAE DNA NEGATIVE (NEGATIVE)
--- NOTE | 2021-06-16 02:10 | ED Physician Documentation ---
PD HPI MALE - Stated complaint Stated Complaint: MALE /ABD PX - Chief complaint Chief Complaint: Abd Pain - History obtained from History obtained from: Patient - Additional information Additional information: Patient is a 51-year-old male with a history of hypertension diabetes presenting for evaluation of right testicle pain.Patient reports having intermittent episodes of similar pain for the last year with normal previous ultrasounds. This episode started several hours ago while he was at home. He denies recent injury or trauma. Denies dysuria or hematuria. Denies fever, chills, chest pain, difficulty breathing, nausea, vomiting. He reports having some mild suprapubic discomfort but no back pain. Nothing makes the pain better or worse.He has been referred to a urologist and has an appointment on June 29.He denies penile discharge or concern for STDs.He has recently finished a course of doxycycline approximately 1 week ago after a recent ultrasound. Review of Systems Constitutional: denies: Fever Nose: denies: Congestion Cardiac: denies: Chest pain / pressure, Palpitations Respiratory: denies: Dyspnea, Cough GI: reports: Abdominal Pain. denies: Nausea, Vomiting, Diarrhea : reports: Testicular pain. denies: Dysuria Skin: denies: Rash Musculoskeletal: denies: Back pain Neurologic: denies: Syncope PD PAST MEDICAL HISTORY - Past Medical History Past Medical History: Yes Cardiovascular: Hypertension, High cholesterol Respiratory: None Neuro: Peripheral neuropathy Endocrine/Autoimmune: Type 2 diabetes GI: Pancreatitis : Nocturia HEENT: None Psych: None Musculoskeletal: Chronic back pain Derm: None - Past Surgical History Past Surgical History: Yes General: Other Ortho: Other - Present Medications Home Medications: Ambulatory Orders Medication Instructions Recorded Confirmed Gabapentin 1,600 mg PO TID 02/15/20 11/24/20 Duloxetine HCl [Cymbalta] 60 mg PO DAILY 10/19/20 11/24/20 Empagliflozin [Jardiance] 10 mg PO DAILY 10/19/20 11/24/20 Losartan Potassium [Cozaar] 100 mg PO DAILY 10/19/20 11/24/20 HYDROcod/ACETAM 5/325 [[place]kin 5/325] 1 tablet PO BID PRN #8 tablet 11/17/20 11/24/20 Tramadol HCl [Tramadol HCl ER] 100 mg PO DAILY PRN #20 12/13/20 predniSONE [Deltasone] 60 mg PO DAILY 5 Days #15 tablet 12/13/20 HYDROcod/ACETAM 5/325 [[place]kin 5/325] 1 - 2 ea PO Q6H PRN #14 tablet 01/28/21 Terbinafine [Lamisil] 250 mg PO DAILY #14 tablet 01/28/21 Tetrahydrozoline HCl [Eye Drops] 15 ml OP Q4HR #1 drops 02/01/21 predniSONE [Deltasone] 10 mg PO [id number] #42 tab 02/01/21 - Allergies Allergies/Adverse Reactions: Allergies Allergy/AdvReac Type Severity Reaction Status Date / Time bee pollen Allergy Dizziness Verified 02/01/21 09:15 naproxen [From Naprosyn] Allergy Rash Verified 02/01/21 09:15 - Social History Does the pt smoke?: No Smoking Status: Never smoker Does the pt drink ETOH?: Yes Does the pt have substance abuse?: Yes - Immunizations Immunizations are current?: Yes - POLST Patient has POLST: No POLST Status: Full Code PD ED PE NORMAL - General General: Alert and oriented X 3, No acute distress, Well developed/nourished - HEENT HEENT: Atraumatic, Moist mucous membranes - Neck Neck: Supple, no meningeal sign - Cardiac Cardiac: RRR, No murmur, Strong equal pulses - Respiratory Respiratory: No respiratory distress, Clear bilaterally - Abdomen Abdomen: Normal bowel sounds, Soft, Non distended, Other (Mild suprapubic and periumbilical tenderness to palpation, no rebound no guarding) - Male Male : Wood Treating Inspector present (Arely MARIEE), Other (Right testicular tenderness with no appreciable mass, swelling or erythema, normal testicular lie, normal appearing penis with no lesions or abnormal discharge, No mass or hernia) - Back Back: No CVA TTP, No spinal TTP - Derm Derm: Normal color, Warm and dry - Extremities Extremities: No edema - Neuro Neuro: Alert and oriented X 3, No motor deficit, Normal speech - Psych Psych: Normal mood, Normal affect Results - Vitals Vitals: Vital Signs - 24 hr 06/15/21 06/15/21 06/15/21 20:57 21:00 23:00 Temperature 36.8 C 36.8 C Heart Rate 109 H 100 88 Respiratory 20 18 16 Rate Blood Pressure 145/101 H 152/106 H 140/90 H O2 Saturation 100 99 97 06/16/21 06/16/21 06/16/21 01:20 01:50 02:12 Temperature Heart Rate 89 92 Respiratory 22 16 16 Rate Blood Pressure 150/96 H O2 Saturation 98 98 06/16/21 02:18 Temperature 36.6 C Heart Rate 85 Respiratory 15 Rate Blood Pressure 172/100 H O2 Saturation 97 Oxygen O2 Source Room air - Labs Labs: Laboratory Tests 06/15/21 06/15/21 06/15/21 20:50 21:50 21:52 WBC 5.1 RBC 4.03 L Hgb 12.1 L Hct 34.0 L MCV 84.4 MCH 30.0 MCHC 35.6 RDW 12.4 Plt Count 116 L MPV 12.3 H Neut # (Auto) 2.9 Lymph # (Auto) 1.7 [place] # (Auto) 0.3 Eos # (Auto) 0.1 Baso # (Auto) 0.0 Absolute Nucleated RBC 0.00 Nucleated RBC % 0.0 Sodium Potassium Chloride Carbon Dioxide Anion Gap BUN Creatinine Estimated GFR (MDRD) Glucose Calcium Total Bilirubin AST ALT Alkaline Phosphatase Total Protein Albumin Globulin Albumin/Globulin Ratio Urine Color YELLOW Urine Clarity CLEAR Urine pH 6.0 Ur Specific Martin 1.025 Urine Protein NEGATIVE Urine Glucose (UA) >=1000 H Urine Ketones TRACE Urine Occult Blood NEGATIVE Urine Nitrite NEGATIVE Urine Bilirubin NEGATIVE Urine Urobilinogen 0.2 (NORMAL) Ur Leukocyte Esterase NEGATIVE Ur Microscopic Review NOT INDICATED Urine Culture Comments NOT INDICATED Chlam trachomat DNA PCR NEGATIVE N.gonorrhoeae DNA (PCR) NEGATIVE T. vaginalis (PCR) TNP 06/15/21 21:52 WBC RBC Hgb Hct MCV MCH MCHC RDW Plt Count MPV Neut # (Auto) Lymph # (Auto) [place] # (Auto) Eos # (Auto) Baso # (Auto) Absolute Nucleated RBC Nucleated RBC % Sodium 125 L Potassium 3.6 Chloride 93 L Carbon Dioxide 18 L Anion Gap 14.0 H BUN 11 Creatinine 0.6 Estimated GFR (MDRD) 141 Glucose 247 H Calcium 8.0 L Total Bilirubin 3.0 H AST 94 H ALT 80 H Alkaline Phosphatase 134 H Total Protein 5.6 L Albumin 3.4 Globulin 2.2 Albumin/Globulin Ratio 1.5 Urine Color Urine Clarity Urine pH Ur Specific Martin Urine Protein Urine Glucose (UA) Urine Ketones Urine Occult Blood Urine Nitrite Urine Bilirubin Urine Urobilinogen Ur Leukocyte Esterase Ur Microscopic Review Urine Culture Comments Chlam trachomat DNA PCR N.gonorrhoeae DNA (PCR) T. vaginalis (PCR) PD MEDICAL DECISION MAKING - ED course Complexity details: reviewed results, d/w patient ED course: Patient presenting for evaluation of right testicular pain. He has had previous evaluations for similar pain without clear etiology and is awaiting a urology consultation. On exam he does have mild tenderness to the right testicle with noClinical signs of torsion orNecrotizing infection of the scrotum.Labs reviewed. Patient does have hyponatremia of sodium of 125. Most recent sodium is 131 and does appear to have history of hyponatremia which patient is aware of. Additionally mildly elevated LFTs which have also been seen on previous labs.No right upper quadrant tenderness on exam. CT the abdomen pelvis is essentially unremarkable with questionable signs of mild colitis. Testicular ultrasound is reviewed with no acute findings to the right testicle. Abnormality seen to the left testicle which could be from recent infection, inflammation or less likely a neoplastic process. Patient has recently completed a course of antibioticsFor possible testicular infection. Do not think he needs another round of antibiotics at this time.I did review his ultrasound results with him and he is aware he needs to have follow-up with a urologist which he already has scheduled. Pain was controlled in the ED.Patient was counseled he needs close follow-up with his primary care doctor regarding his lab abnormalities. Patient is aware of strict return precautions. Departure - Departure Disposition: 01 Home, Self Care Clinical Impression: Right testicular pain, Hyponatremia, Abnormal ultrasound, Elevated LFTs Condition: Stable Instructions: ED Hyponatremia, ED Abdominal Pain Unkn Cause Male Comments: You were evaluated for pain to your right testicle. The right testicle appears normal but there were some abnormal findings to your left testicle. These could be from a recent infection. You did recently complete a course of antibiotics. It could also be related to inflammation or even possibly a cancer. You need to follow-up with the urologist on June 29 as scheduled.You should also follow-up with your primary care doctor. Your salt level was low today.Some of your liver markers were slightly abnormal. You need to follow-up with your primary care doctor in the next 3 to 5 days for recheck.Please return to the emergency department with worsening pain, weakness, vomiting or with any concerns. IMPRESSION: 1. Hyperechoic regions within the left epididymis are nonspecific and the differential includes sequelae of an infectious or inflammatory process and less likely a neoplastic etiology. Recommend urologic consultation and short-term follow-up to demonstrate resolution. 2. Small left epididymal head cysts or spermatoceles. Discharge Date/Time: 06/16/21 02:20
[2021-06-16] MEDS ORDERED: ACETAMINOPHEN 325 MG TABLET PO STA (02:13)
[2021-06-16 02:18] VITALS: BP 172/100
== END 2021-06-16 02:20 | disposition home or self-care (01) ==
LOC: ED 20:40
DX: N50.811 Right testicular pain (principal); E87.1 Hypo-osmolality and hyponatremia; R94.5 Abnormal results of liver function studies; R93.89 Abnormal findings on diagnostic imaging of other specified body structures
CPT/HCPCS: 36415; 74177; 76870; 80053; 81003; 85025; 87491; 87591; 93975; 96361; 96374; 96375; 99284; A9270; Q9967; 81001; 87086; 87661

== ENCOUNTER 2021-06-22 08:41 | Outpatient (CLI) | payer MEDICAID ==
[2021-06-22 09:04] LABS: BASOPHILS % (AUTO) 0.8 %; EOSINOPHILS # (AUTO) 0.1 10^3/uL (0.0-0.7); EOSINOPHILS % (AUTO) 1.9 %; HCT - HEMATOCRIT 36.1 % (42.0-52.0); LYMPHOCYTES # (AUTO) 1.6 10^3/uL (1.5-3.5); LYMPHOCYTES % (AUTO) 31.5 %; MEAN CORPUSCULAR HEMOGLOBIN 30.9 pg (27.0-31.0); MEAN CORPUSCULAR VOLUME 85.7 fL (80.0-94.0); MEAN PLATELET VOLUME 10.9 fL (7.4-11.4); MONOCYTES # (AUTO) 0.3 10^3/uL (0.0-1.0); NEUTROPHILS # (AUTO) 3.1 10^3/uL (1.5-6.6); NEUTROPHILS % (AUTO) 59.4 %; PLT - PLATELET COUNT 157 10^3/uL (130-450); RED BLOOD COUNT 4.21 10^6/uL (4.70-6.10); RED CELL DISTRIBUTION WIDTH 12.7 % (12.0-15.0); WHITE BLOOD COUNT 5.2 x10^3/uL (4.8-10.8)
[2021-06-22 09:22] LABS: CREATININE,URINE 57.8 mg/dL; MICROALBUM/CREATININE RATIO,UR 48.4 ug/mg (<30.0); MICROALBUMIN,URINE 2.8 mg/dL (0-300.0)
[2021-06-22 09:32] LABS: THYROID STIMULATING HORMONE 2.72 uIU/mL (0.34-5.60)
[2021-06-22 10:07] LABS: ALBUMIN 3.7 g/dL (3.2-5.5); ALBUMIN/GLOBULIN RATIO 1.3 (1.0-2.2); ALKALINE PHOSPHATASE 112 IU/L (42-121); ALT ALANINE AMINOTRANSFERASE 66 IU/L (10-60); AST ASPARTATE AMINOTRANSFERASE 58 IU/L (10-42); BILIRUBIN,TOTAL 1.1 mg/dL (0.2-1.0); BUN - BLOOD UREA NITROGEN 8 mg/dL (6-20); CALCIUM 8.7 mg/dL (8.5-10.3); CARBON DIOXIDE - CO2 22 mmol/L (21-32); CHLORIDE 94 mmol/L (101-111); CHOLESTEROL 756 mg/dL; CREATININE 0.6 mg/dL (0.6-1.2); GFR - MDRD 141 (>89); GLUCOSE 370 mg/dL (70-100); HDL CHOLESTEROL 28 mg/dL; SODIUM 128 mmol/L (135-145); TOTAL PROTEIN 6.6 g/dL (6.7-8.2)
[2021-06-22 10:08] LABS: POTASSIUM 3.9 mmol/L (3.5-5.0); TRIGLYCERIDES > 2000 mg/dL
[2021-06-22 10:27] LABS: LDL CHOLESTEROL,DIRECT 28 mg/dL
[2021-06-22 13:08] LABS: ESTIMATED AVERAGE GLUCOSE 272 mg/dL (70-100); HEMOGLOBIN A1c% 11.1 % (4.27-6.07)
[2021-06-22 18:13] LABS: AMYLASE 73 U/L (28-100); LIPASE 50 U/L (22-51)
== END 2021-06-22 08:42 | disposition home or self-care (01) ==
LOC: LAB 08:41
PROVIDERS: ATTEND Nurse Practitioner Family
DX: E11.42 Type 2 diabetes mellitus with diabetic polyneuropathy (principal); E78.5 Hyperlipidemia, unspecified; E78.1 Pure hyperglyceridemia
CPT/HCPCS: 36415; 80050; 80061; 82043; 82150; 82570; 83036; 83690; 83721

== ENCOUNTER 2021-07-21 08:17 | Outpatient (CLI) | payer MEDICAID ==
--- NOTE | 2021-07-21 10:05 | XRAY Report ---
PROCEDURE: Ribs w/PA Chest LT INDICATIONS: L SIDED RIB PX TECHNIQUE: 3 views of the left ribs were acquired, along with a single view chest. COMPARISON: November 17, 2020 FINDINGS: SUPPORT DEVICES: None. LUNGS/PLEURA: No focal consolidation, pleural effusion or space-occupying pneumothorax. Bilateral, sy mmetric lower lung zone nodular densities, likely reflecting nipple shadows. MEDIASTINUM: The cardiomediastinal silhouette is within normal limits. BONES/SOFT TISSUES: No acute, displaced fracture of the left ribs or evidence of subcutaneous emphyse ma. IMPRESSION: 1.No acute abnormality. Reviewed by: Marco Antonio Guerrero MD on 07/21/2021 10:04 AM PDT Approved by: Marco Antonio Guerrero MD on 07/21/2021 10:04 AM PDT Station ID: [id number]
== END 2021-07-21 23:59 | disposition home or self-care (01) ==
LOC: DI.N 08:17
PROVIDERS: ATTEND Registered Nurse
DX: R07.81 Pleurodynia (principal)

== ENCOUNTER 2021-08-23 14:11 | Emergency (ER) | payer MEDICAID ==
[2021-08-23 14:58] LABS: BASOPHILS % (AUTO) 0.9 %; EOSINOPHILS % (AUTO) 0.9 %; HGB - HEMOGLOBIN 13.5 g/dL (14.0-18.0); LYMPHOCYTES # (AUTO) 1.3 10^3/uL (1.5-3.5); LYMPHOCYTES % (AUTO) 30.8 %; MEAN CORPUSCULAR HEMOGLOBIN 32.5 pg (27.0-31.0); MEAN CORPUSCULAR HGB CONC 35.5 g/dL (32.0-36.0); MEAN CORPUSCULAR VOLUME 91.6 fL (80.0-94.0); MONOCYTES # (AUTO) 0.2 10^3/uL (0.0-1.0); MONOCYTES % (AUTO) 3.9 %; NEUTROPHILS # (AUTO) 2.7 10^3/uL (1.5-6.6); NEUTROPHILS % (AUTO) 63.3 %; PLT - PLATELET COUNT 138 10^3/uL (130-450); RED BLOOD COUNT 4.15 10^6/uL (4.70-6.10); RED CELL DISTRIBUTION WIDTH 13.2 % (12.0-15.0); WHITE BLOOD COUNT 4.3 x10^3/uL (4.8-10.8)
[2021-08-23 14:59] LABS: SLIDE REVIEW? Indicated
[2021-08-23 15:32] LABS: DIFFERENTIAL COMMENT MANUAL=AUTO DIFF; PLATELET ESTIMATE, MANUAL NORMAL (130-450,000) (NORMAL); PLATELET MORPHOLOGY NORMAL APPEARANCE (NORMAL); RBC MORPHOLOGY (MULTIPLE) NORMAL APPEARANCE (NORMAL)
[2021-08-23 15:53] LABS: CREATININE 0.8 mg/dL (0.6-1.2); POTASSIUM 4.2 mmol/L (3.5-5.0)
[2021-08-23 15:54] LABS: ALBUMIN 3.2 g/dL (3.2-5.5); ALBUMIN/GLOBULIN RATIO 1.2 (1.0-2.2); CALCIUM 8.3 mg/dL (8.5-10.3); TOTAL PROTEIN 5.8 g/dL (6.7-8.2)
[2021-08-23 16:11] LABS: BILIRUBIN,TOTAL 0.3 mg/dL (0.2-1.0)
[2021-08-23] MEDS ORDERED: SODIUM CHLORIDE 0.9% 1,000 ML IV STA (16:45)
[2021-08-23] MEDS ORDERED: INSULIN REGULAR HUMAN 100 UNIT/1 ML 10 ML MDV IVP STA (16:45)
[2021-08-23] MEDS ORDERED: MORPHINE 2 MG/ML CARPUJECT IVP STA (16:45)
--- NOTE | 2021-08-23 16:45 | ED Physician Documentation ---
History of Present Illness - Stated complaint Stated Complaint: DIZZINESS/HIGH BLOOD PRESSURE - Chief complaint Chief Complaint: Neuro - History obtained from History obtained from: Patient - Additonal information Additional information: 51-year-old gentleman with type 2 diabetes was taken off Jardiance about a month ago. He is not sure why. He notes now recently that despite him increasing his Basaglar dose to 50 units in the morning noting that he is not on a short acting insulin, he has developed blurry vision, dizziness, diffuse body pain. When I asked him if he had been drinking alcohol he initially states he quit. I challenged him a bit with a positive result and states he had 2 bloody Jordyn's yesterday. I noted to him that this is not consistent with the alcohol level obtained in triage. He is on glipizide. He cannot tolerate metformin due to diarrhea. Review of Systems Ten Systems: 10 systems reviewed and negative Constitutional: reports: Fatigue, Weight Loss Cardiac: reports: Chest pain / pressure, Palpitations Respiratory: denies: Dyspnea, Cough PD PAST MEDICAL HISTORY - Past Medical History Cardiovascular: Hypertension, High cholesterol Respiratory: None Neuro: Peripheral neuropathy Endocrine/Autoimmune: Type 2 diabetes GI: Pancreatitis : Nocturia HEENT: None Psych: None Musculoskeletal: Chronic back pain Derm: None - Past Surgical History Past Surgical History: Yes General: Other Ortho: Other - Present Medications Home Medications: Ambulatory Orders Medication Instructions Recorded Confirmed Gabapentin 1,600 mg PO TID 02/15/20 08/23/21 Insulin Glargine,Hum.rec.anlog 50 unit SUBQ DAILY 08/23/21 08/23/21 [Basaglar Kwikpen U-100] - Allergies Allergies/Adverse Reactions: Allergies Allergy/AdvReac Type Severity Reaction Status Date / Time bee pollen Allergy Dizziness Verified 08/23/21 14:35 naproxen [From Naprosyn] Allergy Rash Verified 08/23/21 14:35 - Social History Does the pt smoke?: No Smoking Status: Never smoker Does the pt drink ETOH?: Yes Does the pt have substance abuse?: Yes - Immunizations Immunizations are current?: Yes - POLST Patient has POLST: No POLST Status: Full Code PD ED PE NORMAL - Vitals Vital signs reviewed: Yes (Tachycardic and hypertension) - General General: Alert and oriented X 3, No acute distress - HEENT HEENT: PERRL, EOMI - Neck Neck: Supple, no meningeal sign, No bony TTP - Cardiac Cardiac: No murmur, Other (Resting tachycardia) - Respiratory Respiratory: No respiratory distress, Clear bilaterally - Abdomen Abdomen: Normal bowel sounds, Soft, Non tender - Back Back: No CVA TTP, No spinal TTP - Derm Derm: Normal color, Warm and dry - Extremities Extremities: No edema, No calf tenderness / cord - Neuro Neuro: Alert and oriented X 3, Normal speech Results - Vitals Vitals: Vital Signs - 24 hr 08/23/21 08/23/21 08/23/21 14:30 17:22 17:29 Temperature 37.4 C 37.2 C Heart Rate 115 H 93 Respiratory 18 15 Rate Blood Pressure 157/92 H 169/103 H O2 Saturation 100 100 Oxygen O2 Source Room air - EKG (time done) 1446 Rate: Rate (enter#) (116) Rhythm: Sinus tachycardia [place]: Normal Intervals: Normal [place] QRS: Normal Ischemia: Non specific changes (Anterior Q waves with computer reading mild lateral ST elevation which looks barely perceptible.) - Labs Labs: Laboratory Tests 08/23/21 08/23/21 08/23/21 14:50 14:50 17:02 WBC 4.3 L RBC 4.15 L Hgb 13.5 L Hct 38.0 L MCV 91.6 MCH 32.5 H MCHC 35.5 RDW 13.2 Plt Count 138 MPV 11.0 Neut # (Auto) 2.7 Lymph # (Auto) 1.3 L [place] # (Auto) 0.2 Eos # (Auto) 0.0 Baso # (Auto) 0.0 Absolute Nucleated RBC 0.00 Band Neuts % (Manual) Not Reportable Abnorm Lymph % (Manual) Not Reportable Nucleated RBC % 0.0 Neutrophils # (Manual) Not Reportable Lymphocytes # (Manual) Not Reportable Monocytes # (Manual) Not Reportable Eosinophils # (Manual) Not Reportable Basophils # (Manual) Not Reportable Differential Comment MANUAL=AUTO DIFF Manual Slide Review Indicated Platelet Estimate NORMAL (130-450,000) Platelet Morphology NORMAL APPEARANCE RBC Morph Micro Appear NORMAL APPEARANCE Sodium 127 L Potassium 4.2 Chloride 92 L Carbon Dioxide 24 Anion Gap 11.0 BUN 8 Creatinine 0.8 Estimated GFR (MDRD) 101 Glucose 516 H* POC Whole Bld Glucose Calcium 8.3 L Total Bilirubin 0.3 AST 55 H ALT 61 H Alkaline Phosphatase 154 H Troponin I High Sens 5.9 Total Protein 5.8 L Albumin 3.2 Globulin 2.6 Albumin/Globulin Ratio 1.2 Lipase 110 H Ethyl Alcohol 119.0 08/23/21 17:45 WBC RBC Hgb Hct MCV MCH MCHC RDW Plt Count MPV Neut # (Auto) Lymph # (Auto) [place] # (Auto) Eos # (Auto) Baso # (Auto) Absolute Nucleated RBC Band Neuts % (Manual) Abnorm Lymph % (Manual) Nucleated RBC % Neutrophils # (Manual) Lymphocytes # (Manual) Monocytes # (Manual) Eosinophils # (Manual) Basophils # (Manual) Differential Comment Manual Slide Review Platelet Estimate Platelet Morphology RBC Morph Micro Appear Sodium Potassium Chloride Carbon Dioxide Anion Gap BUN Creatinine Estimated GFR (MDRD) Glucose POC Whole Bld Glucose 367 H Calcium Total Bilirubin AST ALT Alkaline Phosphatase Troponin I High Sens Total Protein Albumin Globulin Albumin/Globulin Ratio Lipase Ethyl Alcohol PD MEDICAL DECISION MAKING - ED course ED course: 51-year-old gentleman presents with symptoms that are likely related to uncontrolled diabetes. Blood sugar initially was 516. He was tachycardic. After the administration of some pain medication for his diffuse body aches, 10 units of regular insulin and a liter of saline he was feeling much better and his tachycardia had resolved. Blood sugar now in the 360s. Current insulin is 50 units of long-acting Basaglar once a day, and 2 mg of glipizide once a day. No other therapies. He was previously on a sliding scale and still has NovoLog and everything else he needs at home such as needles, lancets and glucometer. He was advised to increase his Basaglar to 60 units a day and restart his sliding scale and close follow-up with his primary care physician. Departure - Departure Disposition: Home, Self Care Clinical Impression: Uncontrolled type 2 diabetes mellitus with complication, with long-term current use of insulin, Elevated blood alcohol level Condition: Good Record reviewed to determine appropriate education?: Yes Instructions: ED Hyperglycemia Diabetic, ED Alcohol Abuse Follow-Up: Francisco J Raymundo MD [Primary Care Provider] - Comments: As discussed, I would increase your Basaglar to 60 units a day and restart your NovoLog at the sliding scale you were previously on. Continue the glipizide. You need to follow-up with your primary care physician, next available appointment. Return for new or worsening symptoms. Abstain from alcohol given the elevated liver enzymes
[2021-08-23 18:22] VITALS: BP 154/100
== END 2021-08-23 19:00 | disposition home or self-care (01) ==
LOC: ED 14:11
DX: E11.65 Type 2 diabetes mellitus with hyperglycemia (principal); R74.01 Elevation of levels of liver transaminase levels; Z79.4 Long term (current) use of insulin
CPT/HCPCS: 36415; 80053; 80320; 83690; 84484; 85025; 93005; 96361; 96374; 99283; 99284; J1815

== ENCOUNTER 2021-08-31 08:29 | Emergency (ER) | payer MEDICAID ==
[2021-08-31 08:43] VITALS: BP 134/94
--- NOTE | 2021-08-31 08:58 | XRAY Report ---
PROCEDURE: Chest 1 View X-Ray INDICATIONS: Chest pain TECHNIQUE: One view of the chest was acquired. COMPARISON: Left rib radiographs and frontal chest 07/21/2021. FINDINGS: Surgical changes and devices: None. Lungs and pleura: No pleural effusions or pneumothorax. Lungs are clear. Mediastinum: Mediastinal contours is unchanged. Heart size is normal. Bones and chest wall: No suspicious bony lesions. Overlying soft tissues appear unremarkable. IMPRESSION: No acute cardiopulmonary abnormality. Reviewed by: Freedom Hines MD on 08/31/2021 8:57 AM PDT Approved by: Freedom Hines MD on 08/31/2021 8:57 AM PDT Station ID: [id number]
[2021-08-31 09:04] LABS: BASOPHILS # (AUTO) 0.1 10^3/uL (0.0-0.1); BASOPHILS % (AUTO) 1.2 %; EOSINOPHILS # (AUTO) 0.1 10^3/uL (0.0-0.7); EOSINOPHILS % (AUTO) 1.4 %; HCT - HEMATOCRIT 34.7 % (42.0-52.0); HGB - HEMOGLOBIN 12.4 g/dL (14.0-18.0); LYMPHOCYTES # (AUTO) 1.3 10^3/uL (1.5-3.5); LYMPHOCYTES % (AUTO) 26.1 %; MEAN CORPUSCULAR HGB CONC 35.7 g/dL (32.0-36.0); MEAN CORPUSCULAR VOLUME 89.4 fL (80.0-94.0); MEAN PLATELET VOLUME 11.1 fL (7.4-11.4); MONOCYTES # (AUTO) 0.2 10^3/uL (0.0-1.0); MONOCYTES % (AUTO) 4.5 %; NEUTROPHILS # (AUTO) 3.3 10^3/uL (1.5-6.6); NEUTROPHILS % (AUTO) 66.6 %; PLT - PLATELET COUNT 136 10^3/uL (130-450); RED BLOOD COUNT 3.88 10^6/uL (4.70-6.10); WHITE BLOOD COUNT 4.9 x10^3/uL (4.8-10.8)
--- NOTE | 2021-08-31 09:09 | ED Physician Documentation ---
PD HPI CHEST PAIN - Stated complaint Stated Complaint: L SIDE CHEST PX - Chief complaint Chief Complaint: Cardiac - History obtained from History obtained from: Patient - History of Present Illness Timing - onset: Today (onset left chest pain this morning, persists with movment and palpation left pectoral area.) Timing - onset during: Light activity Timing - duration: Hours Timing - details: Abrupt onset, Still present Quality: Aching, Sharp, Pain Location: Left chest Improved by: Rest Worsened by: Movement, Palpation. No: Inspiration Associated symptoms: No: Shortness of air, Diaphoresis, Nausea, Feeling faint / dizzy Similar symptoms before: Has not had sx before Recently seen: Clinic (has been to clinic couple times for left facial pain wit hout diagnosis. Was at walk in today for the new chest pain, and referred to ER.) Review of Systems Constitutional: denies: Fever, Chills, Myalgias Ears: reports: Ear pain (left ear, left lower face up to orthodoxy area. Some pain to left side of anterior neck.) Nose: denies: Rhinorrhea / runny nose, Congestion Throat: denies: Sore throat Cardiac: denies: Palpitations, Pedal edema, Calf pain Respiratory: denies: Dyspnea, Cough GI: denies: Abdominal Pain, Nausea, Vomiting Skin: denies: Rash (he states he has not had any rash in face pain area. Does have marked sensitive to touch and palation left side only.), Lesions Musculoskeletal: denies: Neck pain, Back pain PD PAST MEDICAL HISTORY - Past Medical History Past Medical History: Yes Cardiovascular: Hypertension, High cholesterol Respiratory: None Neuro: Peripheral neuropathy Endocrine/Autoimmune: Type 2 diabetes GI: Pancreatitis, Other : Nocturia HEENT: None Psych: None Musculoskeletal: Chronic back pain Derm: None - Past Surgical History Past Surgical History: Yes General: Other Ortho: Other - Present Medications Home Medications: Ambulatory Orders Medication Instructions Recorded Confirmed Gabapentin 1,200 mg PO TID 02/15/20 08/31/21 Insulin Glargine,Hum.rec.anlog 50 unit SUBQ DAILY 08/23/21 08/31/21 [Basaglar Kwikpen U-100] Acetaminophen [Acetaminophen Extra 500 mg PO QID PRN #50 tablet 08/31/21 Strength] Insulin Aspart [NovoLOG] 1 - 10 units SQ TIDWM 08/31/21 08/31/21 Valacyclovir HCl [Valtrex] 1,000 mg PO TID 7 Days #21 tablet 08/31/21 dexAMETHasone [Decadron] 4 mg PO DAILY #7 tablet 08/31/21 oxyCODONE [Roxicodone] 5 mg PO Q6H PRN #15 tablet 08/31/21 - Allergies Allergies/Adverse Reactions: Allergies Allergy/AdvReac Type Severity Reaction Status Date / Time bee pollen Allergy Dizziness Verified 08/23/21 14:35 naproxen [From Naprosyn] Allergy Rash Verified 08/23/21 14:35 - Social History Does the pt smoke?: No Smoking Status: Former smoker Does the pt drink ETOH?: Yes Does the pt have substance abuse?: Yes Substance Use and Type: Marijuana - Immunizations Immunizations are current?: Yes - POLST Patient has POLST: No POLST Status: Full Code PD ED PE NORMAL - Vitals Vital signs reviewed: Yes (good sats. Mild tachycardia. ) - General General: Alert and oriented X 3, Well developed/nourished, Other (appears in pain from chest mainly. ) - HEENT HEENT: Atraumatic, PERRL, EOMI, Pharynx benign, Dentition benign (no tenderness along gumline. ), Other (face and left preauricular iup to orthodoxy area with tenderness to touch. No redness nor rash. Tender left upper neck to submandibular area without nodes/rash/sores. ) - Neck Neck: Supple, no meningeal sign (left side of face along mandible but also up to ), No adenopathy - Cardiac Cardiac: RRR, No murmur - Respiratory Respiratory: No respiratory distress, Clear bilaterally, Other (left chestwall tenderness along pectoral area) - Abdomen Abdomen: Soft, Non tender - Back Back: No CVA TTP, No spinal TTP - Derm Derm: Normal color, Warm and dry, No rash Results - Vitals Vitals: Vital Signs - 24 hr 08/31/21 08:29 Temperature 36.7 C Heart Rate 112 H Respiratory 18 Rate Blood Pressure 134/94 H O2 Saturation 100 Oxygen O2 Source Room air - EKG (time done) 08:35 Rate: Rate (enter#) (117) Rhythm: Sinus tachycardia Morning Sun: Normal Intervals: Normal [place] QRS: Normal Ischemia: Normal ST segments. No: ST elevation c/w ischemia, ST depression - Labs Labs: Laboratory Tests 08/31/21 08/31/21 08/31/21 08:53 08:53 08:53 WBC 4.9 RBC 3.88 L Hgb 12.4 L Hct 34.7 L MCV 89.4 MCH 32.0 H MCHC 35.7 RDW 13.0 Plt Count 136 MPV 11.1 Neut # (Auto) 3.3 Lymph # (Auto) 1.3 L [place] # (Auto) 0.2 Eos # (Auto) 0.1 Baso # (Auto) 0.1 Absolute Nucleated RBC 0.00 Nucleated RBC % 0.0 Sodium 130 L Potassium 4.2 Chloride 97 L Carbon Dioxide 21 Anion Gap 12.0 BUN 6 Creatinine 0.9 Estimated GFR (MDRD) 88 L Glucose 475 H Calcium 8.7 Total Bilirubin 0.7 AST 110 H ALT 89 H Alkaline Phosphatase 156 H Troponin I High Sens 5.2 Total Protein 6.2 L Albumin 3.2 Globulin 3.0 Albumin/Globulin Ratio 1.1 Lipase 50 - Rads (name of study) chest xray Radiology: Prelim report reviewed (no acute process), See rad report PD MEDICAL DECISION MAKING - ED course Complexity details: reviewed results, considered differential (the current left chest pain has muscular character. Recent left facial pain without clear cause with consideration of neuropathic pain, such as shingles without rash, in V3 or cervical plexus nerve area. Also consider CRPS in C2.), d/w patient Departure - Departure Disposition: 01 Home, Self Care Clinical Impression: Left facial pain, Chest pain, musculoskeletal Condition: Stable Record reviewed to determine appropriate education?: Yes Instructions: ED Chest Pain NonCardiac Follow-Up: Francisco J Raymundo MD [Primary Care Provider] - Prescriptions: Acetaminophen [Acetaminophen Extra Strength] 500 mg PO QID PRN #50 tablet PRN Reason: Pain dexAMETHasone [Decadron] 4 mg PO DAILY #7 tablet oxyCODONE [Roxicodone] 5 mg PO Q6H PRN #15 tablet PRN Reason: Pain Valacyclovir HCl [Valtrex] 1,000 mg PO TID 7 Days #21 tablet Comments: Your EKG/chest x-ray/blood tests are normal without any signs of heart or lung cause for your pain in the chest today. Presume musculoskeletal. Regarding your face and neck pain, I believe it is more related to a nerve inflammation. This can be immune related at times but more commonly is a viral inflammation called shingles. This can occur without a rash occasionally. The character of your symptoms sounds like shingles. As such I would treat it with a steroid anti-inflammatory for a week along with valacyclovir antiviral medicine. To that add Tylenol every 4-6 hours (4 times a day regularly) for the next 7 to 10 days. To that add oxycodone every 6-8 hours if needed for pain. This would be intended to a short-term prescription. I would anticipate improvement over the next 3 to 5 days. Follow-up with your primary care. I transmitted your prescriptions to [facility] pharmacy in [place]. My narcotic instructions I am prescribing a short course of narcotic pain medication for you. These are potentially dangerous and addictive medications that should be used carefully. These medications may constipate you. Take an [id number] stool softener such as docusate twice daily with plenty of water while taking these medications. If you go 24 hours without a bowel movement, take [id number] MiraLAX, per package instructions. Do not drink or drive while taking these medications. If you received narcotic or sedating medications while in the emergency department do not drive for 24 hours. Store this medication in a safe, secure place and out of reach of children. It is a violation of federal law to give or sell this medication to another person or to use in a manner other than prescribed. The ED will not refill narcotic prescriptions, including prescriptions lost or stolen. You can dispose of unwanted medications at the [facility]'s office or at several pharmacies such as [facility]. Discharge Date/Time: 08/31/21 11:02
[2021-08-31] MEDS ORDERED: HYDROmorphone 1 MG/ML CARPUJECT IVP STA (09:10)
[2021-08-31] MEDS ORDERED: KETOROLAC 15 MG/ML VIAL IVP STA (09:10)
[2021-08-31] MEDS ORDERED: DEXAMETHASONE 10 MG/ML VIAL IVP STA (09:11)
[2021-08-31 09:20] LABS: ALBUMIN 3.2 g/dL (3.2-5.5); ALBUMIN/GLOBULIN RATIO 1.1 (1.0-2.2); BILIRUBIN,TOTAL 0.7 mg/dL (0.2-1.0); CALCIUM 8.7 mg/dL (8.5-10.3); CREATININE 0.9 mg/dL (0.6-1.2); POTASSIUM 4.2 mmol/L (3.5-5.0); TOTAL PROTEIN 6.2 g/dL (6.7-8.2)
[2021-08-31] MEDS ORDERED: valACYclovir 500 MG TABLET PO STA (10:09)
== END 2021-08-31 11:02 | disposition home or self-care (01) ==
LOC: EDUNIT# → ED 08:29
DX: R07.89 Other chest pain (principal); G50.1 Atypical facial pain; I10 Essential (primary) hypertension; Z87.891 Personal history of nicotine dependence
CPT/HCPCS: 36415; 71045; 80053; 83690; 84484; 85025; 93005; 96374; 96375; 99284; A9270; J1170

== ENCOUNTER 2021-11-08 07:52 | Emergency (ER) | payer MEDICAID ==
[2021-11-08 08:06] VITALS: BP 138/86
--- NOTE | 2021-11-08 08:20 | ED Physician Documentation ---
PD HPI HEENT - Stated complaint Stated Complaint: LT EAR PX - Chief complaint Chief Complaint: Heent - History obtained from History obtained from: Patient - History of Present Illness Timing - onset: How many months ago (1) Timing - duration: Months (1) Timing - details: Gradual onset (has had pain left maxillary area and around left ear, left parietal scalp for over a month. Seen in ER and Dx with possible early shingles. Rx with pain meds, valacyclovir, steroids. He states it did not get much better and is worse again the past several days, same area. No new symptoms.), Still present Location: Left ear (outer ear, and to left neck/preauricular/ left parietal, and to left maxillary area. No rash developed.), Other Associated symptoms: No: Fever, Congestion, Swollen nodes, Facial swelling, Cough Similar symptoms before: No diagnosis Recently seen: Emergency Dept Review of Systems Constitutional: denies: Fever, Chills Nose: denies: Rhinorrhea / runny nose, Congestion Throat: denies: Sore throat Respiratory: denies: Cough Skin: denies: Rash, Lesions, Abrasion (s), Laceration (s) PD PAST MEDICAL HISTORY - Past Medical History Cardiovascular: Hypertension, High cholesterol Respiratory: None Neuro: Peripheral neuropathy Endocrine/Autoimmune: Type 2 diabetes GI: Pancreatitis, Other : Nocturia HEENT: None Psych: None Musculoskeletal: Chronic back pain Derm: None - Past Surgical History Past Surgical History: Yes General: Other Ortho: Other - Present Medications Home Medications: Ambulatory Orders Medication Instructions Recorded Confirmed Gabapentin 1,200 mg PO TID 02/15/20 08/31/21 Insulin Glargine,Hum.rec.anlog 50 unit SUBQ DAILY 08/23/21 08/31/21 [Basaglar Kwikpen U-100] Acetaminophen [Acetaminophen Extra 500 mg PO QID PRN #50 tablet 08/31/21 Strength] Insulin Aspart [NovoLOG] 1 - 10 units SQ TIDWM 08/31/21 08/31/21 Valacyclovir HCl [Valtrex] 1,000 mg PO TID 7 Days #21 tablet 08/31/21 dexAMETHasone [Decadron] 4 mg PO DAILY #7 tablet 08/31/21 oxyCODONE [Roxicodone] 5 mg PO Q6H PRN #15 tablet 08/31/21 Acetaminophen [Acetaminophen Extra 500 mg PO QID PRN #40 tablet 11/08/21 Strength] carBAMazepine [TEGretol] 100 mg PO BID #40 tablet 11/08/21 dexAMETHasone [Decadron] 4 mg PO DAILY #5 tablet 11/08/21 oxyCODONE [Roxicodone] 5 mg PO Q6H PRN #20 tablet 11/08/21 - Allergies Allergies/Adverse Reactions: Allergies Allergy/AdvReac Type Severity Reaction Status Date / Time bee pollen Allergy Dizziness Verified 11/08/21 08:06 naproxen [From Naprosyn] Allergy Rash Verified 11/08/21 08:06 - Social History Does the pt smoke?: No Smoking Status: Former smoker Does the pt drink ETOH?: Yes Does the pt have substance abuse?: Yes - Immunizations Immunizations are current?: Yes - POLST Patient has POLST: No POLST Status: Full Code PD ED PE NORMAL - Vitals Vital signs reviewed: Yes - General General: Alert and oriented X 3, No acute distress, Well developed/nourished - HEENT HEENT: Ears normal, Other (left outer ear with marked sensitivity, as is preauricular, left parietal and left cheek. No rash nor sores. No change in hearing. ). No: Dentition benign (caries without any gum swelling nor tenderness. 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 skin seensitivie. Had seemed like early shingles prior visit, but no rash developed. Could still be postherpetic. Other considerations are trigeminal deuralgia. Does not seem dental nor just TMJ.), d/w patient Departure - Departure Disposition: 01 Home, Self Care Clinical Impression: Acute facial pain, Trigeminal neuropathy Condition: Stable Record reviewed to determine appropriate education?: Yes Instructions: ED Neuralgia Trigeminal Follow-Up: Francisco J Raymundo MD [Primary Care Provider] - [facility] [Provider Group] Prescriptions: Acetaminophen [Acetaminophen Extra Strength] 500 mg PO QID PRN #40 tablet PRN Reason: Pain dexAMETHasone [Decadron] 4 mg PO DAILY #5 tablet oxyCODONE [Roxicodone] 5 mg PO Q6H PRN #20 tablet PRN Reason: Pain carBAMazepine [TEGretol] 100 mg PO BID #40 tablet Comments: This still sounds like an inflammation or irritation of the facial nerve in the area. Consideration could still be postherpetic/shingles with persistent irritation of the nerve. There can be other causes of irritation in the nerve in the area, inflammatory and idiopathic. I would suggest having you see an ENT specialist to get a further opinion and diagnosis on this condition. Use Decadron steroid anti-inflammatory daily for 5 days for possible inflammation of the nerve. Use Tylenol every 4 times a day regularly for the next week or 2. Continue with your current gabapentin. Add oxycodone 3 times daily if needed for pain. We can also start a medication called carbamazepine (Tegretol) which is used to treat trigeminal neuralgia while arranging the follow-up with ENT. Go ahead and see the dentist as planned next week just to ensure not a dental cause though it does not really seem like that. I sent your prescriptions to [facility] pharmacy. I am prescribing a short course of narcotic pain medication for you. These are potentially dangerous and addictive medications that should be used carefully. These medications may constipate you. Take an gujc-olq-neqtmei stool softener such as docusate twice daily with plenty of water while taking these medications. If you go 24 hours without a bowel movement, take [id number] MiraLAX, per package instructions. Do not drink or drive while taking these medications. If you received narcotic or sedating medications while in the emergency department do not drive for 24 hours. Store this medication in a safe, secure place and out of reach of children. It is a violation of federal law to give or sell this medication to another person or to use in a manner other than prescribed. The ED will not refill narcotic prescriptions, including prescriptions lost or stolen. You can dispose of unwanted medications at the [facility]'s office or at several pharmacies such as [facility]. Discharge Date/Time: 11/08/21 09:09
[2021-11-08] MEDS ORDERED: CHERRY SYRUP 10 ML UDC PO ONE (08:36)
[2021-11-08] MEDS ORDERED: oxyCODONE 5 MG TABLET PO STA (08:36)
[2021-11-08] MEDS ORDERED: DEXAMETHASONE 10 MG/ML VIAL PO STA (08:36)
== END 2021-11-08 09:09 | disposition home or self-care (01) ==
LOC: ED 07:52
DX: E11.40 Type 2 diabetes mellitus with diabetic neuropathy, unspecified (principal); E11.42 Type 2 diabetes mellitus with diabetic polyneuropathy; R51.9 Headache, unspecified; I10 Essential (primary) hypertension; Z79.4 Long term (current) use of insulin; Z87.891 Personal history of nicotine dependence
CPT/HCPCS: 99282; 99283; A9270

== ENCOUNTER 2021-11-21 18:21 | Emergency (ER) | payer MEDICAID ==
[2021-11-21] MEDS ORDERED: HYDROmorphone 1 MG/ML CARPUJECT IVP STA (19:38)
--- NOTE | 2021-11-21 19:39 | ED Physician Documentation ---
PD HPI HEADACHE - Stated complaint Stated Complaint: HEAD PAIN - Chief complaint Chief Complaint: Neuro - History obtained from History obtained from: Patient - Additional information Additional information: 51-year-old has had about 4 months of sharp pain that he seems to think is emanating from around the right ear and goes up into his scalp on the left and then down towards the neck. It is worse with drinking liquids but does not seem to be worse with chewing, that said he has not been eating hard food because of bad teeth. He denies fevers or chills. He was seen here once for this, he st ates he had been seen 3 or 4 times for this but I only see one visit about 2 weeks ago with no diagnostics. Medications given then did not help. In the interim he saw his primary care physician who is ordered a variety of testing, none of which has been completed yet. Review of Systems Constitutional: denies: Fever, Chills Nose: reports: Reviewed and negative Cardiac: reports: Reviewed and negative Respiratory: reports: Reviewed and negative PD PAST MEDICAL HISTORY - Past Medical History Past Medical History: Yes Cardiovascular: Hypertension, High cholesterol Respiratory: None Neuro: Peripheral neuropathy Endocrine/Autoimmune: Type 2 diabetes GI: Pancreatitis, Other : Nocturia HEENT: None Psych: None Musculoskeletal: Chronic back pain Derm: None - Past Surgical History Past Surgical History: Yes General: Other Ortho: Other - Present Medications Home Medications: Ambulatory Orders Medication Instructions Recorded Confirmed Gabapentin 1,200 mg PO TID 02/15/20 08/31/21 Insulin Glargine,Hum.rec.anlog 50 unit SUBQ DAILY 08/23/21 08/31/21 [Basaglpravin Bejarano U-100] Acetaminophen [Acetaminophen Extra 500 mg PO QID PRN #50 tablet 08/31/21 Strength] Insulin Aspart [NovoLOG] 1 - 10 units SQ TIDWM 08/31/21 08/31/21 Valacyclovir HCl [Valtrex] 1,000 mg PO TID 7 Days #21 tablet 08/31/21 dexAMETHasone [Decadron] 4 mg PO DAILY #7 tablet 08/31/21 oxyCODONE [Roxicodone] 5 mg PO Q6H PRN #15 tablet 08/31/21 Acetaminophen [Acetaminophen Extra 500 mg PO QID PRN #40 tablet 11/08/21 Strength] carBAMazepine [TEGretol] 100 mg PO BID #40 tablet 11/08/21 dexAMETHasone [Decadron] 4 mg PO DAILY #5 tablet 11/08/21 oxyCODONE [Roxicodone] 5 mg PO Q6H PRN #20 tablet 11/08/21 Amox/Clav 875/125 [Augmentin] 1 each PO Q12H #20 tablet 11/21/21 HYDROcod/ACETAM 5/325 [[place] 5/325] 1 - 2 tab PO Q6H PRN #15 tablet 11/21/21 - Allergies Allergies/Adverse Reactions: Allergies Allergy/AdvReac Type Severity Reaction Status Date / Time bee pollen Allergy Dizziness Verified 11/21/21 18:35 naproxen [From Naprosyn] Allergy Rash Verified 11/21/21 18:35 - Social History Does the pt smoke?: No Smoking Status: Never smoker Does the pt drink ETOH?: Yes Does the pt have substance abuse?: Yes - Immunizations Immunizations are current?: Yes - POLST Patient has POLST: No POLST Status: Full Code PD ED PE NORMAL - Vitals Vital signs reviewed: Yes - General General: Alert and oriented X 3, No acute distress - HEENT HEENT: PERRL, EOMI, Other (TM is normal, he does not have any mastoid tenderness but he is tender over the left TMJ. Generally poor dentition but no obvious dental infection. 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, No motor deficit, No sensory deficit, Normal speech Eye Opening: Spontaneous Motor: Obeys Commands Verbal: Oriented GCS Score: 15 - Psych Psych: Normal mood, Normal affect Results - Vitals Vitals: Vital Signs - 24 hr 11/21/21 11/21/21 11/21/21 18:36 18:38 20:38 Temperature 36.4 C L 36.5 C Heart Rate 118 H 118 H 90 Respiratory 18 18 16 Rate Blood Pressure 147/92 H 147/92 H 150/80 H O2 Saturation 97 97 98 11/21/21 11/21/21 22:00 22:09 Temperature 36.5 C 36.4 C L Heart Rate 72 72 Respiratory 18 18 Rate Blood Pressure 146/83 H 146/83 H O2 Saturation 98 98 Oxygen O2 Source Room air - Labs Labs: Laboratory Tests 11/21/21 11/21/21 19:40 19:40 WBC 5.4 RBC 3.51 L Hgb 10.3 L Hct 29.1 L MCV 83.1 MCH 29.3 MCHC 35.4 RDW 12.6 Plt Count 149 MPV 10.6 Neut # (Auto) Not Reportable Lymph # (Auto) Not Reportable [place] # (Auto) Not Reportable Eos # (Auto) Not Reportable Baso # (Auto) Not Reportable Absolute Nucleated RBC Not Reportable Total Counted 100 Band Neuts % (Manual) 1 Abnorm Lymph % (Manual) 0 Nucleated RBC % Not Reportable Neutrophils # (Manual) 3.1 Lymphocytes # (Manual) 1.9 Monocytes # (Manual) 0.2 Eosinophils # (Manual) 0.1 Basophils # (Manual) 0.0 Differential Comment MANUAL DIFFERENTIAL Platelet Estimate NORMAL (130-450,000) Platelet Morphology NORMAL APPEARANCE RBC Morph Micro Appear NORMAL APPEARANCE Sodium 123 L Potassium 3.8 Chloride 93 L Carbon Dioxide 20 L Anion Gap 10.0 BUN 9 Creatinine 0.5 L Estimated GFR (MDRD) 174 Glucose 472 H Calcium 8.4 L Total Bilirubin 0.2 AST 52 H ALT 56 Alkaline Phosphatase 105 Total Protein 5.6 L Albumin 3.4 Globulin 2.2 Albumin/Globulin Ratio 1.5 Ethyl Alcohol 73.0 PD MEDICAL DECISION MAKING - ED course ED course: 51-year-old gentleman with about 4 months of facial pain. Previously treated for shingles but the time course does not corroborate and he never had a rash. Could be TMJ or dental infection. Malignancy is also a possibility. CT Head and face read as neg, but on my read has swelling overlying molars on left so could be dental infection and will tx as such. Also of note has +BAL, low NA and poorly controlled DM. Counselled to stop EtOH and improve DM control Departure - Departure Disposition: 01 Home, Self Care Clinical Impression: Left facial pain, Elevated blood alcohol level, Hyponatremia, Uncontrolled diabetes mellitus Condition: Good Record reviewed to determine appropriate education?: Yes Instructions: ED Cephalgia Unspecified, ED Hyponatremia, ED Alcohol Abuse Prescriptions: Amox/Clav 875/125 [Augmentin] 1 each PO Q12H #20 tablet HYDROcod/ACETAM 5/325 [[place] 5/325] 1 - 2 tab PO Q6H PRN #15 tablet PRN Reason: Pain Comments: I sent your prescription to [facility] in [place]. As discussed, I am not completely convinced why this is happening, but my best guess would be a dental infection. The CT of your head and face are unremarkable. Reasonable to follow-up with a dentist as soon as possible, return for new or worsening symptoms. You still need to follow-up with Dr. Raymundo for further evaluation and treatment as well. ABSTAIN from alcohol while taking pain medication you did have some alcohol in your system tonight and we also note that your sodium level is lowWhich can happen when you are drinking too much. I am prescribing a short course of narcotic pain medication for you. These are potentially dangerous and addictive medications that should be used carefully. These medications may constipate you. Take an dytp-htp-dggphji stool softener (docusate) twice daily with plenty of water while taking these medications. If you go 24 hours without a bowel movement, take dots-uhv-bzgpycv miralax, per package instructions. Do not drink or drive while taking these medications. If you received narcotic or sedating medications while in the emergency department, do not drive for 24 hours. Store this medication in a safe, secure place and out of reach of children. It is a violation of federal law to give or sell this medication to another person or to use in a manner other than prescribed. The ED will not refill narcotic prescriptions, including prescriptions lost or stolen. To dispose of unwanted medications: 1. [facility] at [address] in [place] has a medication drop box. They accept prescription medications (in pill form) Monday through Monday 9:00 a.m. to 5:00 p.m. 2. The [facility] Police Department accepts prescription medications (in pill form only) for disposal year round. Call for more information. 3. Contact the [facility] for the next [facility] sponsored prescription drug collection event. , [phone], or [phone]; Note that many narcotic pain relievers also contain Tylenol/acetaminophen. Please ensure that your total dose of acetaminophen from all sources does not exceed 3 g (3000 mg) per day. Discharge Date/Time: 11/21/21 22:09
[2021-11-21 19:48] LABS: BASOPHILS % (AUTO) 0.7 %; EOSINOPHILS % (AUTO) 1.3 %; LYMPHOCYTES % (AUTO) 33.3 %; MEAN CORPUSCULAR VOLUME 83.1 fL (80.0-94.0); MEAN PLATELET VOLUME 10.6 fL (7.4-11.4); MONOCYTES % (AUTO) 5.7 %; NEUTROPHILS % (AUTO) 58.6 %; PLT - PLATELET COUNT 149 10^3/uL (130-450); RED CELL DISTRIBUTION WIDTH 12.6 % (12.0-15.0); WHITE BLOOD COUNT 5.4 x10^3/uL (4.8-10.8)
[2021-11-21 20:17] LABS: RED BLOOD COUNT 3.51 10^6/uL (4.70-6.10)
[2021-11-21 20:18] LABS: HCT - HEMATOCRIT 29.1 % (42.0-52.0); HGB - HEMOGLOBIN 10.3 g/dL (14.0-18.0); MEAN CORPUSCULAR HEMOGLOBIN 29.3 pg (27.0-31.0)
[2021-11-21 20:19] LABS: ALBUMIN 3.4 g/dL (3.2-5.5); ALBUMIN/GLOBULIN RATIO 1.5 (1.0-2.2); BILIRUBIN,TOTAL 0.2 mg/dL (0.2-1.0); CALCIUM 8.4 mg/dL (8.5-10.3); CREATININE 0.5 mg/dL (0.6-1.2); MEAN CORPUSCULAR HGB CONC 35.4 g/dL (32.0-36.0); POTASSIUM 3.8 mmol/L (3.5-5.0); TOTAL PROTEIN 5.6 g/dL (6.7-8.2)
[2021-11-21 20:20] LABS: ABNORMAL LYMPHS % (MANUAL) 0 %
[2021-11-21 20:42] LABS: BAND NEUTROPHILS % (MANUAL) 1 %; DIFFERENTIAL COMMENT MANUAL DIFFERENTIAL; EOSINOPHILS # (MANUAL) 0.1 10^3/uL (0-0.7); LYMPHOCYTES # (MANUAL) 1.9 10^3/uL (1.5-3.5); LYMPHOCYTES % (MANUAL) 36 %; MONOCYTES # (MANUAL) 0.2 10^3/uL (0.0-1.0); NEUTROPHILS # (MANUAL) 3.1 10^3/uL (1.5-6.6); PLATELET ESTIMATE, MANUAL NORMAL (130-450,000) (NORMAL); PLATELET MORPHOLOGY NORMAL APPEARANCE (NORMAL); RBC MORPHOLOGY (MULTIPLE) NORMAL APPEARANCE (NORMAL)
--- NOTE | 2021-11-21 21:14 | CT Report ---
PROCEDURE: HEAD WO INDICATIONS: headache TECHNIQUE: Noncontrast 4.5 mm thick angled axial sections acquired from the foramen magnum to the vertex. For r adiation dose reduction, the following was used: automated exposure control, adjustment of mA and/or kV according to patient size. COMPARISON: Concurrent CT of the maxillofacial bones. Brain MRI 02/01/2021. FINDINGS: Image quality: Excellent. CSF spaces: There is mild cerebral volume loss with prominence of the ventricles and sulci. Basal ci sterns are patent. No extra-axial fluid collections. Brain: No intracranial hemorrhage, mass, or mass effect. Sweet-white matter interface is preserved. T here are subcortical and periventricular white matter hypodensities consistent with mild chronic smal l vessel ischemic changes. Skull and face: Calvarium and visualized facial bones are intact, without suspicious lesions. Sinuses: Visualized sinuses demonstrate a sinus retention cyst or mucosal polyp within the inferior right maxillary sinus. Mastoid air cells are clear. IMPRESSION: 1. No acute intracranial abnormality. 2. Mild chronic white matter small vessel ischemic changes and cerebral volume loss. Reviewed by: Gurinder Alexander MD on 11/21/2021 9:13 PM PDT Approved by: Gurinder Alexander MD on 11/21/2021 9:13 PM PDT Station ID: [id number]
--- NOTE | 2021-11-21 21:23 | CT Report ---
PROCEDURE: MAXILLOFACIAL W INDICATIONS: L facial pain with contrast CONTRAST: IV CONTRAST: Optiray 320 ml: 100 PO CONTRAST: *NO PO CONTRAST TECHNIQUE: After the administration of intravenous contrast, 3.0 mm axial sections acquired from the mid-neck to the frontal sinuses, with coronal reformatting. For radiation dose reduction, the following was use d: automated exposure control, adjustment of mA and/or kV according to patient size. COMPARISON: Concurrent CT of the head. FINDINGS: Image quality: There is metallic streak artifact from patient's dental hardware limiting evaluation. Soft tissues: No definite edema, masses, or fluid collections. No definite abnormal left facial enha ncement. The globes are intact. No intraorbital fluid collections. No enlarged lymph nodes. Vascular: Visualized vascular structures appear patent throughout. Bony vascular foramina and canal s appear normal. Bones: Facial bones appear intact, without fractures, erosions, or destruction. Visualized portions of the skull base and auditory canals also appear normal. Sinuses: Paranasal sinuses demonstrate a sinus retention cyst or nasal polyp within the inferior rig ht maxillary sinus. There is mild mucosal thickening within the bilateral ethmoid sinuses. Mastoid ai r cells are clear. IMPRESSION: 1. No definite acute left facial abnormality identified to correlate with patient's pain symptoms. Reviewed by: Gurinder Alexander MD on 11/21/2021 9:21 PM PDT Approved by: Gurinder Alexander MD on 11/21/2021 9:21 PM PDT Station ID: [id number]
[2021-11-21] MEDS ORDERED: ONDANSETRON 4 MG/2 ML VIAL IVP STA (21:27)
[2021-11-21] MEDS ORDERED: KETOROLAC 15 MG/ML VIAL IVP STA (21:32)
[2021-11-21] MEDS ORDERED: AMOX/CLAV 875 MG/125 MG TABLET PO STA (21:33)
[2021-11-21] MEDS ORDERED: INSULIN REGULAR HUMAN 100 UNIT/1 ML 10 ML MDV IVP STA (21:36)
[2021-11-21 22:01] VITALS: BP 146/83
== END 2021-11-21 22:09 | disposition home or self-care (01) ==
LOC: ED 18:21
DX: R51.9 Headache, unspecified (principal); E87.1 Hypo-osmolality and hyponatremia; E11.65 Type 2 diabetes mellitus with hyperglycemia; Z79.4 Long term (current) use of insulin
CPT/HCPCS: 36415; 70450; 70487; 80053; 80320; 85025; 96374; 96375; 99284; A9270; J1170; J1815; Q9967

== ENCOUNTER 2021-12-13 07:38 | Emergency (ER) | payer MEDICAID ==
--- NOTE | 2021-12-13 07:52 | ED Physician Documentation ---
PD HPI HEENT - Stated complaint Stated Complaint: FACE/ HEAD PX - Chief complaint Chief Complaint: General - History obtained from History obtained from: Patient - History of Present Illness Timing - onset: How many months ago (4) Timing - duration: Months (4) Timing - details: Gradual onset, Still present Location: Left ear, Other (left side of face) Improves: No: Medication (did not get improvement with Depakote x 1 month. Recent new Rx for Lamotrigine started few days ago. referred to ENT.) Associated symptoms: No: Fever, Congestion, Swollen nodes, Facial swelling Recently seen: Clinic (has upcoming appt with ENT in [place] next week.), [facility] Review of Systems Constitutional: denies: Fever, Chills Nose: denies: Rhinorrhea / runny nose, Congestion Throat: denies: Sore throat Respiratory: denies: Cough Skin: denies: Rash, Lesions Neurologic: denies: Focal weakness PD PAST MEDICAL HISTORY - Past Medical History Cardiovascular: Hypertension, High cholesterol Respiratory: None Neuro: Peripheral neuropathy Endocrine/Autoimmune: Type 2 diabetes GI: Pancreatitis, Other : Nocturia HEENT: None Psych: None Musculoskeletal: Chronic back pain Derm: None - Past Surgical History Past Surgical History: Yes General: Other Ortho: Other - Present Medications Home Medications: Ambulatory Orders Medication Instructions Recorded Confirmed Gabapentin 1,200 mg PO TID 02/15/20 12/13/21 Insulin Glargine,Hum.rec.anlog 50 unit SUBQ DAILY 08/23/21 12/13/21 [Basaglar Kwikpen U-100] Insulin Aspart [NovoLOG] 1 - 10 units SQ TIDWM 08/31/21 08/31/21 Baclofen [Lioresal] 10 mg PO TID PRN 12/13/21 12/13/21 HYDROcod/ACETAM 5/325 [[place] 5/325] 1 ea PO Q6H PRN #20 tablet 12/13/21 - Allergies Allergies/Adverse Reactions: Allergies Allergy/AdvReac Type Severity Reaction Status Date / Time bee pollen Allergy Dizziness Verified 12/13/21 07:40 naproxen [From Naprosyn] Allergy Rash Verified 12/13/21 07:40 - Social History Does the pt smoke?: No Smoking Status: Never smoker Does the pt drink ETOH?: Yes Does the pt have substance abuse?: Yes - Immunizations Immunizations are current?: Yes - POLST Patient has POLST: No POLST Status: Full Code PD ED PE NORMAL - Vitals Vital signs reviewed: Yes - General General: Alert and oriented X 3, Well developed/nourished, Other (appears in pain) - HEENT HEENT: Ears normal, Moist mucous membranes, Pharynx benign, Dentition benign (decay diffusely but no dental tenderness to percussion nor swelling. ) - Neck Neck: Supple, no meningeal sign, No adenopathy - Cardiac Cardiac: RRR, No murmur - Respiratory Respiratory: Clear bilaterally - Derm Derm: Normal color, Warm and dry, No rash - Neuro Neuro: Alert and oriented X 3, No motor deficit, No sensory deficit, Normal speech Results - Vitals Vitals: Oxygen O2 Source Room air - Labs Labs: Laboratory Tests 12/13/21 12/13/21 12/13/21 08:20 08:20 08:20 WBC 3.8 L RBC 4.57 L Hgb 14.2 Hct 38.4 L MCV 84.0 MCH 31.1 H MCHC 37.0 H RDW 14.6 Plt Count 181 MPV 10.2 Neut # (Auto) 1.9 Lymph # (Auto) 1.5 [place] # (Auto) 0.3 Eos # (Auto) 0.1 Baso # (Auto) 0.1 Absolute Nucleated RBC 0.00 Nucleated RBC % 0.0 ESR 42 H Sodium 132 L Potassium 4.6 Chloride 98 L Carbon Dioxide 24 Anion Gap 10.0 BUN 10 Creatinine 0.7 Estimated GFR (MDRD) 118 Glucose 235 H Calcium 9.1 C-Reactive Protein < 1.0 PD MEDICAL DECISION MAKING - ED course Complexity details: reviewed old records, re-evaluated patient (moderately better with Dilaudid. Did get better improvement with low dose of Ketamine. ), considered differential (still sems like trigeminal neuropathy versus zoster non herpetica. ), d/w patient Departure - Departure Disposition: 01 Home, Self Care Clinical Impression: Trigeminal neuropathy, Acute facial pain Condition: Stable Record reviewed to determine appropriate education?: Yes Follow-Up: Francisco J Raymundo MD [Provider Admit Priv/Credential] - [facility] [place] [Provider Group] Prescriptions: HYDROcod/ACETAM 5/325 [[place] 5/325] 1 ea PO Q6H PRN #20 tablet PRN Reason: Pain Comments: At this point I would still presume an irritation of the trigeminal nerve (trigeminal neuropathy). The recent medication of the lamotrigine sounds reasonable. You can continue the muscle relaxant baclofen as well. Follow-up with the ear nose and throat on the as planned. Meanwhile use Tylenol every 4-6 hours if needed for pain or hydrocodone/acetaminophen if needed for worse pain. I sent your prescription to [facility] pharmacy. I am prescribing a short course of narcotic pain medication for you. These are potentially dangerous and addictive medications that should be used carefully. These medications may constipate you. Take an lyrv-rwr-ecpglew stool softener such as docusate twice daily with plenty of water while taking these medications. If you go 24 hours without a bowel movement, take uksl-uqw-hvlyigc MiraLAX, per package instructions. Do not drink or drive while taking these medications. If you received narcotic or sedating medications while in the emergency department do not drive for 24 hours. Store this medication in a safe, secure place and out of reach of children. It is a violation of federal law to give or sell this medication to another person or to use in a manner other than prescribed. The ED will not refill narcotic prescriptions, including prescriptions lost or stolen. You can dispose of unwanted medications at the [facility]'s office or at several pharmacies such as [email or web address]. Discharge Date/Time: 12/13/21 11:45
[2021-12-13] MEDS ORDERED: SODIUM CHLORIDE 0.9% 1,000 ML IV STA (08:11)
[2021-12-13] MEDS ORDERED: ONDANSETRON 4 MG/2 ML VIAL IVP STA (08:11)
[2021-12-13] MEDS ORDERED: HYDROmorphone 1 MG/ML CARPUJECT IVP STA ×2 (08:11→09:51)
[2021-12-13 08:31] LABS: BASOPHILS # (AUTO) 0.1 10^3/uL (0.0-0.1); BASOPHILS % (AUTO) 1.3 %; EOSINOPHILS # (AUTO) 0.1 10^3/uL (0.0-0.7); EOSINOPHILS % (AUTO) 1.6 %; HCT - HEMATOCRIT 38.4 % (42.0-52.0); HGB - HEMOGLOBIN 14.2 g/dL (14.0-18.0); LYMPHOCYTES # (AUTO) 1.5 10^3/uL (1.5-3.5); LYMPHOCYTES % (AUTO) 39.4 %; MEAN CORPUSCULAR HEMOGLOBIN 31.1 pg (27.0-31.0); MEAN PLATELET VOLUME 10.2 fL (7.4-11.4); MONOCYTES # (AUTO) 0.3 10^3/uL (0.0-1.0); MONOCYTES % (AUTO) 7.9 %; NEUTROPHILS # (AUTO) 1.9 10^3/uL (1.5-6.6); NEUTROPHILS % (AUTO) 49.5 %; PLT - PLATELET COUNT 181 10^3/uL (130-450); RED BLOOD COUNT 4.57 10^6/uL (4.70-6.10); RED CELL DISTRIBUTION WIDTH 14.6 % (12.0-15.0); WHITE BLOOD COUNT 3.8 x10^3/uL (4.8-10.8)
[2021-12-13] MEDS ORDERED: KETAMINE 25 MG in SODIUM CHLORIDE 0.9% 100ML 100 ML IV STA (09:51)
[2021-12-13 10:27] LABS: BUN - BLOOD UREA NITROGEN 10 mg/dL (6-20); CALCIUM 9.1 mg/dL (8.5-10.3); CARBON DIOXIDE - CO2 24 mmol/L (21-32); CHLORIDE 98 mmol/L (101-111); CREATININE 0.7 mg/dL (0.6-1.2); GFR - MDRD 118 (>89); GLUCOSE 235 mg/dL (70-100); POTASSIUM 4.6 mmol/L (3.5-5.0); SODIUM 132 mmol/L (135-145)
[2021-12-13 11:12] LABS: CRP - C-REACTIVE PROTEIN < 1.0 mg/dL (0-1.0)
[2021-12-13 11:36] VITALS: BP 150/90
== END 2021-12-13 11:45 | disposition home or self-care (01) ==
LOC: ED 07:38
DX: R51.9 Headache, unspecified (principal); G50.0 Trigeminal neuralgia; I10 Essential (primary) hypertension; E11.9 Type 2 diabetes mellitus without complications; Z79.4 Long term (current) use of insulin; G50.8 Other disorders of trigeminal nerve
CPT/HCPCS: 36415; 80048; 85025; 85651; 86140; 96365; 96375; 96376; 99283; 99284; J1170

== ENCOUNTER 2022-01-03 16:28 | Emergency (ER) | payer MEDICAID ==
[2022-01-03 16:43] VITALS: BP 152/92
[2022-01-03] MEDS ORDERED: ONDANSETRON ODT 4 MG TABLET TL STA (17:27)
[2022-01-03] MEDS ORDERED: HYDROcod/ACETAM 5/325 MG TABLET PO STA (17:27)
--- NOTE | 2022-01-03 17:30 | ED Physician Documentation ---
PD HPI FOCAL NEURO - Stated complaint Stated Complaint: HEAD PX - Chief complaint Chief Complaint: Neuro - History obtained from History obtained from: Patient - Additional information Additional information: 51-year-old gentleman has been dealing with for months now with left-sided patient facial pain of unclear etiology. It is fairly constant. It is worse with shaving. Nothing he is tried so far has been helpful, he has been treated for shingles several times despite lack of rash. He is nauseous with it. He had a tooth pulled, that was not helpful. He is done a trial of antibiotics that was not helpful. Review of Systems Constitutional: reports: Reviewed and negative Eyes: reports: Reviewed and negative Ears: reports: Reviewed and negative Throat: reports: Reviewed and negative Cardiac: reports: Reviewed and negative PD PAST MEDICAL HISTORY - Past Medical History Cardiovascular: Hypertension, High cholesterol Respiratory: None Neuro: Peripheral neuropathy Endocrine/Autoimmune: Type 2 diabetes GI: Pancreatitis, Other : Nocturia HEENT: None Psych: None Musculoskeletal: Chronic back pain Derm: None - Past Surgical History Past Surgical History: Yes General: Other Ortho: Other - Present Medications Home Medications: Ambulatory Orders Medication Instructions Recorded Confirmed Gabapentin 1,200 mg PO TID 02/15/20 12/13/21 Insulin Glargine,Hum.rec.anlog 50 unit SUBQ DAILY 08/23/21 12/13/21 [Basaglar Kwikpen U-100] Insulin Aspart [NovoLOG] 1 - 10 units SQ TIDWM 08/31/21 08/31/21 Baclofen [Lioresal] 10 mg PO TID PRN 12/13/21 12/13/21 HYDROcod/ACETAM 5/325 [[place] 5/325] 1 ea PO Q6H PRN #20 tablet 12/13/21 HYDROcod/ACETAM 5/325 [[place] 5/325] 1 - 2 tab PO Q6H PRN #15 tablet 01/03/22 Ondansetron Odt [Zofran] 4 mg TL Q6H PRN #10 tablet 01/03/22 carBAMazepine [TEGretol] 200 mg PO BID #60 tablet 01/03/22 - Allergies Allergies/Adverse Reactions: Allergies Allergy/AdvReac Type Severity Reaction Status Date / Time bee pollen Allergy Dizziness Verified 12/13/21 07:40 naproxen [From Naprosyn] Allergy Rash Verified 12/13/21 07:40 - Social History Does the pt smoke?: No Smoking Status: Never smoker Does the pt drink ETOH?: Yes Does the pt have substance abuse?: Yes - Immunizations Immunizations are current?: Yes - POLST Patient has POLST: No POLST Status: Full Code PD ED PE NORMAL - Vitals Vital signs reviewed: Yes - General General: Alert and oriented X 3, No acute distress - HEENT HEENT: PERRL, EOMI, Other (He is tender to the left side of the face but without swelling, skin changes, obvious dental infection. No trismus.) - Neck Neck: No bony TTP, No bruit - Neuro Neuro: Alert and oriented X 3, Normal speech Results - Vitals Vitals: Vital Signs - 24 hr 01/03/22 16:41 Temperature 37.2 C Heart Rate 109 H Respiratory 18 Rate Blood Pressure 152/92 H O2 Saturation 99 Oxygen O2 Source Room air PD MEDICAL DECISION MAKING - ED course ED course: The pain is not constant but that said some other facets of the history and physical are more consistent with trigeminal neuralgia and today we will trial carbamazepine. I encouraged him to follow-up with his primary care physician this week for consideration for neurology referral. He has had a thorough work- up including but not limited to CT, MRI without pertinent positive findings. Departure - Departure Disposition: 01 Home, Self Care Clinical Impression: Acute facial pain Condition: Good Record reviewed to determine appropriate education?: Yes Instructions: ED Acute Pain [facility] Prescriptions: HYDROcod/ACETAM 5/325 [[place] 5/325] 1 - 2 tab PO Q6H PRN #15 tablet PRN Reason: Pain carBAMazepine [TEGretol] 200 mg PO BID #60 tablet Ondansetron Odt [Zofran] 4 mg TL Q6H PRN #10 tablet PRN Reason: Nausea / Vomiting Comments: I sent your prescription electronically to [facility] in [place]. You are seen today for an exacerbation of chronic left-sided facial pain of unclear etiology. Given the location I wonder if you have trigeminal neuralgia, although admittedly that tends to be more of an intermittent process. Follow- up with your physician this week for consideration for referral to a neurologist. In the interim I am prescribing in addition to some pain medication and nausea medication carbamazepine which is an antiseizure medicati on usually used for trigeminal neuralgia for you to try and see if it is more helpful than what you have tried in the past. Return for new or worsening symptoms. I am prescribing a short course of narcotic pain medication for you. These are potentially dangerous and addictive medications that should be used carefully. These medications may constipate you. Take an afok-jtu-ihuqajn stool softener (docusate) twice daily with plenty of water while taking these medications. If you go 24 hours without a bowel movement, take ryyl-pac-igybetz miralax, per package instructions. Do not drink or drive while taking these medications. If you received narcotic or sedating medications while in the emergency department, do not drive for 24 hours. Store this medication in a safe, secure place and out of reach of children. It is a violation of federal law to give or sell this medication to another person or to use in a manner other than prescribed. The ED will not refill narcotic prescriptions, including prescriptions lost or stolen. To dispose of unwanted medications: 1. [facility] at [address] in [place] has a medication drop box. They accept prescription medications (in pill form) Monday through Monday 9:00 a.m. to 5:00 p.m. 2. The [facility] Police Department accepts prescription medications (in pill form only) for disposal year round. Call for more information. 3. Contact the [facility] for the next [facility] sponsored prescription drug collection event. , [phone], or [phone]; Note that many narcotic pain relievers also contain Tylenol/acetaminophen. Please ensure that your total dose of acetaminophen from all sources does not exceed 3 g (3000 mg) per day. The policy of this emergency department is to not give more than 3 prescriptions for narcotics or other controlled substances in any 1 year. You have already surpassed this benchmark and we cannot prescribe narcotics for you. I encourage you to follow up with your primary care physician or to establish care with a primary care physician for ongoing pain management. You are always welcome to seek emergency care here for this or new issues but there will likely be limitations in the prescription of narcotic pain medication.
== END 2022-01-03 17:43 | disposition home or self-care (01) ==
LOC: ED 16:28
DX: R51.9 Headache, unspecified (principal); I10 Essential (primary) hypertension; E11.42 Type 2 diabetes mellitus with diabetic polyneuropathy; Z79.4 Long term (current) use of insulin
CPT/HCPCS: 99282; 99283; A9270; Q0162

== ENCOUNTER 2022-01-19 08:51 | Outpatient (CLI) | payer MEDICAID ==
[2022-01-19 09:28] LABS: CREATININE,URINE 78.8 mg/dL; MICROALBUM/CREATININE RATIO,UR 30.5 ug/mg (<30.0); MICROALBUMIN,URINE 2.4 mg/dL (0-300.0)
[2022-01-19 09:46] LABS: THYROID STIMULATING HORMONE 1.78 uIU/mL (0.34-5.60)
[2022-01-19 09:53] LABS: FERRITIN 937.4 ng/mL (23.9-336.2)
[2022-01-19 10:14] LABS: ABSOLUTE RETICS # AUTO 0.075 10^6/uL (0.020-0.110); BASOPHILS # (AUTO) 0.1 10^3/uL (0.0-0.1); BASOPHILS % (AUTO) 0.9 %; EOSINOPHILS # (AUTO) 0.1 10^3/uL (0.0-0.7); HCT - HEMATOCRIT 36.7 % (42.0-52.0); LYMPHOCYTES % (AUTO) 34.7 %; MEAN CORPUSCULAR VOLUME 86.6 fL (80.0-94.0); MEAN PLATELET VOLUME 10.7 fL (7.4-11.4); MONOCYTES # (AUTO) 0.3 10^3/uL (0.0-1.0); MONOCYTES % (AUTO) 5.1 %; NEUTROPHILS # (AUTO) 3.4 10^3/uL (1.5-6.6); PLT - PLATELET COUNT 146 10^3/uL (130-450); RED BLOOD COUNT 4.24 10^6/uL (4.70-6.10); RED CELL DISTRIBUTION WIDTH 13.2 % (12.0-15.0); RETICULOCYTE COUNT % (AUTO) 1.77 % (0.5-2.3); WHITE BLOOD COUNT 5.9 x10^3/uL (4.8-10.8)
[2022-01-19 10:16] LABS: % IRON SATURATION 19 % (20-50); ALBUMIN 3.7 g/dL (3.2-5.5); ALBUMIN/GLOBULIN RATIO 1.5 (1.0-2.2); ALKALINE PHOSPHATASE 111 IU/L (42-121); ALT ALANINE AMINOTRANSFERASE 76 IU/L (10-60); AST ASPARTATE AMINOTRANSFERASE 57 IU/L (10-42); BILIRUBIN,TOTAL 0.2 mg/dL (0.2-1.0); BUN - BLOOD UREA NITROGEN 5 mg/dL (6-20); CALCIUM 8.8 mg/dL (8.5-10.3); CARBON DIOXIDE - CO2 24 mmol/L (21-32); CHLORIDE 96 mmol/L (101-111); CHOLESTEROL 703 mg/dL; CREATININE 0.6 mg/dL (0.6-1.2); GFR - MDRD 141 (>89); GLUCOSE 259 mg/dL (70-100); HDL CHOLESTEROL 26 mg/dL; IRON 54 ug/dL (45-182); POTASSIUM 3.9 mmol/L (3.5-5.0); SODIUM 130 mmol/L (135-145); TOTAL IRON BINDING CAPACITY 284 ug/dL (250-450); TOTAL PROTEIN 6.1 g/dL (6.7-8.2); TRANSFERRIN 203 mg/dL (180-329)
[2022-01-19 10:25] LABS: MEAN CORPUSCULAR HEMOGLOBIN 30.7 pg (27.0-31.0); MEAN CORPUSCULAR HGB CONC 35.4 g/dL (32.0-36.0)
[2022-01-19 10:30] LABS: TRIGLYCERIDES > 2000 mg/dL
[2022-01-19 10:53] LABS: LDL CHOLESTEROL,DIRECT 17 mg/dL; LDLD/HDL RATIO 0.7 (<3.6)
[2022-01-19 13:21] LABS: ESTIMATED AVERAGE GLUCOSE 240 mg/dL (70-100)
== END 2022-01-19 08:52 | disposition home or self-care (01) ==
LOC: LAB 08:51
PROVIDERS: ATTEND Internal Medicine
DX: E11.8 Type 2 diabetes mellitus with unspecified complications (principal); Z12.5 Encounter for screening for malignant neoplasm of prostate; Z13.29 Encounter for screening for other suspected endocrine disorder; D64.9 Anemia, unspecified
CPT/HCPCS: 36415; 80050; 80061; 82043; 82570; 82607; 82728; 83036; 83540; 83721; 84153; 84466; 85045

== ENCOUNTER 2022-01-19 17:42 | Emergency (ER) | payer MEDICAID ==
[2022-01-19 18:05] VITALS: BP 132/82
== END 2022-01-19 18:22 | disposition left against medical advice (07) ==
LOC: ED 17:42
DX: Z53.21 Procedure and treatment not carried out due to patient leaving prior to being seen by health care provider (principal)

== ENCOUNTER 2022-01-30 10:22 | Emergency (ER) | payer MEDICAID ==
[2022-01-30] MEDS ORDERED: HYDROcod/ACETAM 5/325 MG TABLET PO STA (12:14)
--- NOTE | 2022-01-30 12:17 | ED Physician Documentation ---
History of Present Illness - Stated complaint Stated Complaint: LT SIDE FACE PX - Chief complaint Chief Complaint: Neuro - History obtained from History obtained from: Patient - History of Present Illness Timing: Chronic Pain level max: 8 Pain level now: 8 - Additonal information Additional information: 51-year-old male presents to the emergency room with left-sided face and head pain. This is been ongoing for the past year or so. He has had an MRI, CT scan, seen ENT and is now awaiting a neurology referral. He is currently on Tegretol, gabapentin and had a prescription for Vicodin from his doctor that he is now out of. He is requesting pain medication. Worse with palpation, movement, eating, drinking. He states he saw a dentist and had a tooth pulled as well but no change in his symptoms. No fevers. No vomiting. Review of Systems Constitutional: denies: Fever, Chills Respiratory: denies: Cough GI: denies: Vomiting, Diarrhea Skin: denies: Rash Musculoskeletal: denies: Neck pain, Back pain Neurologic: denies: Focal weakness, Numbness, LOC PD PAST MEDICAL HISTORY - Past Medical History Cardiovascular: Hypertension, High cholesterol Respiratory: None Neuro: Peripheral neuropathy Endocrine/Autoimmune: Type 2 diabetes GI: Pancreatitis, Other : Nocturia HEENT: None Psych: None Musculoskeletal: Chronic back pain Derm: None - Past Surgical History Past Surgical History: Yes General: Other Ortho: Other - Present Medications Home Medications: Ambulatory Orders Medication Instructions Recorded Confirmed Gabapentin 1,200 mg PO TID 02/15/20 12/13/21 Insulin Glargine,Hum.rec.anlog 50 unit SUBQ DAILY 08/23/21 12/13/21 [Basaglar Kwikpen U-100] Insulin Aspart [NovoLOG] 1 - 10 units SQ TIDWM 08/31/21 08/31/21 Baclofen [Lioresal] 10 mg PO TID PRN 12/13/21 12/13/21 HYDROcod/ACETAM 5/325 [[place] 5/325] 1 ea PO Q6H PRN #20 tablet 12/13/21 HYDROcod/ACETAM 5/325 [[place] 5/325] 1 - 2 tab PO Q6H PRN #15 tablet 01/03/22 Ondansetron Odt [Zofran] 4 mg TL Q6H PRN #10 tablet 01/03/22 carBAMazepine [TEGretol] 200 mg PO BID #60 tablet 01/03/22 HYDROcod/ACETAM 5/325 [[place] 5/325] 1 - 2 ea PO Q6H PRN #14 tablet 01/30/22 - Allergies Allergies/Adverse Reactions: Allergies Allergy/AdvReac Type Severity Reaction Status Date / Time bee pollen Allergy Dizziness Verified 01/30/22 10:32 naproxen [From Naprosyn] Allergy Rash Verified 01/30/22 10:32 - Social History Does the pt smoke?: No Smoking Status: Never smoker Does the pt drink ETOH?: Yes Does the pt have substance abuse?: Yes - Immunizations Immunizations are current?: Yes - POLST Patient has POLST: No POLST Status: Full Code PD ED PE NORMAL - Vitals Vital signs reviewed: Yes - General General: Alert and oriented X 3, No acute distress, Well developed/nourished - HEENT HEENT: PERRL, EOMI, Ears normal, Moist mucous membranes, Pharynx benign, Dentition benign, Other (TTP over the L TMJ area, no focal deficits.) - Neck Neck: Supple, no meningeal sign - Cardiac Cardiac: RRR, Strong equal pulses - Respiratory Respiratory: No respiratory distress, Clear bilaterally - Derm Derm: Warm and dry - Neuro Neuro: Alert and oriented X 3, deck specialist 2-12 intact, No motor deficit, No sensory deficit Eye Opening: Spontaneous Motor: Obeys Commands Verbal: Oriented GCS Score: 15 - Psych Psych: Normal mood, Normal affect Results - Vitals Vitals: Vital Signs - 24 hr 01/30/22 01/30/22 10:27 10:31 Temperature 36.3 C L 36.5 C Heart Rate 105 H 105 H Respiratory 16 16 Rate Blood Pressure 148/96 H 148/96 H O2 Saturation 100 100 Oxygen O2 Source Room air PD MEDICAL DECISION MAKING - ED course Complexity details: considered differential, d/w patient ED course: Patient with chronic facial and head pain. No change to his normal symptoms. Has had an extensive work-up and is awaiting neurology referral. He will follow-up with his doctor for further care. Will prescribe a small amount of pain medication. Instructed the patient that all further pain medication will need to come from his doctor. Patient counseled regarding signs and symptoms for which I believe and urgent re-evaluation would be necessary. Patient with good understanding of and agreement to plan and is comfortable going home at this time This document was made in part using voice recognition software. While efforts are made to proofread this document, sound alike and grammatical errors may occur. Departure - Departure Disposition: 01 Home, Self Care Clinical Impression: Facial pain Condition: Good Instructions: ED Cephalgia Unspecified Follow-Up: Francisco J Raymundo MD [Primary Care Provider] - Within 1 week Prescriptions: HYDROcod/ACETAM 5/325 [[place] 5/325] 1 - 2 ea PO Q6H PRN #14 tablet PRN Reason: Pain Comments: [facility] prescription was [facility] to [facility] in [place]. You need to continue your current medications at home. All further narcotic prescriptions will need to come from your primary care doctor. I am prescribing a short course of narcotic pain medication for you. These are potentially dangerous and addictive medications that should be used carefully. These medications may constipate you. Take an quoc-knc-hiljejn stool softener (docusate) twice daily with plenty of water while taking these medications. If you go 24 hours without a bowel movement, take ckky-yqt-dgyrrvt miralax, per package instructions. Do not drink or drive while taking these medications. If you received narcotic or sedating medications while in the emergency department, do not drive for 24 hours. Store this medication in a safe, secure place and out of reach of children. It is a violation of federal law to give or sell this medication to another person or to use in a manner other than prescribed. The ED will not refill narcotic prescriptions, including prescriptions lost or stolen. To dispose of unwanted medications: 1. [facility] at [address] in [facility] has a medication drop box. They accept prescription medications (in pill form) Monday through Monday 9:00 a.m. to 5:00 p.m. 2. The [facility] [employer] accepts prescription medications (in pill form only) for disposal year round. Call for more information. 3. Contact the [facility] for the next [facility] sponsored prescription drug collection event. , [phone], or [phone];
[2022-01-30 12:31] VITALS: BP 130/90
== END 2022-01-30 12:30 | disposition home or self-care (01) ==
LOC: ED 10:22
DX: R51.9 Headache, unspecified (principal); G89.29 Other chronic pain
CPT/HCPCS: 99282; A9270

== ENCOUNTER 2022-03-14 11:44 | Emergency (ER) | payer MEDICAID ==
[2022-03-14 11:51] VITALS: BP 154/96
--- NOTE | 2022-03-14 12:49 | ED Physician Documentation ---
History of Present Illness - Stated complaint Stated Complaint: FACE PX/NUMB - Chief complaint Chief Complaint: General - History obtained from History obtained from: Patient - Additonal information Additional information: 51-year-old gentleman has chronic facial and scalp pain of unclear etiology despite negative previous work-ups for same including but not limited to MRI. He has been on Tegretol and gabapentin without relief. Presents with an exacerbation of said pain. Review of Systems Constitutional: denies: Fever, Chills Ears: denies: Loss of hearing, Ear pain Nose: denies: Rhinorrhea / runny nose, Congestion Throat: denies: Sore throat PD PAST MEDICAL HISTORY - Past Medical History Cardiovascular: Hypertension, High cholesterol Respiratory: None Neuro: Peripheral neuropathy Endocrine/Autoimmune: Type 2 diabetes GI: Pancreatitis, Other : Nocturia HEENT: None Psych: None Musculoskeletal: Chronic back pain Derm: None - Past Surgical History Past Surgical History: Yes General: Other Ortho: Other - Present Medications Home Medications: Ambulatory Orders Medication Instructions Recorded Confirmed Gabapentin 1,200 mg PO TID 02/15/20 12/13/21 Insulin Glargine,Hum.rec.anlog 50 unit SUBQ DAILY 08/23/21 12/13/21 [Basaglar Kwikpen U-100] Insulin Aspart [NovoLOG] 1 - 10 units SQ TIDWM 08/31/21 08/31/21 Baclofen [Lioresal] 10 mg PO TID PRN 12/13/21 12/13/21 HYDROcod/ACETAM 5/325 [[place] 5/325] 1 ea PO Q6H PRN #20 tablet 12/13/21 HYDROcod/ACETAM 5/325 [[place] 5/325] 1 - 2 tab PO Q6H PRN #15 tablet 01/03/22 Ondansetron Odt [Zofran] 4 mg TL Q6H PRN #10 tablet 01/03/22 carBAMazepine [TEGretol] 200 mg PO BID #60 tablet 01/03/22 HYDROcod/ACETAM 5/325 [[place] 5/325] 1 - 2 ea PO Q6H PRN #14 tablet 01/30/22 HYDROcod/ACETAM 5/325 [[place] 5/325] 1 - 2 tab PO Q6H PRN #15 tablet 03/14/22 - Allergies Allergies/Adverse Reactions: Allergies Allergy/AdvReac Type Severity Reaction Status Date / Time bee pollen Allergy Dizziness Verified 03/14/22 11:51 naproxen [From Naprosyn] Allergy Rash Verified 03/14/22 11:51 - Social History Does the pt smoke?: No Smoking Status: Never smoker Does the pt drink ETOH?: Yes Does the pt have substance abuse?: Yes - Immunizations Immunizations are current?: Yes - POLST Patient has POLST: No POLST Status: Full Code PD ED PE NORMAL - Vitals Vital signs reviewed: Yes - HEENT HEENT: PERRL, EOMI - Neck Neck: Supple, no meningeal sign, No bony TTP, C-Spine cleared by NEXUS criteria - Neuro Neuro: Alert and oriented X 3, 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 He has appropriate follow-up but there have been significant delays due to lack of specialist. Discussed with him that further pain medication should come from his primary care physician. Departure - Departure Disposition: 01 Home, Self Care Clinical Impression: Facial pain Condition: Good Record reviewed to determine appropriate education?: Yes Instructions: ED Acute Pain [facility] Prescriptions: HYDROcod/ACETAM 5/325 [[place] 5/325] 1 - 2 tab PO Q6H PRN #15 tablet PRN Reason: Pain Comments: I sent your prescription electronically to [facility] in [place]. Follow-up with neurology as scheduled. I also sent a note to your primary care physician querying if you should be in pain management. The policy of this emergency department is to not give more than 3 prescriptions for narcotics or other controlled substances in any 1 year. You have already surpassed this benchmark and we cannot prescribe narcotics for you. I encourage you to follow up with your primary care physician or to establish care with a primary care physician for ongoing pain management. You are always welcome to seek emergency care here for this or new issues but there will likely be limitations in the prescription of narcotic pain medication. I am prescribing a short course of narcotic pain medication for you. These are potentially dangerous and addictive medications that should be used carefully. These medications may constipate you. Take an ptfk-rtg-klxzwwy stool softener (docusate) twice daily with plenty of water while taking these medications. If you go 24 hours without a bowel movement, take necl-sny-koqvzah miralax, per package instructions. Do not drink or drive while taking these medications. If you received narcotic or sedating medications while in the emergency department, do not drive for 24 hours. Store this medication in a safe, secure place and out of reach of children. It is a violation of federal law to give or sell this medication to another person or to use in a manner other than prescribed. The ED will not refill narcotic prescriptions, including prescriptions lost or stolen. To dispose of unwanted medications: 1. [facility] at [address] in [place] has a medication drop box. They accept prescription medications (in pill form) Monday through Monday 9:00 a.m. to 5:00 p.m. 2. The [facility] [employer] accepts prescription medications (in pill form only) for disposal year round. Call for more information. 3. Contact the [facility] for the next [facility] sponsored prescription drug collection event. , [phone], or [phone]; Note that many narcotic pain relievers also contain Tylenol/acetaminophen. Please ensure that your total dose of acetaminophen from all sources does not exceed 3 g (3000 mg) per day. Discharge Date/Time: 03/14/22 12:56
== END 2022-03-14 12:56 | disposition home or self-care (01) ==
LOC: ED 11:44
DX: R51.9 Headache, unspecified (principal); E11.42 Type 2 diabetes mellitus with diabetic polyneuropathy; Z79.4 Long term (current) use of insulin
CPT/HCPCS: 99282; 99283

== ENCOUNTER 2022-06-07 09:57 | Outpatient (CLI) | payer MEDICAID ==
[2022-06-07 10:35] LABS: BASOPHILS # (AUTO) 0.1 10^3/uL (0.0-0.1); BASOPHILS % (AUTO) 0.8 %; EOSINOPHILS # (AUTO) 0.1 10^3/uL (0.0-0.7); EOSINOPHILS % (AUTO) 1.6 %; HCT - HEMATOCRIT 40.9 % (42.0-52.0); HGB - HEMOGLOBIN 14.9 g/dL (14.0-18.0); LYMPHOCYTES # (AUTO) 2.6 10^3/uL (1.5-3.5); LYMPHOCYTES % (AUTO) 41.1 %; MEAN CORPUSCULAR HEMOGLOBIN 30.3 pg (27.0-31.0); MEAN CORPUSCULAR HGB CONC 36.4 g/dL (32.0-36.0); MEAN CORPUSCULAR VOLUME 83.1 fL (80.0-94.0); MEAN PLATELET VOLUME 10.9 fL (7.4-11.4); MONOCYTES # (AUTO) 0.3 10^3/uL (0.0-1.0); NEUTROPHILS # (AUTO) 3.2 10^3/uL (1.5-6.6); NEUTROPHILS % (AUTO) 51.3 %; PLT - PLATELET COUNT 117 10^3/uL (130-450); RED BLOOD COUNT 4.92 10^6/uL (4.70-6.10); RED CELL DISTRIBUTION WIDTH 13.4 % (12.0-15.0); WHITE BLOOD COUNT 6.3 x10^3/uL (4.8-10.8)
[2022-06-07 10:38] LABS: CREATININE,URINE 172.7 mg/dL; MICROALBUM/CREATININE RATIO,UR 77.6 ug/mg (<30.0); MICROALBUMIN,URINE 13.4 mg/dL (0-300.0)
[2022-06-07 11:30] LABS: ALBUMIN 3.8 g/dL (3.2-5.5); ALBUMIN/GLOBULIN RATIO 7.6 (1.0-2.2); ALKALINE PHOSPHATASE 144 IU/L (42-121); BILIRUBIN,TOTAL < 0.2 mg/dL (0.2-1.0); CALCIUM 8.3 mg/dL (8.5-10.3); CARBON DIOXIDE - CO2 22 mmol/L (21-32); CHLORIDE 87 mmol/L (101-111); CHOL/HDL RATIO 52.6 (<5.0); CHOLESTEROL > 1000 mg/dL; CREATININE 0.5 mg/dL (0.6-1.2); GFR - MDRD 173 (>89); GLUCOSE 211 mg/dL (70-100); HDL CHOLESTEROL 19 mg/dL; LIPASE 25 U/L (22-51); POTASSIUM 3.2 mmol/L (3.5-5.0); TOTAL PROTEIN 4.3 g/dL (6.7-8.2)
[2022-06-07 11:32] LABS: BUN - BLOOD UREA NITROGEN 6 mg/dL (6-20)
[2022-06-07 11:33] LABS: URIC ACID < 0.6 mg/dL (2.6-7.2)
[2022-06-07 11:38] LABS: ALT ALANINE AMINOTRANSFERASE 200 IU/L (10-60)
[2022-06-07 11:39] LABS: AST ASPARTATE AMINOTRANSFERASE 179 IU/L (10-42)
[2022-06-07 11:40] LABS: TRIGLYCERIDES > 2000 mg/dL
[2022-06-07 12:05] LABS: LDL CHOLESTEROL,DIRECT 247 mg/dL
[2022-06-07 12:31] LABS: CARBAMAZEPINE (TEGRETOL) < 2.0 ug/mL
[2022-06-07 13:29] LABS: SODIUM 120 mmol/L (135-145)
[2022-06-07 13:44] LABS: ESTIMATED AVERAGE GLUCOSE 329 mg/dL (70-100); HEMOGLOBIN A1c% 13.1 % (4.27-6.07)
== END 2022-06-07 09:58 | disposition home or self-care (01) ==
LOC: LAB 09:57
PROVIDERS: ATTEND Internal Medicine
DX: E78.1 Pure hyperglyceridemia (principal); E11.42 Type 2 diabetes mellitus with diabetic polyneuropathy; Z51.81 Encounter for therapeutic drug level monitoring; Z87.19 Personal history of other diseases of the digestive system; Z79.899 Other long term (current) drug therapy; Z87.39 Personal history of other diseases of the musculoskeletal system and connective tissue
CPT/HCPCS: 36415; 80053; 80061; 80156; 82043; 82570; 83036; 83690; 83721; 84550; 85025

== ENCOUNTER 2022-06-07 13:47 | Emergency (ER) | payer MEDICAID ==
[2022-06-07 13:55] VITALS: BP 136/93
--- NOTE | 2022-06-07 14:10 | ED Physician Documentation ---
History of Present Illness - Stated complaint Stated Complaint: ABNORMAL LABS - Chief complaint Chief Complaint: General - History obtained from History obtained from: Patient - Additonal information Additional information: 52-year-old gentleman with history of type 2 diabetes on insulin, alcoholism, and hypertriglyceridemia presents at the behest of his primary care physician for hyponatremia. These were routine labs, he is feeling fine. Although he has a history of alcoholism, he says he drinks about 4 beers a week now. He does note that he has been losing weight and has tried to adjust his diet to match, he states an average of breakfast would be for 5 eggs +chorizo and "ribs and steak are my downfall." PD PAST MEDICAL HISTORY - Past Medical History Cardiovascular: Hypertension, High cholesterol Respiratory: None Neuro: Peripheral neuropathy Endocrine/Autoimmune: Type 2 diabetes GI: Pancreatitis, Other : Nocturia HEENT: None Psych: None Musculoskeletal: Chronic back pain Derm: None - Past Surgical History Past Surgical History: Yes General: Other Ortho: Other - Present Medications Home Medications: Ambulatory Orders Medication Instructions Recorded Confirmed Gabapentin 1,200 mg PO TID 02/15/20 06/07/22 Insulin Glargine,Hum.rec.anlog 50 unit SUBQ DAILY 08/23/21 12/13/21 [Basaglar Kwikpen U-100] Insulin Aspart [NovoLOG] 1 - 10 units SQ TIDWM 08/31/21 06/07/22 carBAMazepine [TEGretol] 200 mg PO BID #60 tablet 01/03/22 06/07/22 Atorvastatin Calcium [Lipitor] 80 mg PO DAILY #30 tablet 06/07/22 - Allergies Allergies/Adverse Reactions: Allergies Allergy/AdvReac Type Severity Reaction Status Date / Time bee pollen Allergy Dizziness Verified 06/07/22 13:55 naproxen [From Naprosyn] Allergy Rash Verified 06/07/22 13:55 - Social History Does the pt smoke?: No Smoking Status: Never smoker Does the pt drink ETOH?: Yes Does the pt have substance abuse?: Yes - Immunizations Immunizations are current?: Yes - POLST Patient has POLST: No POLST Status: Full Code Results - Vitals Vitals: Vital Signs - 24 hr 06/07/22 06/07/22 13:50 14:07 Temperature 36.2 C L Heart Rate 114 H Respiratory 16 16 Rate Blood Pressure 136/93 H O2 Saturation 99 Oxygen O2 Source Room air PD Medical Decision Making - ED course ED course: 52-year-old gentleman presents for hyponatremia noted on outpatient lab work. Review of labs done earlier today and prior lab work, we note that his sodium usually runs around 120s to 130, his hemoglobin A1c today was 13.1, he has some transaminitis and his triglycerides are too high to calculate with high LDL. It is well-established that both elevated blood glucose and triglycerides will cause pseudohyponatremia and given that he is feeling fine I suspect that is what is going on. Frankly I am not sure what his true sodium level is but I am sure it is higher than 120. He was counseled on a plant-based diet and we will start a statin. I called and spoke to Dr. Wagner at the [facility] to pass the message on to Dr. Raymundo as he will need serial labs and reassessment. Noting that Dr. Raymundo is not working today. Departure - Departure Disposition: 01 Home, Self Care Clinical Impression: Pseudohyponatremia, Elevated liver enzymes, Hypertriglyceridemia, High serum low density lipoprotein (LDL) cholesterol, Uncontrolled type 2 diabetes mellitus Condition: Good Record reviewed to determine appropriate education?: Yes Instructions: ED Diet Low Fat Prescriptions: Atorvastatin Calcium [Lipitor] 80 mg PO DAILY #30 tablet Comments: You were sent in today for low sodium which I think is actually probably not low and it is well documented that high triglycerides and blood sugar will cause a falsely low sodium lab. Continue your efforts at blood sugar control, I would also go to a low-fat diet, you can google "plant-based diet" for some suggestions. That in the cholesterol medicine should help with your abnormal labs and I think your sodium will correct. You also have some elevation in liver enzymes, I would recommend complete alcohol cessation.
[2022-06-07] MEDS ORDERED: SALIVA STIMULANT SPRAY 44.3 ML BOTTLE PO PRN (17:21)
== END 2022-06-07 14:40 | disposition home or self-care (01) ==
LOC: ED 13:47
DX: R74.8 Abnormal levels of other serum enzymes (principal); I10 Essential (primary) hypertension; E78.1 Pure hyperglyceridemia; E78.00 Pure hypercholesterolemia, unspecified; E11.65 Type 2 diabetes mellitus with hyperglycemia; E11.42 Type 2 diabetes mellitus with diabetic polyneuropathy; Z79.4 Long term (current) use of insulin; Z79.899 Other long term (current) drug therapy
CPT/HCPCS: 36415; 80053; 80061; 80156; 82043; 82570; 83036; 83690; 83721; 84550; 85025; 99282; 99283

== ENCOUNTER 2022-06-20 11:22 | Outpatient (CLI) | payer MEDICAID ==
[2022-06-21 09:09] LABS: AFP SERUM TUMOR MARKER 2.4 ng/mL (0.0-8.4)
[2022-06-21 10:09] LABS: HBsAG SCREEN Negative (Negative)
[2022-06-22 01:07] LABS: HCV AB Non Reactive (Non Reactive)
[2022-06-22 14:08] LABS: ANTINUCLEAR ANTIBODIES IFA Negative (.)
[2022-06-27 14:08] LABS: ACTIN (SMOOTH MUSCLE) ANTIBODY 7 Units (0-19); MITOCHONDRIAL (M2) ANTIBODY <20.0 Units (0.0-20.0)
== END 2022-06-20 11:23 | disposition home or self-care (01) ==
LOC: LAB 11:22
PROVIDERS: ATTEND Internal Medicine
DX: R94.5 Abnormal results of liver function studies (principal)
CPT/HCPCS: 36415; 81599; 82103; 82105; 82728; 83540; 83550; 84466; 85610; 86015; 86038; 86376; 86381; 86704; 86803; 87340

== ENCOUNTER 2022-06-25 14:22 | Emergency (ER) | payer MEDICAID ==
[2022-06-25 14:34] VITALS: BP 151/87
[2022-06-25] MEDS ORDERED: HYDROmorphone 1 MG/ML CARPUJECT IVP STA (16:39)
--- NOTE | 2022-06-25 16:42 | ED Physician Documentation ---
History of Present Illness - Stated complaint Stated Complaint: RT SIDE PX - Chief complaint Chief Complaint: General - History obtained from History obtained from: Patient - Additonal information Additional information: 52-year-old gentleman with history of some alcohol issues, severe hypertriglyceridemia, trigeminal neuralgia presents with 4 days of right flank and right upper mid back pain. Its worse if he twists or take a deep breath. It is a cramping sensation. It is not worse if he eats. No urinary complaints with it. No fevers. PD PAST MEDICAL HISTORY - Past Medical History Cardiovascular: Hypertension, High cholesterol Respiratory: None Neuro: Peripheral neuropathy Endocrine/Autoimmune: Type 2 diabetes GI: Pancreatitis, Other : Nocturia HEENT: None Psych: None Musculoskeletal: Chronic back pain Derm: None - Past Surgical History Past Surgical History: Yes General: Other Ortho: Other - Present Medications Home Medications: Ambulatory Orders Medication Instructions Recorded Confirmed Gabapentin 1,200 mg PO TID 02/15/20 06/07/22 Insulin Glargine,Hum.rec.anlog 50 unit SUBQ DAILY 08/23/21 12/13/21 [Basaglar Kwikpen U-100] Insulin Aspart [NovoLOG] 1 - 10 units SQ TIDWM 08/31/21 06/07/22 carBAMazepine [TEGretol] 200 mg PO BID #60 tablet 01/03/22 06/07/22 Atorvastatin Calcium [Lipitor] 80 mg PO DAILY #30 tablet 06/07/22 Amoxicillin 2 tab PO TID #30 cap 06/25/22 HYDROcod/ACETAM 5/325 [[place] 5/325] 1 - 2 tab PO Q6H PRN #10 tablet 06/25/22 - Allergies Allergies/Adverse Reactions: Allergies Allergy/AdvReac Type Severity Reaction Status Date / Time bee pollen Allergy Dizziness Verified 06/07/22 13:55 naproxen [From Naprosyn] Allergy Rash Verified 06/07/22 13:55 - Social History Does the pt smoke?: No Smoking Status: Never smoker Does the pt drink ETOH?: Yes Does the pt have substance abuse?: Yes - Immunizations Immunizations are current?: Yes - POLST Patient has POLST: No POLST Status: Full Code PD ED PE NORMAL - Vitals Vital signs reviewed: Yes - General General: Alert and oriented X 3, Other (Appears uncomfortable) - Cardiac Cardiac: RRR, No murmur - Respiratory Respiratory: No respiratory distress, Clear bilaterally - Back Back: Other (Tender to the right parathoracic lobe musculature and ribs, less tender over the right upper abdomen.) - Derm Derm: Normal color, Warm and dry - Extremities Extremities: No edema, No calf tenderness / cord - Neuro Neuro: Alert and oriented X 3, Normal speech Results - Vitals Vitals: Vital Signs - 24 hr 06/25/22 14:30 Temperature 36.3 C L Heart Rate 98 Respiratory 18 Rate Blood Pressure 151/87 H O2 Saturation 99 Oxygen O2 Source Room air - Labs Labs: Laboratory Tests 06/25/22 06/25/22 06/25/22 16:44 16:44 16:44 WBC 8.0 RBC 4.06 L Hgb 14.9 Hct 33.8 L MCV 83.3 MCH TNP MCHC TNP RDW 14.6 Plt Count 158 MPV 11.1 Neut # (Auto) Not Reportable Lymph # (Auto) Not Reportable Park # (Auto) Not Reportable Eos # (Auto) Not Reportable Baso # (Auto) Not Reportable Absolute Nucleated RBC Not Reportable Total Counted 100 Band Neuts % (Manual) 0 Reactive Lymphs % (Man) 1 Abnorm Lymph % (Manual) 0 Nucleated RBC % Not Reportable Neutrophils # (Manual) 4.6 Lymphocytes # (Manual) 3.3 Monocytes # (Manual) 0.1 Eosinophils # (Manual) 0.1 Basophils # (Manual) 0.0 Differential Comment MANUAL DIFFERENTIAL Platelet Estimate NORMAL (130-450,000) Platelet Morphology NORMAL APPEARANCE RBC Morph Micro Appear NORMAL APPEARANCE Sodium 115 L* Potassium 3.5 Chloride 82 L Carbon Dioxide 22 Anion Gap 11.0 BUN 10 Creatinine 1.0 Estimated GFR (MDRD) 78 L Glucose 279 H Calcium 8.1 L Magnesium 5.5 H* Total Bilirubin < 0.2 L AST 240 H ALT < 10 L Alkaline Phosphatase 136 H Total Protein 3.7 L Albumin 3.9 Globulin TNP Albumin/Globulin Ratio TNP Triglycerides > 2000 H Cholesterol > 1000 H LDL Cholesterol Direct TNP LDL Cholesterol, Calc TNP VLDL Cholesterol Not Reportable HDL Cholesterol TNP LDL/HDL Ratio TNP dLDL/HDL Ratio TNP Cholesterol/HDL Ratio TNP Lipase 36 Ethyl Alcohol < 5.0 PD Medical Decision Making - ED course ED course: 52-year-old gentleman with right-sided pain that spans an area that could be an intra-abdominal or thoracic issue. It actually seems more like muscular back pain than anything else. Patient stated he did not drive here, that said I had been in the parking lot when he pulled in and saw him drive here. He was confronted with his inconsistency and then stated that somebody had taken his car home. I asked him "so if I go out in the parking lot right now, I won't see your car?" And he admitted his car was still here but that he would be picked up by someone else. Differential diagnosis is broad and includes PE, liver abnormality or other intra-abdominal emergency. That said most likely it is muscular. Note made I saw him about a month ago for a visit where he was referred in for profound hyponatremia at 120 but this was felt to be spurious related to severe hypertriglyceridemia. He is taking his statin and this has not been rechecked since. 52-year-old gentleman presents with pain that is of the right mid back with broad differential diagnosis as above. CT imaging demonstrated a infiltrate in the right lower lobe which may be causative and will treat with high-dose amoxicillin. His lab work continues to be basically uninterpretable especially the chemistry panels because of his profound Lipemea. He appears well though, certainly not looking ill like a sodium of 115 or encephalopathic. As such I suspect most of the abnormal lab work is spurious and I called the lab and spoke with the person working in the chemistry department and she agrees. Subsequent to discharge the patient was witnessed driving away at the bottom hoop driver seat of his own car despite the above conversation and after receiving 1mg dilaudid IV. We will write a letter to him regarding further narcotics from the emergency department. Departure - Departure Disposition: 01 Home, Self Care Clinical Impression: High serum low density lipoprotein (LDL) cholesterol, Pseudohyponatremia, Flank pain, Pneumonia Condition: Good Record reviewed to determine appropriate education?: Yes Instructions: Pneumonia Dc, ED Acute Pain [facility] Prescriptions: Amoxicillin 2 tab PO TID #30 cap HYDROcod/ACETAM 5/325 [[place] 5/325] 1 - 2 tab PO Q6H PRN #10 tablet PRN Reason: Pain Comments: As discussed, today's labs demonstrated continued significant abnormalities from your hypertriglyceridemia. Unfortunately that makes all of your other lab work basically uninterpretable. The CAT scan we did of your chest and abdomen demonstrated a right lower lobe pulmonary opacity, fatty liver, no other acute findings. Follow-up with Dr. Raymundo, continue your low-fat low meat diet and statin medication. I sent your prescriptions electronically to [facility] in [place] I am prescribing a short course of narcotic pain medication for you. These are potentially dangerous and addictive medications that should be used carefully. These medications may constipate you. Take an jfax-cfd-qpctelo stool softener (docusate) twice daily with plenty of water while taking these medications. If you go 24 hours without a bowel movement, take ksaj-[id number]-[id number] miralax, per package instructions. Do not drink or drive while taking these medications. If you received narcotic or sedating medications while in the emergency department, do not drive for 24 hours. Store this medication in a safe, secure place and out of reach of children. It is a violation of federal law to give or sell this medication to another person or to use in a manner other than prescribed. The ED will not refill narcotic prescriptions, including prescriptions lost or stolen. To dispose of unwanted medications: 1. [facility] at [address] in [place] has a medication drop box. They accept prescription medications (in pill form) Monday through Monday 9:00 a.m. to 5:00 p.m. 2. [facility] accepts prescription medications (in pill form only) for disposal year round. Call for more information. 3. Contact the [facility] for the next [facility] sponsored prescription drug collection event. , [phone], or [phone]; Note that many narcotic pain relievers also contain Tylenol/acetaminophen. Please ensure that your total dose of acetaminophen from all sources does not exceed 3 g (3000 mg) per day. Discharge Date/Time: 06/25/22 18:45
[2022-06-25] MEDS ORDERED: iohexoL-300 100 ML VIAL ONE (17:20)
[2022-06-25 17:22] LABS: BASOPHILS % (AUTO) 0.7 %; HCT - HEMATOCRIT 33.8 % (42.0-52.0); HGB - HEMOGLOBIN 14.9 g/dL (14.0-18.0); LYMPHOCYTES % (AUTO) 37.9 %; MEAN CORPUSCULAR VOLUME 83.3 fL (80.0-94.0); MEAN PLATELET VOLUME 11.1 fL (7.4-11.4); MONOCYTES % (AUTO) 4.4 %; NEUTROPHILS % (AUTO) 55.3 %; PLT - PLATELET COUNT 158 10^3/uL (130-450); RED BLOOD COUNT 4.06 10^6/uL (4.70-6.10); RED CELL DISTRIBUTION WIDTH 14.6 % (12.0-15.0)
[2022-06-25 17:26] LABS: ABNORMAL LYMPHS % (MANUAL) 0 %; BAND NEUTROPHILS % (MANUAL) 0 %
[2022-06-25 17:28] LABS: ALBUMIN 3.9 g/dL (3.2-5.5); ALKALINE PHOSPHATASE 136 IU/L (42-121); ALT ALANINE AMINOTRANSFERASE < 10 IU/L (10-60); BILIRUBIN,TOTAL < 0.2 mg/dL (0.2-1.0); BUN - BLOOD UREA NITROGEN 10 mg/dL (6-20); CALCIUM 8.1 mg/dL (8.5-10.3); CARBON DIOXIDE - CO2 22 mmol/L (21-32); CHLORIDE 82 mmol/L (101-111); ETOH - ETHANOL < 5.0 mg/dL; GFR - MDRD 78 (>89); GLUCOSE 279 mg/dL (70-100); LIPASE 36 U/L (22-51); POTASSIUM 3.5 mmol/L (3.5-5.0); TOTAL PROTEIN 3.7 g/dL (6.7-8.2)
[2022-06-25 17:33] LABS: CHOLESTEROL > 1000 mg/dL
[2022-06-25 17:35] LABS: TRIGLYCERIDES > 2000 mg/dL
[2022-06-25 17:40] LABS: SODIUM 115 mmol/L (135-145)
[2022-06-25 17:41] LABS: MAGNESIUM 5.5 mg/dL (1.7-2.8)
[2022-06-25] MEDS ORDERED: iohexoL-300 100 ML VIAL IVP ONE (17:53)
[2022-06-25 17:56] LABS: AST ASPARTATE AMINOTRANSFERASE 240 IU/L (10-42)
--- NOTE | 2022-06-25 18:04 | CT Report ---
PROCEDURE: ANGIO CHEST W/WO INDICATIONS: upper back pain CONTRAST: 100ml omni 300 TECHNIQUE: After the administration of intravenous contrast, 2 mm axial images were acquired from the pulmonary apices to the posterior costophrenic angles during the arterial phase. In addition, 1 mm lung kernel and 5 mm soft tissue kernel reconstructions were performed. 3-dimensional coronal oblique maximum int ensity projection (MIP) reformats, 8 mm axial MIP, and 5 mm coronal and sagittal MPR reformats were t hen performed through the thorax. For radiation dose reduction, the following was used: automated exp osure control, adjustment of mA and/or kV according to patient size. COMPARISON: 12/27/2019. Correlation is also made with the accompanying abdomen pelvis CT, 06/25/2022. FINDINGS: Image quality: Excellent. Large vessels: No filling defects within the opacified pulmonary arteries, accounting for motion and contrast timing. No evidence of acute aortic syndrome or aortic aneurysm. Lungs and pleura: No pleural effusions. No pneumothorax. No suspicious pulmonary nodules which requi re follow up. Minimal right lower lobe poorly defined opacity can be seen. Mediastinum: Heart size is normal. No pericardial effusions. No mediastinal adenopathy by size criter ia. Chest wall and lower neck: Thyroid is unremarkable. No axillary or supraclavicular adenopathy by size . Age-appropriate degenerative changes are seen. Bones: No aggressive osseous abnormality. Upper Abdomen: Unremarkable. IMPRESSION: Negative for pulmonary embolism. No significant abnormality of the thoracic aorta can be seen. Minimal right lower lobe pulmonary opacity can be seen, which may represent atelectasis or mild infil trate. This mildly progressed compared to 2019. Reviewed by: Agustin Anderson MD on 06/25/2022 5:03 PM [facility] Approved by: Agustin Anderson MD on 06/25/2022 5:03 PM [facility] Station ID: [id number]
--- NOTE | 2022-06-25 18:07 | CT Report ---
PROCEDURE: ABDOMEN/PELVIS W INDICATIONS: iv only ruq pain/back pain CONTRAST: 100ml omni 300 TECHNIQUE: After the administration of IV contrast, 5 mm thick sections acquired from the diaphragms to the symp hysis. 5 mm thick coronal and sagittal reformats were acquired. For radiation dose reduction, the f ollowing was used: automated exposure control, adjustment of mA and/or kV according to patient size. COMPARISON: 06/15/2021. Correlation is also made with the accompanying chest CT, 06/25/2022. FINDINGS: Image quality: Excellent. Lung bases and heart: Minimal dependent right lower lung opacity is seen. Liver: Diffuse fatty liver infiltration can be seen. The liver demonstrates normal size and demonstra elizabeth no suspicious lesions. Gallbladder and biliary tree: Within normal limits. Spleen: Unremarkable. Pancreas: Unremarkable. Adrenals: Unremarkable. Kidneys and ureters: Unremarkable. Bowel and peritoneum: No bowel distension. No pathologic free fluid. A normal appendix is incidentall y noted. Distal colonic diverticulosis is seen, without findings of active diverticulitis. Lymph nodes: No central or retroperitoneal adenopathy. Vessels: Unremarkable. PELVIS Reproductive organs: Unremarkable. Bladder: Unremarkable. Lymph nodes: Unremarkable. Bones: No aggressive osseous abnormality. Age-appropriate degenerative changes are seen. Other: Bilateral fat-containing inguinal hernias are seen. IMPRESSION: No imaging explanation is found for the patient's presenting symptoms. Additional findings: Fatty liver infiltration Normal appendix Diverticulosis, without findings of active diverticulitis. Fat-containing bilateral inguinal hernias Reviewed by: Agustin Anderson MD on 06/25/2022 5:06 PM [facility] Approved by: Agustin Anderson MD on 06/25/2022 5:06 PM [facility] Station ID: [id number]
[2022-06-25] MEDS ORDERED: AMOXICILLIN 250 MG CAPSULE PO STA (18:14)
[2022-06-25 18:41] LABS: EOSINOPHILS # (MANUAL) 0.1 10^3/uL (0-0.7); LYMPHOCYTES # (MANUAL) 3.3 10^3/uL (1.5-3.5); LYMPHOCYTES % (MANUAL) 40 %; MONOCYTES # (MANUAL) 0.1 10^3/uL (0.0-1.0); NEUTROPHILS # (MANUAL) 4.6 10^3/uL (1.5-6.6); RBC MORPHOLOGY (MULTIPLE) NORMAL APPEARANCE (NORMAL); REACTIVE LYMPHS % (MANUAL) 1 %
[2022-06-25 18:42] LABS: DIFFERENTIAL COMMENT MANUAL DIFFERENTIAL; PLATELET ESTIMATE, MANUAL NORMAL (130-450,000) (NORMAL); PLATELET MORPHOLOGY NORMAL APPEARANCE (NORMAL)
== END 2022-06-25 18:45 | disposition home or self-care (01) ==
LOC: ED 14:22
DX: R10.9 Unspecified abdominal pain (principal); J18.9 Pneumonia, unspecified organism; E78.2 Mixed hyperlipidemia; I10 Essential (primary) hypertension; E11.42 Type 2 diabetes mellitus with diabetic polyneuropathy; Z79.4 Long term (current) use of insulin; Z79.899 Other long term (current) drug therapy
CPT/HCPCS: 36415; 71275; 74177; 80053; 80061; 80320; 83690; 83735; 85025; 96374; 99283; 99284; A9270; J1170; Q9967; 83721

== ENCOUNTER 2022-06-30 06:28 | Outpatient (CLI) | payer MEDICAID ==
--- NOTE | 2022-06-30 14:37 | Ultrasound Report ---
PROCEDURE: Abdomen Complete INDICATIONS: ABN LIVER FUNCTION TEST TECHNIQUE: Real-time scanning was performed of the abdominal and retroperitoneal organs, with image documentatio n. COMPARISON: CT Abdomen 06/25/22 FINDINGS: Liver: Liver is enlarged measuring 18.7 cm with increased echotexture. Gallbladder: No stones. Wall thickness measures 2.1 cm. Biliary ducts: Intrahepatic bile ducts are non-dilated. Extrahepatic bile duct caliber measures 3 m m. Normal is 6-7 mm or less in diameter, or 10 mm or less post-cholecystectomy. Pancreas: Visualized portions of the pancreas are sonographically normal. Spleen: Spleen is normal in size and homogeneous in echotexture. Kidneys: Kidneys are normal in size and echotexture. Right kidney measures 11.5 cm long; left kidne y measures 11.9 cm long. No hydronephrosis or nephrolithiasis. No solid masses. No complex renal cy stic lesions which require follow-up. Simple left inferior pole cyst. Aorta: Visualized aorta is normal in caliber at less than 3 cm. Iliacs: Proximal common iliac arteries are normal in caliber at less than 2.5 cm. IVC: Intrahepatic inferior vena cava is patent. Miscellaneous: No free abdominal fluid. IMPRESSION: Hepatomegaly with steatosis. Reviewed by: Josi Dooley MD on 06/30/2022 2:36 PM PDT Approved by: Josi Dooley MD on 06/30/2022 2:36 PM PDT Station ID: [id number]
== END 2022-06-30 06:29 | disposition home or self-care (01) ==
LOC: DI 06:28
PROVIDERS: ATTEND Internal Medicine
DX: K76.0 Fatty (change of) liver, not elsewhere classified (principal)

== ENCOUNTER 2022-07-02 06:55 | Outpatient (CLI) | payer MEDICAID ==
[2022-07-02] MEDS ORDERED: GADOBUTROL 7.5 MMOL/7.5 ML VIAL ONE (07:07)
[2022-07-02] MEDS ORDERED: GADOBUTROL 7.5 MMOL/7.5 ML VIAL IVP ONE (08:22)
--- NOTE | 2022-07-02 09:25 | MRI Report ---
PROCEDURE: MR angiogram brain without contrast INDICATIONS: TRIGEMINAL NEURALGIA, LEFT FACIAL NUMBNESS TECHNIQUE: Noncontrast axial 3-D [id number] MR angiogram, with 3-dimensional maximum intensity projection (M IP) reformats of the internal carotid arteries and posterior circulation then performed. COMPARISON: None. FINDINGS: Image quality: Excellent. Anterior circulation: Intracranial internal carotid arteries demonstrate normal size and intralumina l flow signal. The flow within the paired anterior cerebral arteries is normal and symmetric. The f low within the middle cerebral arteries is normal and symmetric. The anterior communicating artery i s seen. No stenoses, occlusions, or aneurysms. Posterior circulation: Visualized portions of the vertebral arteries demonstrate normal caliber, and join to form a normal appearing basilar artery. High-grade focal stenosis noted involving the left P 1 AUTOMOTIVE MANAGER. Flow in the distal left brazing furnace feeder are diminutive, but patent. No aneurysm.. No stenoses, occlusion s, or aneurysms. IMPRESSION: High-grade left P1 AUTOMOTIVE MANAGER stenosis results in diminutive flow in the distal left AUTOMOTIVE MANAGER without occlusion. Reviewed by: Juan Carlos Navarro MD on 07/02/2022 8:24 AM [facility] Approved by: Juan Carlos Navarro MD on 07/02/2022 8:24 AM [facility] Station ID: [id number]
--- NOTE | 2022-07-02 10:47 | MRI Report ---
PROCEDURE: MRI brain with and without contrast INDICATIONS: TRIGEMINAL NEURALGIA, LEFT FACIAL NUMBNESS CONTRAST: GADAVIST 6.8ML TECHNIQUE: Noncontrast axial T1 spin echo, axial T2 fast spin echo, sagittal and axial FLAIR, coronal T2 fast sp in echo, axial gradient echo, axial diffusion and ADC through the brain. After the administration of contrast, axial and coronal T1 spin echo with fat saturation through the brain. COMPARISON: 02/01/2021 FINDINGS: Image quality: Excellent. CSF spaces: Basal cisterns are patent. No extra-axial fluid collections. Ventricles are normal in size and shape. Brain: No midline shift. No intracranial bleeds or masses. No abnormal intracranial enhancement. There is cerebral volume loss for age. There is periventricular white matter chronic small vessel is chemic change. The brainstem appears normal. Diffusion-weighted images demonstrate no acute infarct . Mild atrophy and multifocal white matter chronic ischemic change, similar to prior exam. Old incide ntal small lacunar infarcts in the left thalamus and right lentiform nucleus Normal intravascular brittany w voids are present. Thin section T2 weighted imaging through the skull base shows normal cisternal components of the fift h, 7th and 8th cranial nerve complexes without evidence of neurovascular compression Skull and face: Calvarial marrow is normal in signal. Orbits appear normal. Sinuses: Right maxillary sinus mucosal retention cyst measures up to 1.5 cm IMPRESSION: Atrophy and chronic ischemic change without acute infarct, hemorrhage or mass lesion. No MR evidence of CN5 neurovascular compression Reviewed by: Juan Carlos Navarro MD on 07/02/2022 9:46 AM [facility] Approved by: Juan Carlos Navarro MD on 07/02/2022 9:46 AM [facility] Station ID: [id number]
== END 2022-07-02 06:56 | disposition home or self-care (01) ==
LOC: DI 06:55
PROVIDERS: ATTEND Psychiatry & Neurology Neurology
DX: I66.22 Occlusion and stenosis of left posterior cerebral artery (principal); I67.82 Cerebral ischemia; G31.9 Degenerative disease of nervous system, unspecified
CPT/HCPCS: 70544; 70553; A9585

== ENCOUNTER 2023-02-07 13:30 | Emergency (ER) | payer MEDICAID ==
[2023-02-07] MEDS ORDERED: ERYTHROMYCIN OPHTH OINT 1 GM TUBE RIGHTEYE STA (14:02)
--- NOTE | 2023-02-07 14:24 | ED Physician Documentation ---
History of Present Illness - Stated complaint Stated Complaint: RT EYE FB - Chief complaint Chief Complaint: Heent - Additonal information Additional information: She is 52-year-old male here for evaluation of acute right eye pain. He was w orking in his garage on wood when he felt some debris fly into the right eye causing pain. He used a bottle of Visine at home but continued to have pain thus he presents here. He does endorse some mild blurry vision. Does not wear contact lenses. He has clear drainage from the eye. Review of Systems Eyes: reports: Decreased vision, Discharge, Irritation. denies: Photophobia PD PAST MEDICAL HISTORY - Past Medical History Past Medical History: Yes Cardiovascular: Hypertension, High cholesterol Respiratory: None Neuro: Peripheral neuropathy Endocrine/Autoimmune: Type 2 diabetes GI: Pancreatitis, Other : Nocturia HEENT: None Psych: None Musculoskeletal: Chronic back pain Derm: None - Past Surgical History Past Surgical History: Yes General: Other Ortho: Other - Present Medications Home Medications: Ambulatory Orders Medication Instructions Recorded Confirmed Gabapentin 1,200 mg PO TID 02/15/20 06/07/22 Insulin Glargine,Hum.rec.anlog 50 unit SUBQ DAILY 08/23/21 12/13/21 [Basaglar Kwikpen U-100] Insulin Aspart [NovoLOG] 1 - 10 units SQ TIDWM 08/31/21 06/07/22 carBAMazepine [TEGretol] 200 mg PO BID #60 tablet 01/03/22 06/07/22 Atorvastatin Calcium [Lipitor] 80 mg PO DAILY #30 tablet 06/07/22 Amoxicillin 2 tab PO TID #30 cap 06/25/22 Erythromycin Base [Erythromycin 1 applic OP BID #3.5 gm 02/07/23 Ophthalmic Ointment] - Allergies Allergies/Adverse Reactions: Allergies Allergy/AdvReac Type Severity Reaction Status Date / Time bee pollen Allergy Dizziness Verified 02/07/23 13:43 naproxen [From Naprosyn] Allergy Rash Verified 02/07/23 13:43 - Social History Does the pt smoke?: No Smoking Status: Never smoker Does the pt drink ETOH?: Yes Does the pt have substance abuse?: Yes Substance Use and Type: Marijuana - Immunizations Immunizations are current?: Yes - POLST Patient has POLST: No POLST Status: Full Code PD ED PE EXPANDED - Eyes Eyes: Normal eyelids, Corneal abrasion, Fluorescein uptake, Other (Positive fluorescein uptake of the left cornea over the iris between 12 and 3:00. Superficial abrasion without evidence of ulceration. No hyphema. Clear anterior chambers. EOMI.). No: Eyelid embedded FB (Right I thoroughly irrigated with 500 mL of saline. No obvious foreign body noted.), Conj/sclera FB, Subconj hemorrhage, Corneal FB, Corneal ulcer Results - Vitals Vitals: Vital Signs - 24 hr 02/07/23 13:39 Temperature 36.9 C Heart Rate 107 H Respiratory 16 Rate Blood Pressure 136/81 H O2 Saturation 97 Oxygen O2 Source Room air PD Medical Decision Making - ED course Complexity details: d/w patient ED course: Corneal abrasion of his right eye between 12 and 3:00 without obvious foreign body or ulceration noted. Clear anterior chambers no hyphema. Symptoms improved with irrigation of the eye. Recommended close follow-up with ophthalmology for reevaluation in the next week. Patient will be started on erythromycin ointment. Patient did smell heavily of alcohol during my exam. He had reported that he drove to the emergency department. He was advised that he must find a ride home. He stated he would walk. Departure - Departure Disposition: 01 Home, Self Care Clinical Impression: Injury of conjunctiva and corneal abrasion of right eye w/o FB Qualifiers: Encounter type: initial encounter Qualified Code(s): S05.01XA - Injury of conjunctiva and corneal abrasion without foreign body, right eye, initial encounter Condition: Stable Instructions: ED Eye Injury Corneal Abrasion Prescriptions: Erythromycin Base [Erythromycin Ophthalmic Ointment] 1 applic OP BID #3.5 gm Comments: You do have an abrasion of your right cornea. Please apply the antibiotic ointment to the right eye 2-3 times a day for the next week. It is very important you follow closely with an associate professor physician or eye doctor for reevaluation in the next week. Return sooner to the emergency department if you are having any new or worsening symptoms. Please attempt to avoid rubbing the eye. For any discomfort you can try Tylenol, ibuprofen smzk-awb-hyxcjhy or even use a cool compress for 5 to 10 minutes. Bathing they have you can use the antibiotic ointment administered today in the emergency department but a prescription for some additional medicine was sent to the [facility] in [place]. You have been drinking today. It is not safe for you to drive home. You must call for a ride or if you choose to you can walk home.
[2023-02-07 14:38] VITALS: BP 137/84; O2SAT 99
== END 2023-02-07 14:35 | disposition home or self-care (01) ==
LOC: ED 13:30
DX: S05.01XA Injury of conjunctiva and corneal abrasion without foreign body, right eye, initial encounter (principal); W44.8XXA Other foreign body entering into or through a natural orifice, initial encounter; Y93.89 Activity, other specified; Y92.008 Other place in unspecified non-institutional (private) residence as the place of occurrence of the external cause
CPT/HCPCS: 99282; 99283; J3490

== ENCOUNTER 2023-03-16 11:16 | Outpatient (CLI) | payer MEDICAID ==
[2023-03-16 11:35] LABS: BASOPHILS # (AUTO) 0.1 10^3/uL (0.0-0.1); EOSINOPHILS # (AUTO) 0.1 10^3/uL (0.0-0.7); EOSINOPHILS % (AUTO) 2.1 %; HCT - HEMATOCRIT 42.2 % (42.0-52.0); HGB - HEMOGLOBIN 14.9 g/dL (14.0-18.0); LYMPHOCYTES # (AUTO) 1.9 10^3/uL (1.5-3.5); LYMPHOCYTES % (AUTO) 30.1 %; MEAN CORPUSCULAR HEMOGLOBIN 30.6 pg (27.0-31.0); MEAN CORPUSCULAR HGB CONC 35.3 g/dL (32.0-36.0); MEAN CORPUSCULAR VOLUME 86.7 fL (80.0-94.0); MEAN PLATELET VOLUME 10.6 fL (7.4-11.4); MONOCYTES # (AUTO) 0.4 10^3/uL (0.0-1.0); MONOCYTES % (AUTO) 5.9 %; NEUTROPHILS # (AUTO) 3.8 10^3/uL (1.5-6.6); NEUTROPHILS % (AUTO) 60.6 %; PLT - PLATELET COUNT 138 10^3/uL (130-450); RED BLOOD COUNT 4.87 10^6/uL (4.70-6.10); RED CELL DISTRIBUTION WIDTH 11.4 % (12.0-15.0); WHITE BLOOD COUNT 6.2 x10^3/uL (4.8-10.8)
[2023-03-16 11:53] LABS: CHOL/HDL RATIO 16.1 (<5.0); CHOLESTEROL 419 mg/dL; HDL CHOLESTEROL 26 mg/dL; LDL CHOLESTEROL,DIRECT 108 mg/dL (75-193); URIC ACID 5.7 mg/dL (4.4-7.6)
[2023-03-16 11:58] LABS: ALBUMIN/GLOBULIN RATIO 1.2 (1.0-2.2); ALKALINE PHOSPHATASE 310 IU/L (42-121); ALT ALANINE AMINOTRANSFERASE 73 IU/L (10-60); AST ASPARTATE AMINOTRANSFERASE 83 IU/L (10-42); BILIRUBIN,TOTAL 0.9 mg/dL (0.2-1.0); BUN - BLOOD UREA NITROGEN 10 mg/dL (6-20); CARBON DIOXIDE - CO2 19 mmol/L (21-32); CHLORIDE 93 mmol/L (101-111); CREATININE 0.6 mg/dL (0.6-1.3); GFR - MDRD 140 (>89); GLUCOSE 318 mg/dL (74-104); POTASSIUM 3.7 mmol/L (3.5-4.5); SODIUM 125 mmol/L (135-145); TOTAL PROTEIN 7.3 g/dL (6.4-8.9); TRIGLYCERIDES > 3000 mg/dL (48-352)
[2023-03-16 12:24] LABS: THYROID STIMULATING HORMONE 1.58 uIU/mL (0.34-5.60)
[2023-03-16 12:26] LABS: LDLD/HDL RATIO 4.2 (<3.6)
[2023-03-16 13:07] LABS: ESTIMATED AVERAGE GLUCOSE 272 mg/dL (70-100); HEMOGLOBIN A1c% 11.1 % (4.27-6.07)
[2023-03-16 15:31] LABS: CREATININE,URINE 48.6 mg/dL; MICROALBUM/CREATININE RATIO,UR 22.6 ug/mg (<30.0); MICROALBUMIN,URINE 1.1 mg/dL
== END 2023-03-16 11:17 | disposition home or self-care (01) ==
LOC: LAB 11:16
PROVIDERS: ATTEND Internal Medicine
DX: E78.1 Pure hyperglyceridemia (principal); E11.40 Type 2 diabetes mellitus with diabetic neuropathy, unspecified; Z86.39 Personal history of other endocrine, nutritional and metabolic disease; R94.5 Abnormal results of liver function studies; R07.81 Pleurodynia
CPT/HCPCS: 36415; 80050; 80061; 82043; 82570; 83036; 83721; 84550

== ENCOUNTER 2023-03-16 11:29 | Outpatient (CLI) | payer MEDICAID ==
--- NOTE | 2023-03-16 13:28 | XRAY Report ---
PROCEDURE: Ribs 2V RT INDICATIONS: RIGHT SIDED RIB PAIN TECHNIQUE: 2 views of the right ribs were acquired. COMPARISON: None. FINDINGS: Surgical changes and devices: None. Bones and chest wall: No fractures or dislocations. No suspicious bony lesions. Overlying soft tis sues appear unremarkable. Lungs and pleura: The visualized lung appears clear. No pleural effusions or pneumothorax are visib le. IMPRESSION: No displaced fracture or pneumothorax. Reviewed by: Nadir Miranda MD on 03/16/2023 1:27 PM [facility] Approved by: Nadir Miranda MD on 03/16/2023 1:27 PM [facility] Station ID: [id number]
== END 2023-03-16 11:30 | disposition home or self-care (01) ==
LOC: DI 11:29
PROVIDERS: ATTEND Internal Medicine
DX: R07.81 Pleurodynia (principal)

== ENCOUNTER 2023-05-11 14:28 | Outpatient (CLI) | payer MEDICAID ==
--- NOTE | 2023-05-11 19:15 | Ultrasound Report ---
PROCEDURE: Testicle INDICATIONS: L HYDROCELE TECHNIQUE: Real-time scanning was performed of the scrotum and testicles, with image documentation. Color and p ulse Doppler interrogation was performed of both testicles. COMPARISON: 06/15/2021 FINDINGS: Right: Testicle is normal in size at 3.8 x 2.1 x 2.8 cm, and homogenous in echotexture. Epididymis is normal in overall size and morphology. No hydrocele. No varicoceles. Overlying scrotal skin is n ormal in thickness. Left: Testicle is normal in size at 4.0 x 2.0 x 2.6 cm, and homogeneous in echotexture. Epididymis is normal in overall size and morphology. No hydrocele. No varicoceles. Overlying scrotal skin is n ormal in thickness. Small bilateral epididymal cysts measure less than 4 mm Doppler: Color and pulse Doppler demonstrate normal and symmetric arterial flow in both testicles. IMPRESSION: Unremarkable ultrasound of the testes. Hyperechoic region in the left epididymis has resolved in the interval Reviewed by: Juan Carlos Navarro MD on 05/11/2023 6:14 PM [place] Approved by: Juan Carlos Navarro MD on 05/11/2023 6:14 PM [facility] Station ID: [id number]
== END 2023-05-11 14:29 | disposition home or self-care (01) ==
LOC: DI 14:28
PROVIDERS: ATTEND Internal Medicine
DX: N43.3 Hydrocele, unspecified (principal)

== ENCOUNTER 2023-05-12 09:26 | Outpatient (CLI) | payer MEDICAID ==
--- NOTE | 2023-05-12 19:42 | MRI Report ---
PROCEDURE: Cervical Spine WO INDICATIONS: DJD CERVICAL SPINE TECHNIQUE: Noncontrast sagittal T1 spin echo and T2 fast spin echo, sagittal STIR, foraminal oblique sagittal T2 fast spin echo, and axial gradient echo or T2 fast spin echo through the cervical spine. COMPARISON: None. FINDINGS: Image quality: Excellent. Alignment and Curvature: There is normal bony alignment. Bone Marrow: Marrow demonstrates normal overall signal. Spinal Cord: Visualized spinal cord has normal size and signal. No cerebellar tonsillar herniation. Paraspinous Soft Tissues: No paravertebral masses. Prevertebral soft tissues are normal in thicknes s. C2-C3: Normal in appearance. C3-C4: The disc height is well-preserved. There is loss of disc signal seen. Mild disc osteophyte complex is seen. Mild to moderate bilateral neuroforaminal narrowing can be seen. Minimal central can al narrowing is seen. C4-C5: The disc height is well-preserved. There is loss of disc signal seen. Mild disc osteophyte complex is seen. There is at least moderate right-sided and moderate left-sided facet hypertrophy. Moderate bilateral neural foraminal narrowing is seen. Minimal central canal narrowing is seen. C5-C6: The disc height is well-preserved. There is loss of disc signal seen. Moderate disc bulge is seen at this level. There is at least moderate right-sided and moderate left-sided facet hypertrop hy. There is moderate to severe right-sided and moderate left-sided neuroforaminal narrowing. Minimal to mild central canal narrowing is seen. C6-C7: Moderate loss of disc height and signal are seen. Moderate disc osteophyte complex is seen. Moderate facet hypertrophy is seen. There is moderate to severe bilateral neuroforaminal narrowing. No central canal narrowing is seen. C7-T1: No significant abnormality is seen. IMPRESSION: Multiple levels of cervical spine degenerative change can be seen, which are overall worst at the C6- C7 level. Reviewed by: Agustin Anderson MD on 05/12/2023 6:40 PM [facility] [place] Approved by: Agustin Anderson MD on 05/12/2023 6:40 PM [facility] [place] Station ID: [id number]
== END 2023-05-12 09:27 | disposition home or self-care (01) ==
LOC: DI 09:26
PROVIDERS: ATTEND Internal Medicine
DX: M47.22 Other spondylosis with radiculopathy, cervical region (principal)

== ENCOUNTER 2023-07-20 10:18 | Outpatient (CLI) | payer MEDICAID ==
[2023-07-20 10:32] LABS: BASOPHILS # (AUTO) 0.1 10^3/uL (0.0-0.1); BASOPHILS % (AUTO) 0.8 %; EOSINOPHILS # (AUTO) 0.1 10^3/uL (0.0-0.7); EOSINOPHILS % (AUTO) 1.5 %; HCT - HEMATOCRIT 48.5 % (42.0-52.0); HGB - HEMOGLOBIN 16.6 g/dL (14.0-18.0); LYMPHOCYTES # (AUTO) 1.7 10^3/uL (1.5-3.5); LYMPHOCYTES % (AUTO) 28.8 %; MEAN CORPUSCULAR HEMOGLOBIN 29.1 pg (27.0-31.0); MEAN CORPUSCULAR HGB CONC 34.2 g/dL (32.0-36.0); MEAN CORPUSCULAR VOLUME 84.9 fL (80.0-94.0); MEAN PLATELET VOLUME 10.6 fL (7.4-11.4); MONOCYTES # (AUTO) 0.6 10^3/uL (0.0-1.0); MONOCYTES % (AUTO) 10.4 %; NEUTROPHILS # (AUTO) 3.5 10^3/uL (1.5-6.6); NEUTROPHILS % (AUTO) 58.3 %; PLT - PLATELET COUNT 141 10^3/uL (130-450); RED BLOOD COUNT 5.71 10^6/uL (4.70-6.10); RED CELL DISTRIBUTION WIDTH 11.1 % (12.0-15.0); WHITE BLOOD COUNT 5.9 x10^3/uL (4.8-10.8)
[2023-07-20 10:48] LABS: MICROALBUM/CREATININE RATIO,UR 54.1 ug/mg (<30.0); MICROALBUMIN,URINE 3.3 mg/dL
[2023-07-20 10:49] LABS: ALBUMIN 4.7 g/dL (3.2-5.5); ALBUMIN/GLOBULIN RATIO 1.3 (1.0-2.2); ALKALINE PHOSPHATASE 225 IU/L (42-121); ALT ALANINE AMINOTRANSFERASE 47 IU/L (10-60); AST ASPARTATE AMINOTRANSFERASE 42 IU/L (10-42); BILIRUBIN,TOTAL 0.8 mg/dL (0.2-1.0); BUN - BLOOD UREA NITROGEN 7 mg/dL (6-20); CALCIUM 10.3 mg/dL (8.5-10.3); CARBON DIOXIDE - CO2 25 mmol/L (21-32); CHLORIDE 96 mmol/L (101-111); CHOL/HDL RATIO 4.8 (<5.0); CHOLESTEROL 287 mg/dL; CREATININE 0.7 mg/dL (0.6-1.3); GFR - MDRD 117 (>89); GLUCOSE 317 mg/dL (74-104); HDL CHOLESTEROL 60 mg/dL; LDL CHOLESTEROL,CALCULATED 185 mg/dL; LDL/HDL RATIO 3.1 (<3.6); POTASSIUM 4.4 mmol/L (3.5-4.5); SODIUM 130 mmol/L (135-145); TOTAL PROTEIN 8.2 g/dL (6.4-8.9); TRIGLYCERIDES 208 mg/dL (48-352); VLDL CHOLESTEROL 42 mg/dL
[2023-07-20 11:02] LABS: THYROID STIMULATING HORMONE 2.45 uIU/mL (0.34-5.60)
[2023-07-20 11:59] LABS: ESTIMATED AVERAGE GLUCOSE 312 mg/dL (70-100); HEMOGLOBIN A1c% 12.5 % (4.27-6.07)
== END 2023-07-20 10:19 | disposition home or self-care (01) ==
LOC: LAB 10:18
PROVIDERS: ATTEND Internal Medicine
DX: E11.42 Type 2 diabetes mellitus with diabetic polyneuropathy (principal); E78.1 Pure hyperglyceridemia; G50.0 Trigeminal neuralgia; Z12.5 Encounter for screening for malignant neoplasm of prostate
CPT/HCPCS: 36415; 80050; 80061; 82043; 82570; 83036; 83721; 84153

== ENCOUNTER 2023-12-05 12:32 | Outpatient (CLI) | payer MEDICAID ==
--- NOTE | 2023-12-05 15:56 | XRAY Report ---
Shoulder 2+V LT HISTORY: 53 years of age, L SHOULDER PAIN TECHNIQUE: Shoulder 2+V LT COMPARISON: 02/15/2014. FINDINGS/IMPRESSION: Mild degenerative changes of the acromioclavicular joint, progressed from prior exam. Joint space of the glenohumeral joint is well-maintained. No acute fracture or dislocation. Reviewed by: Maria Luz Christensen MD on 12/05/2023 3:55 PM PDT Approved by: Maria Luz Christensen MD on 12/05/2023 3:55 PM PDT Station ID: [id number]
== END 2023-12-05 12:33 | disposition home or self-care (01) ==
LOC: DI 12:32
PROVIDERS: ATTEND Internal Medicine
DX: M19.012 Primary osteoarthritis, left shoulder (principal)

== ENCOUNTER 2024-02-26 14:03 | Observation (INO) ==
[2024-02-26 14:32] LABS: BASOPHILS # (AUTO) 0.1 10^3/uL (0.0-0.1); BASOPHILS % (AUTO) 0.9 %; EOSINOPHILS % (AUTO) 0.5 %; HCT - HEMATOCRIT 42.4 % (42.0-52.0); LYMPHOCYTES # (AUTO) 1.4 10^3/uL (1.5-3.5); LYMPHOCYTES % (AUTO) 25.1 %; MEAN CORPUSCULAR HEMOGLOBIN 30.6 pg (27.0-31.0); MEAN CORPUSCULAR HGB CONC 35.4 g/dL (32.0-36.0); MEAN CORPUSCULAR VOLUME 86.5 fL (80.0-94.0); MEAN PLATELET VOLUME 10.1 fL (7.4-11.4); MONOCYTES # (AUTO) 0.3 10^3/uL (0.0-1.0); MONOCYTES % (AUTO) 5.3 %; NEUTROPHILS # (AUTO) 3.9 10^3/uL (1.5-6.6); PLT - PLATELET COUNT 149 10^3/uL (130-450); RED CELL DISTRIBUTION WIDTH 11.8 % (12.0-15.0); WHITE BLOOD COUNT 5.7 x10^3/uL (4.8-10.8)
[2024-02-26 14:47] LABS: ALBUMIN 4.2 g/dL (3.2-5.5); ALBUMIN/GLOBULIN RATIO 1.3 (1.0-2.2); BILIRUBIN,TOTAL 1.3 mg/dL (0.2-1.0); CALCIUM 8.9 mg/dL (8.5-10.3); CREATININE 0.7 mg/dL (0.6-1.3); POTASSIUM 3.6 mmol/L (3.5-4.5); TOTAL PROTEIN 7.4 g/dL (6.4-8.9)
--- NOTE | 2024-02-26 15:03 | ED Physician Documentation ---
History of Present Illness Stated complaint Stated Complaint: HIGH BP Chief complaint Chief Complaint: Cardiac History obtained from History obtained from: Patient History of Present Illness Timing: Prior to arrival Additonal information Additional information: Patient is a 53-year-old male presenting to the emergency department with elevated blood pressure readings at home he notes he is feeling some mild shortness of breath this morning and decided to come to the emergency department after checking his blood pressure and it was elevated. On arrival patient significantly tachycardic and he does report feeling palpitations in his neck as well this morning which is abnormal for him. He denies any fevers or chills. He denies any cough or wheezing. He notes he does drink regularly on the weekends about 3-4 beers each day. He does admit to drinking yesterday. He denies any chest pain with his symptoms no epigastric pain or pain radiating to his back. He denies any leg swelling or weight gain. He notes he had an episode of chest pain a few days ago to the left side of his chest but it resolves quickly after denies any persistent symptoms today. He has no history of smoking no other substance use at home. He has a history of type 2 diabetes and has uncontrolled blood sugars at home. He is unsure the last time he used insulin and notes his blood sugars are generally very elevated. He has complications of neuropathy associated with this denies any polyuria or polydipsia associated with this. Meds/Allgy Home Medications Ambulatory Orders Medication Instructions Recorded Confirmed gabapentin 300 mg capsule 1,200 mg PO TID 02/15/20 06/07/22 insulin glargine 100 unit/mL (3 50 unit subcut DAILY 08/23/21 12/13/21 mL) subcutaneous pen (Basaglar KwikPen U-100 Insulin) insulin aspart U-100 100 unit/mL 1 - 10 units SQ TIDWM 08/31/21 06/07/22 (3 mL) subcutaneous pen (Novolog FlexPen U-100 Insulin aspart) carbamazepine 200 mg tablet 200 mg PO BID #60 tabs 01/03/22 06/07/22 atorvastatin 80 mg tablet (Lipitor) 80 mg PO DAILY #30 tabs 06/07/22 amoxicillin 500 mg capsule 2 tab PO TID #30 caps 06/25/22 erythromycin 5 mg/gram (0.5 %) eye 1 applic ophthalmic (eye) BID #3.5 02/07/23 ointment grams hydrocodone 5 mg-acetaminophen 325 1 tab PO QDAY PRN pain #30 tabs 02/01/24 mg tablet Allergies Allergies Allergy/AdvReac Type Severity Reaction Status Date / Time bee pollen Allergy Dizziness Verified 02/26/24 14:17 naproxen (From Naprosyn) Allergy Rash Verified 02/26/24 14:17 [facility] Medical History Medical History (Updated 02/26/24 @ 22:04 by Grant Haynes MD) Chest pain Social History Social History Smoking Status: Never smoker If you are a former smoker, when did you quit? (Date/Year): 2007 Number of Years Smoked: 10 How many cigarettes a day do you smoke? (20 cigarettes=1 Pk): 40 Do you dip or chew tobacco?: No Do you vape?: No Living arrangement: At home Living Condition: With spouse/s.o. Relationship: Do you feel safe in your home environment?: Yes Suffered physical, verbal, emotional, or financial abuse?: No History of Abuse: No Frequency: Weekly Are you sexually active?: No POLST Patient has POLST: No POLST Status: Full Code Exam Constitutional normal general appearance HENMT normocephalic and head/scalp atraumatic Eyes PERRL, EOMs intact bilaterally and conjunctivae normal Neck/C-Spine visual inspection normal Lymph no lymphadenopathy noted Respiratory Clear breath sounds on auscultation Cardiovascular regular rhythm noted Tachycardic Extremities normal to inspection No pitting edema or swelling Results Vitals Vitals: Vital Signs - 24 hr 02/26/24 14:17 02/26/24 14:54 02/26/24 16:12 Temperature 36.5 C Temperature Source Tympanic Pulse Rate 130 H 129 H Respiratory Rate 16 20 Blood Pressure 163/107 H 147/111 H O2 Saturation 100 99 O2 Source Room air Room air Pain Intensity 0 0 10 02/26/24 16:19 02/26/24 16:29 02/26/24 16:52 Temperature Temperature Source Pulse Rate 94 H 93 H 100 H Respiratory Rate 18 20 20 Blood Pressure 157/104 H 153/102 H 137/92 H O2 Saturation 98 98 98 O2 Source Room air Room air Room air Pain Intensity 6 4 5 02/26/24 17:16 02/26/24 18:48 02/26/24 19:11 Temperature Temperature Source Pulse Rate 99 H 129 H Respiratory Rate 20 20 Blood Pressure 141/91 H 138/93 H O2 Saturation 96 97 O2 Source Room air Room air Pain Intensity 3 8 4 02/26/24 19:41 02/26/24 20:05 02/26/24 20:08 Temperature Temperature Source Pulse Rate 106 H Respiratory Rate 20 Blood Pressure 137/86 H O2 Saturation 96 O2 Source Room air Pain Intensity 0 5 5 02/26/24 20:15 02/26/24 20:40 02/26/24 21:07 Temperature 36.5 C Temperature Source Temporal Artery Scan Pulse Rate 109 H 104 H Respiratory Rate 18 20 Blood Pressure 147/96 H 150/100 H O2 Saturation 95 98 O2 Source Room air Room air Pain Intensity 0 3 3 Oxygen O2 Source Room air Labs Labs: Laboratory Tests 02/26/24 02/26/24 02/26/24 14:28 17:28 18:59 WBC 5.7 RBC 4.90 Hgb 15.0 Hct 42.4 MCV 86.5 MCH 30.6 MCHC 35.4 RDW 11.8 L Plt Count 149 MPV 10.1 Neut # (Auto) 3.9 Lymph # (Auto) 1.4 L Glenn # (Auto) 0.3 Eos # (Auto) 0.0 Baso # (Auto) 0.1 Absolute Nucleated RBC 0.00 Nucleated RBC % 0.0 Sodium 129 L Potassium 3.6 Chloride 94 L Carbon Dioxide 23 Anion Gap 12.0 BUN 6 Creatinine 0.7 Estimated GFR (MDRD) 117 Glucose 321 H Calcium 8.9 Magnesium 1.8 Total Bilirubin 1.3 H AST 108 H ALT 87 H Alkaline Phosphatase 255 H Troponin I High Sens 4.0 4.3 B-Natriuretic Peptide 20 Total Protein 7.4 Albumin 4.2 Globulin 3.2 Albumin/Globulin Ratio 1.3 Lipase 41 Urine Color YELLOW Urine Clarity CLEAR Urine pH 7.0 Ur Specific [place] 1.010 Urine Protein NEGATIVE Urine Glucose (UA) >=1000 H Urine Ketones NEGATIVE Urine Occult Blood NEGATIVE Urine Nitrite NEGATIVE Urine Bilirubin NEGATIVE Urine Urobilinogen 0.2 (NORMAL) Ur Leukocyte Esterase NEGATIVE Ur Microscopic Review NOT INDICATED Urine Culture Comments NOT INDICATED Rads (name of study) Chest X-ray: Interpretation: No acute findings CTA: Relevant Findings:: EMP independent interpretation of test PD Medical Decision Making ED course Complexity details: reviewed old records and reviewed results ED course: Patient is a 53-year-old male presenting to the emergency department with elevated blood pressure readings he had at home he had no persistent symptoms with this only some shortness of breath. He notes no chest pain but did have some symptoms about 4 days ago but no symptoms today of left-sided chest pain. No swelling in his legs no fevers chills. He is not on any blood pressure medication. Vitals on arrival remarkable for tachycardic to the 150s. Patient had EKG that did show sinus tachycardia to the 130s. He is significantly elevated blood pressure of 180s on arrival. He has pulses intact normal cardiac and lung sounds otherwise. Initial troponin and EKG showed no acute findings other than sinus tachycardia no ST changes. Patient has no significant change from previous EKG here in the past. Vitals monitored here in the ED patient had an episode of tachycardia to 205 here in the ED. Patient was reporting severe chest pain at this time radiating to his back. Dr. Enriquez came in and evaluated patient at the time he is awake speaking has good femoral pulses on exam. CTA of chest obtained here in the ED to evaluate symptoms. CBC here is unremarkable CMP unremarkable as well lipase is within normal limits. CTA shows no signs of PE mild active left phthisis but no signs of dissection. Patient was given metoprolol IV morphine small dose of Ativan for concerns for possible withdrawal symptoms and pantoprazole for symptoms here in the ED. Morphine seem to help his symptoms and nitro paste was applied as well. He had no improvement with Nitropaste only with morphine which she received 2 doses of here in the ED. His blood pressure down trended here in the ED but he remains persistently tachycardic. He is saturating well on room air he notes occasional intermittent chest pain but 2 troponins after arrival continue to show no changes in EKG continues to show sinus rhythm. I did discuss with on-call electronic warfare operator Dr. Guzman at [facility] and he notes given patient is stable at this time he should be admitted for blood pressure control troponin trending and cardiac echo to ensure no signs of ischemia. Patient is a parable with admission. He will stay here overnight and was admitted to the hospitalist Dr[facility] with this plan. Discharge Plan Discharge Patient Disposition: [facility] DC/Xfer
[2024-02-26] MEDS: SODIUM CHLORIDE 0.9% 1,000 ML IV STA (15:08)
[2024-02-26] MEDS: INSULIN REGULAR, HUMAN 300 UNIT/3 ML PEN IVP STA (15:52)
--- NOTE | 2024-02-26 16:09 | XRAY Report ---
PROCEDURE: XR Chest 1V INDICATIONS: Chest pain TECHNIQUE: One view of the chest was acquired. COMPARISON: 08/31/2021. FINDINGS: Surgical changes and devices: None. Lungs and pleura: No pleural effusions or pneumothorax. No consolidation. Mediastinum: Mediastinal contours appear normal. Heart size is normal. Bones and chest wall: No suspicious bony lesions. Overlying soft tissues appear unremarkable. IMPRESSION: No acute cardiopulmonary process. Reviewed by: eKlby Staton MD on 02/26/2024 4:07 PM PST Approved by: Kelby Staton MD on 02/26/2024 4:07 PM PST Station ID: [id number]
[2024-02-26] MEDS: NITROGLYCERIN 2% PASTE TOP STA (16:12)
[2024-02-26] MEDS: MORPHINE 10 MG/ML VIAL IVP STA ×2 (16:12→20:05)
[2024-02-26] MEDS: METOPROLOL 5 MG/5 ML VIAL IVP STA ×2 (16:13→16:20)
[2024-02-26] MEDS: LORazepam 2 MG/ML VIAL IVP STA (16:13)
[2024-02-26] MEDS ORDERED: iohexoL-300 100 ML VIAL ONE (16:53)
[2024-02-26 17:33] LABS: BILIRUBIN,URINE NEGATIVE (NEGATIVE); GLUCOSE, URINE (UA) >=1000 mg/dL (NEGATIVE); KETONES,URINE (UA) NEGATIVE (NEGATIVE); LEUKOCYTE ESTERASE, URINE NEGATIVE (NEGATIVE); NITRITE,URINE NEGATIVE (NEGATIVE); OCCULT BLOOD,URINE NEGATIVE (NEGATIVE); PROTEIN,URINE NEGATIVE (NEGATIVE); UROBILINOGEN,URINE 0.2 (NORMAL) E.U./dL (NORMAL)
[2024-02-26] MEDS: iohexoL-300 100 ML VIAL IVP ONE (17:34)
[2024-02-26 17:37] LABS: CLARITY,URINE CLEAR (CLEAR)
--- NOTE | 2024-02-26 17:50 | CT Report ---
PROCEDURE: CT Angio Chest INDICATIONS: severe chest pain radiating to his back CONTRAST: 80ml omni 300 TECHNIQUE: After the administration of intravenous contrast, 2 mm axial images were acquired from the pulmonary apices to the posterior costophrenic angles during the arterial phase. In addition, 1 mm lung kernel and 5 mm soft tissue kernel reconstructions were performed. 3-dimensional coronal oblique maximum int ensity projection (MIP) reformats, 8 mm axial MIP, and 5 mm coronal and sagittal MPR reformats were t hen performed through the thorax. For radiation dose reduction, the following was used: automated exp osure control, adjustment of mA and/or kV according to patient size. COMPARISON: CT pulmonary angiogram 06/25/2022. FINDINGS: Image quality: Excellent. Large vessels: No filling defects within the opacified pulmonary arteries, accounting for motion and contrast timing. No evidence of acute aortic syndrome or aortic aneurysm. Lungs and pleura: No consolidation. Dependent atelectasis. No pleural effusions. No pneumothorax. No suspicious pulmonary nodules which require follow up. Mediastinum: Heart size is normal. No pericardial effusion. No large vessel abnormality. No aortic di ssection. No mediastinal adenopathy by size criteria. Chest wall and lower neck: Thyroid is unremarkable. No axillary or supraclavicular adenopathy by size . Bones: No aggressive osseous abnormality. Mild to moderate degenerative changes. Upper Abdomen: Unremarkable. IMPRESSION: 1. No pulmonary embolism. No aortic dissection. 2. Mild atelectasis. No pleural effusion. Reviewed by: Freedom Hines MD on 02/26/2024 5:48 PM [facility] Approved by: Freedom Hines MD on 02/26/2024 5:48 PM PST Station ID: [id number]
[2024-02-26] MEDS: PANTOPRAZOLE 40 MG VIAL IVP STA (19:13)
[2024-02-26] MEDS: MORPHINE 2 MG/ML CARPUJECT IVP STA (20:08)
[2024-02-26] MEDS: MAG HYDROX/AL HYDROX/SIMETH 30 ML UDC PO STA (22:26)
--- NOTE | 2024-02-26 22:27 | HISTORY & PHYSICAL EXAMINATION ---
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 Patient seen by me feels well at this time chest pain is improved and no new complaints is pleasant, allergic to Narpoxen Review of Systems Status of ROS: 10 or more systems reviewed and unremarkable except as noted in history and below [facility] Medical History Medical History (Updated 02/26/24 @ 22:04 by Grant Haynes MD) Chest pain Social History Social History Smoking Status: Never smoker If you are a former smoker, when did you quit? (Date/Year): 2007 Number of Years Smoked: 10 How many cigarettes a day do you smoke? (20 cigarettes=1 Pk): 40 Do you dip or chew tobacco?: No Do you vape?: No Living arrangement: At home Living Condition: With spouse/s.o. Relationship: Do you feel safe in your home environment?: Yes Suffered physical, verbal, emotional, or financial abuse?: No History of Abuse: No Frequency: Weekly Are you sexually active?: No POLST Patient has POLST: No POLST Status: Full Code Meds/Allgy Home Medications Ambulatory Orders Medication Instructions Recorded Confirmed gabapentin 300 mg capsule 1,200 mg PO TID 02/15/20 06/07/22 insulin glargine 100 unit/mL (3 50 unit subcut DAILY 08/23/21 12/13/21 mL) subcutaneous pen (Basaglar KwikPen U-100 Insulin) insulin aspart U-100 100 unit/mL 1 - 10 units SQ TIDWM 08/31/21 06/07/22 (3 mL) subcutaneous pen (Novolog FlexPen U-100 Insulin aspart) carbamazepine 200 mg tablet 200 mg PO BID #60 tabs 01/03/22 06/07/22 atorvastatin 80 mg tablet (Lipitor) 80 mg PO DAILY #30 tabs 06/07/22 amoxicillin 500 mg capsule 2 tab PO TID #30 caps 06/25/22 erythromycin 5 mg/gram (0.5 %) eye 1 applic ophthalmic (eye) BID #3.5 02/07/23 ointment grams hydrocodone 5 mg-acetaminophen 325 1 tab PO QDAY PRN pain #30 tabs 02/01/24 mg tablet Allergies Allergies Allergy/AdvReac Type Severity Reaction Status Date / Time bee pollen Allergy Dizziness Verified 02/26/24 14:17 naproxen (From Naprosyn) Allergy Rash Verified 02/26/24 14:17 Prior Level of Functionality: Independent with ADL Exam Constitutional normal general appearance and distress noted HENMT normocephalic and hearing grossly normal bilaterally Eyes PERRL, conjunctivae normal and no scleral icterus Neck/C-Spine visual inspection normal and trachea midline Lymph no lymphedema noted Respiratory normal respiratory effort and no use of accessory muscles Cardiovascular regular rhythm noted tachycardic Gastrointestinal abdomen normal to inspection Genitourinary no CVA tenderness and external appearance normal Extremities normal to inspection, no tenderness and full ROM Neurology melangeur operator II-XII intact, no focal motor deficit noted and no sensory deficits noted Psychiatry mental status grossly normal and oriented x3 Skin skin color normal and no lesions Sepsis Event Note (H) Evaluation Current Stage of Sepsis: Ruled out Conclusion/Plan Problem List (1) Right-sided chest pain: (2) Chest pain: Qualifiers: Chest pain type: unspecified Qualified Code(s): R07.9 - Chest pain, unspecified Plan 53 yr male with hx of multiple risk factors for CAd being admitted for 1, CHest pain 2.HTN 3. DM2 4. neuropathy 5.Dyslipidemia 6. Tachycardia 7.SOB and fatigue with exertion 8.Hyponatremia Plan Admit to telemetry Gentle hydration REpeat Na in am Confirm and resume home meds in am Trend enzymes ASA given in eR Antacid echo in am ETOHcessation advised continue home meds Full code DVT prophyalxis Lab Results Lab results reviewed: Yes 02/26/24 14:28 02/26/24 14:28 Diagnostic Imaging Results Diagnostic Imaging Results: positive Prelim report reviewed Core Measures Anticipated LOS I expect patient to be DC'd or transferred within 96 hours.: Yes DVT/VTE - Prophylaxis VTE/DVT Device ordered at admit?: Yes Not Ordered - Low Risk: Very low risk VTE/DVT Prophylaxis med ordered at admit?: Yes
--- NOTE | 2024-02-26 22:28 | HISTORY & PHYSICAL EXAMINATION ---
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 Patient seen by me feels well at this time chest pain is improved and no new complaints is pleasant, allergic to Narpoxen Review of Systems Status of ROS: 10 or more systems reviewed and unremarkable except as noted in history and below [facility] Medical History Medical History (Updated 02/26/24 @ 22:04 by Grant Haynes MD) Chest pain Social History Social History Smoking Status: Never smoker If you are a former smoker, when did you quit? (Date/Year): 2007 Number of Years Smoked: 10 How many cigarettes a day do you smoke? (20 cigarettes=1 Pk): 40 Do you dip or chew tobacco?: No Do you vape?: No Living arrangement: At home Living Condition: With spouse/s.o. Relationship: Do you feel safe in your home environment?: Yes Suffered physical, verbal, emotional, or financial abuse?: No History of Abuse: No Frequency: Weekly Are you sexually active?: No POLST Patient has POLST: No POLST Status: Full Code Meds/Allgy Home Medications Ambulatory Orders Medication Instructions Recorded Confirmed gabapentin 300 mg capsule 1,200 mg PO TID 02/15/20 06/07/22 insulin glargine 100 unit/mL (3 50 unit subcut DAILY 08/23/21 12/13/21 mL) subcutaneous pen (Basaglar KwikPen U-100 Insulin) insulin aspart U-100 100 unit/mL 1 - 10 units SQ TIDWM 08/31/21 06/07/22 (3 mL) subcutaneous pen (Novolog FlexPen U-100 Insulin aspart) carbamazepine 200 mg tablet 200 mg PO BID #60 tabs 01/03/22 06/07/22 atorvastatin 80 mg tablet (Lipitor) 80 mg PO DAILY #30 tabs 06/07/22 amoxicillin 500 mg capsule 2 tab PO TID #30 caps 06/25/22 erythromycin 5 mg/gram (0.5 %) eye 1 applic ophthalmic (eye) BID #3.5 02/07/23 ointment grams hydrocodone 5 mg-acetaminophen 325 1 tab PO QDAY PRN pain #30 tabs 02/01/24 mg tablet Allergies Allergies Allergy/AdvReac Type Severity Reaction Status Date / Time bee pollen Allergy Dizziness Verified 02/26/24 14:17 naproxen (From Naprosyn) Allergy Rash Verified 02/26/24 14:17 Exam Constitutional normal general appearance and distress noted HENOR normocephalic and hearing grossly normal bilaterally Eyes PERRL, conjunctivae normal and no scleral icterus Neck/C-Spine visual inspection normal and trachea midline Lymph no lymphedema noted Respiratory normal respiratory effort and no use of accessory muscles Cardiovascular regular rhythm noted tachycardic Gastrointestinal abdomen normal to inspection Genitourinary no CVA tenderness and external appearance normal Extremities normal to inspection, no tenderness and full ROM Neurology automatic cigar wrapper tender II-XII intact, no focal motor deficit noted and no sensory deficits noted Psychiatry mental status grossly normal and oriented x3 Skin skin color normal and no lesions Sepsis Event Note (H) Evaluation Current Stage of Sepsis: Ruled out Conclusion/Plan Problem List (1) Right-sided chest pain: (2) Chest pain: Qualifiers: Chest pain type: unspecified Qualified Code(s): R07.9 - Chest pain, unspecified Plan 53 yr male with hx of multiple risk factors for CAd being admitted for 1, CHest pain 2.HTN 3. DM2 4. neuropathy 5.Dyslipidemia 6. Tachycardia 7.SOB and fatigue with exertion 8.Hyponatremia Plan Admit to telemetry Gentle hydration REpeat Na in am Confirm and resume home meds in am Trend enzymes ASA given in eR Antacid echo in am ETOHcessation advised continue home meds Full code DVT prophyalxis Lab Results Lab results reviewed: Yes 02/26/24 14:28 02/26/24 14:28
--- NOTE | 2024-02-26 22:32 | PROVIDER PROGRESS NOTE ---
Hospitalist Cross-cover Note Cross-Cover Note Cross-Cover Note: Patient was informed that I am located in [place] and his identity was verified, he was informed about telemedicine encounter and he verbally agreed for me to start the encounter with him.
[2024-02-26] MEDS ORDERED: MORPHINE 2 MG/ML CARPUJECT IVP PRN (22:42)
[2024-02-26] MEDS ORDERED: LORazepam 1 MG TABLET PO PRN (22:42)
[2024-02-26] MEDS ORDERED: ONDANSETRON 4 MG/2 ML VIAL IVP PRN (22:42)
[2024-02-26] MEDS ORDERED: ACETAMINOPHEN 325 MG TABLET PO PRN (22:42)
[2024-02-26 23:09] LABS: INR 1.2 (0.8-1.2); PT - PROTHROMBIN TIME 12.8 secs (9.9-12.6)
[2024-02-26 23:18] LABS: BASOPHILS # (AUTO) 0.1 10^3/uL (0.0-0.1); BASOPHILS % (AUTO) 0.9 %; EOSINOPHILS # (AUTO) 0.1 10^3/uL (0.0-0.7); EOSINOPHILS % (AUTO) 1.2 %; HCT - HEMATOCRIT 38.3 % (42.0-52.0); HGB - HEMOGLOBIN 13.4 g/dL (14.0-18.0); LYMPHOCYTES # (AUTO) 1.9 10^3/uL (1.5-3.5); MEAN CORPUSCULAR HEMOGLOBIN 31.3 pg (27.0-31.0); MEAN CORPUSCULAR VOLUME 89.5 fL (80.0-94.0); MEAN PLATELET VOLUME 10.5 fL (7.4-11.4); MONOCYTES # (AUTO) 0.5 10^3/uL (0.0-1.0); MONOCYTES % (AUTO) 7.9 %; NEUTROPHILS # (AUTO) 3.2 10^3/uL (1.5-6.6); NEUTROPHILS % (AUTO) 55.6 %; PLT - PLATELET COUNT 126 10^3/uL (130-450); RED BLOOD COUNT 4.28 10^6/uL (4.70-6.10); RED CELL DISTRIBUTION WIDTH 12.1 % (12.0-15.0); WHITE BLOOD COUNT 5.7 x10^3/uL (4.8-10.8)
[2024-02-26] MEDS: HYDROcod/ACETAM 5/325 MG TABLET PO PRN (23:34)
[2024-02-26] MEDS: SODIUM CHLORIDE 0.9% 1,000 ML IV SCH (23:35)
[2024-02-26] MEDS: SODIUM CHLORIDE FLUSH 0.9% 10 ML SYRINGE IVP PRN (23:39)
[2024-02-26] MEDS: carBAMazepine 200 MG TABLET PO SCH (23:42)
[2024-02-26] MEDS: METOPROLOL TARTRATE 25 MG TABLET PO SCH (23:42)
[2024-02-27 02:33] LABS: MAGNESIUM 1.8 mg/dL (1.7-2.3); POTASSIUM 3.8 mmol/L (3.5-4.5)
[2024-02-27 05:53] LABS: ALBUMIN 3.6 g/dL (3.2-5.5); ALBUMIN/GLOBULIN RATIO 1.5 (1.0-2.2); BILIRUBIN,DIRECT 0.26 mg/dL (0.03-0.18); BILIRUBIN,TOTAL 1.2 mg/dL (0.2-1.0); CALCIUM 8.2 mg/dL (8.5-10.3); CREATININE 0.5 mg/dL (0.6-1.3); MAGNESIUM 1.9 mg/dL (1.7-2.3); POTASSIUM 3.8 mmol/L (3.5-4.5)
[2024-02-27 08:37] VITALS: BP 160/94; TEMP 97.9; O2SAT 99
[2024-02-27] MEDS: PRENATAL VITAMIN TABLET PO SCH (08:41)
[2024-02-27] MEDS: THIAMINE 100 MG TABLET PO SCH (08:41)
[2024-02-27] MEDS: ATORVASTATIN 40 MG TABLET PO SCH (08:42)
[2024-02-27] MEDS: INSULIN GLARGINE-YFGN 300 UNIT/3 ML PEN SUBQ SCH (08:43)
--- NOTE | 2024-02-27 09:02 | PROVIDER PROGRESS NOTE ---
Subjective Subjective Subjective: Patient is a 53-year-old male with a history of alcohol use, insulin dependent diabetes mellitus who presents with abnormal blood pressure reading and heart rate reading at home. He states he was using a wrist blood pressure cuff at home, and he noticed that his heart rate was in the 170s. He also states his systolic and diastolic blood pressure were elevated, although he does not know what they were exactly. When he got here, he was complaining of some pain on the left side of his chest. He described as feelings of gas, which she states he is often. At this time, he has no chest pain, no chest pressure, no feelings of palpitations. He has no history of cardiac problems. He states he takes no medications at home, and it has been about 3 years since he has last taken anything. He is a diabetic, and was prescribed insulin in the outpatient setting. His last A1c in 07/2023 was 12.5. He has never been prescribed an antihypertensive. He is also supposed to be on a statin. Current Medications Current Medications Current Medications: Current Medications Generic Name Dose Route Start Last Admin Trade Name Freq PRN Reason Stop Dose Admin Acetaminophen 650 mg 02/26/24 22:42 Acetaminophen 325 Mg Tablet PO Q4HR PRN Pain 1 to 4, or Fever Hydrocodone Bitart/Acetaminophen 1 tab 02/26/24 22:42 02/27/24 04:06 Hydrocod/Acetam 5/325 Mg Tablet PO 1 tab Q4HR PRN Administration Pain 5 to 7 Atorvastatin Calcium 80 mg 02/27/24 09:00 Atorvastatin 40 Mg Tablet PO DAILY JENNIFER Carbamazepine 200 mg 02/26/24 22:42 02/26/24 23:42 Carbamazepine 200 Mg Tablet PO 200 mg BID JENNIFER Administration Sodium Chloride 1,000 mls @ 100 mls/hr 02/26/24 23:00 02/26/24 23:35 Normal Saline 0.9% IV 100 mls/hr .Q10H JENNIFER Administration Insulin Glargine-yfgn 50 unit 02/27/24 09:00 Insulin Glargine-Yfgn 300 Unit/3 Ml Pen SUBQ DAILY JENNIFER Lorazepam 2 mg 02/26/24 22:42 Lorazepam 1 Mg Tablet PO Q1H PRN CIWA > 8 Protocol Metoprolol Tartrate 25 mg 02/26/24 23:00 02/26/24 23:42 Metoprolol Tartrate 25 Mg Tablet PO 25 mg BID JENNIFER Administration Morphine Sulfate 2 mg 02/26/24 22:42 Morphine 2 Mg/Ml Carpuject IVP Q2HR PRN Pain 8 to 10 Ondansetron HCl 4 mg 02/26/24 22:42 Ondansetron 4 Mg/2 Ml Vial IVP Q6HR PRN Nausea / Vomiting Multivit/Folic Acid/Iron 1 tab 02/27/24 09:00 Vitamin Tablet PO DAILY JENNIFER Sodium Chloride 10 ml 02/26/24 22:42 02/26/24 23:39 Sodium Chloride Flush 0.9% 10 Ml Syringe IVP 10 ml PRN PRN Administration NEEDED PER PROVIDER ORDERS Thiamine HCl 100 mg 02/27/24 09:00 Thiamine 100 Mg Tablet PO DAILY [facility] Objective Vital Signs/Intake & Output Reviewed Vital Signs: Yes Vital Signs: Vital Signs x48h Temp Pulse Pulse Resp BP Pulse Ox 02/27/24 05:00 98.4 F 78 18 125/87 98 02/27/24 01:10 98.2 F 78 18 150/91 H 96 02/27/24 01:00 92 H Intake & Output: Intake & Output 02/24/24 02/25/24 02/26/24 02/27/24 23:59 23:59 23:59 23:59 Intake Total 1000 / 1000 500 / 500 Balance 1000 / 1000 500 / 500 Weight (kg) 67.5 kg Objective General Appearance: positive No acute distress and Alert; negative Anxious or Lethargic Eyes Bilateral: positive Normal inspection, PERRL and EOMI ENT: positive ENT inspection nml, Pharynx nml and No signs of dehydration Neck: positive Nml inspection, Thyroid nml and No JVD Respiratory: positive Chest non-tender, No respiratory distress and Breath sounds nml Cardiovascular: positive Regular rate & rhythm, No murmur and No gallop; negative Systolic murmur or Diastolic murmur Abdomen: positive Non-tender, No organomegaly, Nml bowel sounds and No distention; negative Hepatomegaly or Splenomegaly Back: positive Nml inspection; negative CVA tenderness (R) or CVA tenderness (L) Skin: positive Color nml, No rash, Warm and Dry Extremities: positive Non-tender, Full ROM and No pedal edema Neurologic/Psychiatric: positive Oriented x3, CN's nml (2-12), Motor nml and Mood/affect nml Lab Results 02/26/24 23:08 02/27/24 05:20 Other Labs: Lab Results x24hrs 02/27/24 02/27/24 02/27/24 Range/Units 07:33 06:56 05:30 WBC (4.8-10.8) x10^3/uL RBC (4.70-6.10) 10^6/uL Hgb (14.0-18.0) g/dL Hct (42.0-52.0) % MCV (80.0-94.0) fL MCH (27.0-31.0) pg MCHC (32.0-36.0) g/dL RDW (12.0-15.0) % Plt Count (130-450) 10^3/uL MPV (7.4-11.4) fL Neut # (Auto) (1.5-6.6) 10^3/uL Lymph # (Auto) (1.5-3.5) 10^3/uL Cochran # (Auto) (0.0-1.0) 10^3/uL Eos # (Auto) (0.0-0.7) 10^3/uL Baso # (Auto) (0.0-0.1) 10^3/uL Absolute Nucleated RBC x10^3/uL Nucleated RBC % /100WBC PT (9.9-12.6) secs INR (0.8-1.2) Sodium (135-145) mmol/L Potassium (3.5-4.5) mmol/L Chloride (101-111) mmol/L Carbon Dioxide (21-32) mmol/L Anion Gap (6-13) BUN (6-20) mg/dL Creatinine (0.6-1.3) mg/dL Estimated GFR (MDRD) (>89) Glucose (74-104) mg/dL POC Whole Bld Glucose 184 (70-100) mg/dL Calcium (8.5-10.3) mg/dL Magnesium (1.7-2.3) mg/dL Total Bilirubin (0.2-1.0) mg/dL Direct Bilirubin (0.03-0.18) mg/dL AST (10-42) IU/L ALT (10-60) IU/L Alkaline Phosphatase (42-121) IU/L Troponin I High Sens 2.7 3.0 (2.3-19.7) ng/L B-Natriuretic Peptide (5-100) pg/mL Total Protein (6.4-8.9) g/dL Albumin (3.2-5.5) g/dL Globulin (2.1-4.2) g/dL Albumin/Globulin Ratio (1.0-2.2) Lipase (11-82) U/L Urine Color Urine Clarity (CLEAR) Urine pH (5.0-7.5) PH Ur Specific [place] (1.002-1.030) Urine Protein (NEGATIVE) mg/dL Urine Glucose (UA) (NEGATIVE) mg/dL Urine Ketones (NEGATIVE) mg/dL Urine Occult Blood (NEGATIVE) Urine Nitrite (NEGATIVE) Urine Bilirubin (NEGATIVE) Urine Urobilinogen (NORMAL) E.U./dL Ur Leukocyte Esterase (NEGATIVE) Ur Microscopic Review Urine Culture Comments 02/27/24 02/27/24 02/26/24 Range/Units 05:20 02:15 23:08 WBC 5.7 (4.8-10.8) x10^3/uL RBC 4.28 L (4.70-6.10) 10^6/uL Hgb 13.4 L (14.0-18.0) g/dL Hct 38.3 L (42.0-52.0) % MCV 89.5 (80.0-94.0) fL MCH 31.3 H (27.0-31.0) pg MCHC 35.0 (32.0-36.0) g/dL RDW 12.1 (12.0-15.0) % Plt Count 126 L (130-450) 10^3/uL MPV 10.5 (7.4-11.4) fL Neut # (Auto) 3.2 (1.5-6.6) 10^3/uL Lymph # (Auto) 1.9 (1.5-3.5) 10^3/uL Cochran # (Auto) 0.5 (0.0-1.0) 10^3/uL Eos # (Auto) 0.1 (0.0-0.7) 10^3/uL Baso # (Auto) 0.1 (0.0-0.1) 10^3/uL Absolute Nucleated RBC 0.00 x10^3/uL Nucleated RBC % 0.0 /100WBC PT (9.9-12.6) secs INR (0.8-1.2) Sodium 132 L (135-145) mmol/L Potassium 3.8 3.8 (3.5-4.5) mmol/L Chloride 103 (101-111) mmol/L Carbon Dioxide 22 (21-32) mmol/L Anion Gap 7.0 (6-13) BUN 7 (6-20) mg/dL Creatinine 0.5 L (0.6-1.3) mg/dL Estimated GFR (MDRD) 173 (>89) Glucose 211 H (74-104) mg/dL POC Whole Bld Glucose (70-100) mg/dL Calcium 8.2 L (8.5-10.3) mg/dL Magnesium 1.9 1.8 (1.7-2.3) mg/dL Total Bilirubin 1.2 H (0.2-1.0) mg/dL Direct Bilirubin 0.26 H (0.03-0.18) mg/dL AST 71 H (10-42) IU/L ALT 65 H (10-60) IU/L Alkaline Phosphatase 234 H (42-121) IU/L Troponin I High Sens (2.3-19.7) ng/L B-Natriuretic Peptide (5-100) pg/mL Total Protein 6.0 L (6.4-8.9) g/dL Albumin 3.6 (3.2-5.5) g/dL Globulin 2.4 (2.1-4.2) g/dL Albumin/Globulin Ratio 1.5 (1.0-2.2) Lipase (11-82) U/L Urine Color Urine Clarity (CLEAR) Urine pH (5.0-7.5) PH Ur Specific [place] (1.002-1.030) Urine Protein (NEGATIVE) mg/dL Urine Glucose (UA) (NEGATIVE) mg/dL Urine Ketones (NEGATIVE) mg/dL Urine Occult Blood (NEGATIVE) Urine Nitrite (NEGATIVE) Urine Bilirubin (NEGATIVE) Urine Urobilinogen (NORMAL) E.U./dL Ur Leukocyte Esterase (NEGATIVE) Ur Microscopic Review Urine Culture Comments 02/26/24 02/26/24 02/26/24 Range/Units 22:57 18:59 17:28 WBC (4.8-10.8) x10^3/uL RBC (4.70-6.10) 10^6/uL Hgb (14.0-18.0) g/dL Hct (42.0-52.0) % MCV (80.0-94.0) fL MCH (27.0-31.0) pg MCHC (32.0-36.0) g/dL RDW (12.0-15.0) % Plt Count (130-450) 10^3/uL MPV (7.4-11.4) fL Neut # (Auto) (1.5-6.6) 10^3/uL Lymph # (Auto) (1.5-3.5) 10^3/uL Cochran # (Auto) (0.0-1.0) 10^3/uL Eos # (Auto) (0.0-0.7) 10^3/uL Baso # (Auto) (0.0-0.1) 10^3/uL Absolute Nucleated RBC x10^3/uL Nucleated RBC % /100WBC PT 12.8 H (9.9-12.6) secs INR 1.2 (0.8-1.2) Sodium (135-145) mmol/L Potassium (3.5-4.5) mmol/L Chloride (101-111) mmol/L Carbon Dioxide (21-32) mmol/L Anion Gap (6-13) BUN (6-20) mg/dL Creatinine (0.6-1.3) mg/dL Estimated GFR (MDRD) (>89) Glucose (74-104) mg/dL POC Whole Bld Glucose (70-100) mg/dL Calcium (8.5-10.3) mg/dL Magnesium (1.7-2.3) mg/dL Total Bilirubin (0.2-1.0) mg/dL Direct Bilirubin (0.03-0.18) mg/dL AST (10-42) IU/L ALT (10-60) IU/L Alkaline Phosphatase (42-121) IU/L Troponin I High Sens 4.3 (2.3-19.7) ng/L B-Natriuretic Peptide (5-100) pg/mL Total Protein (6.4-8.9) g/dL Albumin (3.2-5.5) g/dL Globulin (2.1-4.2) g/dL Albumin/Globulin Ratio (1.0-2.2) Lipase (11-82) U/L Urine Color YELLOW Urine Clarity CLEAR (CLEAR) Urine pH 7.0 (5.0-7.5) PH Ur Specific [place] 1.010 (1.002-1.030) Urine Protein NEGATIVE (NEGATIVE) mg/dL Urine Glucose (UA) >=1000 H (NEGATIVE) mg/dL Urine Ketones NEGATIVE (NEGATIVE) mg/dL Urine Occult Blood NEGATIVE (NEGATIVE) Urine Nitrite NEGATIVE (NEGATIVE) Urine Bilirubin NEGATIVE (NEGATIVE) Urine Urobilinogen 0.2 (NORMAL) (NORMAL) E.U./dL Ur Leukocyte Esterase NEGATIVE (NEGATIVE) Ur Microscopic Review NOT INDICATED Urine Culture Comments NOT INDICATED 02/26/24 Range/Units 14:28 WBC 5.7 (4.8-10.8) x10^3/uL RBC 4.90 (4.70-6.10) 10^6/uL Hgb 15.0 (14.0-18.0) g/dL Hct 42.4 (42.0-52.0) % MCV 86.5 (80.0-94.0) fL MCH 30.6 (27.0-31.0) pg MCHC 35.4 (32.0-36.0) g/dL RDW 11.8 L (12.0-15.0) % Plt Count 149 (130-450) 10^3/uL MPV 10.1 (7.4-11.4) fL Neut # (Auto) 3.9 (1.5-6.6) 10^3/uL Lymph # (Auto) 1.4 L (1.5-3.5) 10^3/uL Cochran # (Auto) 0.3 (0.0-1.0) 10^3/uL Eos # (Auto) 0.0 (0.0-0.7) 10^3/uL Baso # (Auto) 0.1 (0.0-0.1) 10^3/uL Absolute Nucleated RBC 0.00 x10^3/uL Nucleated RBC % 0.0 /100WBC PT (9.9-12.6) secs INR (0.8-1.2) Sodium 129 L (135-145) mmol/L Potassium 3.6 (3.5-4.5) mmol/L Chloride 94 L (101-111) mmol/L Carbon Dioxide 23 (21-32) mmol/L Anion Gap 12.0 (6-13) BUN 6 (6-20) mg/dL Creatinine 0.7 (0.6-1.3) mg/dL Estimated GFR (MDRD) 117 (>89) Glucose 321 H (74-104) mg/dL POC Whole Bld Glucose (70-100) mg/dL Calcium 8.9 (8.5-10.3) mg/dL Magnesium 1.8 (1.7-2.3) mg/dL Total Bilirubin 1.3 H (0.2-1.0) mg/dL Direct Bilirubin (0.03-0.18) mg/dL AST 108 H (10-42) IU/L ALT 87 H (10-60) IU/L Alkaline Phosphatase 255 H (42-121) IU/L Troponin I High Sens 4.0 (2.3-19.7) ng/L B-Natriuretic Peptide 20 (5-100) pg/mL Total Protein 7.4 (6.4-8.9) g/dL Albumin 4.2 (3.2-5.5) g/dL Globulin 3.2 (2.1-4.2) g/dL Albumin/Globulin Ratio 1.3 (1.0-2.2) Lipase 41 (11-82) U/L Urine Color Urine Clarity (CLEAR) Urine pH (5.0-7.5) PH Ur Specific [place] (1.002-1.030) Urine Protein (NEGATIVE) mg/dL Urine Glucose (UA) (NEGATIVE) mg/dL Urine Ketones (NEGATIVE) mg/dL Urine Occult Blood (NEGATIVE) Urine Nitrite (NEGATIVE) Urine Bilirubin (NEGATIVE) Urine Urobilinogen (NORMAL) E.U./dL Ur Leukocyte Esterase (NEGATIVE) Ur Microscopic Review Urine Culture Comments Diagnostic Imaging Diagnostic Imaging Results: positive Final report reviewed Sepsis Event Note (H) Evaluation Current Stage of Sepsis: Ruled out Assessment/Plan Problem List (1) Chest pain: Impression: On admission, patient did have some left-sided chest pain. He described it as a gas-like pain. At this time, he has no chest pain, no pressure, no palpitations. Troponins have been negative. EKG with no acute ischemic changes. He does have multiple PVCs noted. Echo ordered, pending completion. Qualifiers: Chest pain type: unspecified Qualified Code(s): R07.9 - Chest pain, unspecified (2) Uncontrolled type 2 diabetes mellitus: Impression: Per old records, patient was on 50 units of insulin glargine. Was given this this morning, and will continue with low-dose sliding scale. Will likely discharge on just long-acting, and have him follow-up with the primary care physician. Qualifiers: Glycemic state: with hyperglycemia Qualified Code(s): E11.65 - Type 2 diabetes mellitus with hyperglycemia (3) Elevated blood pressure reading without diagnosis of hypertension: Impression: Patient has not been on an antihypertensive. Metoprolol was started initially by overnight doctor. Will switch to ARB (patient is a diabetic). Will start losartan 50 mg. Patient has blood pressure cuff at home, advised to check daily and follow up with PCP (may take 2-3 days to see full effect). (4) Thrombocytopenia concurrent with and due to alcoholism: Impression: Thrombocytopenia noted, no active bleeding. Likely due to direct pulmonary suppression due to chronic alcohol use. (5) Alcohol use disorder: Impression: Patient used to drink about 4-5 beers per day. He states now he only does this on weekends. His last drink was on Monday. He drinks 4 beers then. He does not recall any active alcohol withdrawals in the past. Currently he is scoring 0 on CIWA. Continue multivitamin, thiamine, folic acid supplementation.
--- NOTE | 2024-02-27 10:17 | PHARMACY PROGRESS NOTE ---
Best Possible Medication History Admit Date and Time: 02/26/242205 Home Medications Medication Instructions Recorded Confirmed Type gabapentin 600 mg tablet 1,200 mg PO TID 02/27/24 02/27/24 History hydrocodone 5 mg-acetaminophen 325 1 tab PO DAILY PRN pain 02/27/24 02/27/24 History mg tablet Processed by: Pharmacy (Medication reconciliation completed by pharmacy clerkPopeye. Insulin removed as has not been filled since April of this year) Medications reviewed in ED?: No Medication History completed: Yes Patient Interview: Completed Secondary Source(s): Insurance records [employer] Statement: As the person ultimately responsible for medication therapy, providers are able to order a medication from an existing home medication list in [facility] via the "Reconcile Routine" prior to Confirmation of that medication by business support. Such practice is discouraged except when the physician, in their clinical judgment, deems that a medical need exists for a medication without regard to previous use.
[2024-02-27] MEDS: LOSARTAN 50 MG TABLET PO SCH (10:23)
[2024-02-27] MEDS: FAMOTIDINE 20 MG TABLET PO SCH (10:23)
--- NOTE | 2024-02-27 10:58 | Discharge Summary ---
"Discharge Summary Admit Date: 02/27/24 Discharge Date: 02/28/24 Discharging Provider: Dr. Melani Humphreys Primary Care Provider: Dr. Raymundo Code Status: Attempt Resuscitation Discharge Facility Name: Full DIAGNOSES Admission Diagnoses: Chest pain Hypertension Type 2 diabetes mellitus Neuropathy Dyslipidemia Tachycardia Shortness of breath and fatigue with exertion Hyponatremia Discharge Diagnoses with Status of Each Condition: Atypical chest painresolved. Patient attributes it to gas. No pressure, no palpitations noted. Troponins have been negative x 4. EKG with no acute ischemic changes. Echo does not show new wall motion abnormalities. Patient vies to follow-up with a alterations sewer in the outpatient setting, will likely need a stress test if this chest pain persist. Uncontrolled type 2 diabetes mellitusPer old records, patient was on 15 as of insulin glargine. He recently saw his primary care doctor, Dr. Raymundo, and was started on a different insulin regimen. He has this insulin at home with instructions. His girlfriend is a healthcare graduate research assistant, and will be helping him with this. Elevated blood pressure without diagnosis of hypertensionpatient has not been on any antihypertensives. Started on losartan 50 mg daily. He does have a blood pressure cuff at home. Advised to check his blood pressure daily, and bring in with him to his next PCPs appointment in March. Thrombocytopenia with an due to alcoholismcontinue to trend, no active bleeding noted. Hyponatremiaresolving. Received IV fluids overnight. Continue to encourage p.o. intake. Alcohol use disordernot in any active withdrawal. Advised abstain from alcohol use. HPI History of Present Illness: Per Dr. 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 Patient seen by me feels well at this time chest pain is improved and no new complaints is pleasant, allergic to Narpoxen CONSULTS | PROCEDURES Consultations: SW Procedures: ECHO, CXR, CTA HOSPITAL COURSE Hospital Course: Patient is a 53-year-old male with a history of insulin-dependent diabetes mellitus, undiagnosed hypertension, alcohol use who presented because his blood pressure cuff reading at home was high. He states that his heart rate was in the 170s. When he got here, he did complain of some left-sided chest pain. He described it as gas-like pain, and it resolved on its own. He does state that he occasionally has this pain at home. He does not have any chest pressure, and his pain did not worsen with activity. He states that he has had a stress test in the past, which she was told was normal. He is unsure when exactly this occurred; records were reviewed, this was done in 03/[address] Gino patiño at this time. Repeat echo was performed, and it did not show any wall motion abnormalities. His ejection fraction was preserved. He was advised to follow-up with a alterations sewer in the outpatient setting and discuss an elective cardiac catheterization with these repeated episodes of chest pain. He demonstrated understanding. For his hypertension, we will start him on losartan 50 mg daily. He does follow-up with a primary care physician, and has an appointment with him in March. Advised to follow-up with him sooner if possible. Advised to keep blood pressure log. Advised to start insulin regimen as outlined by his primary care physician. Overall, patient had no more chest pain. His blood pressure was mildly improved. He will be sent home and advised to follow-up closely with his primary care physician, and establish care with a alterations sewer. ALLERGIES Allergies Allergy/AdvReac Type Severity Reaction Status Date / Time bee pollen Allergy Dizziness Verified 02/26/24 14:17 naproxen (From Naprosyn) Allergy Rash Verified 02/26/24 14:17 MEDICATIONS Ambulatory Orders Medication Instructions Recorded Confirmed famotidine 20 mg tablet 20 mg PO DAILY 30 days #30 tabs 02/27/24 losartan 50 mg tablet 50 mg PO DAILY #30 tabs 02/27/24 vit,calcium 27-ferrous 1 tab PO DAILY #30 tabs 02/27/24 fum 60 mg iron-folic acid 1 mg tablet (Trinatal Rx 1) thiamine mononitrate (vit B1) 100 100 mg PO DAILY #30 tabs 02/27/24 mg tablet PHYSICAL EXAM AT DISCHARGE General Appearance: positive No acute distress and Alert; negative Anxious Eyes Bilateral: positive Normal inspection, PERRL and EOMI ENT: positive ENT inspection nml, Pharynx nml and No signs of dehydration Neck: positive Nml inspection, Thyroid nml and No JVD Respiratory: positive Chest non-tender, No respiratory distress and Breath sounds nml; negative Wheezes, Rales or Rhonchi Cardiovascular: positive Regular rate & rhythm, No murmur and No gallop; negative Systolic murmur, Diastolic murmur or Gallop/S3 Peripheral Pulses: positive 2+ Abdomen: positive Non-tender, No organomegaly, Nml bowel sounds and No distention; negative Guarding, Hepatomegaly or Splenomegaly Back: positive Nml inspection; negative CVA tenderness (R) or CVA tenderness (L) Skin: positive Color nml, No rash, Warm and Dry Extremities: positive Non-tender, Full ROM and No pedal edema Neurologic/Psychiatric: positive Oriented x3, CN's nml (2-12), Motor nml and Mood/affect nml LABS 02/26/24 23:08 02/27/24 05:20 DIAGNOSTIC IMAGING Diagnostic Imaging Results: Final report reviewed SEPSIS Current Stage of Sepsis: Ruled out QUALITY (Female Hip Fx Only) Was patient sent home on osteoporosis medication?: No FOLLOW UP Follow Up: Follow up with PCP, follow up with cardiology. TIME SPENT Time Spent in Discharge (Minutes): 35 Discharge Plan Discharge Patient Disposition: Home, Self Care Condition: Good Prescriptions: New losartan 50 mg Tablet 50 mg PO DAILY Qty: 30 0RF famotidine 20 mg Tablet 20 mg PO DAILY 30 Days Qty: 30 0RF Trinatal Rx 1 60 mg iron-1 mg Tablet 1 tab PO DAILY Qty: 30 0RF thiamine mononitrate (vit B1) 100 mg Tablet 100 mg PO DAILY Qty: 30 0RF Discontinued gabapentin 600 mg tablet 1,200 mg PO TID hydrocodone-acetaminophen 5-325 mg tablet 1 tab PO DAILY PRN (Reason: pain) Diet: Diabetic Health Concerns: You came in because your heart rate and your blood pressure were high on a blood pressure cuff. You also had some chest pain when you first got here. We did an ultrasound of your heart which showed no abnormalities. We also trended your heart enzymes as well as completed multiple EKGs, which did not show any changes. Your chest pain resolved as well. While you were here, we also started you on a blood pressure medication called losartan. I want you to continue your insulin as your primary care physician has prescribed, as well as your cholesterol pill, atorvastatin 80 mg daily. I understand that you have both at home. Please follow-up with a primary care physician in the next month or so. Please also follow-up with a alterations sewer. They may want to repeat your stress test, which was last done in 2019. Care Plan Goals: 1. Take your new blood pressure pill, losartan 50 mg daily. Continue your cholesterol pill, atorvastatin 80 mg nightly. Continue your long-acting insulin as prescribed by her primary care physician. 2. Follow-up with a alterations sewer. 3. Continue to work on completely cutting out alcohol. Plan of Treatment: Continue losartan. Continue atorvastatin. Continue long-acting insulin. Follow-up with cardiology. Follow-up with primary care physician. Print Language: Upper Sorbian Patient Instructions: DASH Plan Eat Heart Healthy Food Stand Alone Forms: PCP List Follow-up Care: Francisco J Raymundo MD [Primary Care Provider] -"
[2024-02-27] MEDS ORDERED: INSULIN LISPRO 300 UNIT/3 ML PEN SUBQ SCH (12:00)
== END 2024-02-27 11:40 | disposition home or self-care (01) ==
LOC: MS2 14:03 → ED 14:03 → MS2 22:47
PROVIDERS: ADMIT Internal Medicine; ATTEND Internal Medicine